=== PATIENT | male | born 1965 | race Caucasian/White ===

== ENCOUNTER 2021-01-31 15:00 | Inpatient (IN) ==
[2021-01-31] MEDS ORDERED: dexAMETHasone**PF** 10 MG/ML VIAL IV ONE (15:07)
[2021-01-31] MEDS ORDERED: SODIUM CHLORIDE 0.9% 1000ML 1,000 ML IV ONE (15:07)
--- NOTE | 2021-01-31 15:12 | Emergency Department Note ---
Impression & Plan Pneumonia due to 2019 novel coronavirus, Hypoxia ED Provider Note NAME: CARLOS ABRAMS JR AGE: 55 SEX: M : 1965 ARRIVES VIA: Ambulance INFORMANT: Patient ED PROVIDER(S): Amari Beth DO CHIEF COMPLAINT: shortness of breath HPI: Patient is a 55-year-old male that presents the ER for shortness of breath. Symptoms started this past Sunday. He admits to cough and congestion. He does have shortness of breath. He admits to loss of taste and smell. Both his parents are positive for Covid. Shortness of breath has been getting worse. Denies any belly pain, nausea, vomiting, or diarrhea. No dysuria, urgency, or frequency. No other exacerbating or remitting factors. He has not vaccinated. ROS: See above HPI for pertinent positives & negatives. A total of 10 systems reviewed and were otherwise negative. PAST MEDICAL HISTORY:See Below PAST SURGICAL HISTORY:See Below FAMILY HISTORY:See Below SOCIAL HISTORY:See Below HOME MEDICATIONS:See Below ALLERGIES:See Below VITALS:See Below PHYSICAL EXAMINATION: GENERAL: Sitting up in bed, alert, disheveled, slightly ill-appearing on nasal cannula EYE EXAM: normal conjunctiva. PERRL and EOM's grossly intact. OROPHARYNX: Dry mucous membranes NECK: supple, no nuchal rigidity, no adenopathy, non-tender LUNGS: Clear to auscultation. Normal chest wall mechanics HEART: no murmurs, S1 normal and S2 normal ABDOMEN: abdomen soft, non-tender, normo-active bowel sounds, no masses, no rebound or guarding. UPPER EXTREMITIES: upper extremities are grossly normal. LOWER EXTREMITIES: No pitting edema. NEURO EXAM: Normal sensorium, cranial nerves II-XII grossly intact, normal speech, no gross weakness of arms, no gross weakness of legs. MEDICAL DECISION MAKING: Patient is a 55-year-old male who presents ER for shortness of breath. IV was established blood was obtained. Patient was found to be hypoxic and placed on 3 L. He was 87 to 86% on room air. Labs show no significant leukocytosis or anemia. BMP with LFTs bilirubin was unremarkable. Troponin was negative. Lipase is unremarkable. Patient was Covid positive. Chest x-ray was read as normal per radiology but per my review showed multifocal pneumonia. CT is consistent with this. Patient was given Decadron and fluids. He was updated bedside discussed with the hospitalist admitted for further work-up of his Covid pneumonia and hypoxia. Triage Nursing notes reviewed. Limited review of prior medical records performed Vital Signs: reviewed and remarkable for hypoxic Differential diagnosis: Differential diagnoses includes but is not limited to pneumonia, bronchitis, COPD/Asthma exacerbation, pneumothorax, pulmonary embolism, congestive heart failure, acute coronary syndrome ER treatment provided: See below Diagnostics interpreted by me: ECG: Sinus rhythm rate of 93 Normal axis No PVCs Poor baseline QTC 440 Cardiac Monitoring: An order was placed for continuous cardiac monitoring. The monitor shows a rate of 90 with sinus rhythm. Laboratory studies: As stated above and show below. Imaging studies: Portable AP upright 1 view the chest shows multifocal pneumonia CT angio of the chest shows bilateral infiltrates without PEs Consultation(s): D/w with the hospitalist for further evaluation Procedures: none Critical Care: I have personally spent 33 minutes of critical care time in the direct manageme nt of this patient. This includes bedside care, interpretation of diagnostic studies, and testing, discussion with consultants, patient, and family members, and other required patient management activities. This 33 minutes is in excess of all separately billable procedures. Allergies Allergies Allergy/AdvReac Type Severity Reaction Status Date / Time Penicillins AdvReac Hives Unverified 01/31/21 15:33 Home Meds Home Medications Medication Instructions Recorded Confirmed ascorbic acid (vitamin C) 1,000 mg 1 g PO DAILY 01/31/21 01/31/21 tablet (Vitamin C) atorvastatin 20 mg tablet 20 mg PO DAILY 01/31/21 01/31/21 baclofen 10 mg tablet 10 mg PO DAILY PRN 01/31/21 01/31/21 citalopram 20 mg tablet 20 mg PO DAILY 01/31/21 01/31/21 metoprolol tartrate 25 mg tablet 75 mg PO BID 01/31/21 01/31/21 pantoprazole 40 mg tablet,delayed 40 mg PO DAILY 01/31/21 01/31/21 release zinc 50 mg tablet 0 mg PO DAILY 01/31/21 01/31/21 Results & Data (ED) Vital Signs Vital Signs - 24 hr 01/31/21 15:19 01/31/21 15:21 01/31/21 15:30 Temperature 37.1 C Temperature Source Oral Pulse Rate 91 H 90 90 Pulse Rate from SpO2 Sensor 91 H 90 Respiratory Rate 42 H 42 H 49 H Respiratory Depth Normal Blood Pressure 130/82 140/88 Blood Pressure Mean 98 105 Pulse Oximetry 96 96 95 Oxygen Delivery Method Nasal Cannula Oxygen Flow Rate 3 Sepsis Recent Fever Within 48 Hours Yes Sepsis New/Unexplained Change in Mental Status No Sepsis Action Taken by Nursing No Action Required 01/31/21 16:00 Temperature Temperature Source Pulse Rate 91 H Pulse Rate from SpO2 Sensor 91 H Respiratory Rate 45 H Respiratory Depth Blood Pressure 131/79 Blood Pressure Mean 96 Pulse Oximetry 95 Oxygen Delivery Method Oxygen Flow Rate Sepsis Recent Fever Within 48 Hours Sepsis New/Unexplained Change in Mental Status Sepsis Action Taken by Nursing Laboratory Data Result diagrams: 01/31/21 15:17 01/31/21 15:17 Lab Results 01/31/21 01/31/21 01/31/21 Range/Units 15:17 15:17 15:49 WBC 5.11 (4.8-10.8) K/uL RBC 5.95 (4.7-6.1) M/uL Hgb 15.9 (14.0-18.0) g/dL Hct 47.6 (42-52) % MCV 80.0 (80-100) fL MCH 26.7 (25-34) pg MCHC 33.4 (32-36) g/dL RDW Std Deviation 45.1 (36.4-46.3) fL RDW Coeff of Eleazar 15.5 H (11.5-14.5) % Plt Count 139 (130-400) K/uL MPV 9.4 (7.4-10.4) fL Immature Gran % (Auto) 0.2 % Neut % (Auto) 66.9 % Lymph % (Auto) 23.7 % Keith % (Auto) 8.8 % Eos % (Auto) 0.0 % Baso % (Auto) 0.4 % Neut # (Auto) 3.42 (1.4-6.5) K/uL Lymph # (Auto) 1.21 (1.2-3.4) K/uL Keith # (Auto) 0.45 (0.11-0.59) K/uL Eos # (Auto) 0.00 (0-0.5) K/uL Baso # (Auto) 0.02 (0-0.2) K/uL Immature Gran # (Auto) 0.01 (0.00-0.02) K/uL Sodium 134 L (136-145) mmol/L Potassium 3.7 (3.5-5.1) mmol/L Chloride 101 (98-107) mmol/L Carbon Dioxide 24 (21-32) mmol/L Anion Gap 9.0 (3-11) BUN 16 (7-18) mg/dl Creatinine 1.16 (0.6-1.4) mg/dl Est Cr Clr Drug Dosing Not Reportable Est GFR ( Amer) 81.1 ml/min Est GFR (Non-Af Amer) 70.0 ml/min BUN/Creatinine Ratio 13.6 (10-20) Glucose 123 H (70-99) mg/dl Calcium 8.7 (8.5-10.1) mg/dl Total Bilirubin 0.9 (0.2-1) mg/dl AST 58 H (15-37) U/L ALT 54 (12-78) Alkaline Phosphatase 43 L (45-117) U/L Troponin I < 0.015 (0-0.045) ng/ml Total Protein 7.6 (6.4-8.2) gm/dl Albumin 3.5 (3.4-5.0) gm/dl Globulin 4.1 H (2.5-4.0) gm/dl Albumin/Globulin Ratio 0.9 (0.9-2) Lipase 438 H (73-393) U/L SARS-CoV-2 (PCR) POSITIVE A* (Negative) Influenza Type A (PCR) Negative (Neg) Influenza Type B (PCR) Negative (Neg) RSV (RT-PCR) Negative (Neg) Administered Medications Discontinued Medications Dexamethasone Sodium Phosphate (DexamethasonePf 10 Mg/Ml Vial) 6 mg IV NOW ONE Stop: 01/31/21 15:08 Last Admin: 01/31/21 15:41 Dose: 6 mg Documented by: [id number] Sodium Chloride (Nss 1000ml) 1,000 mls @ 999 mls/hr IV .Q1H1M ONE Stop: 01/31/21 16:07 Last Admin: 01/31/21 15:21 Dose: 999 mls/hr Documented by: [id number] Ioversol (Optiray 320 125ml) 120 ml IV ONCE ONE Stop: 01/31/21 16:38 Last Admin: 12/13/21 16:38 Dose: 120 ml Documented by: [id number] Imaging Data Radiologist's Impression: Chest X-Ray 01/31/21 15:08 XR chest 1V portable CLINICAL HISTORY: Atypical chest pain TECHNIQUE: Single frontal radiograph of the chest was obtained. Comparison: None available at the time of this dictation. FINDINGS: No lines and tubes are seen. The cardiomediastinal silhouette is normal. Lungs are underinflated but clear. No evidence of pleural effusion or pneumothorax. IMPRESSION: No acute chest disease. ACT 112: Negative or not required by law. Electronically signed by: Carlos Lorenzo M.D. 01/31/2021 4:17 PM Chest CTA 01/31/21 16:20 CT angio chest PE protocol CLINICAL HISTORY: ? covid hypoxia TECHNIQUE: Multidetector row helical CT of the chest was performed. Coronal and sagittal reformations were obtained. Automated dose lowering techniques and/or adjustment according to patient size were utilized for this exam. Comparison: None available at the time of this dictation. FINDINGS: Lungs and pleura: Multifocal groundglass opacities are seen. Heart and pericardium: Heart size is normal. No pericardial effusion. Vessels: No evidence of pulmonary embolism. Mediastinum and karma: Enlarged mediastinal and hilar lymph nodes are seen measuring up to 1 cm in short axis. Chest wall and lower neck: Unremarkable. Abdomen: Unremarkable. Bones: Degenerative changes in the thoracic spine. IMPRESSION: Multifocal groundglass opacities are compatible with history of Covid pneumonia. No evidence of pulmonary embolism. ACT 112: Negative or not required by law. Electronically signed by: Carlos Lorenzo M.D. 01/31/2021 4:55 PM Discharge Plan Visit Data Chief Complaint: Illness ED Provider: Amari Beth Discharge Problem: Pneumonia due to 2019 novel coronavirus, Hypoxia Forms Stand Alone Forms: My [facility] Prescriptions Prescriptions: No Action ascorbic acid (vitamin C) [Vitamin C] 1,000 mg Tablet 1 g PO DAILY RF: 0 atorvastatin 20 mg tablet 20 mg PO DAILY RF: 0 citalopram 20 mg tablet 20 mg PO DAILY RF: 0 baclofen 10 mg tablet 10 mg PO DAILY PRN (Reason: Muscle Spasm) RF: 0 pantoprazole 40 mg tablet,delayed release (DR/EC) 40 mg PO DAILY RF: 0 zinc 50 mg Tablet 0 mg PO DAILY RF: 0 metoprolol tartrate 25 mg tablet 75 mg PO BID RF: 0 Referrals Referrals: Hiren Maradiaga [Non-Staff] -
[2021-01-31 15:47] LABS: Basophils # (auto) 0.02 K/uL (0-0.2); Basophils % (auto) 0.4 %; Hematocrit (blood only) 47.6 % (42-52); Hemoglobin 15.9 g/dL (14.0-18.0); Immature Granulocytes # (auto) 0.01 K/uL (0.00-0.02); Immature Granulocytes % (auto) 0.2 %; Lymphocytes # (auto) 1.21 K/uL (1.2-3.4); Lymphocytes % (auto) 23.7 %; Mean Corpuscular Hemoglobin 26.7 pg (25-34); Mean Corpuscular Hgb Conc 33.4 g/dL (32-36); Mean Platelet Volume 9.4 fL (7.4-10.4); Monocytes # (auto) 0.45 K/uL (0.11-0.59); Monocytes % (auto) 8.8 %; Neutrophils # (auto) 3.42 K/uL (1.4-6.5); Neutrophils % (auto) 66.9 %; Platelet Count 139 K/uL (130-400); RDW Coefficient of Variation 15.5 % (11.5-14.5); RDW Standard Deviation 45.1 fL (36.4-46.3); Red Blood Count 5.95 M/uL (4.7-6.1); White Blood Count 5.11 K/uL (4.8-10.8)
[2021-01-31 16:11] LABS: Alanine Aminotransferase 54 (12-78); Albumin Level 3.5 gm/dl (3.4-5.0); Aspartate Aminotransferase 58 U/L (15-37); BUN Creatinine Ratio 13.6 (10-20); Blood Urea Nitrogen 16 mg/dl (7-18); Calcium 8.7 mg/dl (8.5-10.1); Carbon Dioxide 24 mmol/L (21-32); Chloride 101 mmol/L (98-107); Est GFR (African American) 81.1 ml/min; Glucose 123 mg/dl (70-99); Lipase 438 U/L (73-393); Potassium 3.7 mmol/L (3.5-5.1); Sodium 134 mmol/L (136-145)
[2021-01-31 16:16] LABS: Albumin Globulin Ratio 0.9 (0.9-2); Alkaline Phosphatase 43 U/L (45-117); Bilirubin,Total 0.9 mg/dl (0.2-1); Globulin 4.1 gm/dl (2.5-4.0); Total Protein 7.6 gm/dl (6.4-8.2); Troponin I < 0.015 ng/ml (0-0.045)
--- NOTE | 2021-01-31 16:18 | XRay Report ---
XR chest 1V portable CLINICAL HISTORY: Atypical chest pain TECHNIQUE: Single frontal radiograph of the chest was obtained. Comparison: None available at the time of this dictation. FINDINGS: No lines and tubes are seen. The cardiomediastinal silhouette is normal. Lungs are underinflated but clear. No evidence of pleural effusion or pneumothorax. IMPRESSION: No acute chest disease. ACT 112: Negative or not required by law. Electronically signed by: Carlos Lorenzo M.D. 01/31/2021 4:17 PM
[2021-01-31] MEDS ORDERED: OPTIRAY 320 125ml IV ONE (16:37)
[2021-01-31 16:51] LABS: Influenza A virus by PCR Negative (Neg); Influenza B virus by PCR Negative (Neg); RSV by PCR Negative (Neg)
--- NOTE | 2021-01-31 16:57 | CT Scan Report ---
CT angio chest PE protocol CLINICAL HISTORY: ? covid hypoxia TECHNIQUE: Multidetector row helical CT of the chest was performed. Coronal and sagittal reformations were obtained. Automated dose lowering techniques and/or adjustment according to patient size were u tilized for this exam. Comparison: None available at the time of this dictation. FINDINGS: Lungs and pleura: Multifocal groundglass opacities are seen. Heart and pericardium: Heart size is normal. No pericardial effusion. Vessels: No evidence of pulmonary embolism. Mediastinum and karma: Enlarged mediastinal and hilar lymph nodes are seen measuring up to 1 cm in emanuel rt axis. Chest wall and lower neck: Unremarkable. Abdomen: Unremarkable. Bones: Degenerative changes in the thoracic spine. IMPRESSION: Multifocal groundglass opacities are compatible with history of Covid pneumonia. No evidence of pulmo nary embolism. ACT 112: Negative or not required by law. Electronically signed by: Carlos Lorenzo M.D. 01/31/2021 4:55 PM
[2021-01-31 16:58] LABS: SARS CoV2 RNA(COVID-19) InHosp POSITIVE (Negative)
[2021-01-31] MEDS ORDERED: ACETAMINOPHEN 325 MG TAB PO PRN (18:20)
[2021-01-31] MEDS ORDERED: BACLOFEN 10 MG TAB PO PRN (18:26)
[2021-01-31] MEDS ORDERED: ENOXAPARIN 0.5 MG/KG SQ SCH (18:30)
[2021-01-31] MEDS ORDERED: REMDESIVIR 200 MG in SODIUM CHLORIDE 0.9% 210 ML IV STA (18:31)
--- NOTE | 2021-01-31 19:14 | History & Physical Report ---
Date of Service January 31, 2021 Assessment & Plan (1) Pneumonia due to 2019 novel coronavirus: Plan: Patient admited with hypoxia. COVID positive for [address] on dexamethasone. Questionable to limited benefit for remdesevir. Will initiate for now. place on DVT prophylaxis and monitor. (2) Hypertension: Plan: resume home meds (3) Dyslipidemia: Plan: cont. statin History of Present Illness Chief Complaint: SOB Primary Care Provider: Omar Damon 55yo male reports having symptoms for 10 days. Initally it began with generalized weakness, fatigue, loss of taste and smell. But this advanced to SOB over the past 2-3 days. Patient was not improving which prompted him to come to the hospital. Patient reports that he got sick from his parents whom were positive for COVID 19. Past Medical History: Hypertension, Dyslipidemia No significant Past Surgical History Allergies Allergy/AdvReac Type Severity Reaction Status Date / Time Penicillins AdvReac Hives Unverified 01/31/21 15:33 Home Medications Medication Instructions Recorded Confirmed Type ascorbic acid (vitamin C) 1,000 mg 1 g PO DAILY 01/31/21 01/31/21 History tablet (Vitamin C) atorvastatin 20 mg tablet 20 mg PO DAILY 01/31/21 01/31/21 History baclofen 10 mg tablet 10 mg PO DAILY PRN 01/31/21 01/31/21 History citalopram 20 mg tablet 20 mg PO DAILY 01/31/21 01/31/21 History metoprolol tartrate 25 mg tablet 75 mg PO BID 01/31/21 01/31/21 History pantoprazole 40 mg tablet,delayed 40 mg PO DAILY 01/31/21 01/31/21 History release zinc 50 mg tablet 0 mg PO DAILY 01/31/21 01/31/21 History Review of Systems Constitutional: no fever and no sweats Eyes: no blind spots Ear, Nose, Mouth, Throat: no ear pain Respiratory: + cough and + dyspnea Cardiovascular: no chest pain Gastrointestinal: no abdominal pain and no bloating Genitourinary: no dysuria Musculoskeletal: no back pain Integumentary: no acne Neurologic: no gait abnormality Psychiatric: no behavioral changes Endocrine: + fatigue Hematologic / Lymphatic: no easy bleeding Physical Exam Constitutional: WD/WN, vitals as above Eyes: PERRL, conjunctivae normal, anicteric sclerae ENMT: external ear and nose normal, oropharynx normal Neck: trachea midline, no thyromegaly Respiratory: normal respiratory effort Auscultation: + crackles Cardiovascular: RRR, no murmur, no edema Gastrointestinal (Abdomen): normal bowel sounds, soft, nontender, no hepatosplenomegaly Musculoskeletal: no cyanosis or clubbing, extremities motor strength 5/5 Skin: no rashes, warm and dry Neurologic: PERRL, EOMI, accommodation nl, no face palsy, no dysarthria Psychiatric: A+Ox3, euthymic affect Lymphatic: no cervical or axillary lymphadenopathy Results & Data Results & Data ([facility]) Vital Signs (Past 12 Hours) Vital Signs Temp Pulse Resp BP Pulse Ox 01/31/21 16:00 91 H 45 H 131/79 95 01/31/21 15:30 90 49 H 140/88 95 01/31/21 15:21 37.1 C 90 42 H 130/82 96 01/31/21 15:19 91 H 42 H 96 PG Care Time/CCT Total # of Minutes Spent Total Time Spent with Patient: Total time spent is greater than 50% in coordination of care (as documented) at patient's floor/unit and/or counseling patient: Coding Level of Care Code 02900 Initial Inpt Care Lvl 3 Diagnoses Pneumonia due to 2019 novel coronavirus U07.1; J12.82 Hypertension I10 Dyslipidemia E78.5
[2021-01-31] MEDS: SODIUM CHLORIDE 0.9% 10ML FLUSH IV SCH (21:56)
[2021-02-01] MEDS: METOPROLOL TARTRATE 25 MG TAB PO SCH ×3 (01:36→21:52)
[2021-02-01] MEDS: ENOXAPARIN 80 MG/0.8 ML SYR SQ SCH ×3 (01:36→21:52)
[2021-02-01 06:15] LABS: BUN Creatinine Ratio 18.1 (10-20); Bilirubin Direct 0.2 mg/dl (0-0.2); Calcium 8.6 mg/dl (8.5-10.1); Creatinine Clr Calc Pharmacy 126.9 ml/min; Est GFR (African American) 110.3 ml/min; Est GFR (Non-African American) 95.1 ml/min; Potassium 3.8 mmol/L (3.5-5.1)
[2021-02-01 06:18] LABS: Albumin Globulin Ratio 0.8 (0.9-2); Bilirubin,Total 0.6 mg/dl (0.2-1); C Reactive Protein 5.75 mg/dl (0-0.29); Globulin 3.8 gm/dl (2.5-4.0); Total Protein 6.8 gm/dl (6.4-8.2)
[2021-02-01] MEDS: CITALOPRAM 20 MG TAB PO SCH (09:39)
[2021-02-01] MEDS: PANTOprazole 40 MG TAB PO SCH (09:39)
[2021-02-01] MEDS: ATORVASTATIN 20 MG TAB PO SCH (09:40)
[2021-02-01] MEDS: ASCORBIC ACID 500 MG TAB PO SCH (09:40)
[2021-02-01] MEDS: dexAMETHasone 6 MG in SYRINGE 0 ML IV SCH (09:41)
[2021-02-01] MEDS: ASPIRIN 81 MG ECTAB PO SCH (09:41)
[2021-02-01] MEDS: guaiFENesin 600 MG TABCR PO SCH ×2 (10:18→21:57)
--- NOTE | 2021-02-01 16:38 | Electrocardiogram Report ---
Test Reason : Blood Pressure : / mmHG Vent. Rate : 093 BPM Atrial Rate : 093 BPM P-R Int : 156 ms QRS Dur : 100 ms QT Int : 354 ms P-R-T Axes : 012 -14 017 degrees QTc Int : 440 ms Poor data quality, interpretation may be adversely affected Normal sinus rhythm Normal ECG No previous ECGs available Confirmed by Francis Awan ([id number]) on 02/01/2021 4:38:19 PM Referred By: Omar Damon Confirmed By:Francis Awan
--- NOTE | 2021-02-01 19:48 | Hospitalist Progress Note ---
Date of Service February 01, 2021 Assessment & Plan (1) Pneumonia due to 2019 novel coronavirus: Plan: Patient with mod-severe disease with high risk for progression. Continue wall-mounted HF NC; likely to need vapotherm at some point. Consider BIPAP at HS. Low threshold to check a blood gas if any worsening. Day #2 of dexamethasone. Day #2 of Remdesivir. Recheck crp, procal in am. Discussed proning, flutter valve, incentive spirometry. Lovenox BID for DVT proph. (2) Acute respiratory failure with hypoxia: Plan: 2nd to #1. No evidence of PE on CTA chest yesterday. (3) Hypertension: Plan: Continue metoprolol BID. (4) Dyslipidemia: Plan: LFTs largely acceptable. Continue lipitor. (5) Morbid obesity with BMI of 40.0-44.9, adult: Plan: BMI 40 (6) History of stroke: Plan: Noted. Cont asa 81mg daily for secondary prevention. (7) Acquired left foot drop: Plan: 2nd to prior stroke. (8) Elevated AST (SGOT): Plan: Likely due to COVID infection. Recheck AST and ALT in am. Check a CPK to be complete. (9) DVT prophylaxis: Plan: lovenox BID; reduce dose from 70mg to 40mg BID Plan: pt's father updated by phone this evening Admission and Anticipated Discharge Date Admission Date: January 31, 2021 Subjective patient was awake/alert during the visit he was laying on the ER gurney in his ER room apparently he had taken his O2 off to walk to the bathroom sats dropped to the low 70s with such during my visit he was satting 89-90% on 10 L of NC O2 I increased him to 12 L with sats improving to about 92% he denies any h/o chronic lung disease he reports both his mom/dad have COVID; he lives with his parents he reports LOBO with minimal activity, dry cough, chest tightness no abd pain, vomiting appetite fair no fevers Review of Systems Review of Systems: gen - no fevers/chills, weak, fatigue HENT - no loss of taste/smell CV - no chest pain pulm - dyspnea GI - no abd pain Physical Exam Physical Exam: gen - obese, mild tachypnea; with minimal movement on the bed he has even more tachypnea mouth - MM dry neck - no JVD heart - RRR, s1 s2, no murmurs lungs - bibasilar rales, no wheeze, tachypnea abd - soft NT ND BS+ ext - no edema, pulses 2+ b/l skin - no rash Results & Data Results & Data ([facility]) Vital Signs (Past 12 Hours) Vital Signs Temp Pulse Resp BP Pulse Ox 02/01/21 18:33 78 20 97 02/01/21 17:37 36.5 C 24 158/83 H 90 02/01/21 16:00 20 124/84 92 02/01/21 12:00 80 20 91 02/01/21 09:36 36.4 C L 78 24 114/75 90 Laboratory Results Laboratory Results - last 24 hr 02/01/21 05:27 Sodium 136 Potassium 3.8 Chloride 105 Carbon Dioxide 26 Anion Gap 5.0 BUN 16 Creatinine 0.90 Est Cr Clr Drug Dosing 126.9 Est GFR ( Amer) 110.3 Est GFR (Non-Af Amer) 95.1 BUN/Creatinine Ratio 18.1 Glucose 139 H Calcium 8.6 Total Bilirubin 0.6 Direct Bilirubin 0.2 AST 61 H ALT 59 Alkaline Phosphatase 38 L C-Reactive Protein 5.75 H Total Protein 6.8 Albumin 3.0 L Globulin 3.8 Albumin/Globulin Ratio 0.8 L Lipase 401 H PG Care Time/CCT Total # of Minutes Spent Total Time Spent with Patient: Total time spent is greater than 50% in coordination of care (as documented) at patient's floor/unit and/or counseling patient: Coding Level of Care Code 28473 Subseq Hosp Care Lvl 3 Diagnoses Pneumonia due to 2019 novel coronavirus U07.1; J12.82 Hypertension I10 Dyslipidemia E78.5 Acute respiratory failure with hypoxia J96.01 Morbid obesity with BMI of 40.0-44.9, adult E66.01; Z68.41 History of stroke Z86.73 Acquired left foot drop M21.372 DVT prophylaxis Z29.9 Elevated AST (SGOT) R74.01
[2021-02-01] MEDS: REMDESIVIR 100 MG in SODIUM CHLORIDE 0.9% 230 ML IV SCH (19:52)
[2021-02-01] MEDS: SODIUM CHLORIDE 0.9% 10ML FLUSH IV SCH (21:03)
[2021-02-02 07:26] LABS: Hematocrit (blood only) 45.5 % (42-52); Hemoglobin 14.8 g/dL (14.0-18.0); Mean Corpuscular Hemoglobin 26.3 pg (25-34); Mean Corpuscular Hgb Conc 32.5 g/dL (32-36); Mean Corpuscular Volume 80.8 fL (80-100); Mean Platelet Volume 9.9 fL (7.4-10.4); Platelet Count 175 K/uL (130-400); RDW Coefficient of Variation 15.5 % (11.5-14.5); RDW Standard Deviation 45.8 fL (36.4-46.3); Red Blood Count 5.63 M/uL (4.7-6.1); White Blood Count 8.75 K/uL (4.8-10.8)
[2021-02-02] MEDS: ASCORBIC ACID 500 MG TAB PO SCH (07:36)
[2021-02-02] MEDS: ASPIRIN 81 MG ECTAB PO SCH (07:36)
[2021-02-02] MEDS: ENOXAPARIN INJ 40 MG/0.4 ML SYR SQ SCH ×2 (07:36→21:47)
[2021-02-02] MEDS: dexAMETHasone 6 MG in SYRINGE 0 ML IV SCH (07:36)
[2021-02-02] MEDS: guaiFENesin 600 MG TABCR PO SCH ×2 (07:37→21:47)
[2021-02-02] MEDS: ATORVASTATIN 20 MG TAB PO SCH (07:37)
[2021-02-02] MEDS: CITALOPRAM 20 MG TAB PO SCH (07:37)
[2021-02-02] MEDS: PANTOprazole 40 MG TAB PO SCH (07:38)
[2021-02-02] MEDS: METOPROLOL TARTRATE 25 MG TAB PO SCH ×2 (07:38→22:20)
[2021-02-02 08:01] LABS: BUN Creatinine Ratio 26.7 (10-20); C Reactive Protein 2.4 mg/dl (0-0.29); Calcium 8.6 mg/dl (8.5-10.1); Creatinine Clr Calc Pharmacy 128.5 ml/min; Est GFR (African American) 114.6 ml/min; Est GFR (Non-African American) 98.9 ml/min; Potassium 3.9 mmol/L (3.5-5.1)
[2021-02-02] MEDS: REMDESIVIR 100 MG in SODIUM CHLORIDE 0.9% 230 ML IV SCH (19:45)
--- NOTE | 2021-02-02 20:25 | Hospitalist Progress Note ---
Date of Service February 02, 2021 Assessment & Plan (1) Pneumonia due to 2019 novel coronavirus: Plan: Patient with mod-severe disease with high risk for progression. Continue HFNC during the day; CPAP at HS. Low threshold to check a blood gas if any worsening. Day #3 of dexamethasone. Day #3 of Remdesivir. CRP remains <7.5; thus, not a candidate for Baricitinib. Procal 0 today; defer on abx. Cont proning or at least side positioning, flutter valve, incentive spirometry. Lovenox BID for DVT proph. (2) Acute respiratory failure with hypoxia: Plan: 2nd to #1. No evidence of PE on CTA chest at admission. (3) Hypertension: Plan: Continue metoprolol -- 50mg qam, 25mg HS. (4) Dyslipidemia: Plan: LFTs largely acceptable. Continue lipitor. (5) Morbid obesity with BMI of 40.0-44.9, adult: (6) History of stroke: Plan: Noted. Cont asa 81mg daily for secondary prevention. (7) Acquired left foot drop: Plan: 2nd to prior stroke. (8) Elevated AST (SGOT): Plan: Likely due to COVID infection. Repeat LFTs acceptable CPK neg. (9) DVT prophylaxis: Plan: lovenox 40mg BID Plan: pt's father updated by phone once again this evening Admission and Anticipated Discharge Date Admission Date: January 31, 2021 Subjective patient feeling "ok" did use CPAP overnight back to HFNC during the day with walking he gets winded quickly o2 sats stable if the HF is on; when the prongs come out he quickly desats mild cough appetite improved has lost his taste; smell slightly impaired Review of Systems Review of Systems: gen - fatigue, weak CV - no orthopnea or chest pain pulm - no sputum GI - no N/V/abd pain; having some diarrhea Physical Exam Physical Exam: gen - obese, mild tachypnea but he is comfortable today mouth - MMM neck - no JVD heart - RRR, s1 s2, no murmurs lungs - bibasilar rales unchanged, no wheeze, tachypnea abd - soft NT ND BS+ ext - no edema, pulses 2+ b/l skin - no rash Results & Data Results & Data ([facility]) Vital Signs (Past 12 Hours) Vital Signs Temp Pulse Resp BP Pulse Ox 12/15/21 19:13 36.5 C 79 20 159/77 H 91 02/02/21 14:58 90 17 91 02/02/21 12:00 36.5 C 90 18 116/77 90 02/02/21 11:30 92 H 22 93 Laboratory Results Laboratory Results - last 24 hr 02/02/21 02/02/21 02/02/21 06:24 06:24 06:24 WBC 8.75 RBC 5.63 Hgb 14.8 Hct 45.5 MCV 80.8 MCH 26.3 MCHC 32.5 RDW Std Deviation 45.8 RDW Coeff of Eleazar 15.5 H Plt Count 175 MPV 9.9 Sodium 142 Potassium 3.9 Chloride 108 H Carbon Dioxide 25 Anion Gap 8.0 BUN 22 H Creatinine 0.82 Est Cr Clr Drug Dosing 128.5 Est GFR ( Amer) 114.6 Est GFR (Non-Af Amer) 98.9 BUN/Creatinine Ratio 26.7 H Glucose 132 H Calcium 8.6 AST 63 H ALT 66 Total Creatine Kinase 293 C-Reactive Protein 2.40 H Procalcitonin < 0.05 PG Care Time/CCT Total # of Minutes Spent Total Time Spent with Patient: Total time spent is greater than 50% in coordination of care (as documented) at patient's floor/unit and/or counseling patient: Coding Level of Care Code 96050 Subseq Hosp Care Lvl 2 Diagnoses Pneumonia due to 2019 novel coronavirus U07.1; J12.82 Acute respiratory failure with hypoxia J96.01 Hypertension I10 Dyslipidemia E78.5 Morbid obesity with BMI of 40.0-44.9, adult E66.01; Z68.41 History of stroke Z86.73 Acquired left foot drop M21.372 Elevated AST (SGOT) R74.01 DVT prophylaxis Z29.9
[2021-02-02] MEDS: SODIUM CHLORIDE 0.9% 10ML FLUSH IV SCH (21:43)
[2021-02-02] MEDS ORDERED: diphenhydrAMINE Capsule 25 MG CAP PO ONE (22:08)
[2021-02-03] MEDS: ASPIRIN 81 MG ECTAB PO SCH (07:54)
[2021-02-03] MEDS: PANTOprazole 40 MG TAB PO SCH (07:55)
[2021-02-03] MEDS: CITALOPRAM 20 MG TAB PO SCH (07:55)
[2021-02-03] MEDS: guaiFENesin 600 MG TABCR PO SCH ×2 (07:55→20:20)
[2021-02-03] MEDS: METOPROLOL TARTRATE 50 MG TAB PO SCH (07:56)
[2021-02-03] MEDS: ASCORBIC ACID 500 MG TAB PO SCH (07:56)
[2021-02-03] MEDS: ATORVASTATIN 20 MG TAB PO SCH (07:56)
[2021-02-03] MEDS: dexAMETHasone 6 MG in SYRINGE 0 ML IV SCH (07:56)
[2021-02-03 08:02] LABS: BUN Creatinine Ratio 28.6 (10-20); Calcium 8.6 mg/dl (8.5-10.1); Creatinine Clr Calc Pharmacy 135.8 ml/min; Est GFR (Non-African American) 100.9 ml/min
[2021-02-03] MEDS: ENOXAPARIN INJ 40 MG/0.4 ML SYR SQ SCH ×2 (08:22→20:20)
[2021-02-03] MEDS: REMDESIVIR 100 MG in SODIUM CHLORIDE 0.9% 230 ML IV SCH (20:15)
[2021-02-03] MEDS: METOPROLOL TARTRATE 25 MG TAB PO SCH (20:20)
[2021-02-03] MEDS: SODIUM CHLORIDE 0.9% 10ML FLUSH IV SCH (21:20)
--- NOTE | 2021-02-03 22:58 | Hospitalist Progress Note ---
Date of Service February 03, 2021 Assessment & Plan (1) Pneumonia due to 2019 novel coronavirus: Plan: Patient with mod-severe disease with high risk for progression. Continue HFNC during the day; CPAP at HS. Low threshold to check a blood gas if any worsening. Day #4 of dexamethasone. Day #4 of Remdesivir. CRP remains <7.5; thus, not a candidate for Baricitinib. Procal has been 0; defer on abx. Cont proning or at least side positioning, flutter valve, incentive spirometry. Lovenox BID for DVT proph. Consider diuresis. Repeat cxr with any further worsening. (2) Acute respiratory failure with hypoxia: Plan: 2nd to #1. No evidence of PE on CTA chest at admission. see #1 above. (3) Hypertension: Plan: Continue metoprolol -- 50mg qam, 25mg HS. (4) Dyslipidemia: Plan: LFTs largely acceptable. Continue lipitor. (5) Morbid obesity with BMI of 40.0-44.9, adult: Plan: BMI 40 (6) History of stroke: Plan: Noted. Cont asa 81mg daily for secondary prevention. (7) Acquired left foot drop: Plan: 2nd to prior stroke. (8) Elevated AST (SGOT): Plan: Likely due to COVID infection. Repeat LFTs acceptable CPK neg. (9) DVT prophylaxis: Plan: lovenox 40mg BID Plan: pt's father updated by phone yesterday evening cont supportive care - recovery will be long based on current FIO2 requirements Admission and Anticipated Discharge Date Admission Date: January 31, 2021 Subjective pt was sitting at the side of the bed when I came into his room he was satting 80% on HFNC - 30L, 50% FiO2 his waveform was perfect I increased him to 60% FiO2 without improvement in sats I asked him to lay down on his side - and increased his FiO2 to 70% - sats came up to low 90s he had SEVERE dyspnea with simply moving 3-4 feet in the bed eating well despite the above using the CPAP at night-time no cp or abd pain Review of Systems Review of Systems: gen - no fevers CV - no orthopnea pulm - cough, dyspnea remain - no improvement GI - no abd pain/N/V Physical Exam Physical Exam: gen - obese, tachypnea with retractions when he went from sitting to laying down mouth - MMM neck - no JVD heart - RRR, s1 s2, no murmurs lungs - bibasilar rales unchanged, no wheeze, tachypnea w/ retractions; decreased BS bases abd - soft NT ND BS+ ext - no edema, pulses 2+ b/l skin - no rash neuro - mild dysarthria - this is baseline for him, no worse than previous Results & Data Results & Data ([facility]) Vital Signs (Past 12 Hours) Vital Signs Temp Pulse Pulse Resp BP Pulse Ox 02/03/21 20:07 36.7 C 71 22 121/69 93 02/03/21 19:48 64 24 93 02/03/21 15:57 82 20 89 L 02/03/21 15:43 72 02/03/21 14:52 37 C 73 17 96/57 L 94 02/03/21 11:16 36.7 C 71 18 91/53 L 93 Laboratory Results Laboratory Results - last 24 hr 02/03/21 06:22 Sodium 141 Potassium 4.0 Chloride 109 H Carbon Dioxide 27 Anion Gap 5.0 BUN 22 H Creatinine 0.78 Est Cr Clr Drug Dosing 135.8 Est GFR ( Amer) 117.0 Est GFR (Non-Af Amer) 100.9 BUN/Creatinine Ratio 28.6 H Glucose 130 H Calcium 8.6 AST 58 H ALT 88 H PG Care Time/CCT Total # of Minutes Spent Total Time Spent with Patient: Total time spent is greater than 50% in coordination of care (as documented) at patient's floor/unit and/or counseling patient: Coding Level of Care Code 15148 Subseq Hosp Care Lvl 2 Diagnoses Pneumonia due to 2019 novel coronavirus U07.1; J12.82 Acute respiratory failure with hypoxia J96.01 Hypertension I10 Dyslipidemia E78.5 Morbid obesity with BMI of 40.0-44.9, adult E66.01; Z68.41 History of stroke Z86.73 Acquired left foot drop M21.372 Elevated AST (SGOT) R74.01 DVT prophylaxis Z29.9
[2021-02-03] MEDS ORDERED: diphenhydrAMINE Capsule 25 MG CAP PO ONE (23:12)
[2021-02-04 07:03] LABS: BUN Creatinine Ratio 27.9 (10-20); Calcium 8.4 mg/dl (8.5-10.1); Creatinine Clr Calc Pharmacy 155.2 ml/min; Est GFR (African American) 120.2 ml/min; Est GFR (Non-African American) 103.7 ml/min; Potassium 3.9 mmol/L (3.5-5.1)
[2021-02-04 07:15] LABS: Hematocrit (blood only) 42.6 % (42-52); Hemoglobin 13.8 g/dL (14.0-18.0); Mean Corpuscular Hemoglobin 26.3 pg (25-34); Mean Corpuscular Hgb Conc 32.4 g/dL (32-36); Mean Corpuscular Volume 81.3 fL (80-100); Mean Platelet Volume 9.8 fL (7.4-10.4); Platelet Count 223 K/uL (130-400); RDW Coefficient of Variation 15.4 % (11.5-14.5); RDW Standard Deviation 45.8 fL (36.4-46.3); Red Blood Count 5.24 M/uL (4.7-6.1); White Blood Count 9.39 K/uL (4.8-10.8)
[2021-02-04] MEDS: ASCORBIC ACID 500 MG TAB PO SCH (07:58)
[2021-02-04] MEDS: guaiFENesin 600 MG TABCR PO SCH ×2 (07:58→21:11)
[2021-02-04] MEDS: ASPIRIN 81 MG ECTAB PO SCH (07:58)
[2021-02-04] MEDS: CITALOPRAM 20 MG TAB PO SCH (07:58)
[2021-02-04] MEDS: PANTOprazole 40 MG TAB PO SCH (07:59)
[2021-02-04] MEDS: ENOXAPARIN INJ 40 MG/0.4 ML SYR SQ SCH ×2 (07:59→21:11)
[2021-02-04] MEDS: METOPROLOL TARTRATE 50 MG TAB PO SCH (07:59)
[2021-02-04] MEDS: dexAMETHasone 6 MG in SYRINGE 0 ML IV SCH (08:03)
[2021-02-04] MEDS: ATORVASTATIN 20 MG TAB PO SCH (08:03)
[2021-02-04] MEDS ORDERED: FUROSEMIDE INJ 20 MG/2 ML VIAL IV ONE (08:17)
[2021-02-04] MEDS ORDERED: POTASSIUM CHLORIDE CRTAB 20 MEQ TABCR PO STA (08:17)
[2021-02-04] MEDS ORDERED: MAGNESIUM OXIDE 400 MG TAB PO ONE (08:18)
--- NOTE | 2021-02-04 13:40 | XRay Report ---
XR chest 1V portable CLINICAL HISTORY: covid, worsening hypoxia TECHNIQUE: Single frontal radiograph of the chest was obtained. Comparison: Comparison is made to chest one view 01/31/2021 FINDINGS: No lines and tubes are seen. The cardiomediastinal silhouette is normal. Lungs are underinflated. The re are multifocal bilateral airspace opacities. No evidence of pleural effusion or pneumothorax. IMPRESSION: Worsening multifocal airspace opacities compatible with history of viral pneumonia. ACT 112: Negative or not required by law. Electronically signed by: Carlos Lorenzo M.D. 02/04/2021 1:39 PM
--- NOTE | 2021-02-04 16:10 | Hospitalist Progress Note ---
Date of Service February 04, 2021 Assessment & Plan (1) Hemoptysis: Plan: Small volume at this point, but this needs to be watched very carefully. Will place order to have patient place all sputum in a cup so we can quantitate it. This could be due to bronchial irritation vs parenchymal disease. Doubt PE - no pleuritic pain, and recent CTA neg for such. Prior to his illness never had hemoptysis thus endobronchial lesion unlikely. Pulmonary hemorrhage is unlikely as it is small volume. In light of worsening resp failure and escalating O2 requirements -- will tx from med-tele to PCU. (2) Pneumonia due to 2019 novel coronavirus: Plan: Worse clinically and radiographically (cxr today with worsening infiltrates) with increasing high-flow requirements. Also with #1 above. Continue HFNC during the day; CPAP at HS. Low threshold to check a blood gas if any worsening. Day #5 of dexamethasone. Day #5 of Remdesivir. CRP remains <7.5; thus, not a candidate for Baricitinib. Due to worsening disease, however, will recheck crp and procal in am. Cont proning or at least side positioning, flutter valve, incentive spirometry. Lovenox BID for DVT proph. If hemoptysis worsens will need to hold. Lasix 20mg IV x 1 to keep I/O balance negative. (3) Acute respiratory failure with hypoxia: Plan: 2nd to #1. Worse, with escalating O2 requirements. No evidence of PE on CTA chest at admission. Tx to PCU. (4) Hypertension: Plan: Continue metoprolol -- 50mg qam, 25mg HS. (5) Dyslipidemia: Plan: LFTs largely acceptable. Continue lipitor. (6) Morbid obesity with BMI of 40.0-44.9, adult: Plan: BMI 40 (7) History of stroke: Plan: Noted. Cont asa 81mg daily for secondary prevention (cautiously in light of #1). (8) Acquired left foot drop: Plan: 2nd to prior stroke. (9) Elevated AST (SGOT): Plan: Likely due to COVID infection. Repeat ast/alt mildly high but acceptable. Recent CPK neg. (10) DVT prophylaxis: Plan: lovenox 40mg BID Plan: pt's father updated by phone tonight Admission and Anticipated Discharge Date Admission Date: January 31, 2021 Subjective when I walked into the room the patient was sitting at the side of the bed the respiratory therapist was present O2 needed to be increased because of desats while sitting upright he was coughing, then coughed up about 2 tablespoons of bloody sputum he states he has had this at least 1 other time recently no dyspnea at rest - but has dyspnea on exertion with minimal activity (Just moving in the bed) denies cp denies anorexia no fever had copious UOP with lasix 20mg IV x 1 this am Review of Systems Review of Systems: gen - no fevers, no chills CV - no chest pain, no orthopnea pulm - no wheezing GI - no N/V/D/abd pain Physical Exam Physical Exam: gen - obese, tachypnea similar to yesterday mouth - MMM neck - no JVD heart - RRR, s1 s2, no murmurs lungs - bibasilar rales 1/2 [address] up back, no wheeze, tachypnea abd - soft NT ND BS+ ext - no edema, pulses 2+ b/l neuro - mild dysarthria - this is baseline Results & Data Results & Data ([facility]) Vital Signs (Past 12 Hours) Vital Signs Temp Pulse Pulse Resp BP Pulse Ox 02/04/21 15:33 36.7 C 56 L 18 126/74 95 02/04/21 11:28 69 02/04/21 11:24 86 20 94 02/04/21 11:04 36.7 C 72 18 103/58 L 90 02/04/21 07:45 90 24 91 02/04/21 07:23 36.6 C 69 17 112/68 99 Laboratory Results Laboratory Results - last 24 hr 02/04/21 02/04/21 06:15 06:15 WBC 9.39 RBC 5.24 Hgb 13.8 L Hct 42.6 MCV 81.3 MCH 26.3 MCHC 32.4 RDW Std Deviation 45.8 RDW Coeff of Eleazar 15.4 H Plt Count 223 MPV 9.8 Sodium 137 Potassium 3.9 Chloride 108 H Carbon Dioxide 27 Anion Gap 2.0 L BUN 20 H Creatinine 0.73 Est Cr Clr Drug Dosing 155.2 Est GFR ( Amer) 120.2 Est GFR (Non-Af Amer) 103.7 BUN/Creatinine Ratio 27.9 H Glucose 117 H Calcium 8.4 L AST 79 H ALT 129 H PG Care Time/CCT Total # of Minutes Spent Total Time Spent with Patient: Total time spent is greater than 50% in coordination of care (as documented) at patient's floor/unit and/or counseling patient: Coding Level of Care Code 45678 Subseq Hosp Care Lvl 3 Diagnoses Pneumonia due to 2019 novel coronavirus U07.1; J12.82 Acute respiratory failure with hypoxia J96.01 Hypertension I10 Dyslipidemia E78.5 Morbid obesity with BMI of 40.0-44.9, adult E66.01; Z68.41 History of stroke Z86.73 Acquired left foot drop M21.372 Elevated AST (SGOT) R74.01 DVT prophylaxis Z29.9 Hemoptysis R04.2
[2021-02-04] MEDS: REMDESIVIR 100 MG in SODIUM CHLORIDE 0.9% 230 ML IV SCH (21:10)
[2021-02-04] MEDS: METOPROLOL TARTRATE 25 MG TAB PO SCH (21:11)
[2021-02-04] MEDS: SODIUM CHLORIDE 0.9% 10ML FLUSH IV SCH (22:10)
[2021-02-05 06:03] LABS: Hematocrit (blood only) 45.7 % (42-52); Hemoglobin 14.9 g/dL (14.0-18.0); Mean Corpuscular Hemoglobin 26.5 pg (25-34); Mean Corpuscular Hgb Conc 32.6 g/dL (32-36); Mean Corpuscular Volume 81.2 fL (80-100); Mean Platelet Volume 9.7 fL (7.4-10.4); Platelet Count 247 K/uL (130-400); RDW Coefficient of Variation 15.1 % (11.5-14.5); RDW Standard Deviation 44.7 fL (36.4-46.3); Red Blood Count 5.63 M/uL (4.7-6.1); White Blood Count 10.42 K/uL (4.8-10.8)
[2021-02-05 06:28] LABS: BUN Creatinine Ratio 26.3 (10-20); C Reactive Protein 0.67 mg/dl (0-0.29); Calcium 8.9 mg/dl (8.5-10.1); Creatinine Clr Calc Pharmacy 133.3 ml/min; Est GFR (African American) 112.9 ml/min; Est GFR (Non-African American) 97.4 ml/min; Potassium 4.2 mmol/L (3.5-5.1)
[2021-02-05 08:00] LABS: D Dimer 550 ug/L FEU (0-500)
[2021-02-05] MEDS: ATORVASTATIN 20 MG TAB PO SCH (08:10)
[2021-02-05] MEDS: ASCORBIC ACID 500 MG TAB PO SCH (08:10)
[2021-02-05] MEDS: ENOXAPARIN INJ 40 MG/0.4 ML SYR SQ SCH ×2 (08:11→20:49)
[2021-02-05] MEDS: METOPROLOL TARTRATE 50 MG TAB PO SCH (08:11)
[2021-02-05] MEDS: PANTOprazole 40 MG TAB PO SCH (08:11)
[2021-02-05] MEDS: ASPIRIN 81 MG ECTAB PO SCH (08:11)
[2021-02-05] MEDS: CITALOPRAM 20 MG TAB PO SCH (08:11)
[2021-02-05] MEDS: guaiFENesin 600 MG TABCR PO SCH ×2 (08:11→20:50)
[2021-02-05] MEDS: dexAMETHasone 6 MG in SYRINGE 0 ML IV SCH (08:12)
--- NOTE | 2021-02-05 09:07 | Hospitalist Progress Note ---
Date of Service February 05, 2021 Assessment & Plan (1) Hemoptysis: Plan: Small volume at this point, not increasing, no complaints today likely from bronchial irritation Doubt PE - no pleuritic pain, and recent CTA neg for such. (2) Pneumonia due to 2019 novel coronavirus: Plan: Worse clinically and radiographically (cxr today with worsening infiltrates) with increasing high-flow requirements. Also with #1 above. Continue HFNC during the day; CPAP at HS. Low threshold to check a blood gas if any worsening. Day #6 of dexamethasone. continue Lasix 20mg IV daily, Cr is stable completed Remdesivir. CRP is < 1 not a candidate for Baricitinib. procalcitonin is normal, no suspicion for bacterial pneumonia told him to prone, he is laying on right side, flutter valve, incentive spirometry. Lovenox BID for DVT proph. (3) Acute respiratory failure with hypoxia: Plan: 2nd to #1. Worse, with escalating O2 requirements, up to 40L 70% today No evidence of PE on CTA chest at admission. (4) Hypertension: Plan: Continue metoprolol -- 50mg qam, 25mg HS. BP and HR stable (5) Dyslipidemia: Plan: LFTs largely acceptable. Continue lipitor. (6) Morbid obesity with BMI of 40.0-44.9, adult: Plan: BMI 40 (7) History of stroke: Plan: Noted. Cont asa 81mg daily for secondary prevention (cautiously in light of #1). (8) Acquired left foot drop: Plan: 2nd to prior stroke. (9) Elevated AST (SGOT): Plan: Likely due to COVID infection. Repeat ast/alt mildly high but acceptable. Recent CPK neg. (10) DVT prophylaxis: Plan: lovenox 40mg BID Plan: continue current course Admission and Anticipated Discharge Date Admission Date: January 31, 2021 Subjective reviewed chart and lab work patient laying on his right side, appears comfortable, says he is breathing fine slept well, says he was on HFNC, not BIPAP last night eating okay, making urine with Lasix, no fever/chills no major issues overnight labs this morning, CRP is < 1, procalcitonin normal, d dimer 550, Cr stable encouraged him to be patient Review of Systems Review of Systems: All systems reviewed & are unremarkable except as noted in Subjective Constitutional: no fever, no chills, no fatigue and no weakness Respiratory: + cough, + dyspnea and + dyspnea on exertion; no hemoptysis Cardiovascular: no chest pain and no edema Physical Exam Physical Exam: General: well developed, well nourished, morbidly obese, ill appearing Neck: thick, supple, trachea midline, normal thyroid Lungs: clear to auscultation bilaterally, good air movement, tachypnea, + accessory muscle use (slight), no distress Heart: regular S1 and S2, no murmur, peripheral pulses normal, capillary refill normal, no edema Abdomen: soft, NT, ND, + BS, no hepatomegaly, normal to percussion Extremities: normal in appearance, no cyanosis, no petechiae, strength is 5/5 bilaterally Neuro: awake, cooperative, moves all extremities, no focal motor deficits, CN II-XII intact, sensation in extremities intact, normal speech Skin: warm, dry, no rash, normal turgor Psych: Awake, alert oriented x 3, euthymic affect Results & Data Results & Data ([facility]) Vital Signs (Past 12 Hours) Vital Signs Temp Pulse Pulse Resp BP BP Pulse Ox 02/05/21 07:23 64 24 82 L 02/05/21 07:13 36.9 C 66 28 H 103/59 L 89 L 02/05/21 05:42 64 02/05/21 04:10 36.9 C 67 22 109/76 95 02/05/21 02:31 61 23 93 02/04/21 23:27 36.9 C 63 20 105/55 L 96 02/04/21 23:00 69 24 94 02/04/21 21:45 67 Laboratory Results Laboratory Results - last 24 hr 02/04/21 02/05/21 02/05/21 20:34 05:29 05:29 WBC 10.42 RBC 5.63 Hgb 14.9 Hct 45.7 MCV 81.2 MCH 26.5 MCHC 32.6 RDW Std Deviation 44.7 RDW Coeff of Eleazar 15.1 H Plt Count 247 MPV 9.7 D-Dimer Sodium 138 Potassium 4.2 Chloride 104 Carbon Dioxide 29 Anion Gap 5.0 BUN 22 H Creatinine 0.85 Est Cr Clr Drug Dosing 133.3 Est GFR ( Amer) 112.9 Est GFR (Non-Af Amer) 97.4 BUN/Creatinine Ratio 26.3 H Glucose 114 H POC Glucose 138 H Calcium 8.9 AST 61 H ALT 148 H C-Reactive Protein 0.67 H Procalcitonin 02/05/21 02/05/21 02/05/21 05:29 05:29 07:54 WBC RBC Hgb Hct MCV MCH MCHC RDW Std Deviation RDW Coeff of Eleazar Plt Count MPV D-Dimer 550 H* Sodium Potassium Chloride Carbon Dioxide Anion Gap BUN Creatinine Est Cr Clr Drug Dosing Est GFR ( Amer) Est GFR (Non-Af Amer) BUN/Creatinine Ratio Glucose POC Glucose 99 Calcium AST ALT C-Reactive Protein Procalcitonin < 0.05 Medications Administered Current Inpatient Medications Acetaminophen (Acetaminophen 325 Mg Tab) 650 mg PO Q4H PRN PRN Reason: Pain or Fever Stop: 03/02/21 18:19 Ascorbic Acid (Ascorbic Acid 500 Mg Tab) 1,000 mg PO DAILY [facility] Stop: 03/03/21 08:59 Last Admin: 02/05/21 08:10 Dose: 1,000 mg Documented by: Aspirin (Aspirin 81 Mg Ectab) 81 mg PO QAM [facility] Stop: 03/03/21 08:59 Last Admin: 02/05/21 08:11 Dose: 81 mg Documented by: Atorvastatin Calcium (Atorvastatin 20 Mg Tab) 20 mg PO DAILY [facility] Stop: 03/03/21 08:59 Last Admin: 02/05/21 08:10 Dose: 20 mg Documented by: Citalopram Hydrobromide (Citalopram 20 Mg Tab) 20 mg PO DAILY [facility] Stop: 03/03/21 08:59 Last Admin: 02/05/21 08:11 Dose: 20 mg Documented by: Enoxaparin Sodium (Enoxaparin Inj 40 Mg/0.4 Ml Syr) 40 mg SQ Q12H [facility] Stop: 03/04/21 08:59 Last Admin: 02/05/21 08:11 Dose: 40 mg Documented by: Guaifenesin (Guaifenesin 600 Mg Tabcr) 1,200 mg PO Q12 [facility] Stop: 03/03/21 08:59 Last Admin: 02/05/21 08:11 Dose: 1,200 mg Documented by: Dexamethasone 6 mg/ Syringe 1.5 mls @ 1 mls/min IV DAILY [facility] Stop: 02/11/21 08:59 Last Admin: 02/05/21 08:12 Dose: 1 mls/min Documented by: Metoprolol Tartrate (Metoprolol Tartrate 50 Mg Tab) 50 mg PO QAM [facility] Stop: 03/05/21 08:59 Last Admin: 02/05/21 08:11 Dose: 50 mg Documented by: Metoprolol Tartrate (Metoprolol Tartrate 25 Mg Tab) 25 mg PO HS [facility] Stop: 03/05/21 20:59 Last Admin: 02/04/21 21:11 Dose: 25 mg Documented by: Pantoprazole Sodium (Pantoprazole 40 Mg Tab) 40 mg PO DAILY [facility] Stop: 03/03/21 08:59 Last Admin: 02/05/21 08:11 Dose: 40 mg Documented by: PG Care Time/CCT Total # of Minutes Spent Total Time Spent: 32 Total Time Spent with Patient: Total time spent is greater than 50% in coordination of care (as documented) at patient's floor/unit and/or counseling patient: Coding Level of Care Code 79356 Subseq Hosp Care Lvl 3 Diagnoses Hemoptysis R04.2 Pneumonia due to 2019 novel coronavirus U07.1; J12.82 Acute respiratory failure with hypoxia J96.01 Hypertension I10 Dyslipidemia E78.5 Morbid obesity with BMI of 40.0-44.9, adult E66.01; Z68.41 History of stroke Z86.73 Acquired left foot drop M21.372 Elevated AST (SGOT) R74.01 DVT prophylaxis Z29.9
[2021-02-05] MEDS: METOPROLOL TARTRATE 25 MG TAB PO SCH (20:50)
[2021-02-06] MEDS: dexAMETHasone 6 MG in SYRINGE 0 ML IV SCH (07:44)
[2021-02-06] MEDS: ASPIRIN 81 MG ECTAB PO SCH (07:45)
[2021-02-06] MEDS: ASCORBIC ACID 500 MG TAB PO SCH (07:45)
[2021-02-06] MEDS: ATORVASTATIN 20 MG TAB PO SCH (07:45)
[2021-02-06] MEDS: METOPROLOL TARTRATE 50 MG TAB PO SCH (07:45)
[2021-02-06] MEDS: guaiFENesin 600 MG TABCR PO SCH ×2 (07:45→20:50)
[2021-02-06] MEDS: PANTOprazole 40 MG TAB PO SCH (07:46)
[2021-02-06] MEDS: CITALOPRAM 20 MG TAB PO SCH (07:46)
[2021-02-06] MEDS: ENOXAPARIN INJ 40 MG/0.4 ML SYR SQ SCH ×2 (07:46→20:50)
--- NOTE | 2021-02-06 09:31 | Hospitalist Progress Note ---
Date of Service February 06, 2021 Assessment & Plan (1) Pneumonia due to 2019 novel coronavirus: Plan: Worse clinically and radiographically (cxr today with worsening infiltrates) with increasing high-flow requirements. Also with #1 above. currently on 45L and 75% try to titrate down as tolerated he is compliant with laying on right side and prone position continue CPAP HS, when on CPAP he is pressure of 10, FiO2 50% Day #7 of dexamethasone. continue Lasix 20mg IV daily, Cr is stable completed Remdesivir. CRP is < 1 not a candidate for Baricitinib. procalcitonin is normal, no suspicion for bacterial pneumonia Lovenox BID for DVT proph. (2) Acute respiratory failure with hypoxia: Plan: 2nd to #1. slightly worse, up to 45L and 80% continue to be prone as much as possible No evidence of PE on CTA chest at admission. (3) Hemoptysis: Plan: Small volume at this point, not increasing likely from bronchial irritation Doubt PE - no pleuritic pain, and recent CTA neg for such. (4) Hypertension: Plan: Continue metoprolol -- 50mg qam, 25mg HS. BP and HR stable (5) Dyslipidemia: Plan: LFTs largely acceptable. Continue lipitor. (6) Morbid obesity with BMI of 40.0-44.9, adult: Plan: BMI 40 (7) History of stroke: Plan: Noted. Cont asa 81mg daily for secondary prevention (cautiously in light of #1). (8) Acquired left foot drop: Plan: 2nd to prior stroke. (9) Elevated AST (SGOT): Plan: Likely due to COVID infection. Repeat ast/alt mildly high but acceptable. Recent CPK neg. (10) DVT prophylaxis: Plan: lovenox 40mg BID Plan: continue current course Admission and Anticipated Discharge Date Admission Date: January 31, 2021 Subjective patient doing well, OOB to chair, no distress he ate a banana and pancake for breakfast, "not much of a breakfast person" his last BM was 2 days ago he is making a lot of urine with Lasix in the morning no fever/chills, minimal cough, no hemoptysis he slept with CPAP last night, encouraged him to do that every night want him to lay prone again during the day Review of Systems Review of Systems: All systems reviewed & are unremarkable except as noted in Subjective Respiratory: + cough, + dyspnea and + dyspnea on exertion; no hemoptysis and no sputum production Physical Exam Physical Exam: General: well developed, well nourished, morbidly obese, ill appearing Neck: thick, supple, trachea midline, normal thyroid Lungs: clear to auscultation bilaterally, good air movement but limited inspiratory capacity, tachypnea, + accessory muscle use (slight), no distress Heart: regular S1 and S2, no murmur, peripheral pulses normal, capillary refill normal, no edema Abdomen: soft, NT, ND, + BS, no hepatomegaly, normal to percussion Extremities: normal in appearance, no cyanosis, no petechiae, strength is 5/5 bilaterally Neuro: awake, cooperative, moves all extremities, no focal motor deficits, CN II-XII intact, sensation in extremities intact, normal speech Skin: warm, dry, no rash, normal turgor Psych: Awake, alert oriented x 3, euthymic affect Results & Data Results & Data ([facility]) Vital Signs (Past 12 Hours) Vital Signs Temp Pulse Pulse Resp BP Pulse Ox 02/06/21 08:31 73 22 93 02/06/21 07:08 36.3 C L 65 23 120/67 92 02/06/21 04:31 36.4 C L 59 L 26 H 106/57 L 95 02/06/21 02:30 63 33 H 94 02/06/21 00:00 67 02/05/21 23:35 62 20 91 02/05/21 22:33 36.7 C 70 24 116/46 L 92 Laboratory Results Laboratory Results - last 24 hr 02/05/21 12:03 POC Glucose 155 H Medications Administered Current Inpatient Medications Acetaminophen (Acetaminophen 325 Mg Tab) 650 mg PO Q4H PRN PRN Reason: Pain or Fever Stop: 03/02/21 18:19 Ascorbic Acid (Ascorbic Acid 500 Mg Tab) 1,000 mg PO DAILY [facility] Stop: 03/03/21 08:59 Last Admin: 02/06/21 07:45 Dose: 1,000 mg Documented by: Aspirin (Aspirin 81 Mg Ectab) 81 mg PO QAM [facility] Stop: 03/03/21 08:59 Last Admin: 02/06/21 07:45 Dose: 81 mg Documented by: Atorvastatin Calcium (Atorvastatin 20 Mg Tab) 20 mg PO DAILY [facility] Stop: 03/03/21 08:59 Last Admin: 02/06/21 07:45 Dose: 20 mg Documented by: Citalopram Hydrobromide (Citalopram 20 Mg Tab) 20 mg PO DAILY [facility] Stop: 03/03/21 08:59 Last Admin: 02/06/21 07:46 Dose: 20 mg Documented by: Enoxaparin Sodium (Enoxaparin Inj 40 Mg/0.4 Ml Syr) 40 mg SQ Q12H [facility] Stop: 03/04/21 08:59 Last Admin: 02/06/21 07:46 Dose: 40 mg Documented by: Guaifenesin (Guaifenesin 600 Mg Tabcr) 1,200 mg PO Q12 [facility] Stop: 03/03/21 08:59 Last Admin: 02/06/21 07:45 Dose: 1,200 mg Documented by: Dexamethasone 6 mg/ Syringe 1.5 mls @ 1 mls/min IV DAILY [facility] Stop: 02/11/21 08:59 Last Admin: 02/06/21 07:44 Dose: 1 mls/min Documented by: Metoprolol Tartrate (Metoprolol Tartrate 50 Mg Tab) 50 mg PO QAM [facility] Stop: 03/05/21 08:59 Last Admin: 02/06/21 07:45 Dose: 50 mg Documented by: Metoprolol Tartrate (Metoprolol Tartrate 25 Mg Tab) 25 mg PO HS [facility] Stop: 03/05/21 20:59 Last Admin: 02/05/21 20:50 Dose: 25 mg Documented by: Pantoprazole Sodium (Pantoprazole 40 Mg Tab) 40 mg PO DAILY [facility] Stop: 03/03/21 08:59 Last Admin: 02/06/21 07:46 Dose: 40 mg Documented by: PG Care Time/CCT Total # of Minutes Spent Total Time Spent: 32 Total Time Spent with Patient: Total time spent is greater than 50% in coordination of care (as documented) at patient's floor/unit and/or counseling patient: Coding Level of Care Code 56932 Subseq Hosp Care Lvl 3 Diagnoses Hemoptysis R04.2 Pneumonia due to 2019 novel coronavirus U07.1; J12.82 Acute respiratory failure with hypoxia J96.01 Hypertension I10 Dyslipidemia E78.5 Morbid obesity with BMI of 40.0-44.9, adult E66.01; Z68.41 History of stroke Z86.73 Acquired left foot drop M21.372 Elevated AST (SGOT) R74.01 DVT prophylaxis Z29.9
[2021-02-06] MEDS: METOPROLOL TARTRATE 25 MG TAB PO SCH (20:50)
[2021-02-07 06:41] LABS: Hematocrit (blood only) 47.2 % (42-52); Hemoglobin 15.6 g/dL (14.0-18.0); Mean Corpuscular Hemoglobin 26.8 pg (25-34); Mean Corpuscular Hgb Conc 33.1 g/dL (32-36); Mean Platelet Volume 9.2 fL (7.4-10.4); Platelet Count 319 K/uL (130-400); RDW Coefficient of Variation 15.2 % (11.5-14.5); RDW Standard Deviation 44.8 fL (36.4-46.3); Red Blood Count 5.83 M/uL (4.7-6.1); White Blood Count 17.62 K/uL (4.8-10.8)
[2021-02-07 07:00] LABS: Creatinine Clr Calc Pharmacy 136.9 ml/min; Est GFR (African American) 114.6 ml/min; Est GFR (Non-African American) 98.9 ml/min
[2021-02-07] MEDS: dexAMETHasone 6 MG in SYRINGE 0 ML IV SCH (08:26)
[2021-02-07] MEDS: ATORVASTATIN 20 MG TAB PO SCH (08:27)
[2021-02-07] MEDS: CITALOPRAM 20 MG TAB PO SCH (08:27)
[2021-02-07] MEDS: METOPROLOL TARTRATE 50 MG TAB PO SCH (08:27)
[2021-02-07] MEDS: ASCORBIC ACID 500 MG TAB PO SCH (08:27)
[2021-02-07] MEDS: guaiFENesin 600 MG TABCR PO SCH ×2 (08:27→20:06)
[2021-02-07] MEDS: ASPIRIN 81 MG ECTAB PO SCH (08:27)
[2021-02-07] MEDS: ENOXAPARIN INJ 40 MG/0.4 ML SYR SQ SCH ×2 (08:27→20:06)
[2021-02-07] MEDS: PANTOprazole 40 MG TAB PO SCH (08:27)
[2021-02-07] MEDS ORDERED: FUROSEMIDE INJ 20 MG/2 ML VIAL IV ONE (09:41)
--- NOTE | 2021-02-07 09:41 | Hospitalist Progress Note ---
Date of Service February 07, 2021 Assessment & Plan (1) Pneumonia due to 2019 novel coronavirus: Plan: Worse clinically and radiographically (cxr today with worsening infiltrates) with increasing high-flow requirements. Also with #1 above. currently on 50L and 55% try to titrate down as tolerated he is compliant with laying on right side and prone position continue CPAP HS, when on CPAP he is pressure of 10, FiO2 50% Day #8 of dexamethasone. continue Lasix 20mg IV daily, Cr is stable completed Remdesivir. CRP is < 1 not a candidate for Baricitinib. procalcitonin is normal, no suspicion for bacterial pneumonia Lovenox BID for DVT proph. (2) Acute respiratory failure with hypoxia: Plan: 2nd to #1. slightly worse, up to 50L and but down to 55% continue to be prone as much as possible No evidence of PE on CTA chest at admission. (3) Hemoptysis: Plan: Small volume at this point, not increasing likely from bronchial irritation Doubt PE - no pleuritic pain, and recent CTA neg for such. (4) Hypertension: Plan: Continue metoprolol -- 50mg qam, 25mg HS. BP and HR stable (5) Dyslipidemia: Plan: LFTs largely acceptable. Continue lipitor. (6) Morbid obesity with BMI of 40.0-44.9, adult: Plan: BMI 40 (7) History of stroke: Plan: Noted. Cont asa 81mg daily for secondary prevention (cautiously in light of #1). (8) Acquired left foot drop: Plan: 2nd to prior stroke. (9) Elevated AST (SGOT): Plan: Likely due to COVID infection. Repeat ast/alt mildly high but acceptable. Recent CPK neg. (10) DVT prophylaxis: Plan: lovenox 40mg BID Plan: continue current course Admission and Anticipated Discharge Date Admission Date: January 31, 2021 Subjective patient feeling the same as yesterday he is on 50L 55%, no distress BP was a little low this morning but now 103 systolic he denies any light headed symptoms eating well, had [place] toast this morning, drinking water no fever/chills he is compliant with CPAP at night Review of Systems Review of Systems: All systems reviewed & are unremarkable except as noted in Subjective Physical Exam Physical Exam: General: well developed, well nourished, morbidly obese, ill appearing Neck: thick, supple, trachea midline, normal thyroid Lungs: clear to auscultation bilaterally, good air movement but limited inspiratory capacity, tachypnea, + accessory muscle use (slight), no distress Heart: regular S1 and S2, no murmur, peripheral pulses normal, capillary refill normal, no edema Abdomen: soft, NT, ND, + BS, no hepatomegaly, normal to percussion Extremities: normal in appearance, no cyanosis, no petechiae, strength is 5/5 bilaterally Neuro: awake, cooperative, moves all extremities, no focal motor deficits, CN II-XII intact, sensation in extremities intact, normal speech Skin: warm, dry, no rash, normal turgor Psych: Awake, alert oriented x 3, euthymic affect Results & Data Results & Data ([facility]) Vital Signs (Past 12 Hours) Vital Signs Temp Pulse Pulse Resp BP BP Pulse Ox 02/07/21 08:32 66 103/76 91 02/07/21 07:58 36.5 C 67 10 L 89/55 L 90 02/07/21 07:34 64 24 86 L 02/07/21 04:16 37.1 C 62 28 H 94/52 L 91 02/07/21 03:05 64 26 H 90 02/07/21 00:00 70 25 H 88 L 02/06/21 23:24 37.4 C 65 24 115/54 L 90 02/06/21 22:47 73 28 H 89 L Laboratory Results Laboratory Results - last 24 hr 02/07/21 02/07/21 06:26 06:26 WBC 17.62 H RBC 5.83 Hgb 15.6 Hct 47.2 MCV 81.0 MCH 26.8 MCHC 33.1 RDW Std Deviation 44.8 RDW Coeff of Eleazar 15.2 H Plt Count 319 MPV 9.2 Creatinine 0.82 Est Cr Clr Drug Dosing 136.9 Est GFR ( Amer) 114.6 Est GFR (Non-Af Amer) 98.9 Medications Administered Current Inpatient Medications Acetaminophen (Acetaminophen 325 Mg Tab) 650 mg PO Q4H PRN PRN Reason: Pain or Fever Stop: 03/02/21 18:19 Ascorbic Acid (Ascorbic Acid 500 Mg Tab) 1,000 mg PO DAILY [facility] Stop: 03/03/21 08:59 Last Admin: 02/07/21 08:27 Dose: 1,000 mg Documented by: Aspirin (Aspirin 81 Mg Ectab) 81 mg PO QAM [facility] Stop: 03/03/21 08:59 Last Admin: 02/07/21 08:27 Dose: 81 mg Documented by: Atorvastatin Calcium (Atorvastatin 20 Mg Tab) 20 mg PO DAILY [facility] Stop: 03/03/21 08:59 Last Admin: 02/07/21 08:27 Dose: 20 mg Documented by: Citalopram Hydrobromide (Citalopram 20 Mg Tab) 20 mg PO DAILY [facility] Stop: 03/03/21 08:59 Last Admin: 02/07/21 08:27 Dose: 20 mg Documented by: Enoxaparin Sodium (Enoxaparin Inj 40 Mg/0.4 Ml Syr) 40 mg SQ Q12H [facility] Stop: 03/04/21 08:59 Last Admin: 02/07/21 08:27 Dose: 40 mg Documented by: Guaifenesin (Guaifenesin 600 Mg Tabcr) 1,200 mg PO Q12 [facility] Stop: 03/03/21 08:59 Last Admin: 02/07/21 08:27 Dose: 1,200 mg Documented by: Dexamethasone 6 mg/ Syringe 1.5 mls @ 1 mls/min IV DAILY [facility] Stop: 02/11/21 08:59 Last Admin: 02/07/21 08:26 Dose: 1 mls/min Documented by: Metoprolol Tartrate (Metoprolol Tartrate 50 Mg Tab) 50 mg PO QAM [facility] Stop: 03/05/21 08:59 Last Admin: 02/07/21 08:27 Dose: 50 mg Documented by: Metoprolol Tartrate (Metoprolol Tartrate 25 Mg Tab) 25 mg PO HS [facility] Stop: 03/05/21 20:59 Last Admin: 02/06/21 20:50 Dose: 25 mg Documented by: Pantoprazole Sodium (Pantoprazole 40 Mg Tab) 40 mg PO DAILY [facility] Stop: 03/03/21 08:59 Last Admin: 02/07/21 08:27 Dose: 40 mg Documented by: PG Care Time/CCT Total # of Minutes Spent Total Time Spent with Patient: Total time spent is greater than 50% in coordination of care (as documented) at patient's floor/unit and/or counseling patient: Coding Level of Care Code 53054 Subseq Hosp Care Lvl 2 Diagnoses Pneumonia due to 2019 novel coronavirus U07.1; J12.82 Acute respiratory failure with hypoxia J96.01 Hemoptysis R04.2 Hypertension I10 Dyslipidemia E78.5 Morbid obesity with BMI of 40.0-44.9, adult E66.01; Z68.41 History of stroke Z86.73 Acquired left foot drop M21.372 Elevated AST (SGOT) R74.01 DVT prophylaxis Z29.9
[2021-02-07] MEDS: METOPROLOL TARTRATE 25 MG TAB PO SCH (20:06)
[2021-02-08] MEDS: ATORVASTATIN 20 MG TAB PO SCH (08:31)
[2021-02-08] MEDS: PANTOprazole 40 MG TAB PO SCH (08:31)
[2021-02-08] MEDS: guaiFENesin 600 MG TABCR PO SCH ×2 (08:31→21:10)
[2021-02-08] MEDS: dexAMETHasone 6 MG in SYRINGE 0 ML IV SCH (08:31)
[2021-02-08] MEDS: ASCORBIC ACID 500 MG TAB PO SCH (08:31)
[2021-02-08] MEDS: CITALOPRAM 20 MG TAB PO SCH (08:31)
[2021-02-08] MEDS: METOPROLOL TARTRATE 50 MG TAB PO SCH (08:31)
[2021-02-08] MEDS: ENOXAPARIN INJ 40 MG/0.4 ML SYR SQ SCH ×2 (08:32→21:10)
[2021-02-08] MEDS: ASPIRIN 81 MG ECTAB PO SCH (08:32)
--- NOTE | 2021-02-08 09:29 | Hospitalist Progress Note ---
Date of Service February 08, 2021 Assessment & Plan (1) Pneumonia due to 2019 novel coronavirus: Plan: Worse clinically and radiographically (cxr today with worsening infiltrates) with increasing high-flow requirements. Also with #1 above. currently on 45L and 75% try to titrate down as tolerated he is compliant with laying on right side and prone position continue CPAP HS, when on CPAP he is pressure of 10, FiO2 50% Day #9 of dexamethasone. continue Lasix 20mg IV daily, Cr is stable completed Remdesivir. CRP is < 1 not a candidate for Baricitinib and increasing dexamethasone would likely not help procalcitonin is normal, no suspicion for bacterial pneumonia Lovenox BID for DVT proph. (2) Acute respiratory failure with hypoxia: Plan: 2nd to #1. 45L and 75% today continue to be prone as much as possible No evidence of PE on CTA chest at admission. (3) Hemoptysis: Plan: Small volume at this point, not increasing likely from bronchial irritation Doubt PE - no pleuritic pain, and recent CTA neg for such. (4) Hypertension: Plan: Continue metoprolol -- 50mg qam, 25mg HS. BP and HR stable (5) Dyslipidemia: Plan: LFTs largely acceptable. Continue lipitor. (6) Morbid obesity with BMI of 40.0-44.9, adult: Plan: BMI 40 (7) History of stroke: Plan: Noted. Cont asa 81mg daily for secondary prevention (cautiously in light of #1). (8) Acquired left foot drop: Plan: 2nd to prior stroke. (9) Elevated AST (SGOT): Plan: Likely due to COVID infection. Repeat ast/alt mildly high but acceptable. Recent CPK neg. (10) DVT prophylaxis: Plan: lovenox 40mg BID Plan: continue current course Admission and Anticipated Discharge Date Admission Date: January 31, 2021 Subjective patient doing well, slept with CPAP, eating and drinking well laying on his right side, sitting up independently, strength is normal no respiratory distress on 45L and 75%, so down on flow but increased FiO2 no fever, mild cough he understands he still needs a lot of time to recover Review of Systems Review of Systems: All systems reviewed & are unremarkable except as noted in Subjective Respiratory: + cough, + dyspnea and + dyspnea on exertion Physical Exam Physical Exam: General: well developed, well nourished, morbidly obese, ill appearing Neck: thick, supple, trachea midline, normal thyroid Lungs: clear to auscultation bilaterally, good air movement but limited inspiratory capacity, tachypnea, + accessory muscle use (slight), no distress Heart: regular S1 and S2, no murmur, peripheral pulses normal, capillary refill normal, no edema Abdomen: soft, NT, ND, + BS, no hepatomegaly, normal to percussion Extremities: normal in appearance, no cyanosis, no petechiae, strength is 5/5 bilaterally Neuro: awake, cooperative, moves all extremities, no focal motor deficits, CN II-XII intact, sensation in extremities intact, normal speech Skin: warm, dry, no rash, normal turgor Psych: Awake, alert oriented x 3, euthymic affect Results & Data Results & Data ([facility]) Vital Signs (Past 12 Hours) Vital Signs Temp Pulse Pulse Resp BP Pulse Ox 02/08/21 07:49 20 89 L 02/08/21 07:43 76 02/08/21 07:24 36.5 C 68 20 94/57 L 92 02/08/21 03:35 36.7 C 70 23 93/54 L 91 02/08/21 03:30 66 24 91 02/08/21 01:01 65 24 95 02/07/21 22:03 36.6 C 73 24 123/79 90 Medications Administered Current Inpatient Medications Acetaminophen (Acetaminophen 325 Mg Tab) 650 mg PO Q4H PRN PRN Reason: Pain or Fever Stop: 03/02/21 18:19 Ascorbic Acid (Ascorbic Acid 500 Mg Tab) 1,000 mg PO DAILY [facility] Stop: 03/03/21 08:59 Last Admin: 02/08/21 08:31 Dose: 1,000 mg Documented by: Aspirin (Aspirin 81 Mg Ectab) 81 mg PO QAM [facility] Stop: 03/03/21 08:59 Last Admin: 02/08/21 08:32 Dose: 81 mg Documented by: Atorvastatin Calcium (Atorvastatin 20 Mg Tab) 20 mg PO DAILY [facility] Stop: 03/03/21 08:59 Last Admin: 02/08/21 08:31 Dose: 20 mg Documented by: Citalopram Hydrobromide (Citalopram 20 Mg Tab) 20 mg PO DAILY [facility] Stop: 03/03/21 08:59 Last Admin: 02/08/21 08:31 Dose: 20 mg Documented by: Enoxaparin Sodium (Enoxaparin Inj 40 Mg/0.4 Ml Syr) 40 mg SQ Q12H [facility] Stop: 03/04/21 08:59 Last Admin: 02/08/21 08:32 Dose: 40 mg Documented by: Guaifenesin (Guaifenesin 600 Mg Tabcr) 1,200 mg PO Q12 [facility] Stop: 03/03/21 08:59 Last Admin: 02/08/21 08:31 Dose: 1,200 mg Documented by: Dexamethasone 6 mg/ Syringe 1.5 mls @ 1 mls/min IV DAILY [facility] Stop: 02/11/21 08:59 Last Admin: 02/08/21 08:31 Dose: 1 mls/min Documented by: Metoprolol Tartrate (Metoprolol Tartrate 50 Mg Tab) 50 mg PO QAM [facility] Stop: 03/05/21 08:59 Last Admin: 02/08/21 08:31 Dose: 50 mg Documented by: Metoprolol Tartrate (Metoprolol Tartrate 25 Mg Tab) 25 mg PO HS [facility] Stop: 03/05/21 20:59 Last Admin: 02/07/21 20:06 Dose: 25 mg Documented by: Pantoprazole Sodium (Pantoprazole 40 Mg Tab) 40 mg PO DAILY [facility] Stop: 03/03/21 08:59 Last Admin: 02/08/21 08:31 Dose: 40 mg Documented by: PG Care Time/CCT Total # of Minutes Spent Total Time Spent with Patient: Total time spent is greater than 50% in coordination of care (as documented) at patient's floor/unit and/or counseling patient: Coding Level of Care Code 51793 Subseq Hosp Care Lvl 2 Diagnoses Pneumonia due to 2019 novel coronavirus U07.1; J12.82 Acute respiratory failure with hypoxia J96.01 Hemoptysis R04.2 Hypertension I10 Dyslipidemia E78.5 Morbid obesity with BMI of 40.0-44.9, adult E66.01; Z68.41 History of stroke Z86.73 Acquired left foot drop M21.372 Elevated AST (SGOT) R74.01 DVT prophylaxis Z29.9
[2021-02-08] MEDS: METOPROLOL TARTRATE 25 MG TAB PO SCH (21:10)
[2021-02-09 07:08] LABS: Basophils # (auto) 0.02 K/uL (0-0.2); Basophils % (auto) 0.1 %; Eosinophils # (auto) 0.17 K/uL (0-0.5); Hematocrit (blood only) 46.1 % (42-52); Hemoglobin 15.1 g/dL (14.0-18.0); Immature Granulocytes # (auto) 0.17 K/uL (0.00-0.02); Lymphocytes # (auto) 1.25 K/uL (1.2-3.4); Lymphocytes % (auto) 7.2 %; Mean Corpuscular Hemoglobin 26.3 pg (25-34); Mean Corpuscular Hgb Conc 32.8 g/dL (32-36); Mean Corpuscular Volume 80.2 fL (80-100); Mean Platelet Volume 9.2 fL (7.4-10.4); Monocytes # (auto) 1.84 K/uL (0.11-0.59); Monocytes % (auto) 10.5 %; Neutrophils # (auto) 14.03 K/uL (1.4-6.5); Neutrophils % (auto) 80.2 %; Platelet Count 305 K/uL (130-400); RDW Coefficient of Variation 15.2 % (11.5-14.5); RDW Standard Deviation 44.2 fL (36.4-46.3); Red Blood Count 5.75 M/uL (4.7-6.1); White Blood Count 17.48 K/uL (4.8-10.8)
[2021-02-09 07:50] LABS: Albumin Level 2.7 gm/dl (3.4-5.0); BUN Creatinine Ratio 26.8 (10-20); Calcium 8.7 mg/dl (8.5-10.1); Creatinine Clr Calc Pharmacy 129.1 ml/min; Est GFR (African American) 116.3 ml/min; Est GFR (Non-African American) 100.4 ml/min; Potassium 4.1 mmol/L (3.5-5.1)
[2021-02-09 07:52] LABS: Albumin Globulin Ratio 0.8 (0.9-2); Bilirubin,Total 0.7 mg/dl (0.2-1); C Reactive Protein 0.58 mg/dl (0-0.29); Globulin 3.6 gm/dl (2.5-4.0); Total Protein 6.3 gm/dl (6.4-8.2)
--- NOTE | 2021-02-09 08:19 | Hospitalist Progress Note ---
Date of Service February 09, 2021 Assessment & Plan (1) Pneumonia due to 2019 novel coronavirus: Plan: currently down to 40L and 65%, working to get to wall high flow WBC is 17k but procalcitonin is < 0.05 and no sputum, no fever CRP is < 1 he is compliant with laying on right side and prone position continue CPAP HS Day #10 of dexamethasone. continue Lasix 20mg IV daily, Cr is stable completed Remdesivir. CRP is < 1 not a candidate for Baricitinib and increasing dexamethasone would likely not help procalcitonin is normal, no suspicion for bacterial pneumonia Lovenox BID for DVT proph encouraged him to work with incentive spirometer and flutter valve (2) Acute respiratory failure with hypoxia: Plan: 2nd to #1. 40L and 65% today continue to be prone as much as possible, sitting up in chair during the day No evidence of PE on CTA chest at admission. repeat CXR today (3) Hemoptysis: Plan: Small volume at this point, not increasing, no longer a complaint likely from bronchial irritation Doubt PE - no pleuritic pain, and recent CTA neg for such. (4) Hypertension: Plan: Continue metoprolol -- 50mg qam, 25mg HS. BP and HR stable (5) Dyslipidemia: Plan: LFTs largely acceptable. Continue lipitor. (6) Morbid obesity with BMI of 40.0-44.9, adult: Plan: BMI 40 (7) History of stroke: Plan: Noted. Cont asa 81mg daily for secondary prevention (cautiously in light of #1). (8) Acquired left foot drop: Plan: 2nd to prior stroke. (9) Elevated AST (SGOT): Plan: Likely due to COVID infection. Repeat ast/alt mildly high but acceptable. Recent CPK neg. (10) DVT prophylaxis: Plan: lovenox 40mg BID Plan: continue current course Admission and Anticipated Discharge Date Admission Date: January 31, 2021 Subjective patient feels well, sitting up at the edge of the bed, eating eggs and barrera breathing well, has a slight cough but no sputum production at all no fever reviewed labs, WBC is 17k again with 80% PMN, procalcitonin is < 0.05 CRP is low at 0.5, Cr is 0.7, K 4.1 working to get off Vapotherm, he is getting closer at 40L 65% Review of Systems Review of Systems: All systems reviewed & are unremarkable except as noted in Subjective Constitutional: + fatigue and + weakness; no fever Respiratory: + cough, + dyspnea and + dyspnea on exertion; no sputum production Cardiovascular: no chest pain Gastrointestinal: no abdominal pain, no nausea, no vomiting, no constipation and no diarrhea/loose stools Physical Exam Physical Exam: General: well developed, well nourished, morbidly obese, comfortable Neck: thick, supple, trachea midline, normal thyroid Lungs: clear to auscultation bilaterally, good air movement but limited inspiratory capacity, tachypnea, + accessory muscle use (slight), no distress Heart: regular S1 and S2, no murmur, peripheral pulses normal, capillary refill normal, no edema Abdomen: soft, NT, ND, + BS, no hepatomegaly, normal to percussion Extremities: normal in appearance, no cyanosis, no petechiae, strength is 5/5 bilaterally Neuro: awake, cooperative, moves all extremities, no focal motor deficits, CN II-XII intact, sensation in extremities intact, normal speech Skin: warm, dry, no rash, normal turgor Psych: Awake, alert oriented x 3, euthymic affect Results & Data Results & Data ([facility]) Vital Signs (Past 12 Hours) Vital Signs Temp Pulse Pulse Resp BP Pulse Ox 02/09/21 07:30 71 02/09/21 03:57 37.0 C 66 21 93/50 L 94 02/09/21 03:30 69 21 91 02/09/21 00:18 72 24 91 02/09/21 00:00 81 02/08/21 23:30 36.8 C 88 20 104/85 91 02/08/21 22:30 80 18 91 Laboratory Results Laboratory Results - last 24 hr 02/09/21 02/09/21 02/09/21 06:24 06:24 06:24 WBC 17.48 H RBC 5.75 Hgb 15.1 Hct 46.1 MCV 80.2 MCH 26.3 MCHC 32.8 RDW Std Deviation 44.2 RDW Coeff of Eleazar 15.2 H Plt Count 305 MPV 9.2 Immature Gran % (Auto) 1.0 Neut % (Auto) 80.2 Lymph % (Auto) 7.2 [place] % (Auto) 10.5 Eos % (Auto) 1.0 Baso % (Auto) 0.1 Neut # (Auto) 14.03 H Lymph # (Auto) 1.25 [place] # (Auto) 1.84 H Eos # (Auto) 0.17 Baso # (Auto) 0.02 Immature Gran # (Auto) 0.17 H Sodium 134 L Potassium 4.1 Chloride 102 Carbon Dioxide 24 Anion Gap 8.0 BUN 21 H Creatinine 0.79 Est Cr Clr Drug Dosing 129.1 Est GFR ( Amer) 116.3 Est GFR (Non-Af Amer) 100.4 BUN/Creatinine Ratio 26.8 H Glucose 109 H Calcium 8.7 Total Bilirubin 0.7 AST 34 ALT 183 H Alkaline Phosphatase 38 L C-Reactive Protein 0.58 H Total Protein 6.3 L Albumin 2.7 L Globulin 3.6 Albumin/Globulin Ratio 0.8 L Procalcitonin Pending Medications Administered Current Inpatient Medications Acetaminophen (Acetaminophen 325 Mg Tab) 650 mg PO Q4H PRN PRN Reason: Pain or Fever Stop: 03/02/21 18:19 Ascorbic Acid (Ascorbic Acid 500 Mg Tab) 1,000 mg PO DAILY [facility] Stop: 03/03/21 08:59 Last Admin: 02/08/21 08:31 Dose: 1,000 mg Documented by: Aspirin (Aspirin 81 Mg Ectab) 81 mg PO QAM [facility] Stop: 03/03/21 08:59 Last Admin: 02/08/21 08:32 Dose: 81 mg Documented by: Atorvastatin Calcium (Atorvastatin 20 Mg Tab) 20 mg PO DAILY [facility] Stop: 03/03/21 08:59 Last Admin: 02/08/21 08:31 Dose: 20 mg Documented by: Citalopram Hydrobromide (Citalopram 20 Mg Tab) 20 mg PO DAILY [facility] Stop: 03/03/21 08:59 Last Admin: 02/08/21 08:31 Dose: 20 mg Documented by: Enoxaparin Sodium (Enoxaparin Inj 40 Mg/0.4 Ml Syr) 40 mg SQ Q12H [facility] Stop: 03/04/21 08:59 Last Admin: 02/08/21 21:10 Dose: 40 mg Documented by: Guaifenesin (Guaifenesin 600 Mg Tabcr) 1,200 mg PO Q12 [facility] Stop: 03/03/21 08:59 Last Admin: 02/08/21 21:10 Dose: 1,200 mg Documented by: Dexamethasone 6 mg/ Syringe 1.5 mls @ 1 mls/min IV DAILY [facility] Stop: 02/11/21 08:59 Last Admin: 02/08/21 08:31 Dose: 1 mls/min Documented by: Metoprolol Tartrate (Metoprolol Tartrate 50 Mg Tab) 50 mg PO QAM [facility] Stop: 03/05/21 08:59 Last Admin: 02/08/21 08:31 Dose: 50 mg Documented by: Metoprolol Tartrate (Metoprolol Tartrate 25 Mg Tab) 25 mg PO HS [facility] Stop: 03/05/21 20:59 Last Admin: 02/08/21 21:10 Dose: 25 mg Documented by: Pantoprazole Sodium (Pantoprazole 40 Mg Tab) 40 mg PO DAILY [facility] Stop: 03/03/21 08:59 Last Admin: 02/08/21 08:31 Dose: 40 mg Documented by: PG Care Time/CCT Total # of Minutes Spent Total Time Spent with Patient: Total time spent is greater than 50% in coordination of care (as documented) at patient's floor/unit and/or counseling patient: Coding Level of Care Code 24292 Subseq Hosp Care Lvl 2 Diagnoses Pneumonia due to 2019 novel coronavirus U07.1; J12.82 Acute respiratory failure with hypoxia J96.01 Hemoptysis R04.2 Hypertension I10 Dyslipidemia E78.5 Morbid obesity with BMI of 40.0-44.9, adult E66.01; Z68.41 History of stroke Z86.73 Acquired left foot drop M21.372 Elevated AST (SGOT) R74.01 DVT prophylaxis Z29.9
[2021-02-09] MEDS: ENOXAPARIN INJ 40 MG/0.4 ML SYR SQ SCH ×2 (08:22→19:53)
[2021-02-09] MEDS: PANTOprazole 40 MG TAB PO SCH (08:22)
[2021-02-09] MEDS: guaiFENesin 600 MG TABCR PO SCH ×2 (08:22→19:55)
[2021-02-09] MEDS: dexAMETHasone 6 MG in SYRINGE 0 ML IV SCH (08:22)
[2021-02-09] MEDS: ASCORBIC ACID 500 MG TAB PO SCH (08:23)
[2021-02-09] MEDS: METOPROLOL TARTRATE 50 MG TAB PO SCH (08:23)
[2021-02-09] MEDS: ASPIRIN 81 MG ECTAB PO SCH (08:23)
[2021-02-09] MEDS: CITALOPRAM 20 MG TAB PO SCH (08:23)
[2021-02-09] MEDS: ATORVASTATIN 20 MG TAB PO SCH (08:23)
--- NOTE | 2021-02-09 10:43 | XRay Report ---
XR chest 1V portable CLINICAL HISTORY: COVID, hypoxia TECHNIQUE: Single frontal radiograph of the chest was obtained. Comparison: Comparison is made to chest one view 02/04/2021 FINDINGS: No lines and tubes are seen. The cardiomediastinal silhouette is normal. Multifocal airspace opacitie s are seen. No evidence of pleural effusion or pneumothorax. IMPRESSION: Multifocal airspace disease is similar in appearance to prior exam. ACT 112: Negative or not required by law. Electronically signed by: Carlos Lorenzo M.D. 02/09/2021 10:42 AM
[2021-02-09] MEDS: METOPROLOL TARTRATE 25 MG TAB PO SCH (19:54)
[2021-02-10 07:24] LABS: Hematocrit (blood only) 45.7 % (42-52); Hemoglobin 14.9 g/dL (14.0-18.0); Mean Corpuscular Hemoglobin 26.4 pg (25-34); Mean Corpuscular Hgb Conc 32.6 g/dL (32-36); Mean Platelet Volume 9.4 fL (7.4-10.4); Platelet Count 293 K/uL (130-400); RDW Coefficient of Variation 15.2 % (11.5-14.5); RDW Standard Deviation 44.8 fL (36.4-46.3); Red Blood Count 5.64 M/uL (4.7-6.1); White Blood Count 15.06 K/uL (4.8-10.8)
[2021-02-10 08:02] LABS: Creatinine Clr Calc Pharmacy 133.6 ml/min; Est GFR (African American) 118.2 ml/min
[2021-02-10] MEDS: CITALOPRAM 20 MG TAB PO SCH (08:10)
[2021-02-10] MEDS: PANTOprazole 40 MG TAB PO SCH (08:10)
[2021-02-10] MEDS: guaiFENesin 600 MG TABCR PO SCH ×2 (08:11→20:13)
[2021-02-10] MEDS: ASCORBIC ACID 500 MG TAB PO SCH (08:11)
[2021-02-10] MEDS: ATORVASTATIN 20 MG TAB PO SCH (08:11)
[2021-02-10] MEDS: ASPIRIN 81 MG ECTAB PO SCH (08:12)
[2021-02-10] MEDS: METOPROLOL TARTRATE 50 MG TAB PO SCH (08:12)
[2021-02-10] MEDS: ENOXAPARIN INJ 40 MG/0.4 ML SYR SQ SCH ×2 (08:13→20:14)
[2021-02-10] MEDS: dexAMETHasone 6 MG in SYRINGE 0 ML IV SCH (08:22)
[2021-02-10] MEDS: METOPROLOL TARTRATE 25 MG TAB PO SCH (20:12)
--- NOTE | 2021-02-10 22:54 | Hospitalist Progress Note ---
Date of Service February 10, 2021 Assessment & Plan (1) Pneumonia due to 2019 novel coronavirus: Plan: currently down to 35L and 50%, working to get to wall high flow in next 1-2 days WBC is 17k but procalcitonin is < 0.05 and no sputum, no fever CRP is < 1 he is compliant with laying on right side and prone position continue CPAP HS Day #11 of dexamethasone, continue a few more days since his is still on Vapotherm continue Lasix 20mg IV daily, Cr is stable completed Remdesivir. CRP is < 1 not a candidate for Baricitinib and increasing dexamethasone would likely not help procalcitonin is normal, no suspicion for bacterial pneumonia Lovenox BID for DVT proph encouraged him to work with incentive spirometer and flutter valve (2) Acute respiratory failure with hypoxia: Plan: 2nd to #1. 35L and 50% today continue to be prone as much as possible, sitting up in chair during the day No evidence of PE on CTA chest at admission. (3) Hemoptysis: Plan: Small volume at this point, not increasing, no longer a complaint likely from bronchial irritation Doubt PE - no pleuritic pain, and recent CTA neg for such. (4) Hypertension: Plan: Continue metoprolol -- 50mg qam, 25mg HS. BP and HR stable (5) Dyslipidemia: Plan: LFTs largely acceptable. Continue lipitor. (6) Morbid obesity with BMI of 40.0-44.9, adult: Plan: BMI 40 (7) History of stroke: Plan: Noted. Cont asa 81mg daily for secondary prevention (cautiously in light of #1). (8) Acquired left foot drop: Plan: 2nd to prior stroke. (9) Elevated AST (SGOT): Plan: Likely due to COVID infection. Repeat ast/alt mildly high but acceptable. Recent CPK neg. (10) DVT prophylaxis: Plan: lovenox 40mg BID Plan: continue current course short term goal to get off Vapotherm hopefully discharge to home by the Year Admission and Anticipated Discharge Date Admission Date: January 31, 2021 Subjective patient continues to slowly improve down to 35L and 50% FiO2 eating great, making urine, moving his bowels sleeping well discussed that goal is to get him home by Year, he agrees with that plan Review of Systems Review of Systems: All systems reviewed & are unremarkable except as noted in Subjective Physical Exam Physical Exam: General: well developed, well nourished, morbidly obese, comfortable Neck: thick, supple, trachea midline, normal thyroid Lungs: clear to auscultation bilaterally, good air movement but limited inspiratory capacity, slight tachypnea, no accessory muscle use, no distress Heart: regular S1 and S2, no murmur, peripheral pulses normal, capillary refill normal, no edema Abdomen: soft, NT, ND, + BS, no hepatomegaly, normal to percussion Extremities: normal in appearance, no cyanosis, no petechiae, strength is 5/5 bilaterally Neuro: awake, cooperative, moves all extremities, no focal motor deficits, CN II-XII intact, sensation in extremities intact, normal speech Skin: warm, dry, no rash, normal turgor Psych: Awake, alert oriented x 3, euthymic affect Results & Data Results & Data ([facility]) Vital Signs (Past 12 Hours) Vital Signs Temp Pulse Pulse Resp BP BP Pulse Ox 02/10/21 19:29 36.8 C 64 19 121/76 92 02/10/21 19:21 69 20 91 02/10/21 18:00 02/10/21 16:00 67 02/10/21 14:37 68 18 92 02/10/21 11:47 36.5 C 71 18 103/58 L 92 02/10/21 11:43 64 18 89 L Pulse Ox 02/10/21 19:29 02/10/21 19:21 02/10/21 18:00 93 02/10/21 16:00 02/10/21 14:37 02/10/21 11:47 02/10/21 11:43 Laboratory Results Laboratory Results - last 24 hr 02/10/21 02/10/21 02/10/21 05:35 05:35 07:29 WBC 15.06 H RBC 5.64 Hgb 14.9 Hct 45.7 MCV 81.0 MCH 26.4 MCHC 32.6 RDW Std Deviation 44.8 RDW Coeff of Eleazar 15.2 H Plt Count 293 MPV 9.4 Creatinine 0.76 Est Cr Clr Drug Dosing 133.6 Est GFR ( Amer) 118.2 Est GFR (Non-Af Amer) 102.0 POC Glucose 109 H Medications Administered Current Inpatient Medications Acetaminophen (Acetaminophen 325 Mg Tab) 650 mg PO Q4H PRN PRN Reason: Pain or Fever Stop: 03/02/21 18:19 Ascorbic Acid (Ascorbic Acid 500 Mg Tab) 1,000 mg PO DAILY [facility] Stop: 03/03/21 08:59 Last Admin: 02/10/21 08:11 Dose: 1,000 mg Documented by: Aspirin (Aspirin 81 Mg Ectab) 81 mg PO QAM [facility] Stop: 03/03/21 08:59 Last Admin: 02/10/21 08:12 Dose: 81 mg Documented by: Atorvastatin Calcium (Atorvastatin 20 Mg Tab) 20 mg PO DAILY [facility] Stop: 03/03/21 08:59 Last Admin: 02/10/21 08:11 Dose: 20 mg Documented by: Citalopram Hydrobromide (Citalopram 20 Mg Tab) 20 mg PO DAILY [facility] Stop: 03/03/21 08:59 Last Admin: 02/10/21 08:10 Dose: 20 mg Documented by: Enoxaparin Sodium (Enoxaparin Inj 40 Mg/0.4 Ml Syr) 40 mg SQ Q12H [facility] Stop: 03/04/21 08:59 Last Admin: 02/10/21 20:14 Dose: 40 mg Documented by: Guaifenesin (Guaifenesin 600 Mg Tabcr) 1,200 mg PO Q12 [facility] Stop: 03/03/21 08:59 Last Admin: 02/10/21 20:13 Dose: 1,200 mg Documented by: Dexamethasone 6 mg/ Syringe 1.5 mls @ 1 mls/min IV DAILY [facility] Stop: 02/11/21 08:59 Last Admin: 02/10/21 08:22 Dose: 1 mls/min Documented by: Metoprolol Tartrate (Metoprolol Tartrate 50 Mg Tab) 50 mg PO QAM [facility] Stop: 03/05/21 08:59 Last Admin: 02/10/21 08:12 Dose: 50 mg Documented by: Metoprolol Tartrate (Metoprolol Tartrate 25 Mg Tab) 25 mg PO HS [facility] Stop: 03/05/21 20:59 Last Admin: 02/10/21 20:12 Dose: 25 mg Documented by: Pantoprazole Sodium (Pantoprazole 40 Mg Tab) 40 mg PO DAILY [facility] Stop: 03/03/21 08:59 Last Admin: 02/10/21 08:10 Dose: 40 mg Documented by: PG Care Time/CCT Total # of Minutes Spent Total Time Spent with Patient: Total time spent is greater than 50% in coordination of care (as documented) at patient's floor/unit and/or counseling patient: Coding Level of Care Code 78318 Subseq Hosp Care Lvl 2 Diagnoses Pneumonia due to 2019 novel coronavirus U07.1; J12.82 Acute respiratory failure with hypoxia J96.01 Hemoptysis R04.2 Hypertension I10 Dyslipidemia E78.5 Morbid obesity with BMI of 40.0-44.9, adult E66.01; Z68.41 History of stroke Z86.73 Acquired left foot drop M21.372 Elevated AST (SGOT) R74.01 DVT prophylaxis Z29.9
[2021-02-11] MEDS ORDERED: NURSING DECISION MEDICATION ONE (08:36)
[2021-02-11] MEDS ORDERED: SODIUM CHLORIDE 0.65% NA SOLN 45 ML (OCEAN) PRN (08:39)
[2021-02-11] MEDS: METOPROLOL TARTRATE 50 MG TAB PO SCH (08:40)
[2021-02-11] MEDS: guaiFENesin 600 MG TABCR PO SCH ×2 (08:40→21:06)
[2021-02-11] MEDS: CITALOPRAM 20 MG TAB PO SCH (08:41)
[2021-02-11] MEDS: ASPIRIN 81 MG ECTAB PO SCH (08:41)
[2021-02-11] MEDS: ATORVASTATIN 20 MG TAB PO SCH (08:41)
[2021-02-11] MEDS: ENOXAPARIN INJ 40 MG/0.4 ML SYR SQ SCH ×2 (08:41→21:07)
[2021-02-11] MEDS: ASCORBIC ACID 500 MG TAB PO SCH (08:42)
[2021-02-11] MEDS: PANTOprazole 40 MG TAB PO SCH (08:42)
[2021-02-11] MEDS: dexAMETHasone 6 MG in SYRINGE 0 ML IV SCH (09:22)
--- NOTE | 2021-02-11 10:51 | Hospitalist Progress Note ---
Date of Service February 11, 2021 Assessment & Plan (1) Pneumonia due to 2019 novel coronavirus: Plan: currently back up to HFNC to 45L and 55%, continue weaning, no distress Has large crusted mucus in nose that he picked out to help clear nasal passages WBC is 17k but procalcitonin is < 0.05 and no sputum, no fever CRP is < 1 he is compliant with laying on right side and prone position continue CPAP HS Day #12 of dexamethasone, continue a few more days since his is still on Vapotherm continue Lasix 20mg IV daily, Cr is stable, advised him not to drink as much fluid as he is completed Remdesivir. CRP is < 1 not a candidate for Baricitinib and increasing dexamethasone would likely not help procalcitonin is normal, no suspicion for bacterial pneumonia -check CBC< CMP, CRP in AM Lovenox BID for DVT proph encouraged him to work with incentive spirometer and flutter valve (2) Acute respiratory failure with hypoxia: Plan: 2nd to #1. as above continue to be prone as much as possible, sitting up in chair during the day No evidence of PE on CTA chest at admission. (3) Hemoptysis: Plan: Small volume at this point, not increasing, no longer a complaint likely from bronchial irritation Doubt PE - no pleuritic pain, and recent CTA neg for such. (4) Hypertension: Plan: Continue metoprolol -- 50mg qam, 25mg HS. BP and HR stable (5) Dyslipidemia: Plan: LFTs largely acceptable. Continue lipitor. (6) Morbid obesity with BMI of 40.0-44.9, adult: Plan: BMI down to 32 (7) History of stroke: Plan: Noted. Cont asa 81mg daily for secondary prevention (cautiously in light of #1). (8) Acquired left foot drop: Plan: 2nd to prior stroke. (9) Elevated AST (SGOT): Plan: Likely due to COVID infection. Repeat ast/alt mildly high but acceptable. Recent CPK neg. check LFTs in AM (10) DVT prophylaxis: Plan: lovenox 40mg BID Plan: continue current course short term goal to get off Vapotherm hopefully discharge to home by the New Year Admission and Anticipated Discharge Date Admission Date: January 31, 2021 Subjective Feeling better, working on IS and flutter valve, was OOB to BR and chair this AM, weaned to HFNC 45L and 55% FiO2 No CP, no SOB, no diarrhea or abd pain, no calf pain Review of Systems Review of Systems: All systems reviewed & are unremarkable except as noted in HPI & below Physical Exam Constitutional: WD/WN, vitals as above Eyes: + anicteric sclerae Neck: trachea midline, no thyromegaly Respiratory: normal respiratory effort; no cough Auscultation: + crackles (right middle and upper lung madrigal); no rhonchi and no wheezes Cardiovascular: RRR, no murmur, no edema no calf tenderness Chest (Breasts): Chest: normal inspection of chest Gastrointestinal (Abdomen): normal bowel sounds, soft, nontender, no hepatosplenomegaly Musculoskeletal: Extremities: extremities normal to inspection; no cyanosis and no clubbing Skin: no rashes, warm and dry Neurologic: moves all extremities and awake; no focal motor deficits Psychiatric: A+Ox3, euthymic affect Lymphatic: no lymphedema Results & Data Results & Data ([facility]) Vital Signs (Past 12 Hours) Vital Signs Temp Pulse Pulse Pulse Resp BP Pulse Ox 02/11/21 10:24 67 21 91 02/11/21 08:00 58 L 02/11/21 07:26 36.6 C 60 17 112/69 87 L 02/11/21 07:08 64 16 92 02/11/21 03:43 37.0 C 58 L 19 103/56 L 96 02/11/21 02:22 57 L 19 92 02/10/21 23:40 60 02/10/21 23:17 36.8 C 57 L 21 115/72 96 02/10/21 22:57 62 16 95 PG Care Time/CCT Total # of Minutes Spent Total Time Spent with Patient: Total time spent is greater than 50% in coordination of care (as documented) at patient's floor/unit and/or counseling patient: Coding Level of Care Code 36214 Subseq Hosp Care Lvl 3 Diagnoses Pneumonia due to 2019 novel coronavirus U07.1; J12.82 Acute respiratory failure with hypoxia J96.01 Hemoptysis R04.2 Hypertension I10 Dyslipidemia E78.5 Morbid obesity with BMI of 40.0-44.9, adult E66.01; Z68.41 History of stroke Z86.73 Acquired left foot drop M21.372 Elevated AST (SGOT) R74.01 DVT prophylaxis Z29.9
[2021-02-11] MEDS: METOPROLOL TARTRATE 25 MG TAB PO SCH (21:06)
[2021-02-12 06:29] LABS: Basophils # (auto) 0.02 K/uL (0-0.2); Basophils % (auto) 0.1 %; Eosinophils # (auto) 0.03 K/uL (0-0.5); Eosinophils % (auto) 0.2 %; Hematocrit (blood only) 49.3 % (42-52); Hemoglobin 16.1 g/dL (14.0-18.0); Immature Granulocytes # (auto) 0.12 K/uL (0.00-0.02); Immature Granulocytes % (auto) 0.7 %; Lymphocytes # (auto) 1.83 K/uL (1.2-3.4); Lymphocytes % (auto) 9.9 %; Mean Corpuscular Hemoglobin 26.8 pg (25-34); Mean Corpuscular Hgb Conc 32.7 g/dL (32-36); Mean Corpuscular Volume 82.2 fL (80-100); Mean Platelet Volume 9.2 fL (7.4-10.4); Monocytes % (auto) 8.7 %; Neutrophils # (auto) 14.84 K/uL (1.4-6.5); Neutrophils % (auto) 80.4 %; Platelet Count 291 K/uL (130-400); RDW Coefficient of Variation 15.5 % (11.5-14.5); RDW Standard Deviation 46.6 fL (36.4-46.3); White Blood Count 18.44 K/uL (4.8-10.8)
[2021-02-12 07:00] LABS: BUN Creatinine Ratio 22.8 (10-20); Calcium 9.1 mg/dl (8.5-10.1); Creatinine Clr Calc Pharmacy 130.9 ml/min; Est GFR (African American) 112.9 ml/min; Est GFR (Non-African American) 97.4 ml/min; Magnesium 2.6 mg/dl (1.8-2.4); Potassium 4.2 mmol/L (3.5-5.1)
[2021-02-12 07:03] LABS: Albumin Globulin Ratio 0.8 (0.9-2); Bilirubin,Total 0.8 mg/dl (0.2-1); C Reactive Protein 0.58 mg/dl (0-0.29); Globulin 3.8 gm/dl (2.5-4.0); Total Protein 6.8 gm/dl (6.4-8.2)
[2021-02-12] MEDS: ENOXAPARIN INJ 40 MG/0.4 ML SYR SQ SCH ×2 (10:12→20:35)
[2021-02-12] MEDS: dexAMETHasone 6 MG in SYRINGE 0 ML IV SCH (10:12)
[2021-02-12] MEDS: METOPROLOL TARTRATE 50 MG TAB PO SCH (10:13)
[2021-02-12] MEDS: guaiFENesin 600 MG TABCR PO SCH ×2 (10:13→20:35)
[2021-02-12] MEDS: ATORVASTATIN 20 MG TAB PO SCH (10:13)
[2021-02-12] MEDS: PANTOprazole 40 MG TAB PO SCH (10:14)
[2021-02-12] MEDS: CITALOPRAM 20 MG TAB PO SCH (10:14)
[2021-02-12] MEDS: ASPIRIN 81 MG ECTAB PO SCH (10:14)
[2021-02-12] MEDS: ASCORBIC ACID 500 MG TAB PO SCH (10:14)
--- NOTE | 2021-02-12 13:57 | Hospitalist Progress Note ---
Date of Service February 12, 2021 Assessment & Plan (1) Pneumonia due to 2019 novel coronavirus: Plan: Now weaned off high flow nasal cannula Vapotherm after 11 days, now on 10 L nasal cannula, much improved Leukocytosis improving CRP is < 1 he is compliant with laying on right side and prone position continue CPAP HS Day #13 of dexamethasone, will now discontinue after tomorrow's dose given that he is greatly improved and weaned off Vapotherm continue Lasix 20mg IV daily completed Remdesivir. CRP is < 1 not a candidate for Baricitinib and increasing dexamethasone would likely not help procalcitonin is normal, no suspicion for bacterial pneumonia -Follow CBC, CMP Lovenox BID for DVT proph encouraged him to work with incentive spirometer and flutter valve (2) Acute respiratory failure with hypoxia: Plan: 2nd to #1. as above Finally much improved after many days on Vapotherm No evidence of PE on CTA chest at admission. (3) Hemoptysis: Plan: Now resolved likely from bronchial irritation Doubt PE - no pleuritic pain, and recent CTA neg for such. (4) Hypertension: Plan: Continue metoprolol -- 50mg qam, 25mg HS. BP and HR stable (5) Dyslipidemia: Plan: Continue lipitor. (6) Morbid obesity with BMI of 40.0-44.9, adult: Plan: BMI down to 38.6 (7) History of stroke: Plan: Noted. Cont asa 81mg daily for secondary prevention (8) Acquired left foot drop: Plan: 2nd to prior stroke. (9) Elevated AST (SGOT): Plan: Likely due to COVID infection. ALT increased to 213 today Recent CPK neg. Follow LFTs in AM (10) DVT prophylaxis: Plan: lovenox 40mg BID Plan: Disposition-continued stay on telemetry Covid unit, but making significant improvements, expect he will be here at least another 3-4 days Admission and Anticipated Discharge Date Admission Date: January 31, 2021 Subjective Feelin gbetter, weaned off HFNC to wall HFNC 10L. No complaints at all, moving bowels, eating, no SOB or CP Review of Systems Review of Systems: All systems reviewed & are unremarkable except as noted in HPI & below Physical Exam Constitutional: WD/WN, vitals as above Eyes: + anicteric sclerae Neck: trachea midline, no thyromegaly Respiratory: normal respiratory effort; no cough Auscultation: + crackles (right middle and upper lung madrigal); no rhonchi and no wheezes Cardiovascular: RRR, no murmur, no edema Chest (Breasts): Chest: normal inspection of chest Gastrointestinal (Abdomen): normal bowel sounds, soft, nontender, no hepatosplenomegaly Musculoskeletal: Extremities: extremities normal to inspection; no cyanosis and no clubbing Skin: no rashes, warm and dry Neurologic: moves all extremities and awake; no focal motor deficits Psychiatric: A+Ox3, euthymic affect Lymphatic: no lymphedema Results & Data Results & Data ([facility]) Vital Signs (Past 12 Hours) Vital Signs Temp Pulse Pulse Resp BP Pulse Ox 02/12/21 12: 36.5 C 80 11 L 121/80 97 02/12/21 09:59 20 93 02/12/21 07:49 36.4 C L 69 20 120/72 90 02/12/21 07:19 69 19 92 02/12/21 02:53 36.8 C 60 18 95/58 L 92 02/12/21 02:45 66 22 90 Laboratory Results 02/12/21 06:08 02/12/21 06:08 PG Care Time/CCT Total # of Minutes Spent Total Time Spent with Patient: Total time spent is greater than 50% in coordination of care (as documented) at patient's floor/unit and/or counseling patient: Coding Level of Care Code 04068 Subseq Hosp Care Lvl 3 Diagnoses Pneumonia due to 2019 novel coronavirus U07.1; J12.82 Acute respiratory failure with hypoxia J96.01 Hemoptysis R04.2 Hypertension I10 Dyslipidemia E78.5 Morbid obesity with BMI of 40.0-44.9, adult E66.01; Z68.41 History of stroke Z86.73 Acquired left foot drop M21.372 Elevated AST (SGOT) R74.01 DVT prophylaxis Z29.9
[2021-02-12] MEDS: METOPROLOL TARTRATE 25 MG TAB PO SCH (20:36)
[2021-02-13 06:25] LABS: Basophils # (auto) 0.01 K/uL (0-0.2); Basophils % (auto) 0.1 %; Eosinophils # (auto) 0.01 K/uL (0-0.5); Eosinophils % (auto) 0.1 %; Hematocrit (blood only) 46.2 % (42-52); Hemoglobin 14.9 g/dL (14.0-18.0); Immature Granulocytes # (auto) 0.13 K/uL (0.00-0.02); Immature Granulocytes % (auto) 0.8 %; Lymphocytes # (auto) 1.71 K/uL (1.2-3.4); Lymphocytes % (auto) 10.4 %; Mean Corpuscular Hemoglobin 26.4 pg (25-34); Mean Corpuscular Hgb Conc 32.3 g/dL (32-36); Mean Corpuscular Volume 81.9 fL (80-100); Mean Platelet Volume 9.4 fL (7.4-10.4); Monocytes # (auto) 1.35 K/uL (0.11-0.59); Monocytes % (auto) 8.2 %; Neutrophils # (auto) 13.19 K/uL (1.4-6.5); Neutrophils % (auto) 80.4 %; Platelet Count 269 K/uL (130-400); RDW Coefficient of Variation 15.5 % (11.5-14.5); RDW Standard Deviation 46.5 fL (36.4-46.3); Red Blood Count 5.64 M/uL (4.7-6.1)
[2021-02-13 07:37] LABS: Albumin Level 2.7 gm/dl (3.4-5.0); BUN Creatinine Ratio 23.8 (10-20); Calcium 8.8 mg/dl (8.5-10.1); Creatinine Clr Calc Pharmacy 127.9 ml/min; Est GFR (African American) 111.8 ml/min; Est GFR (Non-African American) 96.5 ml/min
[2021-02-13 07:40] LABS: Albumin Globulin Ratio 0.8 (0.9-2); Bilirubin,Total 0.6 mg/dl (0.2-1); Globulin 3.3 gm/dl (2.5-4.0)
[2021-02-13] MEDS: CITALOPRAM 20 MG TAB PO SCH (08:41)
[2021-02-13] MEDS: ASCORBIC ACID 500 MG TAB PO SCH (08:41)
[2021-02-13] MEDS: ATORVASTATIN 20 MG TAB PO SCH (08:41)
[2021-02-13] MEDS: dexAMETHasone 6 MG in SYRINGE 0 ML IV SCH (08:41)
[2021-02-13] MEDS: ASPIRIN 81 MG ECTAB PO SCH (08:41)
[2021-02-13] MEDS: FUROSEMIDE INJ 20 MG/2 ML VIAL IV SCH (08:42)
[2021-02-13] MEDS: ENOXAPARIN INJ 40 MG/0.4 ML SYR SQ SCH ×2 (08:42→20:28)
[2021-02-13] MEDS: guaiFENesin 600 MG TABCR PO SCH ×2 (08:43→20:27)
[2021-02-13] MEDS: PANTOprazole 40 MG TAB PO SCH (08:44)
[2021-02-13] MEDS: METOPROLOL TARTRATE 50 MG TAB PO SCH (08:44)
--- NOTE | 2021-02-13 18:45 | Hospitalist Progress Note ---
Date of Service February 13, 2021 Assessment & Plan (1) Pneumonia due to 2019 novel coronavirus: Plan: Now weaned off high flow nasal cannula Vapotherm after 11 days, now on 6 L nasal cannula, continues to improve significantly the last 2 days Leukocytosis improving but remains high likely secondary to corticosteroids CRP is < 1 he is compliant with laying on right side and prone position continue CPAP HS Day #14 of dexamethasone, will now discontinue as he is greatly improved and weaned off Vapotherm continue Lasix 20mg daily be changed to p.o. for tomorrow completed Remdesivir. CRP is < 1 not a candidate for Baricitinib and increasing dexamethasone would l ikely not help procalcitonin is normal, no suspicion for bacterial pneumonia -Follow CBC, CMP Lovenox BID for DVT proph encouraged him to work with incentive spirometer and flutter valve -Continue to wean down off supplemental O2 (2) Acute respiratory failure with hypoxia: Plan: 2nd to #1. as above Finally much improved after many days on Vapotherm No evidence of PE on CTA chest at admission. (3) Hemoptysis: Plan: Now resolved likely from bronchial irritation Doubt PE - no pleuritic pain, and recent CTA neg for such. (4) Hypertension: Plan: Continue metoprolol -- 50mg qam, 25mg HS. BP and HR stable (5) Dyslipidemia: Plan: Continue lipitor. (6) Morbid obesity with BMI of 40.0-44.9, adult: Plan: BMI down to 38.6 (7) History of stroke: Plan: Noted. Cont asa 81mg daily for secondary prevention (8) Acquired left foot drop: Plan: 2nd to prior stroke. (9) Elevated AST (SGOT): Plan: Likely due to COVID infection. ALT remains elevated but improved from previous down to 187 Recent CPK neg. Follow LFTs in AM (10) DVT prophylaxis: Plan: lovenox 40mg BID Plan: Disposition-continued stay on telemetry Covid unit, but making significant improvements, hopeful for discharge in the next 2 to 3 days Admission and Anticipated Discharge Date Admission Date: January 31, 2021 Subjective Patient feels well, has no complaints. No shortness of breath. Has been trying to ambulate around his room. Was on 8 L when I saw him and I turned him down to 6 L and he remained at 93-94% on his pulse ox. Denies chest pains, no abdominal pains, no bowel movement today. Eating well. Telemetry with normal sinus rhythm, normal rates Review of Systems Review of Systems: All systems reviewed & are unremarkable except as noted in HPI & below Physical Exam Constitutional: WD/WN, vitals as above Eyes: + anicteric sclerae Neck: trachea midline, no thyromegaly Respiratory: normal respiratory effort; no cough Auscultation: no crackles, no rhonchi and no wheezes Cardiovascular: RRR, no murmur, no edema Chest (Breasts): Chest: normal inspection of chest Gastrointestinal (Abdomen): normal bowel sounds, soft, nontender, no hepatosplenomegaly Musculoskeletal: Extremities: extremities normal to inspection; no cyanosis and no clubbing Skin: no rashes, warm and dry Neurologic: moves all extremities and awake; no focal motor deficits Psychiatric: A+Ox3, euthymic affect Lymphatic: no lymphedema Results & Data Results & Data ([facility]) Vital Signs (Past 12 Hours) Vital Signs Temp Pulse Resp BP Pulse Ox 02/13/21 15:28 36.7 C 81 15 106/78 92 02/13/21 11:50 36.5 C 65 22 101/67 95 02/13/21 07:48 36.4 C L 68 24 119/72 93 Laboratory Results 02/13/21 02/13/21 Range/Units 05:33 05:33 WBC 16.40 H (4.8-10.8) K/uL RBC 5.64 (4.7-6.1) M/uL Hgb 14.9 (14.0-18.0) g/dL Hct 46.2 (42-52) % MCV 81.9 (80-100) fL MCH 26.4 (25-34) pg MCHC 32.3 (32-36) g/dL RDW Std Deviation 46.5 H (36.4-46.3) fL RDW Coeff of Eleazar 15.5 H (11.5-14.5) % Plt Count 269 (130-400) K/uL MPV 9.4 (7.4-10.4) fL Immature Gran % (Auto) 0.8 % Neut % (Auto) 80.4 % Lymph % (Auto) 10.4 % Heard % (Auto) 8.2 % Eos % (Auto) 0.1 % Baso % (Auto) 0.1 % Neut # (Auto) 13.19 H (1.4-6.5) K/uL Lymph # (Auto) 1.71 (1.2-3.4) K/uL Heard # (Auto) 1.35 H (0.11-0.59) K/uL Eos # (Auto) 0.01 (0-0.5) K/uL Baso # (Auto) 0.01 (0-0.2) K/uL Immature Gran # (Auto) 0.13 H (0.00-0.02) K/uL Sodium 135 L (136-145) mmol/L Potassium 4.0 (3.5-5.1) mmol/L Chloride 101 (98-107) mmol/L Carbon Dioxide 27 (21-32) mmol/L Anion Gap 7.0 (3-11) BUN 21 H (7-18) mg/dl Creatinine 0.87 (0.6-1.4) mg/dl Est Cr Clr Drug Dosing 127.9 ml/min Est GFR ( Amer) 111.8 ml/min Est GFR (Non-Af Amer) 96.5 ml/min BUN/Creatinine Ratio 23.8 H (10-20) Glucose 93 (70-99) mg/dl Calcium 8.8 (8.5-10.1) mg/dl Total Bilirubin 0.6 (0.2-1) mg/dl AST 30 (15-37) U/L ALT 187 H (12-78) Alkaline Phosphatase 39 L (45-117) U/L Total Creatine Kinase 35 L (39-308) U/L Total Protein 6.0 L (6.4-8.2) gm/dl Albumin 2.7 L (3.4-5.0) gm/dl Globulin 3.3 (2.5-4.0) gm/dl Albumin/Globulin Ratio 0.8 L (0.9-2) PG Care Time/CCT Total # of Minutes Spent Total Time Spent with Patient: Total time spent is greater than 50% in coordination of care (as documented) at patient's floor/unit and/or counseling patient: Coding Level of Care Code 74852 Subseq Hosp Care Lvl 3 Diagnoses Pneumonia due to 2019 novel coronavirus U07.1; J12.82 Acute respiratory failure with hypoxia J96.01 Hemoptysis R04.2 Hypertension I10 Dyslipidemia E78.5 Morbid obesity with BMI of 40.0-44.9, adult E66.01; Z68.41 History of stroke Z86.73 Acquired left foot drop M21.372 Elevated AST (SGOT) R74.01 DVT prophylaxis Z29.9
[2021-02-13] MEDS: METOPROLOL TARTRATE 25 MG TAB PO SCH (20:27)
[2021-02-14 07:18] LABS: Basophils # (auto) 0.03 K/uL (0-0.2); Basophils % (auto) 0.2 %; Eosinophils # (auto) 0.03 K/uL (0-0.5); Eosinophils % (auto) 0.2 %; Hematocrit (blood only) 47.8 % (42-52); Hemoglobin 15.7 g/dL (14.0-18.0); Immature Granulocytes # (auto) 0.18 K/uL (0.00-0.02); Immature Granulocytes % (auto) 0.9 %; Lymphocytes # (auto) 2.09 K/uL (1.2-3.4); Lymphocytes % (auto) 10.7 %; Mean Corpuscular Hemoglobin 26.7 pg (25-34); Mean Corpuscular Hgb Conc 32.8 g/dL (32-36); Mean Corpuscular Volume 81.4 fL (80-100); Mean Platelet Volume 9.4 fL (7.4-10.4); Monocytes # (auto) 1.56 K/uL (0.11-0.59); Neutrophils # (auto) 15.73 K/uL (1.4-6.5); Platelet Count 230 K/uL (130-400); RDW Coefficient of Variation 15.6 % (11.5-14.5); RDW Standard Deviation 46.5 fL (36.4-46.3); Red Blood Count 5.87 M/uL (4.7-6.1); White Blood Count 19.62 K/uL (4.8-10.8)
[2021-02-14 07:50] LABS: BUN Creatinine Ratio 21.1 (10-20); Creatinine Clr Calc Pharmacy 116.7 ml/min; Est GFR (African American) 103.3 ml/min; Est GFR (Non-African American) 89.1 ml/min
[2021-02-14 07:53] LABS: Albumin Globulin Ratio 0.9 (0.9-2); Bilirubin,Total 0.8 mg/dl (0.2-1); Globulin 3.5 gm/dl (2.5-4.0); Total Protein 6.5 gm/dl (6.4-8.2)
[2021-02-14] MEDS: PANTOprazole 40 MG TAB PO SCH (08:06)
[2021-02-14] MEDS: ASCORBIC ACID 500 MG TAB PO SCH (08:06)
[2021-02-14] MEDS: guaiFENesin 600 MG TABCR PO SCH ×2 (08:06→19:47)
[2021-02-14] MEDS: CITALOPRAM 20 MG TAB PO SCH (08:06)
[2021-02-14] MEDS: ASPIRIN 81 MG ECTAB PO SCH (08:06)
[2021-02-14] MEDS: METOPROLOL TARTRATE 50 MG TAB PO SCH (08:06)
[2021-02-14] MEDS: FUROSEMIDE INJ 20 MG/2 ML VIAL IV SCH (08:07)
[2021-02-14] MEDS: ENOXAPARIN INJ 40 MG/0.4 ML SYR SQ SCH ×2 (08:07→19:47)
[2021-02-14] MEDS: ATORVASTATIN 20 MG TAB PO SCH (08:07)
--- NOTE | 2021-02-14 17:37 | Hospitalist Progress Note ---
Date of Service February 14, 2021 Assessment & Plan (1) Pneumonia due to 2019 novel coronavirus: Plan: Was on high flow nasal cannula Vapotherm for 11 days, now weaning down very quickly on wall NC--> down to 2-3 L today Is ambulating around the room for 15 min each hour, doing very well Leukocytosis improving but remains high likely secondary to corticosteroids which have now been discontinued since 02/13 CRP is < 1 Completed #14 days of dexamethasone continue Lasix 20mg daily but changed to p.o. for tomorrow completed Remdesivir. CRP is < 1 not a candidate for Baricitinib and increasing dexamethasone would likely not help procalcitonin is normal, no suspicion for bacterial pneumonia -Follow CBC, CMP Lovenox BID for DVT proph encouraged him to work with incentive spirometer and flutter valve -Continue to wean down off supplemental O2 -will do a 2 step walk test in AM and likely dc on Sunday (2) Acute respiratory failure with hypoxia: Plan: 2nd to #1. as above Finally much improved after many days on Vapotherm No evidence of PE on CTA chest at admission. 2 step walk test tomorrow (3) Hemoptysis: Plan: Now resolved likely from bronchial irritation Doubt PE - no pleuritic pain, and recent CTA neg for such. (4) Hypertension: Plan: Continue metoprolol -- 50mg qam, 25mg HS which is a decrease from home dose of 75 bid BP and HR stable (5) Dyslipidemia: Plan: Continue lipitor. (6) Morbid obesity with BMI of 40.0-44.9, adult: Plan: BMI down to 38.6 (7) History of stroke: Plan: Noted. Cont asa 81mg daily for secondary prevention (8) Acquired left foot drop: Plan: 2nd to prior stroke. (9) Elevated AST (SGOT): Plan: Likely due to COVID infection. ALT remains elevated but stable from previous at 197 Recent CPK neg. Follow LFTs in AM (10) DVT prophylaxis: Plan: lovenox 40mg BID and would dc to home on Xarelto 10mg daily x 35 days for VTE prevention Plan: Disposition-continued stay on telemetry Covid unit, but making significant improvements, hopeful for discharge to home tomorrow 02/15. Needs 2 step walk test Admission and Anticipated Discharge Date Admission Date: January 31, 2021 Anticipated date of discharge: 02/15/21 Subjective Pt feeling very well, no complaints. Has been walking 15 min of every hour around the room. Was weaned off O2 for about 10 min this AM but then dropped to 84% and was placed back on 2-3 LNC today. Nonetheless, doing very well and likely ready to go home tomorrow. No CP, no abd pain Tele with NSR, normal rates Review of Systems Review of Systems: All systems reviewed & are unremarkable except as noted in HPI & below Physical Exam Constitutional: WD/WN, vitals as above Eyes: + anicteric sclerae Neck: trachea midline, no thyromegaly Respiratory: normal respiratory effort; no cough Auscultation: no crackles, no rhonchi and no wheezes Cardiovascular: RRR, no murmur, no edema Chest (Breasts): Chest: normal inspection of chest Gastrointestinal (Abdomen): normal bowel sounds, soft, nontender, no hepatosplenomegaly Musculoskeletal: Extremities: extremities normal to inspection; no cyanosis and no clubbing Skin: no rashes, warm and dry Neurologic: moves all extremities and awake; no focal motor deficits Psychiatric: A+Ox3, euthymic affect Lymphatic: no lymphedema Results & Data Results & Data ([facility]) Vital Signs (Past 12 Hours) Vital Signs Temp Pulse Pulse Pulse Resp BP Pulse Ox 02/14/21 16:00 66 02/14/21 15:23 36.6 C 79 19 114/73 94 02/14/21 10:41 36.6 C 76 19 108/71 91 02/14/21 08:19 90 02/14/21 07:50 90 02/14/21 07:44 58 L 02/14/21 07:20 36.6 C 70 19 123/81 92 Laboratory Results 02/14/21 02/14/21 Range/Units 06:51 06:51 WBC 19.62 H (4.8-10.8) K/uL RBC 5.87 (4.7-6.1) M/uL Hgb 15.7 (14.0-18.0) g/dL Hct 47.8 (42-52) % MCV 81.4 (80-100) fL MCH 26.7 (25-34) pg MCHC 32.8 (32-36) g/dL RDW Std Deviation 46.5 H (36.4-46.3) fL RDW Coeff of Eleazar 15.6 H (11.5-14.5) % Plt Count 230 (130-400) K/uL MPV 9.4 (7.4-10.4) fL Immature Gran % (Auto) 0.9 % Neut % (Auto) 80.0 % Lymph % (Auto) 10.7 % [place] % (Auto) 8.0 % Eos % (Auto) 0.2 % Baso % (Auto) 0.2 % Neut # (Auto) 15.73 H (1.4-6.5) K/uL Lymph # (Auto) 2.09 (1.2-3.4) K/uL [place] # (Auto) 1.56 H (0.11-0.59) K/uL Eos # (Auto) 0.03 (0-0.5) K/uL Baso # (Auto) 0.03 (0-0.2) K/uL Immature Gran # (Auto) 0.18 H (0.00-0.02) K/uL Sodium 134 L (136-145) mmol/L Potassium 4.0 (3.5-5.1) mmol/L Chloride 98 (98-107) mmol/L Carbon Dioxide 32 (21-32) mmol/L Anion Gap 4.0 (3-11) BUN 20 H (7-18) mg/dl Creatinine 0.95 (0.6-1.4) mg/dl Est Cr Clr Drug Dosing 116.7 ml/min Est GFR ( Amer) 103.3 ml/min Est GFR (Non-Af Amer) 89.1 ml/min BUN/Creatinine Ratio 21.1 H (10-20) Glucose 96 (70-99) mg/dl Calcium 9.0 (8.5-10.1) mg/dl Total Bilirubin 0.8 (0.2-1) mg/dl AST 30 (15-37) U/L ALT 196 H (12-78) Alkaline Phosphatase 40 L (45-117) U/L Total Protein 6.5 (6.4-8.2) gm/dl Albumin 3.0 L (3.4-5.0) gm/dl Globulin 3.5 (2.5-4.0) gm/dl Albumin/Globulin Ratio 0.9 (0.9-2) PG Care Time/CCT Total # of Minutes Spent Total Time Spent with Patient: Total time spent is greater than 50% in coordination of care (as documented) at patient's floor/unit and/or counseling patient: Coding Level of Care Code 10545 Subseq Hosp Care Lvl 3 Diagnoses Pneumonia due to 2019 novel coronavirus U07.1; J12.82 Acute respiratory failure with hypoxia J96.01 Hemoptysis R04.2 Hypertension I10 Dyslipidemia E78.5 Morbid obesity with BMI of 40.0-44.9, adult E66.01; Z68.41 History of stroke Z86.73 Acquired left foot drop M21.372 Elevated AST (SGOT) R74.01 DVT prophylaxis Z29.9
[2021-02-14] MEDS: METOPROLOL TARTRATE 25 MG TAB PO SCH (19:47)
[2021-02-15 06:38] LABS: Basophils # (auto) 0.02 K/uL (0-0.2); Basophils % (auto) 0.1 %; Eosinophils % (auto) 1.2 %; Hematocrit (blood only) 46.8 % (42-52); Hemoglobin 15.3 g/dL (14.0-18.0); Immature Granulocytes # (auto) 0.13 K/uL (0.00-0.02); Immature Granulocytes % (auto) 0.8 %; Lymphocytes # (auto) 3.09 K/uL (1.2-3.4); Lymphocytes % (auto) 18.5 %; Mean Corpuscular Hemoglobin 26.4 pg (25-34); Mean Corpuscular Hgb Conc 32.7 g/dL (32-36); Mean Corpuscular Volume 80.8 fL (80-100); Mean Platelet Volume 9.5 fL (7.4-10.4); Monocytes # (auto) 1.45 K/uL (0.11-0.59); Monocytes % (auto) 8.7 %; Neutrophils # (auto) 11.83 K/uL (1.4-6.5); Neutrophils % (auto) 70.7 %; Platelet Count 190 K/uL (130-400); RDW Coefficient of Variation 15.7 % (11.5-14.5); RDW Standard Deviation 46.2 fL (36.4-46.3); Red Blood Count 5.79 M/uL (4.7-6.1); White Blood Count 16.72 K/uL (4.8-10.8)
[2021-02-15 07:11] LABS: Albumin Globulin Ratio 0.8 (0.9-2); Albumin Level 2.7 gm/dl (3.4-5.0); BUN Creatinine Ratio 23.9 (10-20); Bilirubin,Total 1.1 mg/dl (0.2-1); Calcium 8.7 mg/dl (8.5-10.1); Creatinine Clr Calc Pharmacy 131.8 ml/min; Est GFR (African American) 113.4 ml/min; Est GFR (Non-African American) 97.9 ml/min; Globulin 3.4 gm/dl (2.5-4.0); Potassium 3.9 mmol/L (3.5-5.1); Total Protein 6.1 gm/dl (6.4-8.2)
[2021-02-15] MEDS: ENOXAPARIN INJ 40 MG/0.4 ML SYR SQ SCH (08:04)
[2021-02-15] MEDS: PANTOprazole 40 MG TAB PO SCH (08:05)
[2021-02-15] MEDS: METOPROLOL TARTRATE 50 MG TAB PO SCH (08:05)
[2021-02-15] MEDS: CITALOPRAM 20 MG TAB PO SCH (08:05)
[2021-02-15] MEDS: ASCORBIC ACID 500 MG TAB PO SCH (08:05)
[2021-02-15] MEDS: ASPIRIN 81 MG ECTAB PO SCH (08:05)
[2021-02-15] MEDS: guaiFENesin 600 MG TABCR PO SCH (08:05)
[2021-02-15] MEDS: ATORVASTATIN 20 MG TAB PO SCH (08:06)
[2021-02-15] MEDS ORDERED: FUROSEMIDE 20 MG TAB PO SCH (09:00)
--- NOTE | 2021-02-15 09:08 | Discharge Summary ---
Date of Service February 15, 2021 Admission HPI Per Admitting Provider 55yo male reports having symptoms for 10 days. Initally it began with generalized weakness, fatigue, loss of taste and smell. But this advanced to SOB over the past 2-3 days. Patient was not improving which prompted him to come to the hospital. Patient reports that he got sick from his parents whom were positive for COVID 19. Past Medical History: Hypertension, Dyslipidemia No significant Past Surgical History Principal Diagnosis COVID 19 pneumonia, acute hypoxic respiratory failure Discharge Exam General: well developed, well nourished, morbidly obese, comfortable Neck: thick, supple, trachea midline, normal thyroid Lungs: clear to auscultation bilaterally, good air movement but limited inspiratory capacity, normal effort, no accessory muscle use, no distress Heart: regular S1 and S2, no murmur, peripheral pulses normal, capillary refill normal, no edema Abdomen: soft, NT, ND, + BS, no hepatomegaly, normal to percussion Extremities: normal in appearance, no cyanosis, no petechiae, strength is 5/5 bilaterally Neuro: awake, cooperative, moves all extremities, no focal motor deficits, CN II-XII intact, sensation in extremities intact, normal speech Skin: warm, dry, no rash, normal turgor Psych: Awake, alert oriented x 3, euthymic affect Discharge Data Allergies Allergy/AdvReac Type Severity Reaction Status Date / Time Penicillins AdvReac Hives Unverified 01/31/21 15:33 Consultations 01/31/21 16:59 ED Decision to Admit Stat Ordered Studies 01/31/21 16:20 CT angio chest PE protocol Stat Hospital Course (1) Pneumonia due to 2019 novel coronavirus: Was on high flow nasal cannula Vapotherm for 11 days, now weaning down very quickly on wall NC--> down to 3L today at rest, needs 4L on exertion based on 2 step test Is ambulating around the room for 15 min each hour, doing very well Leukocytosis improving but remains high likely secondary to corticosteroids which have now been discontinued since 02/13 CRP is < 1 Completed #14 days of dexamethasone continue Lasix 20mg daily PO for another week after discharge completed Remdesivir. CRP is < 1 not a candidate for Baricitinib and increasing dexamethasone would likely not help procalcitonin is normal, no suspicion for bacterial pneumonia -Follow CBC, CMP Lovenox BID for DVT proph Xarelto 10mg daily x 30 days on discharge (2) Acute respiratory failure with hypoxia: 2nd to #1. as above Finally much improved after many days on Vapotherm No evidence of PE on CTA chest at admission. 2 step on 02/15: 3L at rest and 4L on exertion, set up for home oxygen (3) Hemoptysis: Now resolved likely from bronchial irritation Doubt PE - no pleuritic pain, and recent CTA neg for such. (4) Hypertension: Continue metoprolol -- 50mg BID BP and HR stable (5) Dyslipidemia: Continue lipitor. (6) Morbid obesity with BMI of 40.0-44.9, adult: BMI down to 38.6 (7) History of stroke: Noted. Cont asa 81mg daily for secondary prevention (8) Acquired left foot drop: 2nd to prior stroke. (9) Elevated AST (SGOT): Likely due to COVID infection. ALT remains elevated but stable from previous at 197 Recent CPK neg. Follow LFTs in AM (10) DVT prophylaxis: Xarelto on discharge discharge to home Total Time Total Time Spent Total Time Spent (In Minutes): 33 minutes Discharge Plan Discharge Items Patient Disposition: Home - Self-Care Reason For Visit: COVID Discharge Diagnosis: COVID 19 pneumonia Acute hypoxic respiratory failure Condition on Discharge: Good Goals: slowly wean off oxygen, 1-2 weeks stay well nourished, well hydrated Activity: Resume your previous activity Driving/Machine Use: No limitations Weightbearing: Full weightbearing Non-emergency contact: Primary Care Provider Call non-emergency contact if: you have any medication questions Follow-up/Referrals: Omar Damon [Primary Care Provider] - Diet: Regular Addtl Attending Provider Instructions: Medications: - LASIX: 20mg daily for the next 7 days, helps to keep lungs dry as you recover from COVID - XARELTO: 10mg daily for 30 days to help prevent blood clots as you recover - LOPRESSOR: note that dose was changed to 50mg twice a day from 75mg twice a day Oxygen: you need 3L at all times and increase to 4L on exertion, suspect you will need oxygen for 1-2 more weeks, follow up with your PCP to wean off oxygen saturation goal is 89% COVID 19 pneumonia: completed prolonged course of steroids, responded well, no further steroids needed will continue to slowly recover, make sure you continue to eat well, get rest use Lasix for the next week to help keep lungs dry as you recover use Xarelto for 30 days to prevent blood clots as COVID places you at high risk of clots even as you recover Pending Studies at Discharge: No Stand-Alone Forms: [facility], Smoking Cessation Medications and DC Order Prescriptions: New metoprolol tartrate 50 mg Tablet 50 mg PO BID 30 Days Qty: 60 RF: 3 furosemide 20 mg Tablet 20 mg PO QAM 7 Days Qty: 7 RF: 0 Xarelto 10 mg tablet 10 mg PO DAILY Qty: 30 RF: 0 Continued ascorbic acid (vitamin C) [Vitamin C] 1,000 mg Tablet 1 g PO DAILY RF: 0 atorvastatin 20 mg tablet 20 mg PO DAILY RF: 0 citalopram 20 mg tablet 20 mg PO DAILY RF: 0 baclofen 10 mg tablet 10 mg PO DAILY PRN (Reason: Muscle Spasm) RF: 0 pantoprazole 40 mg tablet,delayed release (DR/EC) 40 mg PO DAILY RF: 0 zinc 50 mg Tablet 0 mg PO DAILY RF: 0 Discontinued metoprolol tartrate 25 mg tablet 75 mg PO BID RF: 0 Discharge Orders: Discharge Order (Routine); Ordered 02/15/21 Ordered By: Carlos Garcia Admission Data Admit Date/Time: 01/31/21 18:20 Attending Provider: Carlos Garcia Admit Provider: Truong Kim Primary Care Provider: Omar Damon Other Providers: Truong Kim Coding Level of Care Code D/C DAY MANAGEMENT >30 MINS Diagnoses Pneumonia due to 2019 novel coronavirus U07.1; J12.82 Acute respiratory failure with hypoxia J96.01 Hemoptysis R04.2 Hypertension I10 Dyslipidemia E78.5 Morbid obesity with BMI of 40.0-44.9, adult E66.01; Z68.41 History of stroke Z86.73 Acquired left foot drop M21.372 Elevated AST (SGOT) R74.01 DVT prophylaxis Z29.9
== END 2021-02-15 15:11 | disposition home or self-care (01) | DRG 177 ==
LOC: ED 15:00 → SUATTDRO 18:20 → EDINP 18:20 → 2W 02-01 17:16 → 2E 02-04 20:08

== ENCOUNTER 2021-02-18 17:31 | Inpatient (IN) ==
--- NOTE | 2021-02-18 17:51 | Emergency Department Note ---
History of Present Illness General Chief complaint: Shortness of Breath/Dyspnea Stated complaint: HYPOXIA, KNEE PAIN Time Seen by Provider: 02/18/21 17:41 Source: patient History of Present Illness Provider complaint: Shortness of breath Onset (ago): day(s) Location: chest Pain Consistency: + constant Quality: + other (Short of breath) Relieved By: + other (Oxygen) Exacerbated By: + other (Exertion) Associated symptoms: + cough, + fever/chills, + malaise and + shortness of breath; no chest pain or no nausea/vomiting This is a 55-year-old male who presents with shortness of breath for the past 2 days since he was discharged from the hospital. He was admitted for respiratory failure and pneumonia due to COVID-19. He is unvaccinated. He states that he left the hospital with 5 L of oxygen. He states that the oxygen is not helping enough. Any exertion makes him very short of breath. He came back today because he feels his shortness of breath is worsening. He denies any chest pain or upper back pain. He does state that he has some lower back pain "just above the crack." He has had swelling to his legs during his hospitalization and does take Lasix for this. He denies any pain to his legs. He is on Xarelto. He did have a temperature today of 99. He does have loss of taste and smell. He denies any vomiting, diarrhea, abdominal pain or urinary symptoms. He is still coughing as well. Home Medications Medication Instructions Recorded Confirmed Type ascorbic acid (vitamin C) 1,000 mg 1 g PO DAILY 01/31/21 02/18/21 History tablet (Vitamin C) atorvastatin 20 mg tablet 20 mg PO DAILY 01/31/21 02/18/21 History baclofen 10 mg tablet 10 mg PO DAILY PRN 01/31/21 02/18/21 History citalopram 20 mg tablet 20 mg PO DAILY 01/31/21 02/18/21 History pantoprazole 40 mg tablet,delayed 40 mg PO DAILY 01/31/21 02/18/21 History release zinc 50 mg tablet 0 mg PO DAILY 01/31/21 02/18/21 History furosemide 20 mg tablet 20 mg PO QAM 7 Days #7 tab 02/15/21 02/18/21 Rx metoprolol tartrate 50 mg tablet 50 mg PO BID 30 Days #60 tab 02/15/21 02/18/21 Rx rivaroxaban 10 mg tablet (Xarelto) 10 mg PO DAILY #30 tab 02/15/21 02/18/21 Rx Allergies Allergy/AdvReac Type Severity Reaction Status Date / Time Penicillins Allergy Intermediate Hives Verified 02/18/21 17:53 Past Med/Surg History Medical History Dyslipidemia Hypertension Pneumonia due to 2019 novel coronavirus Social History Smoking Status: Never smoker Hx Alcohol Use: No Hx Substance Use: No Preferred Language: Mongolian Communication Ability: Effective Foreign Language Teacher Required: No Beliefs That Will Affect Care: None marital status: Unknown Current Living Situation: Family Feels Safe at Home: Yes Assistive Devices: Oxygen - Continuous Review of Systems See HPI for pertinent positives & negatives. and A total of 10 systems reviewed and were otherwise negative Physical Exam Vital Signs Vital Signs - 24 hr 02/18/21 17:40 02/18/21 18:24 02/18/21 19:00 Temperature 36.4 C L Temperature Source Oral Pulse Rate 106 H 105 H 104 H Pulse Rate [Apical] 106 H Pulse Rhythm Regular Pulse Rhythm [Apical] Regular Pulse Strength Normal Pulse Strength [Apical] Normal Respiratory Rate 26 H 32 H 34 H Respiratory Effort / Characteristics Short of Breath Respiratory Depth Shallow Respiratory Pattern Tachypnea Blood Pressure 100/77 113/71 Blood Pressure [Right Arm] 100/77 Blood Pressure Mean 84 85 Blood Pressure Mean [Right Arm] 84 Blood Pressure Position Lying Pulse Oximetry 93 92 94 Oxygen Delivery Method Non-rebreather High Flow Nasal Cannula High Flow Nasal Cannula Oxygen Flow Rate 15 35 Fraction of Inspired Oxygen Sepsis Recent Fever Within 48 Hours No Sepsis New/Unexplained Change in Mental Status No Sepsis Action Taken by Nursing Physician Notified 02/18/21 19:30 02/18/21 19:38 02/18/21 20:00 Temperature Temperature Source Pulse Rate 109 H 111 H Pulse Rate [Apical] 88 Pulse Rhythm Pulse Rhythm [Apical] Pulse Strength Pulse Strength [Apical] Respiratory Rate 26 H 26 H 31 H Respiratory Effort / Characteristics Spontaneous Short of Breath Respiratory Depth Respiratory Pattern Blood Pressure 118/69 110/88 Blood Pressure [Right Arm] Blood Pressure Mean 85 95 Blood Pressure Mean [Right Arm] Blood Pressure Position Pulse Oximetry 94 92 96 Oxygen Delivery Method High Flow Nasal Cannula High Flow Nasal Cannula High Flow Nasal Cannula Oxygen Flow Rate 35 35 Fraction of Inspired Oxygen 70 70 Sepsis Recent Fever Within 48 Hours Sepsis New/Unexplained Change in Mental Status Sepsis Action Taken by Nursing 02/18/21 20:37 Temperature Temperature Source Pulse Rate 106 H Pulse Rate [Apical] Pulse Rhythm Pulse Rhythm [Apical] Pulse Strength Pulse Strength [Apical] Respiratory Rate 28 H Respiratory Effort / Characteristics Respiratory Depth Respiratory Pattern Blood Pressure 117/76 Blood Pressure [Right Arm] Blood Pressure Mean 89 Blood Pressure Mean [Right Arm] Blood Pressure Position Pulse Oximetry 95 Oxygen Delivery Method High Flow Nasal Cannula Oxygen Flow Rate 35 Fraction of Inspired Oxygen 70 Sepsis Recent Fever Within 48 Hours Sepsis New/Unexplained Change in Mental Status Sepsis Action Taken by Nursing Constitutional: Vital signs reviewed. Eyes: Pupils are equal round reactive to light. Conjunctiva are noninjected. ENT: Pharynx is clear without erythema or exudate. Mucous membranes are moist. Neck supple without meningeal signs. Respiratory: Scattered rhonchi bilaterally. Breath sounds are equal bilatera lly. Tachypneic. Difficulty speaking in full sentences. Cardiovascular: Tachycardic. Heart rate 102. GI: Soft, nondistended and nontender. Bowel sounds are present. Musculoskeletal: Mild edema to the lower extremities bilaterally. No lower extremity tenderness. Integumentary: No cyanosis. or jaundice. Neurological: The patient is awake and alert. No focal deficits. Psychiatric: Anxious. Course Administered Medications Discontinued Medications Levofloxacin/Dextrose (Levaquin/D5w) 750 mg in 150 mls @ 100 mls/hr IV NOW STA Stop: 02/18/21 20:01 Last Infusion: 02/18/21 20:15 Dose: 0 mls/hr Documented by: [id number] Admin: 02/18/21 18:41 Dose: 100 mls/hr Documented by: [id number] Ioversol (Optiray 320 125ml) 120 ml IV ONCE ONE Stop: 02/18/21 20:36 Last Admin: 02/18/21 20:35 Dose: 120 ml Documented by: [id number] Critical Care Time Critical Care Time: Yes Total Critical Care Time: 40 I have personally spent approximately 40 minutes of critical care time in the direct management of this patient. This includes bedside care, interpretation of diagnostic studies, and testing, discussion with consultants, patient, and family members, and other required patient management activities. These minutes are in excess of all separately billable procedures. Medical Decision Making Differential Diagnosis Respiratory failure, bacterial pneumonia, multifocal pneumonia, COVID-19, pulmonary embolus, heart failure Medical Records Attestation: I reviewed the patient's medical records. I did perform a limited focused review of portions of the patient's old chart on the electronic medical record. The patient was admitted for respiratory failure, pneumonia due to COVID-19 and hypoxia on the of this month. He was just discharged on the . He was discharged on Xarelto and Lasix. He did not receive monoclonal antibodies during his hospitalization. He was placed on Vapotherm and dexamethasone. He did also receive remdesivir. Home Medications Current Medication List: was personally reviewed by me Laboratory Data Attestation: I reviewed the patient's lab results. Result diagrams: 02/18/21 18:27 02/18/21 18:27 Lab Results 02/18/21 02/18/21 02/18/21 Range/Units 18:27 18:27 18:27 WBC 15.57 H (4.8-10.8) K/uL RBC 5.21 (4.7-6.1) M/uL Hgb 13.9 L (14.0-18.0) g/dL Hct 43.5 (42-52) % MCV 83.5 (80-100) fL MCH 26.7 (25-34) pg MCHC 32.0 (32-36) g/dL RDW Std Deviation 50.8 H (36.4-46.3) fL RDW Coeff of Eleazar 16.6 H (11.5-14.5) % Plt Count 136 (130-400) K/uL MPV 9.5 (7.4-10.4) fL Immature Gran % (Auto) 0.3 % Neut % (Auto) 79.1 % Lymph % (Auto) 9.4 % [place] % (Auto) 8.6 % Eos % (Auto) 2.5 % Baso % (Auto) 0.1 % Neut # (Auto) 12.31 H (1.4-6.5) K/uL Lymph # (Auto) 1.47 (1.2-3.4) K/uL [place] # (Auto) 1.34 H (0.11-0.59) K/uL Eos # (Auto) 0.39 (0-0.5) K/uL Baso # (Auto) 0.01 (0-0.2) K/uL Immature Gran # (Auto) 0.05 H (0.00-0.02) K/uL ABG pH ABG pCO2 ABG pO2 ABG HCO3 ABG O2 Saturation ABG Base Excess Brodie Test Barometric Pressure Oxygen Given Sodium 139 (136-145) mmol/L Potassium 4.2 (3.5-5.1) mmol/L Chloride 107 (98-107) mmol/L Carbon Dioxide 28 (21-32) mmol/L Anion Gap 4.0 (3-11) BUN 18 (7-18) mg/dl Creatinine 1.01 (0.6-1.4) mg/dl Est Cr Clr Drug Dosing 112.0 ml/min Est GFR ( Amer) 95.9 ml/min Est GFR (Non-Af Amer) 82.8 ml/min BUN/Creatinine Ratio 18.1 (10-20) Glucose 114 H (70-99) mg/dl Lactate 1.5 (0.4-2.0) mmol/L Calcium 8.8 (8.5-10.1) mg/dl Total Bilirubin 1.1 H (0.2-1) mg/dl AST 27 (15-37) U/L ALT 98 H (12-78) Alkaline Phosphatase 41 L (45-117) U/L Troponin I 0.074 H* (0-0.045) ng/ml C-Reactive Protein 12.40 H (0-0.29) mg/dl NT-Pro-B Natriuret Pep 361 (0-900) pg/ml Total Protein 6.7 (6.4-8.2) gm/dl Albumin 2.8 L (3.4-5.0) gm/dl Globulin 3.9 (2.5-4.0) gm/dl Albumin/Globulin Ratio 0.7 L (0.9-2) 02/18/21 02/18/21 Range/Units 18:42 20:10 WBC (4.8-10.8) K/uL RBC (4.7-6.1) M/uL Hgb (14.0-18.0) g/dL Hct (42-52) % MCV (80-100) fL MCH (25-34) pg MCHC (32-36) g/dL RDW Std Deviation (36.4-46.3) fL RDW Coeff of Eleazar (11.5-14.5) % Plt Count (130-400) K/uL MPV (7.4-10.4) fL Immature Gran % (Auto) % Neut % (Auto) % Lymph % (Auto) % [place] % (Auto) % Eos % (Auto) % Baso % (Auto) % Neut # (Auto) (1.4-6.5) K/uL Lymph # (Auto) (1.2-3.4) K/uL [place] # (Auto) (0.11-0.59) K/uL Eos # (Auto) (0-0.5) K/uL Baso # (Auto) (0-0.2) K/uL Immature Gran # (Auto) (0.00-0.02) K/uL ABG pH Cancelled 7.49 H ABG pCO2 Cancelled 30 L ABG pO2 Cancelled 79 L ABG HCO3 Cancelled 22 ABG O2 Saturation Cancelled 96.8 H ABG Base Excess Cancelled 0.1 Brodie Test Cancelled Pos Barometric Pressure Cancelled 727.9 Oxygen Given Cancelled 35 Sodium (136-145) mmol/L Potassium (3.5-5.1) mmol/L Chloride (98-107) mmol/L Carbon Dioxide (21-32) mmol/L Anion Gap (3-11) BUN (7-18) mg/dl Creatinine (0.6-1.4) mg/dl Est Cr Clr Drug Dosing ml/min Est GFR ( Amer) ml/min Est GFR (Non-Af Amer) ml/min BUN/Creatinine Ratio (10-20) Glucose (70-99) mg/dl Lactate (0.4-2.0) mmol/L Calcium (8.5-10.1) mg/dl Total Bilirubin (0.2-1) mg/dl AST (15-37) U/L ALT (12-78) Alkaline Phosphatase (45-117) U/L Troponin I (0-0.045) ng/ml C-Reactive Protein (0-0.29) mg/dl NT-Pro-B Natriuret Pep (0-900) pg/ml Total Protein (6.4-8.2) gm/dl Albumin (3.4-5.0) gm/dl Globulin (2.5-4.0) gm/dl Albumin/Globulin Ratio (0.9-2) Imaging Data Radiologist's Impression: Chest X-Ray 02/18/21 17:48 SINGLE VIEW CHEST CLINICAL HISTORY: Dyspnea FINDINGS: An AP, portable, upright chest radiograph is compared to study dated 02/09/2021 and correlated with chest CT dated 01/31/2021. The examination is degraded by portable technique and patient rotation. The heart is enlarged. There is chronic elevation of the right hemidiaphragm. Multifocal airspace consolidation has worsened as compared to 02/09/2021. No large pleural effusion or pneumothorax is seen. The skeletal structures appear osteopenic. The bony thorax is grossly intact. IMPRESSION: Multifocal airspace consolidation has significantly worsened as compared to 02/09/2021. ACT 112: Negative or not required by law. Electronically signed by: Matthew Carmona M.D. 02/18/2021 6:40 PM Chest CTA 02/18/21 20:00 CT ANGIOGRAM OF THE CHEST CLINICAL HISTORY: Dyspnea. Covid. COMPARISON STUDY: Chest x-ray dated 02/18/2021. Chest CT dated 01/31/2021. TECHNIQUE: Following the IV administration of 120 cc of Optiray 320, CT angiogram of the chest was performed from the upper abdomen to the thoracic inlet utilizing the pulmonary embolus protocol. Images are reviewed in the axial, sagittal, and coronal planes. 3-D MIPS images are created and assessed. IV contrast was administered without complication. A dose lowering technique was utilized adhering to the principles of ALARA. CT DOSE: 1070.91 mGy.cm FINDINGS: Thyroid: Imaged portions of the thyroid gland are normal in size and attenuation. Thoracic aorta: The thoracic aorta is normal in caliber and demonstrates standard 3-vessel arch anatomy. No dissection is seen. Pulmonary vasculature: The pulmonary trunk is normal in caliber. There are no filling defects identified in main, lobar, or proximal segmental pulmonary branches to suggest pulmonary embolus. Evaluation of the segmental and subsegmental branches is significantly degraded by motion artifact. Heart: The heart is enlarged and without pericardial effusion. Lungs and pleural spaces: Evaluation of the lung parenchyma is significantly degraded by motion artifact. Airspace consolidation is seen throughout both lung s. There are trace pleural effusions. The trachea and central airways appear clear. Mediastinum: There are numerous mildly enlarged mediastinal lymph nodes which measure up to 13 mm in short axis. Dayna: Enlarged hilar nodes measure up to 15 mm in short axis. Axillae: There is no axillary lymphadenopathy. Upper abdomen: There are numerous gallstones. The liver is enlarged and steatotic. A small hiatal hernia is noted. The spleen is enlarged measuring 15.3 cm in length. Skeletal structures: No lytic or blastic bony lesions are seen. IMPRESSION: 1. Motion compromised examination. 2. There is no evidence of central pulmonary embolus in the main, lobar, or proximal segmental pulmonary arteries. Evaluation of the segmental and subsegmental branches is significantly degraded by motion artifact. 3. Extensive/diffuse airspace consolidation is consistent with the reported history of a viral pneumonia. Radiographic follow-up to resolution is recomme nded. 4. Trace pleural effusions. 5. Mildly enlarged mediastinal and hilar lymph nodes are likely reactive. 6. Hepatic steatosis. 7. Splenomegaly. 8. Cholelithiasis. ACT 112: Negative or not required by law. Electronically signed by: Matthew Carmona M.D. 02/18/2021 8:56 PM ECG Data Attestation: I personally reviewed and interpreted this ECG as follows: Indication: + SOB/dyspnea Rate (beats per minute): 105 Rhythm: + sinus tachycardia ECG Continental: + Normal ECG ST segments: no ST elevation ECG Findings: no PVCs Comparison ECG Date: from (January 31, 2021) Change: no significant change MDM Narrative I did evaluate the patient as noted above. The patient is presenting with respiratory distress. He is hyperventilating and cannot speak in full sentences. He initially was satting 88% on a nonrebreather mask which prompted the nurse to immediately get me. When I went into the room his saturation was about 93% on nonrebreather. He was placed in respiratory isolation. IV access was est ablished. I did place an order for continuous cardiac monitoring. The monitor showed sinus tachycardia at a rate of 106 bpm. I did order and personally review the patient's 12-lead EKG as described above. He has no evidence of acute ischemia.I did order and personally reviewed the images of the patient's chest x-ray as described above. He has bilateral infiltrates worse than his previous x-ray. I did order blood cultures. I did treat him empirically with Levaquin 750 mg IV in case he had a superimposed bacterial infection on top of his COVID-19 infection. I did order and review the patient's blood work as noted in the electronic medical record. His white count is elevated at 15.57. He has a hemoglobin of 13.9 and platelet count of 136. Differential demonstrates a left shift. Troponin is elevated at 0.074. He denies having any chest discomfort or pain. His EKG does not show any acute ischemic changes. His C-reactive protein is 12.4. Electrolytes are unremarkable. The patient was placed on high flow oxygen via nasal cannula. His O2 saturations remained in the low 90s. Clinica lly he has shown improvement. ABG demonstrates a pH of 7.49. PaCO2 is 30 and PaO2 is 79. The case was discussed with the hospitalist and case management social worker. Impression & Plan Acute respiratory failure with hypoxia, Multifocal pneumonia, COVID-19, Elevated troponin Discharge Plan Visit Data Chief Complaint: Shortness of Breath/Dyspnea Stated Complaint: HYPOXIA, KNEE PAIN ED Provider: Jose Estevez Discharge Problem: Acute respiratory failure with hypoxia, Multifocal pneumonia, COVID-19, Elevated troponin Patient Disposition: Being Evaluated by Hospitalist Forms Stand Alone Forms: My [facility] Prescriptions Prescriptions: No Action ascorbic acid (vitamin C) [Vitamin C] 1,000 mg Tablet 1 g PO DAILY RF: 0 atorvastatin 20 mg tablet 20 mg PO DAILY RF: 0 citalopram 20 mg tablet 20 mg PO DAILY RF: 0 baclofen 10 mg tablet 10 mg PO DAILY PRN (Reason: Muscle Spasm) RF: 0 pantoprazole 40 mg tablet,delayed release (DR/EC) 40 mg PO DAILY RF: 0 zinc 50 mg Tablet 0 mg PO DAILY RF: 0 metoprolol tartrate 50 mg Tablet 50 mg PO BID 30 Days Qty: 60 RF: 3 furosemide 20 mg Tablet 20 mg PO QAM 7 Days Qty: 7 RF: 0 Xarelto 10 mg tablet 10 mg PO DAILY Qty: 30 RF: 0 Referrals Referrals: Omar Damon [Primary Care Provider] -
[2021-02-18] MEDS ORDERED: levoFLOXacin/D5W 750 MG/150 ML BAG IV STA (18:32)
[2021-02-18 18:39] LABS: Basophils # (auto) 0.01 K/uL (0-0.2); Basophils % (auto) 0.1 %; Eosinophils # (auto) 0.39 K/uL (0-0.5); Eosinophils % (auto) 2.5 %; Hematocrit (blood only) 43.5 % (42-52); Hemoglobin 13.9 g/dL (14.0-18.0); Immature Granulocytes # (auto) 0.05 K/uL (0.00-0.02); Immature Granulocytes % (auto) 0.3 %; Lymphocytes # (auto) 1.47 K/uL (1.2-3.4); Lymphocytes % (auto) 9.4 %; Mean Corpuscular Hemoglobin 26.7 pg (25-34); Mean Corpuscular Volume 83.5 fL (80-100); Mean Platelet Volume 9.5 fL (7.4-10.4); Monocytes # (auto) 1.34 K/uL (0.11-0.59); Monocytes % (auto) 8.6 %; Neutrophils # (auto) 12.31 K/uL (1.4-6.5); Neutrophils % (auto) 79.1 %; Platelet Count 136 K/uL (130-400); RDW Coefficient of Variation 16.6 % (11.5-14.5); RDW Standard Deviation 50.8 fL (36.4-46.3); Red Blood Count 5.21 M/uL (4.7-6.1); White Blood Count 15.57 K/uL (4.8-10.8)
--- NOTE | 2021-02-18 18:41 | XRay Report ---
SINGLE VIEW CHEST CLINICAL HISTORY: Dyspnea FINDINGS: An AP, portable, upright chest radiograph is compared to study dated 02/09/2021 and correla joby with chest CT dated 01/31/2021. The examination is degraded by portable technique and patient rot ation. The heart is enlarged. There is chronic elevation of the right hemidiaphragm. Multifocal airs pace consolidation has worsened as compared to 02/09/2021. No large pleural effusion or pneumothorax is seen. The skeletal structures appear osteopenic. The bony thorax is grossly intact. IMPRESSION: Multifocal airspace consolidation has significantly worsened as compared to 02/09/2021. ACT 112: Negative or not required by law. Electronically signed by: Matthew Carmona M.D. 02/18/2021 6:40 PM
[2021-02-18 18:56] LABS: Albumin Level 2.8 gm/dl (3.4-5.0); BUN Creatinine Ratio 18.1 (10-20); Calcium 8.8 mg/dl (8.5-10.1); Est GFR (African American) 95.9 ml/min; Est GFR (Non-African American) 82.8 ml/min; Potassium 4.2 mmol/L (3.5-5.1)
[2021-02-18 19:12] LABS: Albumin Globulin Ratio 0.7 (0.9-2); Bilirubin,Total 1.1 mg/dl (0.2-1); C Reactive Protein 12.4 mg/dl (0-0.29); Globulin 3.9 gm/dl (2.5-4.0); Total Protein 6.7 gm/dl (6.4-8.2); Troponin I 0.074 ng/ml (0-0.045)
[2021-02-18] MEDS ORDERED: PIPERACILL/TAZOBAC CONSULT ACTIVE PRN (20:06)
[2021-02-18] MEDS ORDERED: VANCOMYCIN CONSULT ACTIVE PRN ×2 (20:06)
[2021-02-18] MEDS ORDERED: PIPERACILLIN/TAZOBACTAM 4.5 GM in DEXTROSE 5% 100 ML IV ONE (20:06)
[2021-02-18] MEDS ORDERED: VANCOMYCIN HCL 2,750 MG in SODIUM CHLORIDE 0.9% 500 ML IV ONE (20:15)
[2021-02-18 20:25] LABS: Base Excess ABG 0.1 mEq/L (-9-1.8); HCO3 ABG 22 mmol/L (19-24); Oxygen Saturation ABG 96.8 % (90-95); PCO2 ABG 30 mmHg (35-46); PO2 ABG 79 mmHg (80-95); pH ABG 7.49 (7.35-7.45)
[2021-02-18 20:32] LABS: Allen Test Pos (Pos)
[2021-02-18] MEDS ORDERED: OPTIRAY 320 125ml IV ONE (20:35)
--- NOTE | 2021-02-18 20:57 | CT Scan Report ---
CT ANGIOGRAM OF THE CHEST CLINICAL HISTORY: Dyspnea. Covid. COMPARISON STUDY: Chest x-ray dated 02/18/2021. Chest CT dated 01/31/2021. TECHNIQUE: Following the IV administration of 120 cc of Optiray 320, CT angiogram of the chest was pe rformed from the upper abdomen to the thoracic inlet utilizing the pulmonary embolus protocol. Images are reviewed in the axial, sagittal, and coronal planes. 3-D MIPS images are created and assessed. I V contrast was administered without complication. A dose lowering technique was utilized adhering to the principles of ALARA. CT DOSE: 1070.91 mGy.cm FINDINGS: Thyroid: Imaged portions of the thyroid gland are normal in size and attenuation. Thoracic aorta: The thoracic aorta is normal in caliber and demonstrates standard 3-vessel arch anato my. No dissection is seen. Pulmonary vasculature: The pulmonary trunk is normal in caliber. There are no filling defects identif ied in main, lobar, or proximal segmental pulmonary branches to suggest pulmonary embolus. Evaluation of the segmental and subsegmental branches is significantly degraded by motion artifact. Heart: The heart is enlarged and without pericardial effusion. Lungs and pleural spaces: Evaluation of the lung parenchyma is significantly degraded by motion artif act. Airspace consolidation is seen throughout both lungs. There are trace pleural effusions. The tra cholo and central airways appear clear. Mediastinum: There are numerous mildly enlarged mediastinal lymph nodes which measure up to 13 mm in short axis. Dayna: Enlarged hilar nodes measure up to 15 mm in short axis. Axillae: There is no axillary lymphadenopathy. Upper abdomen: There are numerous gallstones. The liver is enlarged and steatotic. A small hiatal her arthur is noted. The spleen is enlarged measuring 15.3 cm in length. Skeletal structures: No lytic or blastic bony lesions are seen. IMPRESSION: 1. Motion compromised examination. 2. There is no evidence of central pulmonary embolus in the main, lobar, or proximal segmental pulmon yan arteries. Evaluation of the segmental and subsegmental branches is significantly degraded by jefferson on artifact. 3. Extensive/diffuse airspace consolidation is consistent with the reported history of a viral pneumo arthur. Radiographic follow-up to resolution is recommended. 4. Trace pleural effusions. 5. Mildly enlarged mediastinal and hilar lymph nodes are likely reactive. 6. Hepatic steatosis. 7. Splenomegaly. 8. Cholelithiasis. ACT 112: Negative or not required by law. Electronically signed by: Matthew Carmona M.D. 02/18/2021 8:56 PM
--- NOTE | 2021-02-18 21:04 | History & Physical Report ---
Date of Service February 18, 2021 Assessment & Plan (1) Pneumonia due to 2019 novel coronavirus: Plan: COVID 19 originally diagnosed [id number] - Now with worsening hypoxia increased WBC, and inflammatory biomarkers - Treat for concomitant bacterial infection for HCAP - Possible ARDS with pulmonary fibrosis late stage - Decadron 10mg IV daily -- low threshold to increase steroid dosing (2) Bacterial pneumonia: Plan: HCAP likely- increase in WBC, increase oxygen requirements, elevated CRP Blood cultures pending Legionella pending aspergillus pending fungitell and fungal cultures pending - Start treatment for HCAP- Zosyn, Levaquin, Vancomycin- MRSA sent CTA of the chest - Negative for PE- extensive airspace consolidations Lasix 20mg IV x1 now (3) Acute respiratory failure with hypoxia: Plan: DDX: bacterial pneumonia vs. atypical pna vs. ARDs vs. post covid fibrosis - As above - PF ratio 100 - HFNC currently 30L and 70% Fio2 - HFNC/CPAP/BIPAP/INTUBATION - Steroids and diuretics as above (4) Elevated troponin I level: Plan: Likely type II demand ischemia from hypoxia Trend Troponin ECG remains without dynamic changes - ECHO in morning evaluate for RWMA as well as possible pericarditis post viral - Colchine as below (5) Left knee pain: Plan: Hurts with ambulation and palpation along the lateral and medial aspects no effusion no errythema patient states it feels as his previous gout pain - Colchine 0.6mg PO BID (6) Hypertension: Plan: Continue with BB (7) Dyslipidemia: Plan: Continue atorvastatin 20mg daily (8) Elevated AST (SGOT): Plan: Acute phase reactant- downtrending from previous admission (9) History of stroke: Plan: Continue Xarelto Statin BB (10) Morbid obesity with BMI of 40.0-44.9, adult: Plan: No acute needs History of Present Illness Primary Care Provider: Omar Damon 55 YOM with past medical history of: Morbid obesity, HTN, HLD, COVID 19, CVA with foot drop. Patient comes to the EMD today for increase in dyspnea, fevers, and needing to increase his home oxygen to 5L for SPO2 90. Patient was diagnosed and admitted for COVID 01/31, where he was treated with Remdisivir and Decadron 6mg IV- his CRP was never elevated so he did not qualify for other immune modulators at that time. His WBC remained elevated through the admission but with a PCT that was negative and antibiotic therapy was deferred. He had a CTA of the chest performed on 01/31 that was negative for pulmonary embolism. He was never intubated byt was on HFNC for 11 days and was able to wean down to 3-4 liters. He was on DVT prophy at that time and was discharged home on Xarelto for VTE prophy, which he feels he may have not taken. Today the patient states that he has been having an increase in fevers, although not measured at home, increase in dyspnea and having to hyperventilate to catch his breath, and cough. He has had no further hemoptysis at home, and occasional sputum which he does not know what color it was. He is also complaining of left knee pain that he describes as feeling like gout and he denies falls. He had CXR shows significant worsening with bilateral opacities more so on the right with air bronchograms. He had blood cultures performed and is unable to provide sputum culture. He will be started on broad spectrum antibiotics for possible HCAP, CTA of the chest to rule out PE as well as evaluate opacities, Trend Troponin I, ECHO, PF ratio on admission is 100. Patient will be admitted to PCU COVID. Allergies Allergy/AdvReac Type Severity Reaction Status Date / Time Penicillins Allergy Intermediate Hives Verified 02/18/21 17:53 Home Medications Medication Instructions Recorded Confirmed Type ascorbic acid (vitamin C) 1,000 mg 1 g PO DAILY 01/31/21 02/18/21 History tablet (Vitamin C) atorvastatin 20 mg tablet 20 mg PO DAILY 01/31/21 02/18/21 History baclofen 10 mg tablet 10 mg PO DAILY PRN 01/31/21 02/18/21 History citalopram 20 mg tablet 20 mg PO DAILY 01/31/21 02/18/21 History pantoprazole 40 mg tablet,delayed 40 mg PO DAILY 01/31/21 02/18/21 History release zinc 50 mg tablet 0 mg PO DAILY 01/31/21 02/18/21 History furosemide 20 mg tablet 20 mg PO QAM 7 Days #7 tab 02/15/21 02/18/21 Rx metoprolol tartrate 50 mg tablet 50 mg PO BID 30 Days #60 tab 02/15/21 02/18/21 Rx rivaroxaban 10 mg tablet (Xarelto) 10 mg PO DAILY #30 tab 02/15/21 02/18/21 Rx Past Med/Surg History Medical History Dyslipidemia Hypertension Pneumonia due to 2019 novel coronavirus Social History Smoking Status: Never smoker Hx Alcohol Use: No Hx Substance Use: No Preferred Language: Portuguese Communication Ability: Effective Dermatology Teacher Required: No Beliefs That Will Affect Care: None marital status: Unknown Current Living Situation: Family Other Information That Helps Us Care for You: No Feels Safe at Home: Yes Safety Concerns: Feels Safe At This Time Assistive Devices: Oxygen - Continuous Review of Systems Review of Systems: REVIEW OF SYSTEMS: Constitutional: (+) fever, sweats or chills Eyes: No diplopia, no worsening or blurred vision ENT: normal hearing, no trouble swallowing Respiratory: (+) cough, sputum, dyspnea at rest or on exertion Cardiovascular: No chest pain, tightness or palpitations Abdomen: (+) diarrhea, No pain, nausea, vomiting, Musculoskeletal: (+) left knee pain, joint pain, calf pain, swelling Neurologic: No weakness, numbness/tingling, or balance problems Psychiatric: No anxiety or depression Skin: No rash or itch Physical Exam Physical Exam: PHYSICAL EXAM: General: awake, alert, fatigued appearing Head: Normocephalic, atraumatic ENT: PERRLA, EOMI, no pharyngeal exudate, mucous membranes dry Neuro: AAO x 3, speech clear and appropriate, strength intact bilaterally 5/5, sensation intact and equal all extremities and dermatomes, no pronator drift Chest: equal rise and fall of the chest, Tachypneic, poor air movement throughout, inspiratory wheeze Cardiac: Regular rate and rhythm, telemetry reviewed, skin warm dry, cap refill <3 seconds, peripheral pulses +2 no JVD, no murmur, trace lower extremity edema GI: NABS x 4 quadrants, soft, nontender to palpation, no rebound, guarding or tenderness : Spontaneously voiding, no pain, no CVA tenderness, Extremities: Normal inspection, no peripheral edema or erythema, calfs nontender to palpation Psych: Normal mood and affect Skin: no rash or erythema Results & Data Results & Data ([facility]) Vital Signs (Past 12 Hours) Vital Signs Temp Pulse Pulse Resp BP BP Pulse Ox 02/18/21 19:38 88 26 H 92 02/18/21 19:30 109 H 26 H 118/69 94 02/18/21 19:00 104 H 34 H 113/71 94 02/18/21 18:24 105 H 32 H 92 02/18/21 17:40 36.4 C L 106 H 106 H 26 H 100/77 100/77 93 Laboratory Results Abnormal lab results 02/18/21 02/18/21 02/18/21 Range/Units 18:27 18:27 20:10 WBC 15.57 H (4.8-10.8) K/uL Hgb 13.9 L (14.0-18.0) g/dL RDW Std Deviation 50.8 H (36.4-46.3) fL RDW Coeff of Eleazar 16.6 H (11.5-14.5) % Neut # (Auto) 12.31 H (1.4-6.5) K/uL [place]away # (Auto) 1.34 H (0.11-0.59) K/uL Immature Gran # (Auto) 0.05 H (0.00-0.02) K/uL ABG pH 7.49 H (7.35-7.45) ABG pCO2 30 L (35-46) mmHg ABG pO2 79 L (80-95) mmHg ABG O2 Saturation 96.8 H (90-95) % Glucose 114 H (70-99) mg/dl Total Bilirubin 1.1 H (0.2-1) mg/dl ALT 98 H (12-78) Alkaline Phosphatase 41 L (45-117) U/L Troponin I 0.074 H* (0-0.045) ng/ml C-Reactive Protein 12.40 H (0-0.29) mg/dl Albumin 2.8 L (3.4-5.0) gm/dl Albumin/Globulin Ratio 0.7 L (0.9-2) Diagnostic Findings Chest X-Ray 02/18/21 17:48 SINGLE VIEW CHEST CLINICAL HISTORY: Dyspnea FINDINGS: An AP, portable, upright chest radiograph is compared to study dated 02/09/2021 and correlated with chest CT dated 01/31/2021. The examination is degraded by portable technique and patient rotation. The heart is enlarged. There is chronic elevation of the right hemidiaphragm. Multifocal airspace consolidation has worsened as compared to 02/09/2021. No large pleural effusion or pneumothorax is seen. The skeletal structures appear osteopenic. The bony thorax is grossly intact. IMPRESSION: Multifocal airspace consolidation has significantly worsened as compared to 02/09/2021. ACT 112: Negative or not required by law. Electronically signed by: Matthew Carmona M.D. 02/18/2021 6:40 PM Medications Administered Home Medications ascorbic acid (vitamin C) 1,000 mg tablet (Vitamin C) 1 g PO DAILY 01/31/21 [History Confirmed 02/18/21] atorvastatin 20 mg tablet 20 mg PO DAILY 01/31/21 [History Confirmed 02/18/21] baclofen 10 mg tablet 10 mg PO DAILY PRN 01/31/21 [History Confirmed 02/18/21] citalopram 20 mg tablet 20 mg PO DAILY 01/31/21 [History Confirmed 02/18/21] pantoprazole 40 mg tablet,delayed release 40 mg PO DAILY 01/31/21 [History Confirmed 02/18/21] zinc 50 mg tablet 0 mg PO DAILY 01/31/21 [History Confirmed 02/18/21] furosemide 20 mg tablet 20 mg PO QAM 7 Days #7 tab 02/15/21 [Rx Confirmed 02/18/21] metoprolol tartrate 50 mg tablet 50 mg PO BID 30 Days #60 tab 02/15/21 [Rx Confirmed 02/18/21] rivaroxaban 10 mg tablet (Xarelto) 10 mg PO DAILY #30 tab 02/15/21 [Rx Confirmed 02/18/21] Active Medications Colchicine (Colchicine 0.6 Mg Tab) 0.6 mg PO BID CANDICE Stop: 03/20/21 20:59 Piperacillin Sod/Tazobactam (Sod 4.5 gm/ Dextrose) 120 mls @ 200 mls/hr IV NOW ONE; Protocol Stop: 02/18/21 20:41 Vancomycin HCl 2,750 mg/ (Sodium Chloride) 555 mls @ 180 mls/hr IV NOW ONE Stop: 02/18/21 23:19 Piperacillin Sod/Tazobactam (Sod 4.5 gm/ Dextrose) 120 mls @ 30 mls/hr IV Q8H [facility]; Protocol Stop: 02/26/21 01:59 Miscellaneous Information (Piperacill/Tazobac Consult Active) 1 ea N/A UD PRN PRN Reason: Consult Stop: 03/20/21 20:05 Miscellaneous Information (Vancomycin Consult Active) 1 ea N/A UD PRN PRN Reason: Consult Stop: 03/20/21 20:05 Discontinued Medications Levofloxacin/Dextrose (Levaquin/D5w) 750 mg in 150 mls @ 100 mls/hr IV NOW STA Stop: 02/18/21 20:01 Last Admin: 02/18/21 18:41 Dose: 100 mls/hr Documented by: [id number] Ioversol (Optiray 320 125ml) 120 ml IV ONCE ONE Stop: 02/18/21 20:36 Last Admin: 02/18/21 20:35 Dose: 120 ml Documented by: [id number] ECG Additional Comments: Sinus tachycardia Otherwise normal ECG When compared with ECG of 31-JAN-2021 15:10, No significant change was found Code Status & VTE Plan Code Status CODE: FULL VTE: SCDs, Xeralto VTE Prophylaxis Plan VTE Prophylaxis will be ordered: Yes Supervising Physician Co-Signing Physician Notes Attending addendum: I have physically seen this patient, have supervised the RASHAWN's activities, and agree with the H&P unless as otherwise noted. Assessment and Plan: COVID-19 pneumonia with hypoxia/secondary bacterial pneumonia- dexamethasone 10 mg IV daily vancomycin IV per pharmacokinetic monitoring Zosyn 4.5 g IV every 8 hours levofloxacin 5 mg IV daily Duonebs every 4 hours while awake and every 2 hours when necessary. Guaifenesin extended release 1200 mg p.o. twice daily vitamin D 5000 international units p.o. every morning zinc sulfate turn 20 mg p.o. every morning oxygen supplementation, titrate to keep pulse ox 92-94% keep dry, will give Lasix 20 mg IV x1 now and follow response Elevated troponin/hypertension- the patient will be admitted to telemetry for serial cardiac enzymes, serial EKG's, cardiac rhythm monitoring and a 2-D echocardiogram with Dopplers. Likely type II [place], demand ischemia troponin 0.074 continue metoprolol tartrate 50 mg p.o. twice daily with hold parameters, and Xarelto start colchicine 0.6 mg p.o. twice daily for possible myopericarditis coverage, along with probable gout flare Remaining orders and notations as noted PG Care Time/CCT Total # of Minutes Spent Total Time Spent with Patient: Total time spent is greater than 50% in coordination of care (as documented) at patient's floor/unit and/or counseling patient: Coding Level of Care Code 55041 Initial Inpt Care Lvl 3 Diagnoses Pneumonia due to 2019 novel coronavirus U07.1; J12.82 Bacterial pneumonia J15.9 Hypertension I10 Dyslipidemia E78.5 Elevated AST (SGOT) R74.01 History of stroke Z86.73 Morbid obesity with BMI of 40.0-44.9, adult E66.01; Z68.41 Acute respiratory failure with hypoxia J96.01 Elevated troponin I level R77.8 Left knee pain M25.562
[2021-02-18] MEDS: COLCHICINE 0.6 MG TAB PO SCH (21:16)
[2021-02-19] MEDS ORDERED: FUROSEMIDE INJ 20 MG/2 ML VIAL IV ONE (00:50)
[2021-02-19] MEDS ORDERED: ALBUTEROL 0.5% NEB SOLN 2.5 MG/0.5 ML VIAL NEB PRN (00:50)
[2021-02-19] MEDS ORDERED: dexAMETHasone 10 MG in SYRINGE 0 ML IV ONE (01:00)
[2021-02-19] MEDS: METOPROLOL TARTRATE 50 MG TAB PO SCH ×3 (01:47→20:10)
[2021-02-19] MEDS ORDERED: MoRPHine SULFATE 2 MG/ML CARP IV STA ×2 (02:23→02:52)
[2021-02-19] MEDS: ALBUTEROL HFA 8 GM INHALER INH SCH ×3 (02:31→12:10)
[2021-02-19] MEDS: PIPERACILLIN/TAZOBACTAM 4.5 GM in DEXTROSE 5% 100 ML IV SCH ×3 (05:10→20:10)
[2021-02-19 06:11] LABS: Basophils # (auto) 0.01 K/uL (0-0.2); Basophils % (auto) 0.1 %; Eosinophils # (auto) 0.07 K/uL (0-0.5); Eosinophils % (auto) 0.5 %; Hematocrit (blood only) 44.3 % (42-52); Hemoglobin 14.4 g/dL (14.0-18.0); Immature Granulocytes # (auto) 0.04 K/uL (0.00-0.02); Immature Granulocytes % (auto) 0.3 %; Lymphocytes # (auto) 0.59 K/uL (1.2-3.4); Lymphocytes % (auto) 3.9 %; Mean Corpuscular Hemoglobin 26.9 pg (25-34); Mean Corpuscular Hgb Conc 32.5 g/dL (32-36); Mean Corpuscular Volume 82.6 fL (80-100); Mean Platelet Volume 9.7 fL (7.4-10.4); Monocytes # (auto) 0.49 K/uL (0.11-0.59); Monocytes % (auto) 3.2 %; Neutrophils # (auto) 13.93 K/uL (1.4-6.5); Platelet Count 125 K/uL (130-400); RDW Coefficient of Variation 16.5 % (11.5-14.5); Red Blood Count 5.36 M/uL (4.7-6.1); White Blood Count 15.13 K/uL (4.8-10.8)
[2021-02-19 06:44] LABS: BUN Creatinine Ratio 15.6 (10-20); Creatinine Clr Calc Pharmacy 127.1 ml/min; Est GFR (African American) 110.8 ml/min; Est GFR (Non-African American) 95.6 ml/min; Magnesium 2.4 mg/dl (1.8-2.4)
[2021-02-19] MEDS: CITALOPRAM 20 MG TAB PO SCH (08:08)
[2021-02-19] MEDS: COLCHICINE 0.6 MG TAB PO SCH ×2 (08:08→20:10)
[2021-02-19] MEDS: PANTOprazole 40 MG TAB PO SCH (08:08)
[2021-02-19] MEDS: ATORVASTATIN 20 MG TAB PO SCH (08:08)
[2021-02-19] MEDS: RIVAROXABAN 10 MG TABLET PO SCH (08:09)
[2021-02-19] MEDS: dexAMETHasone 20 MG in DEXTROSE 5% 25 ML IV SCH (08:43)
--- NOTE | 2021-02-19 08:52 | Hospitalist Progress Note ---
Date of Service February 19, 2021 Assessment & Plan (1) Pneumonia due to 2019 novel coronavirus: Plan: COVID 19 originally diagnosed he was hospitalized until 02/15/21 he was treated with dexamethasone, Remdesivir CRP was never high enough to consider Baricitinib discharged to home on 3L rest and 4L on exertion after he spent over a week on high flow he felt well when discharged now with late stage ARDS, CRP up to 12, CTA chest without PE but with extensive inflammatory changes treat with Dexamethasone 20mg IV daily x 5 days, then 10mg IV daily cover with Levaquin and Vancomycin for any possible bacterial infection Lasix 20mg IV daily, Cr is stable and he was eating and drinking prior to admission continue Xarelto 10mg PO daily, no PE on CTA chest working hard to breathe, on CPAP 8 and 90% but he is tachypneic will try on high flow 60L 100% this morning, allow him to take pills, eat and drink try to move to east as he is at risk of further decompensation (2) Bacterial pneumonia: Plan: HCAP is possible - increase in WBC, increase oxygen requirements, elevated CRP Blood cultures pending Legionella pending aspergillus pending fungitell and fungal cultures pending Zosyn, Levaquin, Vancomycin- MRSA sent CTA of the chest - Negative for PE- extensive airspace consolidations Lasix 20mg IV daily follow up on cultures, continue antibiotics for 7 days (3) Acute respiratory failure with hypoxia: Plan: DDX: bacterial pneumonia vs. atypical pna vs. ARDs vs. post covid fibrosis - As above - PF ratio 100 on admission suspect late ARDS, will increase dexamethasone to 20mg IV daily x 5 days then 10mg IV x 5 days continue broad spectrum antibiotics Lasix 20mg IV daily to keep lungs dry high risk of further decompensation, breathing fast, accessory muscles try to move to [facility] in case he needs intubated (4) Elevated troponin I level: Plan: Likely type II demand ischemia from hypoxia Trend Troponin ECG remains without dynamic changes - ECHO in morning evaluate for RWMA as well as possible pericarditis post viral - Colchine as below (5) Left knee pain: Plan: Hurts with ambulation and palpation along the lateral and medial aspects no effusion no errythema patient states it feels as his previous gout pain - Colchine 0.6mg PO BID dexamethasone could also help with gout inflammation (6) Hypertension: Plan: Continue with BB (7) Dyslipidemia: Plan: Continue atorvastatin 20mg daily (8) Elevated AST (SGOT): Plan: Acute phase reactant- downtrending from previous admission (9) History of stroke: Plan: Continue Xarelto Statin BB (10) Morbid obesity with BMI of 40.0-44.9, adult: Plan: No acute needs Admission and Anticipated Discharge Date Admission Date: February 18, 2021 Subjective patient discharged by me earlier in the week, he went home on 3L at rest and 4L on exertion his CRP was < 0.5 when he was discharged he reports that his breathing gradually got worse, his saturations were dropping to 70's he says he was taking his prescribed medications such as Lasix and Xarelto no fevers, no cough, no sputum production, no chest pain appetite was fine, drinking liquids main issue was dyspnea and hypoxia reviewed chart, CTA chest without PE but he has extensive inflammatory changes in both lungs CRP elevated at 12, Cr normal at 0.89 started on dexamethasone, Levaquin, Vancomycin on admission he was on high flow and had to be placed on CPAP, currently on CPAP 8 and 90% with saturations 93% he is tachypneic but can speak, he is belly breathing discussed I have concerns about how he is breathing, will try to move to 2 east Review of Systems Review of Systems: All systems reviewed & are unremarkable except as noted in Subjective Respiratory: + dyspnea and + dyspnea on exertion Physical Exam Physical Exam: General: well developed, obese male, ill appearing, in slight distress Neck: supple, trachea midline, normal thyroid Lungs: clear to auscultation bilaterally, + tachypnea, + belly breathing, speaking in one word answers Heart: regular S1 and S2, no murmur, peripheral pulses normal, capillary refill normal, no edema Abdomen: soft, NT, ND, + BS, no hepatomegaly, normal to percussion Extremities: normal in appearance, no cyanosis, no petechiae, strength is 5/5 bilaterally Neuro: awake, cooperative, moves all extremities, no focal motor deficits, CN II-XII intact, sensation in extremities intact, normal speech Skin: warm, dry, no rash, normal turgor Psych: Awake, alert oriented x 3, euthymic affect Results & Data Results & Data ([facility] [place]) Vital Signs (Past 12 Hours) Vital Signs Temp Pulse Pulse Resp BP BP Pulse Ox 02/19/21 07:39 92 H 36 H 95 02/19/21 07:38 36.8 C 76 20 109/62 93 02/19/21 05:23 36.6 C 02/19/21 03:53 37.1 C 98 H 42 H 120/77 94 02/19/21 03:05 116 H 48 H 90 02/19/21 00:14 102 H 30 H 88 L 02/19/21 00:05 36.7 C 105 H 36 H 150/78 H 92 02/18/21 23:30 103 H 30 H 126/89 93 02/18/21 23:00 98 H 36 H 117/76 90 02/18/21 22:30 98 H 36 H 103/54 L 90 02/18/21 21:30 102 H 34 H 107/72 94 02/18/21 21:00 102 H 27 H 120/79 95 Laboratory Results Laboratory Results - last 24 hr 02/18/21 02/18/21 02/18/21 18:27 18:27 18:27 WBC 15.57 H RBC 5.21 Hgb 13.9 L Hct 43.5 MCV 83.5 MCH 26.7 MCHC 32.0 RDW Std Deviation 50.8 H RDW Coeff of Eleazar 16.6 H Plt Count 136 MPV 9.5 Immature Gran % (Auto) 0.3 Neut % (Auto) 79.1 Lymph % (Auto) 9.4 [place] % (Auto) 8.6 Eos % (Auto) 2.5 Baso % (Auto) 0.1 Neut # (Auto) 12.31 H Lymph # (Auto) 1.47 [place] # (Auto) 1.34 H Eos # (Auto) 0.39 Baso # (Auto) 0.01 Immature Gran # (Auto) 0.05 H ABG pH ABG pCO2 ABG pO2 ABG HCO3 ABG O2 Saturation ABG Base Excess Brodie Test Barometric Pressure Oxygen Given Sodium 139 Potassium 4.2 Chloride 107 Carbon Dioxide 28 Anion Gap 4.0 BUN 18 Creatinine 1.01 Est Cr Clr Drug Dosing 112.0 Est GFR ( Amer) 95.9 Est GFR (Non-Af Amer) 82.8 BUN/Creatinine Ratio 18.1 Glucose 114 H POC Glucose Lactate 1.5 Calcium 8.8 Magnesium Total Bilirubin 1.1 H AST 27 ALT 98 H Alkaline Phosphatase 41 L Troponin I 0.074 H* C-Reactive Protein 12.40 H NT-Pro-B Natriuret Pep 361 Total Protein 6.7 Albumin 2.8 L Globulin 3.9 Albumin/Globulin Ratio 0.7 L Procalcitonin Nasal Screen MRSA (PCR) Urine Legionella Ag A. galactomannan Ag A. galactomannan Ag Idx Beta-(1,3)-D-Glucan B-(1,3)-D-Glucan Intrp 02/18/21 02/18/21 02/18/21 18:27 18:42 20:10 WBC RBC Hgb Hct MCV MCH MCHC RDW Std Deviation RDW Coeff of Eleazar Plt Count MPV Immature Gran % (Auto) Neut % (Auto) Lymph % (Auto) [place] % (Auto) Eos % (Auto) Baso % (Auto) Neut # (Auto) Lymph # (Auto) [place] # (Auto) Eos # (Auto) Baso # (Auto) Immature Gran # (Auto) ABG pH Cancelled 7.49 H ABG pCO2 Cancelled 30 L ABG pO2 Cancelled 79 L ABG HCO3 Cancelled 22 ABG O2 Saturation Cancelled 96.8 H ABG Base Excess Cancelled 0.1 Brodie Test Cancelled Pos Barometric Pressure Cancelled 727.9 Oxygen Given Cancelled 35 Sodium Potassium Chloride Carbon Dioxide Anion Gap BUN Creatinine Est Cr Clr Drug Dosing Est GFR ( Amer) Est GFR (Non-Af Amer) BUN/Creatinine Ratio Glucose POC Glucose Lactate Calcium Magnesium Total Bilirubin AST ALT Alkaline Phosphatase Troponin I C-Reactive Protein NT-Pro-B Natriuret Pep Total Protein Albumin Globulin Albumin/Globulin Ratio Procalcitonin < 0.05 Nasal Screen MRSA (PCR) Urine Legionella Ag A. galactomannan Ag A. galactomannan Ag Idx Beta-(1,3)-D-Glucan B-(1,3)-D-Glucan Intrp 02/18/21 02/18/21 02/18/21 21:07 21:10 23:00 WBC RBC Hgb Hct MCV MCH MCHC RDW Std Deviation RDW Coeff of Eleazar Plt Count MPV Immature Gran % (Auto) Neut % (Auto) Lymph % (Auto) [place] % (Auto) Eos % (Auto) Baso % (Auto) Neut # (Auto) Lymph # (Auto) [place] # (Auto) Eos # (Auto) Baso # (Auto) Immature Gran # (Auto) ABG pH ABG pCO2 ABG pO2 ABG HCO3 ABG O2 Saturation ABG Base Excess Brodie Test Barometric Pressure Oxygen Given Sodium Potassium Chloride Carbon Dioxide Anion Gap BUN Creatinine Est Cr Clr Drug Dosing Est GFR ( Amer) Est GFR (Non-Af Amer) BUN/Creatinine Ratio Glucose POC Glucose Lactate Calcium Magnesium Total Bilirubin AST ALT Alkaline Phosphatase Troponin I C-Reactive Protein NT-Pro-B Natriuret Pep Total Protein Albumin Globulin Albumin/Globulin Ratio Procalcitonin Nasal Screen MRSA (PCR) Negative Urine Legionella Ag Pending A. galactomannan Ag Pending A. galactomannan Ag Idx Pending Beta-(1,3)-D-Glucan Pending B-(1,3)-D-Glucan Intrp Pending 02/19/21 02/19/21 02/19/21 02:16 03:45 05:27 WBC RBC Hgb Hct MCV MCH MCHC RDW Std Deviation RDW Coeff of Eleazar Plt Count MPV Immature Gran % (Auto) Neut % (Auto) Lymph % (Auto) [place] % (Auto) Eos % (Auto) Baso % (Auto) Neut # (Auto) Lymph # (Auto) [place] # (Auto) Eos # (Auto) Baso # (Auto) Immature Gran # (Auto) ABG pH ABG pCO2 ABG pO2 ABG HCO3 ABG O2 Saturation ABG Base Excess Brodie Test Barometric Pressure Oxygen Given Sodium 136 Potassium 4.0 Chloride 104 Carbon Dioxide 27 Anion Gap 5.0 BUN 14 Creatinine 0.89 Est Cr Clr Drug Dosing 127.1 Est GFR ( Amer) 110.8 Est GFR (Non-Af Amer) 95.6 BUN/Creatinine Ratio 15.6 Glucose 170 H POC Glucose 136 H Lactate Calcium 9.0 Magnesium 2.4 Total Bilirubin AST ALT Alkaline Phosphatase Troponin I 0.040 C-Reactive Protein NT-Pro-B Natriuret Pep Total Protein Albumin Globulin Albumin/Globulin Ratio Procalcitonin Nasal Screen MRSA (PCR) Urine Legionella Ag A. galactomannan Ag A. galactomannan Ag Idx Beta-(1,3)-D-Glucan B-(1,3)-D-Glucan Intrp 02/19/21 02/19/21 02/19/21 05:27 05:27 07:39 WBC 15.13 H RBC 5.36 Hgb 14.4 Hct 44.3 MCV 82.6 MCH 26.9 MCHC 32.5 RDW Std Deviation 50.0 H RDW Coeff of Eleazar 16.5 H Plt Count 125 L MPV 9.7 Immature Gran % (Auto) 0.3 Neut % (Auto) 92.0 Lymph % (Auto) 3.9 [place] % (Auto) 3.2 Eos % (Auto) 0.5 Baso % (Auto) 0.1 Neut # (Auto) 13.93 H Lymph # (Auto) 0.59 L [place] # (Auto) 0.49 Eos # (Auto) 0.07 Baso # (Auto) 0.01 Immature Gran # (Auto) 0.04 H ABG pH ABG pCO2 ABG pO2 ABG HCO3 ABG O2 Saturation ABG Base Excess Brodie Test Barometric Pressure Oxygen Given Sodium Potassium Chloride Carbon Dioxide Anion Gap BUN Creatinine Est Cr Clr Drug Dosing Est GFR ( Amer) Est GFR (Non-Af Amer) BUN/Creatinine Ratio Glucose POC Glucose 160 H Lactate Calcium Magnesium Total Bilirubin AST ALT Alkaline Phosphatase Troponin I 0.044 C-Reactive Protein NT-Pro-B Natriuret Pep Total Protein Albumin Globulin Albumin/Globulin Ratio Procalcitonin Nasal Screen MRSA (PCR) Urine Legionella Ag A. galactomannan Ag A. galactomannan Ag Idx Beta-(1,3)-D-Glucan B-(1,3)-D-Glucan Intrp Medications Administered Current Inpatient Medications Acetaminophen (Acetaminophen 325 Mg Tab) 650 mg PO Q4H PRN PRN Reason: Pain or Fever Stop: 03/21/21 00:49 Albuterol (Albuterol Hfa 8 Gm Inhaler) 2 puffs INH Q6R [facility] Stop: 03/21/21 00:59 Last Admin: 02/19/21 02:31 Dose: 2 puffs Documented by: Albuterol (Albuterol 0.5% Neb Soln 2.5 Mg/0.5 Ml Vial) 2.5 mg NEB Q4 PRN; Protocol PRN Reason: wheezing, cough, poor airmovme Stop: 03/21/21 00:49 Atorvastatin Calcium (Atorvastatin 20 Mg Tab) 20 mg PO DAILY [facility] Stop: 03/21/21 08:59 Last Admin: 02/19/21 08:08 Dose: 20 mg Documented by: Baclofen (Baclofen 10 Mg Tab) 10 mg PO DAILY PRN PRN Reason: Muscle Spasm Stop: 03/21/21 00:49 Citalopram Hydrobromide (Citalopram 20 Mg Tab) 20 mg PO DAILY [facility] Stop: 03/21/21 08:59 Last Admin: 02/19/21 08:08 Dose: 20 mg Documented by: Colchicine (Colchicine 0.6 Mg Tab) 0.6 mg PO BID [facility] Stop: 03/20/21 20:59 Last Admin: 02/19/21 08:08 Dose: 0.6 mg Documented by: Furosemide (Furosemide Inj 20 Mg/2 Ml Vial) 20 mg IV QAM [facility] Stop: 03/21/21 08:59 Piperacillin Sod/Tazobactam (Sod 4.5 gm/ Dextrose) 120 mls @ 30 mls/hr IV Q8H [facility]; Protocol Stop: 02/26/21 01:59 Last Admin: 02/19/21 05:10 Dose: 30 mls/hr Documented by: Levofloxacin/Dextrose (Levaquin/D5w) 750 mg in 150 mls @ 100 mls/hr IV Q24H [facility] Stop: 02/26/21 17:59 Vancomycin HCl 1,500 mg/ (Sodium Chloride) 530 mls @ 200 mls/hr IV Q12H [facility] Stop: 02/26/21 09:59 Dexamethasone 20 mg/ Dextrose 30 mls @ 0.833 mls/min IV Q24H [facility] Stop: 03/21/21 08:59 Metoprolol Tartrate (Metoprolol Tartrate 50 Mg Tab) 50 mg PO BID [facility] Stop: 03/21/21 00:49 Last Admin: 02/19/21 08:09 Dose: 50 mg Documented by: Miscellaneous Information (Piperacill/Tazobac Consult Active) 1 ea N/A UD PRN PRN Reason: Consult Stop: 03/20/21 20:05 Miscellaneous Information (Vancomycin Consult Active) 1 ea N/A UD PRN PRN Reason: Consult Stop: 03/20/21 20:05 Pantoprazole Sodium (Pantoprazole 40 Mg Tab) 40 mg PO DAILY [facility] Stop: 03/21/21 08:59 Last Admin: 02/19/21 08:08 Dose: 40 mg Documented by: Rivaroxaban (Rivaroxaban 10 Mg Tablet) 10 mg PO DAILY [facility] Stop: 03/21/21 08:59 Last Admin: 02/19/21 08:09 Dose: 10 mg Documented by: PG Care Time/CCT Total # of Minutes Spent Total Time Spent: 38 Total Time Spent with Patient: Total time spent is greater than 50% in coordination of care (as documented) at patient's floor/unit and/or counseling patient: Critical Care Time: Yes Total Critical Care Time: 38 from 825 to 903 AM This case had a high probability of a clinically significant, sudden, or life threatening deterioration of this patient's condition which required my full and direct attention, intervention and personal management. Coding Level of Care Code 91551 Subseq Hosp Care Lvl 3 Diagnoses Pneumonia due to 2019 novel coronavirus U07.1; J12.82 Bacterial pneumonia J15.9 Acute respiratory failure with hypoxia J96.01 Elevated troponin I level R77.8 Left knee pain M25.562 Hypertension I10 Dyslipidemia E78.5 Elevated AST (SGOT) R74.01 History of stroke Z86.73 Morbid obesity with BMI of 40.0-44.9, adult E66.01; Z68.41 Additional Codes Critical Care Time - Critical Care Time: Yes ([id number])
[2021-02-19] MEDS ORDERED: dexAMETHasone 10 MG in SYRINGE 0 ML IV SCH (09:00)
[2021-02-19] MEDS ORDERED: VANCOMYCIN HCL 1 MG in SODIUM CHLORIDE 0.9% 250 ML IV SCH (09:00)
[2021-02-19] MEDS ORDERED: dexAMETHasone 20 MG in SYRINGE 0 ML IV SCH (09:00)
[2021-02-19] MEDS: FUROSEMIDE INJ 20 MG/2 ML VIAL IV SCH (09:01)
[2021-02-19] MEDS ORDERED: VANCOMYCIN HCL 1,500 MG in SODIUM CHLORIDE 0.9% 500 ML IV SCH (10:00)
[2021-02-19] MEDS ORDERED: SODIUM CHLORIDE 0.65% NA SOLN 45 ML (OCEAN) ONE (11:40)
--- NOTE | 2021-02-19 11:56 | XCELERA ---
[id number]
[2021-02-19] MEDS ORDERED: ALBUTEROL HFA 8 GM INHALER INH PRN (13:44)
[2021-02-19] MEDS: levoFLOXacin/D5W 750 MG/150 ML BAG IV SCH (17:40)
--- NOTE | 2021-02-19 20:49 | Electrocardiogram Report ---
Test Reason : Blood Pressure : / mmHG Vent. Rate : 105 BPM Atrial Rate : 105 BPM P-R Int : 164 ms QRS Dur : 090 ms QT Int : 348 ms P-R-T Axes : 013 -13 021 degrees QTc Int : 459 ms Sinus tachycardia Otherwise normal ECG When compared with ECG of 31-JAN-2021 15:10, No significant change was found Confirmed by Francis Awan ([id number]) on 02/19/2021 8:49:26 PM Referred By: REFERRED SELF Confirmed By:Francis Awan
--- NOTE | 2021-02-19 21:14 | Electrocardiogram Report ---
Test Reason : Blood Pressure : / mmHG Vent. Rate : 093 BPM Atrial Rate : 093 BPM P-R Int : 176 ms QRS Dur : 102 ms QT Int : 376 ms P-R-T Axes : 014 002 021 degrees QTc Int : 467 ms Normal sinus rhythm Normal ECG When compared with ECG of 18-FEB-2021 18:24, (unconfirmed) No significant change was found Confirmed by Francis Awan ([id number]) on 02/19/2021 9:13:52 PM Referred By: REFERRED SELF Confirmed By:Francis Awan
[2021-02-20] MEDS: PIPERACILLIN/TAZOBACTAM 4.5 GM in DEXTROSE 5% 100 ML IV SCH ×3 (04:21→20:24)
[2021-02-20 07:00] LABS: Hematocrit (blood only) 40.8 % (42-52); Hemoglobin 13.6 g/dL (14.0-18.0); Mean Corpuscular Hgb Conc 33.3 g/dL (32-36); Mean Corpuscular Volume 81.1 fL (80-100); Mean Platelet Volume 9.8 fL (7.4-10.4); Platelet Count 146 K/uL (130-400); RDW Coefficient of Variation 15.6 % (11.5-14.5); RDW Standard Deviation 46.2 fL (36.4-46.3); Red Blood Count 5.03 M/uL (4.7-6.1)
[2021-02-20 07:20] LABS: Basophils # (auto) 0.01 K/uL (0-0.2); Immature Granulocytes # (auto) 0.11 K/uL (0.00-0.02); Immature Granulocytes % (auto) 0.4 %; Lymphocytes # (auto) 1.04 K/uL (1.2-3.4); Lymphocytes % (auto) 4.2 %; Monocytes # (auto) 1.23 K/uL (0.11-0.59); Neutrophils # (auto) 22.21 K/uL (1.4-6.5); Neutrophils % (auto) 90.4 %
[2021-02-20 07:28] LABS: BUN Creatinine Ratio 23.5 (10-20); C Reactive Protein 11.4 mg/dl (0-0.29); Calcium 9.2 mg/dl (8.5-10.1); Creatinine Clr Calc Pharmacy 141.4 ml/min; Est GFR (African American) 115.7 ml/min; Est GFR (Non-African American) 99.9 ml/min; Magnesium 2.4 mg/dl (1.8-2.4); Potassium 3.8 mmol/L (3.5-5.1)
[2021-02-20] MEDS: METOPROLOL TARTRATE 50 MG TAB PO SCH ×2 (08:12→20:24)
[2021-02-20] MEDS: CITALOPRAM 20 MG TAB PO SCH (08:13)
[2021-02-20] MEDS: RIVAROXABAN 10 MG TABLET PO SCH (08:13)
[2021-02-20] MEDS: PANTOprazole 40 MG TAB PO SCH (08:13)
[2021-02-20] MEDS: ATORVASTATIN 20 MG TAB PO SCH (08:13)
[2021-02-20] MEDS: COLCHICINE 0.6 MG TAB PO SCH ×2 (08:14→20:24)
[2021-02-20] MEDS: FUROSEMIDE INJ 20 MG/2 ML VIAL IV SCH (08:45)
[2021-02-20] MEDS: dexAMETHasone 20 MG in DEXTROSE 5% 25 ML IV SCH (08:45)
--- NOTE | 2021-02-20 10:14 | Hospitalist Progress Note ---
Date of Service February 20, 2021 Assessment & Plan Admission and Anticipated Discharge Date Admission Date: February 18, 2021 Subjective patient slept with CPAP 10 and 100% this morning he is back on 60L 100%, breathing fast and heavy eating well, had some cereal this morning had a BM reviewed labs, CRP is 11, WBC 24k, Hb 13, Cr 0.8, BUN 19 discussed that he needs to lay prone as much as possible if he wants to avoid intubation he voiced understanding of this Review of Systems Review of Systems: All systems reviewed & are unremarkable except as noted in Subjective Respiratory: + cough, + dyspnea and + dyspnea on exertion Cardiovascular: no chest pain and no edema Gastrointestinal: + diarrhea/loose stools; no abdominal pain, no nausea, no vomiting and no constipation Physical Exam Physical Exam: General: well developed, obese male, ill appearing, in slight distress Neck: supple, trachea midline, normal thyroid Lungs: clear to auscultation bilaterally, + tachypnea, + belly breathing, speaking in one word answers Heart: regular S1 and S2, no murmur, peripheral pulses normal, capillary refill normal, no edema Abdomen: soft, NT, ND, + BS, no hepatomegaly, normal to percussion Extremities: normal in appearance, no cyanosis, no petechiae, strength is 5/5 bilaterally Neuro: awake, cooperative, moves all extremities, no focal motor deficits, CN I I-XII intact, sensation in extremities intact, normal speech Skin: warm, dry, no rash, normal turgor Psych: Awake, alert oriented x 3, euthymic affect Results & Data Results & Data ([facility]) Vital Signs (Past 12 Hours) Vital Signs Temp Pulse Pulse Pulse Resp BP BP 02/20/21 09:07 83 02/20/21 08:00 36.7 C 87 28 H 128/73 02/20/21 04:00 36.7 C 85 36 H 110/70 02/20/21 02:00 83 33 H 02/20/21 00:00 37.1 C 88 34 H 90/70 L 02/19/21 22:30 36.8 C 106 H 30 H 123/73 02/19/21 22:20 60 02/19/21 22:15 31 H Pulse Ox 02/20/21 09:07 02/20/21 08:00 91 02/20/21 04:00 98 02/20/21 02:00 97 02/20/21 00:00 93 02/19/21 22:30 93 02/19/21 22:20 02/19/21 22:15 91 Laboratory Results Laboratory Results - last 24 hr 02/18/21 02/19/21 02/19/21 18:31 11:35 11:58 WBC RBC Hgb Hct MCV MCH MCHC RDW Std Deviation RDW Coeff of Eleazar Plt Count MPV Immature Gran % (Auto) Neut % (Auto) Lymph % (Auto) [place] % (Auto) Eos % (Auto) Baso % (Auto) Neut # (Auto) Lymph # (Auto) [place] # (Auto) Eos # (Auto) Baso # (Auto) Immature Gran # (Auto) Sodium Potassium Chloride Carbon Dioxide Anion Gap BUN Creatinine Est Cr Clr Drug Dosing Est GFR ( Amer) Est GFR (Non-Af Amer) BUN/Creatinine Ratio Glucose POC Glucose 168 H Calcium Magnesium Troponin I 0.025 C-Reactive Protein Bld Cult Staph aureus PCR Negative Blood Culture MRSA PCR Negative 02/20/21 02/20/21 02/20/21 05:36 05:36 07:46 WBC 24.60 H RBC 5.03 Hgb 13.6 L Hct 40.8 L MCV 81.1 MCH 27.0 MCHC 33.3 RDW Std Deviation 46.2 RDW Coeff of Eleazar 15.6 H Plt Count 146 MPV 9.8 Immature Gran % (Auto) 0.4 Neut % (Auto) 90.4 Lymph % (Auto) 4.2 [place] % (Auto) 5.0 Eos % (Auto) 0.0 Baso % (Auto) 0.0 Neut # (Auto) 22.21 H Lymph # (Auto) 1.04 L [place] # (Auto) 1.23 H Eos # (Auto) 0.00 Baso # (Auto) 0.01 Immature Gran # (Auto) 0.11 H Sodium 136 Potassium 3.8 Chloride 103 Carbon Dioxide 28 Anion Gap 5.0 BUN 19 H Creatinine 0.80 Est Cr Clr Drug Dosing 141.4 Est GFR ( Amer) 115.7 Est GFR (Non-Af Amer) 99.9 BUN/Creatinine Ratio 23.5 H Glucose 164 H POC Glucose 97 Calcium 9.2 Magnesium 2.4 Troponin I C-Reactive Protein 11.40 H Bld Cult Staph aureus PCR Blood Culture MRSA PCR Medications Administered Current Inpatient Medications Acetaminophen (Acetaminophen 325 Mg Tab) 650 mg PO Q4H PRN PRN Reason: Pain or Fever Stop: 03/21/21 00:49 Albuterol (Albuterol 0.5% Neb Soln 2.5 Mg/0.5 Ml Vial) 2.5 mg NEB Q4 PRN; Protocol PRN Reason: wheezing, cough, poor airmovme Stop: 03/21/21 00:49 Albuterol (Albuterol Hfa 8 Gm Inhaler) 2 puffs INH Q6R PRN PRN Reason: Shortness Of Breath Or Wheezing Stop: 03/21/21 00:59 Atorvastatin Calcium (Atorvastatin 20 Mg Tab) 20 mg PO DAILY [facility] Stop: 03/21/21 08:59 Last Admin: 02/20/21 08:13 Dose: 20 mg Documented by: Baclofen (Baclofen 10 Mg Tab) 10 mg PO DAILY PRN PRN Reason: Muscle Spasm Stop: 03/21/21 00:49 Citalopram Hydrobromide (Citalopram 20 Mg Tab) 20 mg PO DAILY [facility] Stop: 03/21/21 08:59 Last Admin: 02/20/21 08:13 Dose: 20 mg Documented by: Colchicine (Colchicine 0.6 Mg Tab) 0.6 mg PO BID [facility] Stop: 03/20/21 20:59 Last Admin: 02/20/21 08:14 Dose: 0.6 mg Documented by: Furosemide (Furosemide Inj 20 Mg/2 Ml Vial) 20 mg IV QAM [facility] Stop: 03/21/21 08:59 Last Admin: 02/20/21 08:45 Dose: 20 mg Documented by: Piperacillin Sod/Tazobactam (Sod 4.5 gm/ Dextrose) 120 mls @ 30 mls/hr IV Q8H [facility]; Protocol Stop: 02/26/21 01:59 Last Infusion: 02/20/21 08:19 Dose: Infused Documented by: Levofloxacin/Dextrose (Levaquin/D5w) 750 mg in 150 mls @ 100 mls/hr IV Q24H [facility] Stop: 02/26/21 17:59 Last Infusion: 02/19/21 19:10 Dose: Infused Documented by: Dexamethasone 20 mg/ Dextrose 30 mls @ 0.833 mls/min IV Q24H [facility] Stop: 03/21/21 08:59 Last Infusion: 02/20/21 09:31 Dose: Infused Documented by: Metoprolol Tartrate (Metoprolol Tartrate 50 Mg Tab) 50 mg PO BID [facility] Stop: 03/21/21 00:49 Last Admin: 02/20/21 08:12 Dose: 50 mg Documented by: Miscellaneous Information (Piperacill/Tazobac Consult Active) 1 ea N/A UD PRN PRN Reason: Consult Stop: 03/20/21 20:05 Pantoprazole Sodium (Pantoprazole 40 Mg Tab) 40 mg PO DAILY [facility] Stop: 03/21/21 08:59 Last Admin: 02/20/21 08:13 Dose: 40 mg Documented by: Rivaroxaban (Rivaroxaban 10 Mg Tablet) 10 mg PO DAILY [facility] Stop: 03/21/21 08:59 Last Admin: 02/20/21 08:13 Dose: 10 mg Documented by: PG Care Time/CCT Total # of Minutes Spent Total Time Spent with Patient: Total time spent is greater than 50% in coordination of care (as documented) at patient's floor/unit and/or counseling patient: Coding
--- NOTE | 2021-02-20 10:32 | Hospitalist Progress Note ---
Date of Service February 20, 2021 Assessment & Plan (1) Pneumonia due to 2019 novel coronavirus: Plan: COVID 19 originally diagnosed he was hospitalized until 02/15/21 he was treated with dexamethasone, Remdesivir CRP was never high enough to consider Baricitinib discharged to home on 3L rest and 4L on exertion after he spent over a week on high flow he felt well when discharged now with late stage ARDS, CRP up to 12 on admission, CTA chest without PE but with extensive inflammatory changes treat with Dexamethasone 20mg IV daily x 5 days (day 2), then 10mg IV daily cover with Levaquin and Zosyn, stopped Vanco as MRSA swab negative Lasix 20mg IV daily, Cr is stable continue Xarelto 10mg PO daily, no PE on CTA chest working hard to breathe, on CPAP 10 and 100% when sleeping, saturations stable 60L 100% past two days, told him to lay prone as much as he can plan to move to [facility] as he is at risk of further decompensation, he is open to intubation if needed (2) Bacterial pneumonia: Plan: HCAP is possible - increase in WBC, increase oxygen requirements, elevated CRP Blood cultures: coag neg staph from 02/18, likely contaminant, repeat today Legionella pending aspergillus pending fungitell and fungal cultures pending Zosyn and Levaquin, stop Vanco as MRSA negative can de-escalate to just Zosyn after today CTA of the chest - Negative for PE- extensive airspace consolidations Lasix 20mg IV daily, Cr is stable follow up on cultures, continue antibiotics for 7 days (3) Acute respiratory failure with hypoxia: Plan: DDX: bacterial pneumonia vs. atypical pna vs. ARDs vs. post covid fibrosis - As above - PF ratio 100 on admission suspect late ARDS, will increase dexamethasone to 20mg IV daily x 5 days (day 2) then 10mg IV x 5 days continue broad spectrum antibiotics Lasix 20mg IV daily to keep lungs dry, Cr stable high risk of further decompensation, breathing fast, accessory muscles try to move to [facility] in case he needs intubated (4) Hypertension: Plan: BP stable continue to monitor (5) Dyslipidemia: (6) Left knee pain: Plan: Hurts with ambulation and palpation along the lateral and medial aspects no effusion no errythema patient states it feels as his previous gout pain - Colchine 0.6mg PO BID dexamethasone could also help with gout inflammation Admission and Anticipated Discharge Date Admission Date: February 18, 2021 Subjective patient slept with CPAP 10 and 100% this morning he is back on 60L 100%, breathing fast and heavy eating well, had some cereal this morning had a BM reviewed labs, CRP is 11, WBC 24k, Hb 13, Cr 0.8, BUN 19 discussed that he needs to lay prone as much as possible if he wants to avoid intubation he voiced understanding of this Review of Systems Review of Systems: All systems reviewed & are unremarkable except as noted in Subjective Constitutional: + fatigue; no fever and no weakness Respiratory: + cough, + dyspnea and + dyspnea on exertion Cardiovascular: no chest pain Gastrointestinal: + diarrhea/loose stools; no abdominal pain, no nausea, no vomiting and no constipation Physical Exam Physical Exam: General: well developed, obese, ill appearing, mild distress Neck: supple, trachea midline, normal thyroid Lungs: clear to auscultation bilaterally, + tachypnea, + accessory muscle use, mild distress Heart: regular S1 and S2, no murmur, peripheral pulses normal, capillary refill normal, no edema Abdomen: soft, NT, ND, + BS, no hepatomegaly, normal to percussion Extremities: normal in appearance, no cyanosis, no petechiae, strength is 5/5 bilaterally Neuro: awake, cooperative, moves all extremities, no focal motor deficits, CN II-XII intact, sensation in extremities intact, normal speech Skin: warm, dry, no rash, normal turgor Psych: Awake, alert oriented x 3, euthymic affect Results & Data Results & Data ([facility]) Vital Signs (Past 12 Hours) Vital Signs Temp Pulse Pulse Pulse Resp BP BP 02/20/21 10:16 88 26 H 02/20/21 09:07 83 02/20/21 08:00 36.7 C 87 28 H 128/73 02/20/21 04:00 36.7 C 85 36 H 110/70 02/20/21 02:00 83 33 H 02/20/21 00:00 37.1 C 88 34 H 90/70 L 02/19/21 22:30 36.8 C 106 H 30 H 123/73 Pulse Ox 02/20/21 10:16 92 02/20/21 09:07 02/20/21 08:00 91 02/20/21 04:00 98 02/20/21 02:00 97 02/20/21 00:00 93 02/19/21 22:30 93 Laboratory Results Laboratory Results - last 24 hr 02/18/21 02/19/21 02/19/21 18:31 11:35 11:58 WBC RBC Hgb Hct MCV MCH MCHC RDW Std Deviation RDW Coeff of Eleazar Plt Count MPV Immature Gran % (Auto) Neut % (Auto) Lymph % (Auto) [place] % (Auto) Eos % (Auto) Baso % (Auto) Neut # (Auto) Lymph # (Auto) [place] # (Auto) Eos # (Auto) Baso # (Auto) Immature Gran # (Auto) Sodium Potassium Chloride Carbon Dioxide Anion Gap BUN Creatinine Est Cr Clr Drug Dosing Est GFR ( Amer) Est GFR (Non-Af Amer) BUN/Creatinine Ratio Glucose POC Glucose 168 H Calcium Magnesium Troponin I 0.025 C-Reactive Protein Bld Cult Staph aureus PCR Negative Blood Culture MRSA PCR Negative 02/20/21 02/20/21 02/20/21 05:36 05:36 07:46 WBC 24.60 H RBC 5.03 Hgb 13.6 L Hct 40.8 L MCV 81.1 MCH 27.0 MCHC 33.3 RDW Std Deviation 46.2 RDW Coeff of Eleazar 15.6 H Plt Count 146 MPV 9.8 Immature Gran % (Auto) 0.4 Neut % (Auto) 90.4 Lymph % (Auto) 4.2 [place] % (Auto) 5.0 Eos % (Auto) 0.0 Baso % (Auto) 0.0 Neut # (Auto) 22.21 H Lymph # (Auto) 1.04 L [place] # (Auto) 1.23 H Eos # (Auto) 0.00 Baso # (Auto) 0.01 Immature Gran # (Auto) 0.11 H Sodium 136 Potassium 3.8 Chloride 103 Carbon Dioxide 28 Anion Gap 5.0 BUN 19 H Creatinine 0.80 Est Cr Clr Drug Dosing 141.4 Est GFR ( Amer) 115.7 Est GFR (Non-Af Amer) 99.9 BUN/Creatinine Ratio 23.5 H Glucose 164 H POC Glucose 97 Calcium 9.2 Magnesium 2.4 Troponin I C-Reactive Protein 11.40 H Bld Cult Staph aureus PCR Blood Culture MRSA PCR Medications Administered Current Inpatient Medications Acetaminophen (Acetaminophen 325 Mg Tab) 650 mg PO Q4H PRN PRN Reason: Pain or Fever Stop: 03/21/21 00:49 Albuterol (Albuterol 0.5% Neb Soln 2.5 Mg/0.5 Ml Vial) 2.5 mg NEB Q4 PRN; Protocol PRN Reason: wheezing, cough, poor airmovme Stop: 03/21/21 00:49 Albuterol (Albuterol Hfa 8 Gm Inhaler) 2 puffs INH Q6R PRN PRN Reason: Shortness Of Breath Or Wheezing Stop: 03/21/21 00:59 Atorvastatin Calcium (Atorvastatin 20 Mg Tab) 20 mg PO DAILY [facility] Stop: 03/21/21 08:59 Last Admin: 02/20/21 08:13 Dose: 20 mg Documented by: Baclofen (Baclofen 10 Mg Tab) 10 mg PO DAILY PRN PRN Reason: Muscle Spasm Stop: 03/21/21 00:49 Citalopram Hydrobromide (Citalopram 20 Mg Tab) 20 mg PO DAILY [facility] Stop: 03/21/21 08:59 Last Admin: 02/20/21 08:13 Dose: 20 mg Documented by: Colchicine (Colchicine 0.6 Mg Tab) 0.6 mg PO BID [facility] Stop: 03/20/21 20:59 Last Admin: 02/20/21 08:14 Dose: 0.6 mg Documented by: Furosemide (Furosemide Inj 20 Mg/2 Ml Vial) 20 mg IV QAM [facility] Stop: 03/21/21 08:59 Last Admin: 02/20/21 08:45 Dose: 20 mg Documented by: Piperacillin Sod/Tazobactam (Sod 4.5 gm/ Dextrose) 120 mls @ 30 mls/hr IV Q8H [facility]; Protocol Stop: 02/26/21 01:59 Last Infusion: 02/20/21 08:19 Dose: Infused Documented by: Levofloxacin/Dextrose (Levaquin/D5w) 750 mg in 150 mls @ 100 mls/hr IV Q24H [facility] Stop: 02/26/21 17:59 Last Infusion: 02/19/21 19:10 Dose: Infused Documented by: Dexamethasone 20 mg/ Dextrose 30 mls @ 0.833 mls/min IV Q24H [facility] Stop: 03/21/21 08:59 Last Infusion: 02/20/21 09:31 Dose: Infused Documented by: Metoprolol Tartrate (Metoprolol Tartrate 50 Mg Tab) 50 mg PO BID [facility] Stop: 03/21/21 00:49 Last Admin: 02/20/21 08:12 Dose: 50 mg Documented by: Miscellaneous Information (Piperacill/Tazobac Consult Active) 1 ea N/A UD PRN PRN Reason: Consult Stop: 03/20/21 20:05 Pantoprazole Sodium (Pantoprazole 40 Mg Tab) 40 mg PO DAILY [facility] Stop: 03/21/21 08:59 Last Admin: 02/20/21 08:13 Dose: 40 mg Documented by: Rivaroxaban (Rivaroxaban 10 Mg Tablet) 10 mg PO DAILY [facility] Stop: 03/21/21 08:59 Last Admin: 02/20/21 08:13 Dose: 10 mg Documented by: PG Care Time/CCT Total # of Minutes Spent Total Time Spent: 32 Total Time Spent with Patient: Total time spent is greater than 50% in coordination of care (as documented) at patient's floor/unit and/or counseling patient: Coding Level of Care Code 99022 Subseq Hosp Care Lvl 3 (25 - SIGNIFICANT, SEPARATELY IDENTIFIABLE ) Diagnoses Pneumonia due to 2019 novel coronavirus U07.1; J12.82 Acute respiratory failure with hypoxia J96.01 Hypertension I10 Dyslipidemia E78.5 Bacterial pneumonia J15.9 Left knee pain M25.562
[2021-02-20] MEDS: levoFLOXacin/D5W 750 MG/150 ML BAG IV SCH (17:36)
[2021-02-20] MEDS: ACETAMINOPHEN 325 MG TAB PO PRN (22:11)
[2021-02-21] MEDS: PIPERACILLIN/TAZOBACTAM 4.5 GM in DEXTROSE 5% 100 ML IV SCH ×3 (03:14→20:40)
[2021-02-21 06:35] LABS: Basophils # (auto) 0.01 K/uL (0-0.2); Hemoglobin 13.2 g/dL (14.0-18.0); Immature Granulocytes # (auto) 0.06 K/uL (0.00-0.02); Immature Granulocytes % (auto) 0.3 %; Lymphocytes # (auto) 1.14 K/uL (1.2-3.4); Lymphocytes % (auto) 5.2 %; Mean Corpuscular Hemoglobin 26.5 pg (25-34); Mean Corpuscular Hgb Conc 32.2 g/dL (32-36); Mean Corpuscular Volume 82.3 fL (80-100); Mean Platelet Volume 9.8 fL (7.4-10.4); Monocytes # (auto) 1.39 K/uL (0.11-0.59); Monocytes % (auto) 6.3 %; Neutrophils % (auto) 88.2 %; Platelet Count 148 K/uL (130-400); RDW Coefficient of Variation 15.7 % (11.5-14.5); RDW Standard Deviation 47.2 fL (36.4-46.3); Red Blood Count 4.98 M/uL (4.7-6.1)
[2021-02-21 07:17] LABS: BUN Creatinine Ratio 29.7 (10-20); Calcium 9.1 mg/dl (8.5-10.1); Creatinine Clr Calc Pharmacy 139.7 ml/min; Est GFR (African American) 115.1 ml/min; Est GFR (Non-African American) 99.4 ml/min; Magnesium 2.5 mg/dl (1.8-2.4); Potassium 3.9 mmol/L (3.5-5.1)
[2021-02-21] MEDS: CITALOPRAM 20 MG TAB PO SCH (07:41)
[2021-02-21] MEDS: PANTOprazole 40 MG TAB PO SCH (07:41)
[2021-02-21] MEDS: METOPROLOL TARTRATE 50 MG TAB PO SCH ×2 (07:42→20:39)
[2021-02-21] MEDS: ATORVASTATIN 20 MG TAB PO SCH (07:42)
[2021-02-21] MEDS: COLCHICINE 0.6 MG TAB PO SCH ×2 (07:42→20:39)
[2021-02-21] MEDS: RIVAROXABAN 10 MG TABLET PO SCH (07:42)
[2021-02-21] MEDS ORDERED: BARICITINIB COMMUNICATION ONE (08:24)
--- NOTE | 2021-02-21 08:24 | Hospitalist Progress Note ---
Date of Service February 21, 2021 Assessment & Plan (1) Pneumonia due to 2019 novel coronavirus: Plan: COVID 19 originally diagnosed he was hospitalized until 02/15/21 he was treated with dexamethasone, Remdesivir CRP now 11.4 qualifies for baricitinib In 160 L 100% high flow alternating with CPAP at night now with late stage ARDS, CRP up to 12 on admission, CTA chest without PE but with extensive inflammatory changes treat with Dexamethasone 20mg IV daily x 5 days, then 10mg IV daily cover with Levaquin and Zosyn, stopped Vanco as MRSA swab negative Lasix 20mg IV daily, Cr is stable continue Xarelto 10mg PO daily, no PE on CTA chest CPAP 10 and 100% when sleeping, saturations stable 60L 100% past two days, told him to lay prone as much as he can (2) Bacterial pneumonia: Plan: HCAP is possible - increase in WBC, increase oxygen requirements, elevated CRP Blood cultures: coag neg staph from 02/18, likely contaminant, repeat today Legionella pending aspergillus pending fungitell and fungal cultures pending Zosyn only, and stop Vanco as MRSA negative stop Levaquin, CTA of the chest - Negative for PE- extensive airspace consolidations Lasix 20mg IV daily, Cr is stable (3) Acute respiratory failure with hypoxia: Plan: DDX: bacterial pneumonia vs. atypical pna vs. ARDs vs. post covid fibrosis - PF ratio 100 on admission suspect late ARDS, will increase dexamethasone to 20mg IV daily x 5 days (day 2) then 10mg IV x 5 days continue broad spectrum antibiotics Lasix 20mg IV daily to keep lungs dry, Cr stable (4) Hypertension: Plan: BP stable on metoprolol continue to monitor (5) Dyslipidemia: (6) Left knee pain: Plan: improved no effusion no errythema patient states it feels as his previous gout pain - Colchine 0.6mg PO BID dexamethasone could also help with gout inflammation Admission and Anticipated Discharge Date Admission Date: February 18, 2021 Subjective pt has remained stable but on maximal NIPPV support with cpap at night and hi flow nasal canulae at high rates during the day but allowing him to eat etc, pt is resting on right side Review of Systems Review of Systems: Moderate distress and fatigue no headache, no visual changes no speech or swallowing issues no chest pain, pressure or palpitations Continue shortness of breath, nonproductive cough or wheezes no abdominal pain, nausea or vomiting, no diarrhea no dysuria, hematuria or frequency no focal joint pain or swelling no back pain, CVA tenderness or radicular pain no bruising, bleeding or rashes no focal signs of weakness or numbness or altered sensation no complaints of anxiety or depression.. Physical Exam Physical Exam: The patient appeared mild to moderate respiratory distress Vital signs as documented. Head exam is normocephalic atraumatic Neck is without JVD, thyromegaly, or carotid bruits. Lungs are coarse bilaterally in all lung madrigal tachypnea Cardiac exam, Rhythm is regular.. No murmurs, rubs or gallops. Abdominal exam reveals normal bowel sounds, soft non tender, no masses Extremities are nonedematous and both pedal pulses are present Neurologic exam is alert and oriented, no focal loss of strength or sensation Skin is without bruises or rashes Psychologically is without concerns for anxiety or depression.. Results & Data Results & Data ([facility]) Vital Signs (Past 12 Hours) Vital Signs Temp Pulse Pulse Resp BP BP Pulse Ox 02/21/21 07:38 97.9 F 68 25 H 110/73 89 L 02/21/21 03:14 97.9 F 67 26 H 93/63 L 95 02/21/21 02:47 64 31 H 92 02/21/21 00:02 73 32 H 96/55 L 95 02/20/21 23:58 98.1 F 02/20/21 23:00 72 02/20/21 22:19 71 31 H 93 PG Care Time/CCT Total # of Minutes Spent Total Time Spent with Patient: Total time spent is greater than 50% in coordination of care (as documented) at patient's floor/unit and/or counseling patient: Coding Level of Care Code 87765 Subseq Hosp Care Lvl 3 Diagnoses Pneumonia due to 2019 novel coronavirus U07.1; J12.82 Bacterial pneumonia J15.9 Acute respiratory failure with hypoxia J96.01 Hypertension I10 Dyslipidemia E78.5 Left knee pain M25.562
[2021-02-21] MEDS: dexAMETHasone 20 MG in DEXTROSE 5% 25 ML IV SCH (08:58)
[2021-02-21] MEDS: FUROSEMIDE INJ 20 MG/2 ML VIAL IV SCH (08:58)
[2021-02-21] MEDS: 4mg Daily x 14 days (eGFR >60 mL/min/1.73m2) PO SCH (09:49)
[2021-02-21] MEDS: ACETAMINOPHEN 325 MG TAB PO PRN (12:39)
[2021-02-22] MEDS: PIPERACILLIN/TAZOBACTAM 4.5 GM in DEXTROSE 5% 100 ML IV SCH ×3 (03:24→19:11)
[2021-02-22] MEDS: FUROSEMIDE INJ 20 MG/2 ML VIAL IV SCH (07:43)
[2021-02-22] MEDS: dexAMETHasone 20 MG in DEXTROSE 5% 25 ML IV SCH (07:45)
[2021-02-22] MEDS: METOPROLOL TARTRATE 50 MG TAB PO SCH ×2 (07:45→21:00)
[2021-02-22] MEDS: ATORVASTATIN 20 MG TAB PO SCH (07:46)
[2021-02-22] MEDS: RIVAROXABAN 10 MG TABLET PO SCH (07:47)
[2021-02-22] MEDS: 4mg Daily x 14 days (eGFR >60 mL/min/1.73m2) PO SCH (07:47)
[2021-02-22] MEDS: CITALOPRAM 20 MG TAB PO SCH (07:47)
[2021-02-22] MEDS: COLCHICINE 0.6 MG TAB PO SCH ×2 (07:47→21:00)
[2021-02-22] MEDS: PANTOprazole 40 MG TAB PO SCH (07:47)
--- NOTE | 2021-02-22 08:09 | Hospitalist Progress Note ---
Date of Service February 22, 2021 Assessment & Plan (1) Pneumonia due to 2019 novel coronavirus: Plan: COVID 19 originally diagnosed he was hospitalized until 02/15/21 he was treated with dexamethasone, Remdesivir CRP now 11.4 qualified for baricitinib 60 L 95- 100% high flow alternating with CPAP at night now with late stage ARDS, CRP up to 12 on admission, CTA chest without PE but with extensive inflammatory changes treat with Dexamethasone 6mg IV daily cover with Levaquin and Zosyn, stopped Vanco as MRSA swab negative Lasix 20mg IV daily, Cr is stable continue Xarelto 10mg PO daily, no PE on CTA chest CPAP 10 and 100% when sleeping, saturations stable 60L 90% 02/22/21, told him to lay prone as much as he can (2) Bacterial pneumonia: Plan: HCAP is possible - increase in WBC, increase oxygen requirements, elevated CRP Blood cultures: coag neg staph from 02/18, likely contaminant, repeat today Legionella pending aspergillus pending fungitell and fungal cultures pending Zosyn only, and stop Vanco as MRSA negative stop Levaquin, CTA of the chest - Negative for PE- extensive airspace consolidations Lasix 20mg IV daily, Cr is stable (3) Acute respiratory failure with hypoxia: Plan: DDX: bacterial pneumonia vs. atypical pna vs. ARDs vs. post covid fibrosis - PF ratio 100 on admission suspect late ARDS, no real improvement with high dose steroids, will try baricitinib but lower dexamethasone to 6 mg continue broad spectrum antibiotics Lasix 20mg IV daily to keep lungs dry, Cr stable (4) Hypertension: Plan: BP stable on metoprolol continue to monitor (5) Dyslipidemia: (6) Left knee pain: Plan: improved no effusion no errythema patient states it feels as his previous gout pain - Colchine 0.6mg PO BID dexamethasone could also help with gout inflammation Admission and Anticipated Discharge Date Admission Date: February 18, 2021 Subjective pt has remained stable but on fairly high NIPPV support with cpap at night and hi flow nasal cannulae at high rates during the day but allowing him to eat etc, pt is resting on right side Review of Systems Review of Systems: Moderate distress and fatigue no headache, no visual changes no speech or swallowing issues no chest pain, pressure or palpitations Continue shortness of breath, nonproductive cough or wheezes no abdominal pain, nausea or vomiting, no diarrhea no dysuria, hematuria or frequency no focal joint pain or swelling no back pain, CVA tenderness or radicular pain no bruising, bleeding or rashes no focal signs of weakness or numbness or altered sensation no complaints of anxiety or depression.. Physical Exam Physical Exam: The patient appeared mild to moderate respiratory distress Vital signs as documented. Head exam is normocephalic atraumatic Neck is without JVD, thyromegaly, or carotid bruits. Lungs are coarse bilaterally in all lung madrigal tachypnea Cardiac exam, Rhythm is regular.. No murmurs, rubs or gallops. Abdominal exam reveals normal bowel sounds, soft non tender, no masses Extremities are nonedematous and both pedal pulses are present Neurologic exam is alert and oriented, no focal loss of strength or sensation Skin is without bruises or rashes Psychologically is without concerns for anxiety or depression.. Results & Data Results & Data ([facility]) Vital Signs (Past 12 Hours) Vital Signs Temp Pulse Pulse Pulse Resp BP BP 02/22/21 07:14 59 L 22 02/22/21 05:02 98.1 F 62 18 103/48 L 02/22/21 03:22 63 27 H 02/22/21 00:32 100/54 L 02/21/21 23:57 98.1 F 63 20 96/39 L 02/21/21 23:14 61 02/21/21 22:50 64 32 H 02/21/21 20:20 98.1 F 87 22 112/69 Pulse Ox 02/22/21 07:14 95 02/22/21 05:02 98 02/22/21 03:22 95 02/22/21 00:32 02/21/21 23:57 93 02/21/21 23:14 02/21/21 22:50 96 02/21/21 20:20 91 PG Care Time/CCT Total # of Minutes Spent Total Time Spent with Patient: Total time spent is greater than 50% in coordination of care (as documented) at patient's floor/unit and/or counseling patient: Coding Level of Care Code 33272 Subseq Hosp Care Lvl 2 Diagnoses Pneumonia due to 2019 novel coronavirus U07.1; J12.82 Bacterial pneumonia J15.9 Acute respiratory failure with hypoxia J96.01 Hypertension I10 Dyslipidemia E78.5 Left knee pain M25.562
[2021-02-22] MEDS: dexAMETHasone 6 MG in SYRINGE 0 ML IV SCH (08:32)
[2021-02-23] MEDS: PIPERACILLIN/TAZOBACTAM 4.5 GM in DEXTROSE 5% 100 ML IV SCH ×3 (03:43→19:56)
[2021-02-23] MEDS: PANTOprazole 40 MG TAB PO SCH (07:37)
[2021-02-23] MEDS: ATORVASTATIN 20 MG TAB PO SCH (07:37)
[2021-02-23] MEDS: ACETAMINOPHEN 325 MG TAB PO PRN (07:37)
[2021-02-23] MEDS: BACLOFEN 10 MG TAB PO PRN (07:37)
[2021-02-23] MEDS: FUROSEMIDE INJ 20 MG/2 ML VIAL IV SCH (07:37)
[2021-02-23] MEDS: dexAMETHasone 6 MG in SYRINGE 0 ML IV SCH (07:37)
[2021-02-23] MEDS: CITALOPRAM 20 MG TAB PO SCH (07:37)
[2021-02-23] MEDS: COLCHICINE 0.6 MG TAB PO SCH ×2 (07:38→19:59)
[2021-02-23] MEDS: METOPROLOL TARTRATE 50 MG TAB PO SCH ×2 (07:39→19:59)
[2021-02-23] MEDS: RIVAROXABAN 10 MG TABLET PO SCH (07:40)
[2021-02-23 08:34] LABS: Creatinine Clr Calc Pharmacy 127.8 ml/min; Est GFR (African American) 111.3 ml/min
--- NOTE | 2021-02-23 08:34 | Hospitalist Progress Note ---
Date of Service February 23, 2021 Assessment & Plan (1) Pneumonia due to 2019 novel coronavirus: Plan: COVID 19 originally diagnosed February 08 he was hospitalized until 02/15/21 he was treated with dexamethasone, Remdesivir CRP now 11.4 qualified for baricitinib 60 L 95- 100% high flow alternating with CPAP at night now with late stage ARDS, CRP up to 12 on admission, CTA chest without PE but with extensive inflammatory changes treat with Dexamethasone 6mg IV daily Zosyn continues LD 02/26, stopped Vanco as MRSA swab negative Lasix 20mg IV daily, Cr is stable continue Xarelto 10mg PO daily, no PE on CTA chest CPAP 10 and 100% when sleeping, saturations stable 60L 90% 02/22/21, told him to lay prone as much as he can (2) Bacterial pneumonia: Plan: HCAP is possible - increase in WBC, increase oxygen requirements, elevated CRP Blood cultures: coag neg staph from 02/18, likely contaminant, repeat today Legionella pending aspergillus pending fungitell and fungal cultures pending Zosyn only, and stop Vanco as MRSA negative, stop Levaquin, CTA of the chest - Negative for PE- extensive airspace consolidations Lasix 20mg IV daily, Cr is stable (3) Acute respiratory failure with hypoxia: Plan: DDX: bacterial pneumonia vs. atypical pna vs. ARDs vs. post covid fibrosis - PF ratio 100 on admission suspect late ARDS, no real improvement with high dose steroids, will try baricitinib but lower dexamethasone to 6 mg continue broad spectrum antibiotics Lasix 20mg IV daily to keep lungs dry, Cr stable (4) Hypertension: Plan: BP stable on metoprolol continue to monitor (5) Dyslipidemia: (6) Left knee pain: Plan: improved no effusion no errythema patient states it feels as his previous gout pain - Colchine 0.6mg PO BID dexamethasone could also help with gout inflammation Admission and Anticipated Discharge Date Admission Date: February 18, 2021 Subjective pt has remained stable but high NIPPV support with cpap at night and hi flow nasal cannulae at high rates during the day but allowing him to eat etc, pt is resting on right side he is awake and alert and appropriate Review of Systems Review of Systems: Moderate distress and fatigue no headache, no visual changes no speech or swallowing issues no chest pain, pressure or palpitations Continue shortness of breath, nonproductive cough or wheezes no abdominal pain, nausea or vomiting, no diarrhea no dysuria, hematuria or frequency no focal joint pain or swelling no back pain, CVA tenderness or radicular pain no bruising, bleeding or rashes no focal signs of weakness or numbness or altered sensation no complaints of anxiety or depression.. Physical Exam Physical Exam: The patient appeared mild to moderate respiratory distress Vital signs as documented. Head exam is normocephalic atraumatic Neck is without JVD, thyromegaly, or carotid bruits. Lungs are coarse bilaterally in all lung madrigal tachypnea Cardiac exam, Rhythm is regular.. No murmurs, rubs or gallops. Abdominal exam reveals normal bowel sounds, soft non tender, no masses Extremities are nonedematous and both pedal pulses are present Neurologic exam is alert and oriented, no focal loss of strength or sensation Skin is without bruises or rashes Psychologically is without concerns for anxiety or depression.. Results & Data Results & Data ([facility]) Vital Signs (Past 12 Hours) Vital Signs Temp Pulse Pulse Pulse Resp BP Pulse Ox 02/23/21 07:33 65 20 92 02/23/21 04:14 98.4 F 60 20 118/76 96 02/23/21 02:08 66 30 H 94 02/22/21 23:20 98.4 F 64 24 115/72 94 02/22/21 23:05 66 34 H 90 02/22/21 22:57 67 02/22/21 20:37 60 24 93 PG Care Time/CCT Total # of Minutes Spent Total Time Spent with Patient: Total time spent is greater than 50% in coordination of care (as documented) at patient's floor/unit and/or counseling patient: Coding Level of Care Code 73758 Subseq Hosp Care Lvl 2 Diagnoses Pneumonia due to 2019 novel coronavirus U07.1; J12.82 Bacterial pneumonia J15.9 Acute respiratory failure with hypoxia J96.01 Hypertension I10 Dyslipidemia E78.5 Left knee pain M25.562
[2021-02-23] MEDS: 4mg Daily x 14 days (eGFR >60 mL/min/1.73m2) PO SCH (08:57)
[2021-02-24] MEDS: PIPERACILLIN/TAZOBACTAM 4.5 GM in DEXTROSE 5% 100 ML IV SCH ×3 (03:17→20:39)
[2021-02-24] MEDS: COLCHICINE 0.6 MG TAB PO SCH ×2 (07:42→20:40)
[2021-02-24] MEDS: METOPROLOL TARTRATE 50 MG TAB PO SCH (07:42)
[2021-02-24] MEDS: dexAMETHasone 6 MG in SYRINGE 0 ML IV SCH (07:42)
[2021-02-24] MEDS: FUROSEMIDE INJ 20 MG/2 ML VIAL IV SCH (07:43)
[2021-02-24] MEDS: CITALOPRAM 20 MG TAB PO SCH (07:43)
[2021-02-24] MEDS: ATORVASTATIN 20 MG TAB PO SCH (07:43)
[2021-02-24] MEDS: PANTOprazole 40 MG TAB PO SCH (07:43)
[2021-02-24] MEDS: RIVAROXABAN 10 MG TABLET PO SCH (07:43)
[2021-02-24] MEDS: 4mg Daily x 14 days (eGFR >60 mL/min/1.73m2) PO SCH (08:33)
[2021-02-24] MEDS: BACLOFEN 10 MG TAB PO PRN (08:33)
[2021-02-24] MEDS: ACETAMINOPHEN 325 MG TAB PO PRN (08:33)
[2021-02-24 08:40] LABS: Basophils # (auto) 0.01 K/uL (0-0.2); Basophils % (auto) 0.1 %; Eosinophils # (auto) 0.48 K/uL (0-0.5); Eosinophils % (auto) 3.1 %; Hematocrit (blood only) 45.6 % (42-52); Immature Granulocytes # (auto) 0.06 K/uL (0.00-0.02); Immature Granulocytes % (auto) 0.4 %; Lymphocytes % (auto) 12.2 %; Mean Corpuscular Hemoglobin 27.1 pg (25-34); Mean Corpuscular Hgb Conc 32.9 g/dL (32-36); Mean Corpuscular Volume 82.5 fL (80-100); Mean Platelet Volume 9.8 fL (7.4-10.4); Monocytes # (auto) 0.96 K/uL (0.11-0.59); Monocytes % (auto) 6.2 %; Neutrophils # (auto) 12.13 K/uL (1.4-6.5); Platelet Count 185 K/uL (130-400); RDW Coefficient of Variation 15.6 % (11.5-14.5); RDW Standard Deviation 47.2 fL (36.4-46.3); Red Blood Count 5.53 M/uL (4.7-6.1); White Blood Count 15.54 K/uL (4.8-10.8)
[2021-02-24 08:59] LABS: Albumin Level 2.8 gm/dl (3.4-5.0); BUN Creatinine Ratio 23.3 (10-20); Calcium 9.1 mg/dl (8.5-10.1); Creatinine Clr Calc Pharmacy 108.7 ml/min; Est GFR (African American) 95.9 ml/min; Est GFR (Non-African American) 82.8 ml/min; Potassium 4.2 mmol/L (3.5-5.1)
[2021-02-24] MEDS ORDERED: dexAMETHasone 10 MG in SYRINGE 0 ML IV SCH (09:00)
[2021-02-24 09:02] LABS: Albumin Globulin Ratio 0.7 (0.9-2); C Reactive Protein 0.62 mg/dl (0-0.29); Total Protein 6.8 gm/dl (6.4-8.2)
[2021-02-24 09:15] LABS: Bilirubin,Total 0.8 mg/dl (0.2-1)
--- NOTE | 2021-02-24 11:19 | Hospitalist Progress Note ---
Date of Service February 24, 2021 Assessment & Plan (1) Pneumonia due to 2019 novel coronavirus: Plan: COVID 19 originally diagnosed 31 January 2021 He was hospitalized until 02/15/21 Initially treated with dexamethasone + Remdesivir CRP this admission 11.4 qualified for baricitinib, started Continue Dexamethasone 6mg IV daily now with late stage ARDS, CRP up to 12 on admission, CTA chest without PE but with extensive inflammatory changes continue Xarelto 10mg PO daily for VTE Prophylaxis (2) Bacterial pneumonia: Plan: HCAP is possible - increase in WBC, increase oxygen requirements, elevated CRP Blood cultures: coag neg staph from 02/18, likely contaminant, repeat 02/20 negative after 48 hours Legionella Ag urine not detected aspergillus pending fungitell and fungal cultures negative to date Zosyn continues LD 02/26, stopped Vanco as MRSA swab negative, procalcitonin negative therefore suspect this is really all COVID/ARDS rather than secondary bacterial infection. (3) Acute respiratory failure with hypoxia: Plan: 60 L 95- 100% high flow alternating with CPAP at night DDX: bacterial pneumonia vs. atypical pna vs. ARDs vs. post covid fibrosis, given negative procalcitonin suspect this is mostly ARDS from COVID suspect late ARDS, no real improvement with high dose steroids, therefore started baricitinib but lowered dexamethasone to 6 mg CTA of the chest - Negative for PE- extensive airspace consolidations Lasix appears to have caused a contraction alkalosis on labs today, patient also mildly dry on exam therefore discontinued. (4) Hypertension: Plan: Reduce metoprolol to 25mg PO BID continue to monitor (5) Dyslipidemia: Plan: Continue atorvastatin 20mg PO HS (6) Left knee pain: Plan: improved no effusion no errythema patient states it feels as his previous gout pain - Colchine 0.6mg PO BID dexamethasone could also help with gout inflammation Left knee XR Plan: VTE Prophylaxis - Xarelto Diet - regular Disposition - continued PCU status due to high O2 requirement Admission and Anticipated Discharge Date Admission Date: February 18, 2021 Subjective Stable on high flow oxygen with CPAP at night. Reports ongoing shortness of breath much worse on minimal exertion but managed to get out of bed to chair today and speaking in full sentences. Having regular bowel movements. Review of Systems Review of Systems: All systems reviewed & are unremarkable except as noted in HPI & below Physical Exam Constitutional: WD/WN, vitals as above Eyes: + anicteric sclerae; normal pupil size ENMT: external ear and nose normal, oropharynx normal Respiratory: normal respiratory effort Auscultation: + crackles (bibasal); no wheezes Cardiovascular: RRR, no murmur, no edema Gastrointestinal (Abdomen): normal bowel sounds, soft, nontender, no hepatosplenomegaly Musculoskeletal: no cyanosis or clubbing, extremities motor strength 5/5 Knee: no effusion (left), no ecchymosis (left), normal ROM of knee (left) and no joint line tenderness (left) Skin: no rashes, warm and dry Neurologic: moves all extremities and awake; not confused Psychiatric: A+Ox3, euthymic affect Results & Data Results & Data ([facility]) Vital Signs (Past 12 Hours) Vital Signs Temp Pulse Resp BP Pulse Ox 02/24/21 10:48 85 22 94 02/24/21 08:01 36.5 C 66 24 113/72 93 02/24/21 07:29 68 22 96 02/24/21 03:18 36.4 C L 59 L 20 104/69 93 02/24/21 00:00 56 L 95 Laboratory Results Abnormal lab results 02/24/21 02/24/21 Range/Units 08:18 08:18 WBC 15.54 H (4.8-10.8) K/uL RDW Std Deviation 47.2 H (36.4-46.3) fL RDW Coeff of Eleazar 15.6 H (11.5-14.5) % Neut # (Auto) 12.13 H (1.4-6.5) K/uL Galax # (Auto) 0.96 H (0.11-0.59) K/uL Immature Gran # (Auto) 0.06 H (0.00-0.02) K/uL Sodium 133 L (136-145) mmol/L Chloride 97 L (98-107) mmol/L Carbon Dioxide 33 H (21-32) mmol/L BUN 24 H (7-18) mg/dl BUN/Creatinine Ratio 23.3 H (10-20) AST 41 H (15-37) U/L ALT 177 H (12-78) C-Reactive Protein 0.62 H (0-0.29) mg/dl Albumin 2.8 L (3.4-5.0) gm/dl Albumin/Globulin Ratio 0.7 L (0.9-2) PG Care Time/CCT Total # of Minutes Spent Total Time Spent with Patient: Total time spent is greater than 50% in coordination of care (as documented) at patient's floor/unit and/or counseling patient: Coding Level of Care Code 72536 Subseq Hosp Care Lvl 2 Diagnoses Pneumonia due to 2019 novel coronavirus U07.1; J12.82 Bacterial pneumonia J15.9 Acute respiratory failure with hypoxia J96.01 Hypertension I10 Dyslipidemia E78.5 Left knee pain M25.562
--- NOTE | 2021-02-24 13:21 | XRay Report ---
LEFT KNEE 2 VIEWS HISTORY: persistent left knee pain ?patellar # COMPARISON: None. FINDINGS: There is no fracture or dislocation. Soft tissues are unremarkable. No radiopaque foreign b odies. No knee effusion. Cartilage spaces are maintained for age. IMPRESSION: No fractures. ACT 112: Negative or not required by law. Electronically signed by: Derrick Dias M.D. 02/24/2021 1:19 PM
--- NOTE | 2021-02-24 13:56 | XRay Report ---
SINGLE VIEW CHEST CLINICAL HISTORY: Hypoxia FINDINGS: An AP, portable, upright chest radiograph is compared to chest x-ray and chest CT dated . The examination is degraded by portable technique and patient rotation. The heart is mildl y enlarged. Chronic elevation of the right hemidiaphragm is unchanged. Extensive multifocal airspace consolidation is unchanged to modestly cleared as compared to 02/18/2021. No large pleural effusion o r pneumothorax is identified. The bony thorax is grossly intact. IMPRESSION: Extensive multifocal airspace consolidation is unchanged to modestly cleared as compared. ACT 112: Negative or not required by law. Electronically signed by: Matthew Carmona M.D. 02/24/2021 1:54 PM
[2021-02-24] MEDS: METOPROLOL TARTRATE 25 MG TAB PO SCH (20:40)
[2021-02-25] MEDS: PIPERACILLIN/TAZOBACTAM 4.5 GM in DEXTROSE 5% 100 ML IV SCH (03:36)
[2021-02-25 07:36] LABS: Creatinine Clr Calc Pharmacy 126.2 ml/min; Est GFR (African American) 111.8 ml/min; Est GFR (Non-African American) 96.5 ml/min
[2021-02-25] MEDS: PANTOprazole 40 MG TAB PO SCH (08:07)
[2021-02-25] MEDS: dexAMETHasone 6 MG in SYRINGE 0 ML IV SCH (08:07)
[2021-02-25] MEDS: COLCHICINE 0.6 MG TAB PO SCH ×2 (08:08→19:08)
[2021-02-25] MEDS: ATORVASTATIN 20 MG TAB PO SCH (08:08)
[2021-02-25] MEDS: CITALOPRAM 20 MG TAB PO SCH (08:08)
[2021-02-25] MEDS: METOPROLOL TARTRATE 25 MG TAB PO SCH ×2 (08:08→19:08)
[2021-02-25] MEDS: ADVANCED PROBIOTIC 1250 MG CAPSULE PO SCH (08:08)
[2021-02-25] MEDS: RIVAROXABAN 10 MG TABLET PO SCH (08:08)
[2021-02-25] MEDS: 4mg Daily x 14 days (eGFR >60 mL/min/1.73m2) PO SCH (09:51)
--- NOTE | 2021-02-25 10:40 | Hospitalist Progress Note ---
Date of Service February 25, 2021 Assessment & Plan (1) Pneumonia due to 2019 novel coronavirus: Plan: COVID 19 originally diagnosed 31 January 2021 He was hospitalized until 02/15/21 Initially treated with dexamethasone + Remdesivir CRP this admission 11.4 qualified for baricitinib, started on 02/21/21, day 5 Continue Dexamethasone 6mg IV daily now with late stage ARDS, CTA chest without PE but with extensive inflammatory changes continue Xarelto 10mg PO daily for VTE Prophylaxis currently on 55L 95% c/o nasal congestion, will try Afrin today (2) Bacterial pneumonia: Plan: HCAP is possible - increase in WBC, increase oxygen requirements, elevated CRP Blood cultures: coag neg staph from 02/18, likely contaminant, repeat 02/20 negative after 48 hours Legionella Ag urine not detected aspergillus pending fungitell and fungal cultures negative to date Zosyn continues LD 02/26, stopped Vanco as MRSA swab negative, procalcitonin negative therefore suspect this is really all COVID/ARDS rather than secondary bacterial infection. (3) Acute respiratory failure with hypoxia: Plan: 55 L 95% high flow alternating with CPAP at night DDX: bacterial pneumonia vs. atypical pna vs. ARDs vs. post covid fibrosis, given negative procalcitonin suspect this is mostly ARDS from COVID suspect late ARDS, no real improvement with high dose steroids, therefore started baricitinib but lowered dexamethasone to 6 mg CTA of the chest - Negative for PE- extensive airspace consolidations Lasix appears to have caused a contraction alkalosis on labs, hold further Lasix, may give it tomorrow, likely go with QOD (4) Hypertension: Plan: Reduced metoprolol to 25mg PO BID BP is stable (5) Dyslipidemia: Plan: Continue atorvastatin 20mg PO HS (6) Left knee pain: Plan: improved no effusion no errythema patient states it feels as his previous gout pain - Colchine 0.6mg PO BID dexamethasone could also help with gout inflammation Left knee XR - no fracture, no abnormalities Plan: VTE Prophylaxis - Xarelto Diet - regular Disposition - continued PCU status due to high O2 requirement Admission and Anticipated Discharge Date Admission Date: February 18, 2021 Subjective patient with nasal congestion, feels like the high flow is just flowing right out of his nose will try some Afrin he is eating/drinking well, sleeping fine, no acute issues down very slightly to 55L 95% reviewed chart and recent labs Review of Systems Review of Systems: All systems reviewed & are unremarkable except as noted in Subjective Ear, Nose, Mouth, Throat: + nasal congestion and + nasal obstruction Respiratory: + cough, + dyspnea and + dyspnea on exertion Physical Exam Physical Exam: General: well developed, obese, ill appearing, no distress Neck: supple, trachea midline, normal thyroid Lungs: clear to auscultation bilaterally, + tachypnea, + accessory muscle use Heart: regular S1 and S2, no murmur, peripheral pulses normal, capillary refill normal, no edema Abdomen: soft, NT, ND, + BS, no hepatomegaly, normal to percussion Extremities: normal in appearance, no cyanosis, no petechiae, strength is 5/5 bilaterally Neuro: awake, cooperative, moves all extremities, no focal motor deficits, CN II-XII intact, sensation in extremities intact, normal speech Skin: warm, dry, no rash, normal turgor Psych: Awake, alert oriented x 3, euthymic affect Results & Data Results & Data ([facility]) Vital Signs (Past 12 Hours) Vital Signs Temp Pulse Pulse Pulse Resp BP Pulse Ox 02/25/21 09:31 58 L 02/25/21 08:18 72 22 95 02/25/21 08:13 36.8 C 60 20 107/69 92 02/25/21 07:15 69 22 92 02/25/21 03:35 36.1 C L 57 L 30 H 116/72 92 02/25/21 00:26 36.9 C 62 28 H 103/63 93 02/24/21 23:31 80 24 92 Laboratory Results Laboratory Results - last 24 hr 02/25/21 06:18 Creatinine 0.87 Est Cr Clr Drug Dosing 126.2 Est GFR ( Amer) 111.8 Est GFR (Non-Af Amer) 96.5 Medications Administered Current Inpatient Medications Acetaminophen (Acetaminophen 325 Mg Tab) 650 mg PO Q4H PRN PRN Reason: Pain or Fever Stop: 03/21/21 00:49 Last Admin: 02/24/21 08:33 Dose: 650 mg Documented by: Albuterol (Albuterol 0.5% Neb Soln 2.5 Mg/0.5 Ml Vial) 2.5 mg NEB Q4 PRN; Protocol PRN Reason: wheezing, cough, poor airmovme Stop: 03/21/21 00:49 Last Admin: 02/25/21 08:17 Dose: 2.5 mg Documented by: Albuterol (Albuterol Hfa 8 Gm Inhaler) 2 puffs INH Q6R PRN PRN Reason: Shortness Of Breath Or Wheezing Stop: 03/21/21 00:59 Atorvastatin Calcium (Atorvastatin 20 Mg Tab) 20 mg PO DAILY [facility] Stop: 03/21/21 08:59 Last Admin: 02/25/21 08:08 Dose: 20 mg Documented by: Baclofen (Baclofen 10 Mg Tab) 10 mg PO DAILY PRN PRN Reason: Muscle Spasm Stop: 03/21/21 00:49 Last Admin: 02/24/21 08:33 Dose: 10 mg Documented by: Baricitinib (4mg Daily X 14 Days (Egfr >60 Ml/Min/1.73m2)) 4 mg PO DAILY [facility]; Protocol Stop: 03/07/21 08:59 Last Admin: 02/25/21 09:51 Dose: 4 mg Documented by: Citalopram Hydrobromide (Citalopram 20 Mg Tab) 20 mg PO DAILY [facility] Stop: 03/21/21 08:59 Last Admin: 02/25/21 08:08 Dose: 20 mg Documented by: Colchicine (Colchicine 0.6 Mg Tab) 0.6 mg PO BID [facility] Stop: 03/20/21 20:59 Last Admin: 02/25/21 08:08 Dose: 0.6 mg Documented by: Piperacillin Sod/Tazobactam (Sod 4.5 gm/ Dextrose) 120 mls @ 30 mls/hr IV Q8H [facility]; Protocol Stop: 02/26/21 01:59 Last Infusion: 02/25/21 07:45 Dose: Infused Documented by: Dexamethasone 6 mg/ Syringe 1.5 mls @ 1 mls/min IV DAILY [facility] Stop: 03/24/21 08:59 Last Admin: 02/25/21 08:07 Dose: 1 mls/min Documented by: Lactobacillus Acidoph/Casei/Rhamnos (Advanced Probiotic 1250 Mg Capsule) 2 cap PO DAILY [facility] Stop: 03/27/21 08:59 Last Admin: 02/25/21 08:08 Dose: 2 cap Documented by: Metoprolol Tartrate (Metoprolol Tartrate 25 Mg Tab) 25 mg PO BID [facility] Stop: 03/26/21 20:59 Last Admin: 02/25/21 08:08 Dose: 25 mg Documented by: Miscellaneous Information (Piperacill/Tazobac Consult Active) 1 ea N/A UD PRN PRN Reason: Consult Stop: 03/20/21 20:05 Pantoprazole Sodium (Pantoprazole 40 Mg Tab) 40 mg PO DAILY [facility] Stop: 03/21/21 08:59 Last Admin: 02/25/21 08:07 Dose: 40 mg Documented by: Rivaroxaban (Rivaroxaban 10 Mg Tablet) 10 mg PO DAILY [facility] Stop: 03/21/21 08:59 Last Admin: 02/25/21 08:08 Dose: 10 mg Documented by: PG Care Time/CCT Total # of Minutes Spent Total Time Spent with Patient: Total time spent is greater than 50% in coordination of care (as documented) at patient's floor/unit and/or counseling patient: Coding Level of Care Code 40370 Subseq Hosp Care Lvl 2 Diagnoses Pneumonia due to 2019 novel coronavirus U07.1; J12.82 Bacterial pneumonia J15.9 Acute respiratory failure with hypoxia J96.01 Hypertension I10 Dyslipidemia E78.5 Left knee pain M25.562
[2021-02-25] MEDS ORDERED: OXYMETAZOLINE 0.05% 30 ML BTL NAE ONE (10:51)
[2021-02-25] MEDS ORDERED: guaiFENesin/CODEINE 100MG/10MG 5ML UDC PO PRN (10:51)
[2021-02-25] MEDS ORDERED: ROCURONIUM BROMIDE 10 MG/ML 5 ML VIAL IV ONE (15:12)
[2021-02-25] MEDS ORDERED: LIDOCAINE 2% 20 MG/ML 5 ML SYR IV ONE (15:12)
[2021-02-25] MEDS ORDERED: ETOMIDATE 2 MG/ML 20 ML VIAL IV ONE (15:12)
[2021-02-25 22:11] LABS: Aspergillus Ag Index 0.06 (<0.50); Aspergillus Antigen, Serum Not Detected (Not Detected); Fungitell (1-3)-B-D-Glucan <31 pg/mL
[2021-02-26] MEDS: CITALOPRAM 20 MG TAB PO SCH (08:07)
[2021-02-26] MEDS: dexAMETHasone 6 MG in SYRINGE 0 ML IV SCH (08:07)
[2021-02-26] MEDS: ATORVASTATIN 20 MG TAB PO SCH (08:07)
[2021-02-26] MEDS: ADVANCED PROBIOTIC 1250 MG CAPSULE PO SCH (08:07)
[2021-02-26] MEDS: RIVAROXABAN 10 MG TABLET PO SCH (08:07)
[2021-02-26] MEDS: PANTOprazole 40 MG TAB PO SCH (08:07)
[2021-02-26] MEDS: COLCHICINE 0.6 MG TAB PO SCH ×2 (08:08→20:10)
[2021-02-26] MEDS ORDERED: FUROSEMIDE INJ 20 MG/2 ML VIAL IV ONE ×2 (08:28→08:46)
--- NOTE | 2021-02-26 08:28 | Hospitalist Progress Note ---
Date of Service February 26, 2021 Assessment & Plan (1) Pneumonia due to 2019 novel coronavirus: Plan: COVID 19 originally diagnosed 31 January 2021 He was hospitalized until 02/15/21 Initially treated with dexamethasone + Remdesivir CRP this admission 11.4 qualified for baricitinib, started on 02/21/21, day 6 Continue Dexamethasone 6mg IV daily x 10 days, last day would be 02/28/21 now with late stage ARDS, CTA chest without PE but with extensive inflammatory changes continue Xarelto 10mg PO daily for VTE Prophylaxis currently on 60L 80% nasal congestion responded well to Afrin (2) Bacterial pneumonia: Plan: HCAP is possible - increase in WBC, increase oxygen requirements, elevated CRP Blood cultures: coag neg staph from 02/18, likely contaminant, repeat 02/20 negative after 48 hours Legionella Ag urine not detected aspergillus pending fungitell and fungal cultures negative to date completed course of Zosyn on 02/26/21 (3) Acute respiratory failure with hypoxia: Plan: 60 L 80% high flow alternating with CPAP at night DDX: bacterial pneumonia vs. atypical pna vs. ARDs vs. post covid fibrosis, given negative procalcitonin suspect this is mostly ARDS from COVID suspect late ARDS, no real improvement with high dose steroids, therefore started baricitinib but lowered dexamethasone to 6 mg CTA of the chest - Negative for PE- extensive airspace consolidations Lasix 20mg IV daily, resumed 02/26/21 (4) Hypertension: Plan: BP low normal, 90-100's systolic stop metoprolol use Lasix 20mg IV daily (5) Dyslipidemia: Plan: Continue atorvastatin 20mg PO HS (6) Left knee pain: Plan: improved no effusion no errythema patient states it feels as his previous gout pain - Colchine 0.6mg PO BID dexamethasone could also help with gout inflammation Left knee XR - no fracture, no abnormalities Plan: VTE Prophylaxis - Xarelto Diet - regular Disposition - continued PCU status due to high O2 requirement Admission and Anticipated Discharge Date Admission Date: February 18, 2021 Subjective patient down slightly to 60L and 80%, he got fatigued last night, had to put him on CPAP a little early continues to eat really well, all his meals, had a BM last night told him to lay on his side as much as he can today, need to lower that FiO2 as much as we can discussed that antibiotics are done today, will resume Lasix he remains committed to getting better, he has a good sense of humor but this is obviously wearing on him Review of Systems Review of Systems: All systems reviewed & are unremarkable except as noted in Subjective Respiratory: + cough, + dyspnea and + dyspnea on exertion Cardiovascular: no chest pain Gastrointestinal: no abdominal pain, no nausea, no vomiting, no constipation and no diarrhea/loose stools Physical Exam Physical Exam: General: well developed, obese, ill appearing, no distress Neck: supple, trachea midline, normal thyroid Lungs: clear to auscultation bilaterally, + tachypnea, + accessory muscle use Heart: regular S1 and S2, no murmur, peripheral pulses normal, capillary refill normal, no edema Abdomen: soft, NT, ND, + BS, no hepatomegaly, normal to percussion Extremities: normal in appearance, no cyanosis, no petechiae, strength is 5/5 bilaterally Neuro: awake, cooperative, moves all extremities, no focal motor deficits, CN II-XII intact, sensation in extremities intact, normal speech Skin: warm, dry, no rash, normal turgor Psych: Awake, alert oriented x 3, euthymic affect Results & Data Results & Data ([facility]) Vital Signs (Past 12 Hours) Vital Signs Temp Pulse Pulse Resp BP Pulse Ox 02/26/21 08:02 36.5 C 71 20 99/64 L 89 L 02/26/21 07:45 72 26 H 94 02/26/21 04:35 36.5 C 71 24 116/73 91 02/26/21 03:38 80 24 91 02/25/21 22:59 66 26 H 93 02/25/21 22:01 36.5 C 73 28 H 116/74 96 Medications Administered Current Inpatient Medications Acetaminophen (Acetaminophen 325 Mg Tab) 650 mg PO Q4H PRN PRN Reason: Pain or Fever Stop: 03/21/21 00:49 Last Admin: 02/24/21 08:33 Dose: 650 mg Documented by: Albuterol (Albuterol 0.5% Neb Soln 2.5 Mg/0.5 Ml Vial) 2.5 mg NEB Q4 PRN; Protocol PRN Reason: wheezing, cough, poor airmovme Stop: 03/21/21 00:49 Last Admin: 02/25/21 08:17 Dose: 2.5 mg Documented by: Albuterol (Albuterol Hfa 8 Gm Inhaler) 2 puffs INH Q6R PRN PRN Reason: Shortness Of Breath Or Wheezing Stop: 03/21/21 00:59 Atorvastatin Calcium (Atorvastatin 20 Mg Tab) 20 mg PO DAILY [facility] Stop: 03/21/21 08:59 Last Admin: 02/26/21 08:07 Dose: 20 mg Documented by: Baclofen (Baclofen 10 Mg Tab) 10 mg PO DAILY PRN PRN Reason: Muscle Spasm Stop: 03/21/21 00:49 Last Admin: 02/24/21 08:33 Dose: 10 mg Documented by: Baricitinib (4mg Daily X 14 Days (Egfr >60 Ml/Min/1.73m2)) 4 mg PO DAILY [facility]; Protocol Stop: 03/07/21 08:59 Last Admin: 02/25/21 09:51 Dose: 4 mg Documented by: Citalopram Hydrobromide (Citalopram 20 Mg Tab) 20 mg PO DAILY [facility] Stop: 03/21/21 08:59 Last Admin: 02/26/21 08:07 Dose: 20 mg Documented by: Colchicine (Colchicine 0.6 Mg Tab) 0.6 mg PO BID [facility] Stop: 03/20/21 20:59 Last Admin: 02/26/21 08:08 Dose: 0.6 mg Documented by: Guaifenesin/Codeine Phosphate (Guaifenesin/Codeine 100mg/10mg 5ml Udc) 5 ml PO Q6H PRN PRN Reason: Cough Stop: 03/27/21 10:50 Dexamethasone 6 mg/ Syringe 1.5 mls @ 1 mls/min IV DAILY [facility] Stop: 03/03/21 09:02 Last Admin: 02/26/21 08:07 Dose: 1 mls/min Documented by: Lactobacillus Acidoph/Casei/Rhamnos (Advanced Probiotic 1250 Mg Capsule) 2 cap PO DAILY [facility] Stop: 03/27/21 08:59 Last Admin: 02/26/21 08:07 Dose: 2 cap Documented by: Metoprolol Tartrate (Metoprolol Tartrate 25 Mg Tab) 25 mg PO BID [facility] Stop: 03/26/21 20:59 Last Admin: 02/25/21 19:08 Dose: 25 mg Documented by: Pantoprazole Sodium (Pantoprazole 40 Mg Tab) 40 mg PO DAILY [facility] Stop: 03/21/21 08:59 Last Admin: 02/26/21 08:07 Dose: 40 mg Documented by: Rivaroxaban (Rivaroxaban 10 Mg Tablet) 10 mg PO DAILY [facility] Stop: 03/21/21 08:59 Last Admin: 02/26/21 08:07 Dose: 10 mg Documented by: PG Care Time/CCT Total # of Minutes Spent Total Time Spent with Patient: Total time spent is greater than 50% in coordination of care (as documented) at patient's floor/unit and/or counseling patient: Coding Level of Care Code 72338 Subseq Hosp Care Lvl 2 Diagnoses Pneumonia due to 2019 novel coronavirus U07.1; J12.82 Bacterial pneumonia J15.9 Acute respiratory failure with hypoxia J96.01 Hypertension I10 Dyslipidemia E78.5 Left knee pain M25.562
[2021-02-26] MEDS: 4mg Daily x 14 days (eGFR >60 mL/min/1.73m2) PO SCH (08:51)
[2021-02-26] MEDS: ACETAMINOPHEN 325 MG TAB PO PRN (20:11)
[2021-02-27 07:13] LABS: Creatinine Clr Calc Pharmacy 146.7 ml/min; Est GFR (African American) 119.5 ml/min; Est GFR (Non-African American) 103.1 ml/min
[2021-02-27] MEDS: dexAMETHasone 6 MG in SYRINGE 0 ML IV SCH (08:22)
[2021-02-27] MEDS: PANTOprazole 40 MG TAB PO SCH (08:23)
[2021-02-27] MEDS: COLCHICINE 0.6 MG TAB PO SCH (08:23)
[2021-02-27] MEDS: ADVANCED PROBIOTIC 1250 MG CAPSULE PO SCH (08:23)
[2021-02-27] MEDS: RIVAROXABAN 10 MG TABLET PO SCH (08:23)
[2021-02-27] MEDS: ATORVASTATIN 20 MG TAB PO SCH (08:23)
[2021-02-27] MEDS: BACLOFEN 10 MG TAB PO PRN (08:23)
[2021-02-27] MEDS: CITALOPRAM 20 MG TAB PO SCH (08:23)
[2021-02-27] MEDS: 4mg Daily x 14 days (eGFR >60 mL/min/1.73m2) PO SCH (08:27)
[2021-02-27 11:01] LABS: BUN Creatinine Ratio 22.9 (10-20); C Reactive Protein 2.44 mg/dl (0-0.29); Calcium 8.9 mg/dl (8.5-10.1); Creatinine Clr Calc Pharmacy 107.4 ml/min; Est GFR (African American) 95.9 ml/min; Est GFR (Non-African American) 82.8 ml/min; Magnesium 2.3 mg/dl (1.8-2.4)
[2021-02-27] MEDS ORDERED: FUROSEMIDE INJ 20 MG/2 ML VIAL IV STA (11:48)
--- NOTE | 2021-02-27 11:55 | Hospitalist Progress Note ---
Date of Service February 27, 2021 Assessment & Plan (1) Acute respiratory failure with hypoxia: Plan: readmitted to the hospital on 02/18/21 after he had a prolonged hospital stay in January for severe COVID-19 pneumonia. since 02/18 has been requiring HFNC with CPAP at night. prior attending suspected late ARDS. he has been on steroids since his readmission on 02/18 with no improvement in his status. baricitinib was started 02/21 due to high CRP and worsening status. despite the above he has continued with worsening respiratory status. following my visit with him this am I contacted Dr Abdi from pulmonary for urgent consultation. abg, procal, BNP, d-dimer checked; lasix 20mg IV x 1 given. early afternoon patient decompensated further necessitating transfer to [facility] [place] COVID unit for intubation. baricitinib stopped. steroids continued. (2) Pneumonia due to 2019 novel coronavirus: Plan: COVID 19 originally diagnosed 31 January 2021 He was hospitalized until 02/15/21 Initially treated with dexamethasone + Remdesivir during that admission Readmitted 02/18/21; has been on HFNC since, with CPAP at night. CRP this admission 11.4 - baricitinib started on 02/21/21, day #7 today. Remains on dexamethasone 6mg IV daily, day #9 today. Treated for bacterial pneumonia/superinfection with 7 day course of IV zosyn; completed on 02/26/21. Diuresed intermittently to keep I/O balance negative. Despite all of the above measures he has continued to decline; see #1 above. (3) Acute respiratory distress syndrome (ARDS) due to COVID-19 virus: Plan: Late-stage ARDS in setting of severe COVID-19 pneumonia in 01/2021. Treated with copious IV dexamethasone since mid-January. CTA chest this admission with findings worrisome for fibrotic changes. s/p intubation and mech ventilation today for refractory respiratory failure. Prognosis is guarded. Baricitinib stopped. (4) Bacterial pneumonia: Plan: Treated for such with 7-day course of IV zosyn; completion date 02/26/21. Legionella Ag urine not detected. aspergillus negative. fungitell and fungal cultures negative. Today's procal 0, as have been prior procal levels. (5) Hypertension: Plan: cont to hold metoprolol (6) Dyslipidemia: Plan: AST/ALT remain elevated cont to hold statin (7) Left knee pain: Plan: earlier this admission ? gouty arthritis improved with Colchine 0.6mg PO BID Left knee XR - no fracture, no abnormalities he did not complain of the knee today (8) Transaminitis: Plan: 2nd to COVID-19 +/- baseline fatty liver? (9) Hyperglycemia: Plan: glucose 190 this am - random previous glucoses have also been high could have pre-DM or full-blown T2DM needs HbA1C checked - added to morning labs tomorrow with transfer to ICU will follow ICU glycemic protocol (10) DVT prophylaxis: Plan: xarelto 10mg daily Plan: appreciate Dr Abdi's assistance updated pt's father by phone this evening he is aware of intubation/mech ventilation he is aware of guarded prognosis total time today - 65 minutes, complex care coordination of a critically ill patient with worsening status Admission and Anticipated Discharge Date Admission Date: February 18, 2021 Subjective saw patient mid-morning he had worn CPAP all night last pm attempts by respiratory therapy to transition back to high-flow NC were not successful thus, when I saw him, he remained on CPAP he reported feeling poorly, "not much better" than when he came to the hospital he is short of breath no cough no chest pain or pleuritic pain no abd pain eating well he is discouraged by his lack of progress tele overnight stable Review of Systems Review of Systems: gen - no fevers, no chills; "I feel sleepy"; no anorexia CV - no orthopnea pulm - no hemoptysis (had such during prior hospitalization); minimal cough GI - no N/V/abd pain/diarrhea Physical Exam Physical Exam: gen - CPAP in place; increased work of breathing with tachypn ea, retractions, mild dyspnea even with CPAP on neck - no obvious JVD heart - RRR, s1 s2, no murmur lungs - fine bibasilar dry rales, no wheeze, airation fair, increased work of breathing as above abd - soft NT ND BS+; liver edge slightly palpable ext - no edema, pulses 2+ b/l psych - a/o x 3 Results & Data Results & Data ([facility]) Vital Signs (Past 12 Hours) Vital Signs Temp Pulse Pulse Resp BP Pulse Ox 02/27/21 11:45 36.3 C L 91 H 15 119/79 94 02/27/21 11:21 91 H 33 H 92 02/27/21 08:41 36.6 C 72 15 123/83 91 02/27/21 08:37 78 02/27/21 08:06 71 28 H 92 02/27/21 03:19 36.6 C 77 32 H 130/87 93 02/27/21 02:35 78 21 94 Laboratory Results Laboratory Results - last 24 hr 02/27/21 02/27/21 02/27/21 06:09 10:30 12:24 D-Dimer Sample Site POC pH POC pCO2 POC pO2 POC HCO3 POC Total CO2 POC Base Excess ABG pH 7.45 ABG pCO2 43 ABG pO2 73 L ABG HCO3 29 H POC ABG O2 Sat ABG O2 Saturation 95.5 H ABG Base Excess 4.2 H Brodie Test Pos Barometric Pressure 732.2 Oxygen Given 95% O2 Delivery Device POC O2 Rate Minute Ventilation POC FiO2 Tidal Volume PEEP Sodium 136 Potassium 4.0 Chloride 102 Carbon Dioxide 26 Anion Gap 8.0 BUN 23 H Creatinine 0.74 1.01 Est Cr Clr Drug Dosing 146.7 107.4 Est GFR ( Amer) 119.5 95.9 Est GFR (Non-Af Amer) 103.1 82.8 BUN/Creatinine Ratio 22.9 H Glucose 190 H POC Glucose Calcium 8.9 Magnesium 2.3 AST 46 H ALT 240 H C-Reactive Protein 2.44 H NT-Pro-B Natriuret Pep Procalcitonin 02/27/21 02/27/21 02/27/21 12:24 12:24 12:24 D-Dimer 980 H* Sample Site POC pH POC pCO2 POC pO2 POC HCO3 POC Total CO2 POC Base Excess ABG pH ABG pCO2 ABG pO2 ABG HCO3 POC ABG O2 Sat ABG O2 Saturation ABG Base Excess Brodie Test Barometric Pressure Oxygen Given O2 Delivery Device POC O2 Rate Minute Ventilation POC FiO2 Tidal Volume PEEP Sodium Potassium Chloride Carbon Dioxide Anion Gap BUN Creatinine Est Cr Clr Drug Dosing Est GFR ( Amer) Est GFR (Non-Af Amer) BUN/Creatinine Ratio Glucose POC Glucose Calcium Magnesium AST ALT C-Reactive Protein NT-Pro-B Natriuret Pep 289 Procalcitonin < 0.05 02/27/21 02/27/21 02/27/21 16:36 16:38 16:39 D-Dimer Sample Site POC pH POC pCO2 POC pO2 POC HCO3 POC Total CO2 POC Base Excess ABG pH ABG pCO2 ABG pO2 ABG HCO3 POC ABG O2 Sat ABG O2 Saturation ABG Base Excess Brodie Test Barometric Pressure Oxygen Given O2 Delivery Device POC O2 Rate Minute Ventilation POC FiO2 Tidal Volume PEEP Sodium Potassium Chloride Carbon Dioxide Anion Gap BUN Creatinine Est Cr Clr Drug Dosing Est GFR ( Amer) Est GFR (Non-Af Amer) BUN/Creatinine Ratio Glucose POC Glucose 323 H* 240 H 208 H Calcium Magnesium AST ALT C-Reactive Protein NT-Pro-B Natriuret Pep Procalcitonin 02/27/21 02/27/21 20:19 23:06 D-Dimer Sample Site Art Line POC pH 7.28 L POC pCO2 73 H POC pO2 91 POC HCO3 34 H POC Total CO2 37 H POC Base Excess 8.0 H ABG pH ABG pCO2 ABG pO2 ABG HCO3 POC ABG O2 Sat 95.0 ABG O2 Saturation ABG Base Excess Brodie Test NA Barometric Pressure Oxygen Given O2 Delivery Device Ventilator POC O2 Rate 28 Minute Ventilation 11 POC FiO2 80 Tidal Volume 400 PEEP 12 Sodium Potassium Chloride Carbon Dioxide Anion Gap BUN Creatinine Est Cr Clr Drug Dosing Est GFR ( Amer) Est GFR (Non-Af Amer) BUN/Creatinine Ratio Glucose POC Glucose 168 H Calcium Magnesium AST ALT C-Reactive Protein NT-Pro-B Natriuret Pep Procalcitonin PG Care Time/CCT Total # of Minutes Spent Total Time Spent with Patient: Total time spent is greater than 50% in coordination of care (as documented) at patient's floor/unit and/or counseling patient: Prolonged Care Time Prolonged Care Time: Yes 65 Coding Level of Care Code 58659 Subseq Hosp Care Lvl 3 (25 - SIGNIFICANT, SEPARATELY IDENTIFIABLE ) Diagnoses Pneumonia due to 2019 novel coronavirus U07.1; J12.82 Bacterial pneumonia J15.9 Acute respiratory failure with hypoxia J96.01 Hypertension I10 Dyslipidemia E78.5 Left knee pain M25.562 Transaminitis R74.01 Hyperglycemia R73.9 DVT prophylaxis Z29.9 Acute respiratory distress syndrome (ARDS) due to COVID-19 virus U07.1; J80 Additional Codes Prolonged Care Time - Prolonged Care Time: Yes ([id number]) Time Spent (min) 65
--- NOTE | 2021-02-27 12:12 | Pulmonary Consultation ---
Date of Consultation February 27, 2021 Assessment & Plan (1) Acute respiratory failure with hypoxia: (2) Pneumonia due to 2019 novel coronavirus: (3) Hypertension: (4) Dyslipidemia: (5) History of stroke: CT chest 02/18/2022 personally reviewed: Diffuse patchy groundglass opacities appreciated bilaterally upper and lower lobes there is little bit more dense consolidative process in the right lower lobe The infiltrates have worsened compared to 01/31/2021. Lung fibrosis seems to be happening No significant mediastinal lymphadenopathy --Acute hypoxic respiratory failure Secondary to multilobar COVID-19 pneumonia COVID-19 PCR positive originally 01/31/2021 CRP 2.44 Procalcitonin negative --> completed a course of Zosyn on 02/26/2021 Patient has completed a course of remdesivir as well as dexamethasone on his first admission 01/31/2021 Continue with O2 supplementation to keep oxygen saturation between 90-92%. Awake proning will be helpful Continue with incentive spirometry Continue with flutter valve. Recommend patient to be kept euvolemic to negative balance Plan: I think we have a past the timeline where baricitinib would be helpful especially given that the CRP is so low Okay to continue with dexamethasone for late phase ARDS. I do think there is a component of fibrosis already seen on the CAT scan which was done on 02/18/2021 Continue with high flow and CPAP alternatively to keep saturation between 88 to 92% Case discussed with Dr. Mclean I have personally spent 63 minutes of critical care time in the direct management of this patient. This is a life/limb threatening event. This includes time spent evaluating patient, direct bedside care, chart review, placing orders, interpretation of diagnostic studies, discussion with consultants, patient, and family members, as well as other required patient management activities. This time is exclusive of all separately billable procedures, and teaching time and separate from and in addition to any other critical care service time. Please note the above document was generated using voice recognition software. It may contain grammatical, syntax or spelling errors. History of Present Illness Attending Physician: Matt Duggan History of Present Illness 55-year-old male was admitted to the hospital with COVID-19 pneumonia Patient was initially admitted to hospital on 01/31 and discharged home on 4 L nasal cannula but he had to come back because of worsening shortness of breath on 02/18/2021 past medical history: Hypertension, dyslipidemia, obesity, CVA with foot drop Pulmonary were consulted as patient was needing more oxygen requirement. At the time of examination patient was a high flow 100%, 60 L saturating in the mid to low 80s. He denies any chest pain. He does state that his breathing is labored compared to yesterday Denies any nausea or vomiting No headache, no blurry vision I did put him on CPAP and sent him to the ICU. On the CPAP of 1200% he was breathing in the high 30s to low 40s saturation still in the low 90s. Social history: Non-smoker Allergies Allergy/AdvReac Type Severity Reaction Status Date / Time Penicillins Allergy Intermediate Hives Verified 02/18/21 17:53 Home Medications Medication Instructions Recorded Confirmed Type ascorbic acid (vitamin C) 1,000 mg 1 g PO DAILY 01/31/21 02/18/21 History tablet (Vitamin C) atorvastatin 20 mg tablet 20 mg PO DAILY 01/31/21 02/18/21 History baclofen 10 mg tablet 10 mg PO DAILY PRN 01/31/21 02/18/21 History citalopram 20 mg tablet 20 mg PO DAILY 01/31/21 02/18/21 History pantoprazole 40 mg tablet,delayed 40 mg PO DAILY 01/31/21 02/18/21 History release zinc 50 mg tablet 0 mg PO DAILY 01/31/21 02/18/21 History furosemide 20 mg tablet 20 mg PO QAM 7 Days #7 tab 02/15/21 02/18/21 Rx metoprolol tartrate 50 mg tablet 50 mg PO BID 30 Days #60 tab 02/15/21 02/18/21 Rx rivaroxaban 10 mg tablet (Xarelto) 10 mg PO DAILY #30 tab 02/15/21 02/18/21 Rx Patient History Medical History Dyslipidemia Hypertension Pneumonia due to 2019 novel coronavirus Social History Smoking Status: Never smoker Hx Alcohol Use: No Hx Substance Use: No Preferred Language: Albanian Communication Ability: Effective Pipe Organ Technician Required: No Beliefs That Will Affect Care: None marital status: Unknown Current Living Situation: Family Other Information That Helps Us Care for You: No Feels Safe at Home: Yes Safety Concerns: Feels Safe At This Time Assistive Devices: CPAP and Oxygen - Continuous Review of Systems Review of Systems: All systems reviewed & are unremarkable except as noted in HPI & below Physical Exam Physical Exam: Constitutional: In respiratory distress HEENT: EOMI, PERRLA Respiratory system: Decreased air entry bilaterally, no wheeze, rhonchi, positive crackles bilaterally CVS: S1-S2 positive, no murmurs or gallops Abdomen: Soft, nontender, nondistended, positive bowel sounds x4, obese Extremities: +2 pulses bilaterally radialis/ dorsalis pedis, no cyanosis, + 1 edema b/l LE Neuro: Awake alert oriented x3 Psych: Normal mood and affect G/U: Positive Ruiz Skin: no rashes, warm and dry Lymphatic: no cervical or axillary lymphadenopathy Results & Data Results & Data ([facility]) Vital Signs (Past 12 Hours) Vital Signs Temp Pulse Pulse Resp BP Pulse Ox 02/27/21 11:45 36.3 C L 91 H 15 119/79 94 02/27/21 11:21 91 H 33 H 92 02/27/21 08:41 36.6 C 72 15 123/83 91 02/27/21 08:37 78 02/27/21 08:06 71 28 H 92 02/27/21 03:19 36.6 C 77 32 H 130/87 93 02/27/21 02:35 78 21 94 Laboratory Results 02/24/21 08:18 02/27/21 10:30 PG Care Time/CCT Total # of Minutes Spent Total Time Spent with Patient: Total time spent is greater than 50% in coordination of care (as documented) at patient's floor/unit and/or counseling patient: Coding Level of Care Code Critical Care 1st 30-74 mins Diagnoses Acute respiratory failure with hypoxia J96.01 Pneumonia due to 2019 novel coronavirus U07.1; J12.82 Hypertension I10 Dyslipidemia E78.5 History of stroke Z86.73 Time Spent (min) 63
--- NOTE | 2021-02-27 12:31 | XRay Report ---
XR chest 1V portable HISTORY: recent COVID, worsening hypoxia COMPARISON: Chest 02/24/2021. FINDINGS: There are low lung volumes with mild elevation the right hemidiaphragm. This is similar to the prior study. The heart remains enlarged. Right greater than left airspace opacities and diffuse i nterstitial thickening persists. No pleural effusions. No pneumothorax. Rotated study. IMPRESSION: No change in the diffuse interstitial thickening with right greater than left airspace opacities. Thi s favors a viral pneumonia. ACT 112: Negative or not required by law. Electronically signed by: Derrick Dias M.D. 02/27/2021 12:29 PM
[2021-02-27 12:49] LABS: Base Excess ABG 4.2 mEq/L (-9-1.8); HCO3 ABG 29 mmol/L (19-24); Oxygen Saturation ABG 95.5 % (90-95); PCO2 ABG 43 mmHg (35-46); PO2 ABG 73 mmHg (80-95); pH ABG 7.45 (7.35-7.45)
[2021-02-27 12:50] LABS: Allen Test Pos (Pos)
[2021-02-27 12:55] LABS: D Dimer 980 ug/L FEU (0-500)
[2021-02-27] MEDS ORDERED: RAPID SEQUENCE INDUCTION BAG ONE (17:20)
[2021-02-27] MEDS ORDERED: NOREPINEPHRINE/D5W 8 MG/508 ML IV ONE (17:26)
[2021-02-27] MEDS ORDERED: ETOMIDATE 2 MG/ML 20 ML VIAL IV ONE (17:33)
[2021-02-27] MEDS ORDERED: LIDOCAINE 2% 20 MG/ML 5 ML SYR IV ONE (17:33)
[2021-02-27] MEDS ORDERED: ROCURONIUM BROMIDE 10 MG/ML 5 ML VIAL IV ONE (17:33)
[2021-02-27] MEDS ORDERED: MIDAZOLAM HCL 125MG/250ML D5W ONE (17:38)
[2021-02-27] MEDS ORDERED: PROPOFOL IV EMULSION 10 MG/ML 100 ML VIAL IV ONE (17:39)
[2021-02-27] MEDS ORDERED: fentaNYL citrate 2,500 MCG/250 ML BAG IV ONE (17:50)
[2021-02-27] MEDS ORDERED: STAT IV Infusion **Titration per Protocol STA ×2 (18:30)
[2021-02-27] MEDS ORDERED: ACETAMINOPHEN 1,000 MG/100 ML VIAL IV PRN (18:30)
[2021-02-27] MEDS ORDERED: PROPOFOL BOLUS FROM BAG IV PRN (18:30)
--- NOTE | 2021-02-27 18:38 | Procedure Note ---
Procedure Note Date of Service February 27, 2021 Note INTUBATION PROCEDURE NOTE: Attending: Dr Louann Abdi MD Patient was evaluated and plan to intubate was made for ventilatory failure. Sedative agent used: 100 mg lidocaine, 25 mg etomidate Paralysis agent used: 80 mg rocuronium Emergent consent was implied given patients rapidly declining clinical status and need for airway protection. The patient was prepared in the appropriate fashion. The patient was easily pre-oxygenated by using [id number] ventilation. With help of glide scope grade 2 vocal cords were visualized and 7.5 Macedonian ETT was introduced on first attempt to 24 cm at the lip. The stylette was removed and balloon was inflated with 10mL of air. Appropriate Colorimetric change was appreciated for at least 10 breaths. Bilateral chest rise and breath sounds were appreciated without air sounds in the epigastrium. Patient tolerated the procedure well and there were no immediate complications. Chest Xray to follow for confirming placement. Coding CPT Codes Resuscitation - Resuscitation: 40758 Endotracheal Intubation, emergency ([id number]) [facility] [place] Procedure Codes (Charges) Resuscitation Resuscitation: 41050 Endotracheal Intubation, emergency
--- NOTE | 2021-02-27 18:39 | Procedure Note ---
Procedure Note Date of Service February 27, 2021 Note Procedure: Inserting ultrasound-guided central pipelines supervisor: Dr. Louann Abdi Indication: ARDS Consent: Emergent consent was applied Anesthesia: 1% lidocaine without epinephrine local. Procedure: Consent was verified and timeout performed. Appropriate imaging studies were reviewed prior to the procedure. Under aseptic and sterile condition, right IJ vein was accessed under direct ultrasound guidance. Guidewire was confirmed to be within the lumen of vein with the help of ultrasound. Catheter was introduced via Seldinger technique. Guide a wire was removed. Good non-pulsatile blood flow was appreciated from all the ports. The catheter was placed at 16 cm and [address] in place. BioPatch was applied to the catheter and a sterile Tegaderm dressing was applied over the catheter with careful attention to sterility. Lung sliding was appreciated post procedure with the help ultrasound. Chest x-ray to follow Patient tolerated the procedure well. Blood loss: Less than 2 cc Complications: None Coding CPT Codes Tubes, Drains, and Vasc Access - Tubes, Drains, and Vasc Access: [id number] Place catheter in vein superior or inferior vena cava ([id number]) Tubes, Drains, and Vasc Access - Tubes, Drains, and Vasc Access: [id number] Ultrasound Guidance For Vascular ([id number]) [facility] Procedure Codes (Charges) Tubes, Drains, and Vasc Access Procedure 1: Tubes, Drains, and Vasc Access: [id number] Place catheter in vein superior or inferior vena cava Procedure 2: Tubes, Drains, and Vasc Access: [id number] Ultrasound Guidance For Vascular
--- NOTE | 2021-02-27 18:40 | Procedure Note ---
Procedure Note Date of Service February 27, 2021 Note ARTERIAL LINE PROCEDURE NOTE: Procedure: Arterial Line Placement Attending: Dr. Louann Abdi MD Indication: ARDS Anesthesia: General anesthesia Emergent consent was applied A time-out was completed verifying correct patient, procedure, site, positioning, and implant(s) or special equipment if applicable. Allens test was performed to ensure adequate perfusion. Patients left wrist was prepped and draped in the usual sterile fashion. Ultrasound guidance was used to aid needle placement. A 20g Arrow arterial line was introduced into the left radial artery. Catheter was threaded, and the needle was removed with appropriate pulsatile blood return. Good waveform was observed on the monitor. The patient tolerated the procedure well. Confirmation of placement with ultrasound. Images saved to medical record. Complications: None Blood Loss: Less than 2 cc Coding CPT Codes Tubes, Drains, and Vasc Access - Tubes, Drains, and Vasc Access: [id number] Insertion Catheter, Artery ([id number]) Tubes, Drains, and Vasc Access - Tubes, Drains, and Vasc Access: [id number] Ultrasound Guidance For Vascular ([id number]) [facility] [place] Procedure Codes (Charges) Tubes, Drains, and Vasc Access Procedure 1: Tubes, Drains, and Vasc Access: [id number] Insertion Catheter, Artery Procedure 2: Tubes, Drains, and Vasc Access: [id number] Ultrasound Guidance For Vascular
--- NOTE | 2021-02-27 18:43 | Communication Note ---
Date of Service: February 27, 2021 Critical CARE addendum: Was called as the patient was in respiratory distress and not saturating well even on CPAP Patient was not definite respiratory distress. Plan was to me to intubate. Patient was successfully intubated and TLC as well as A-line was placed. Patient saturation was maintaining around 92-93% PEEP of 12,100% FiO2 with plateau of 28 and tidal volume 400 Patient will be paralyzed and prone. We will get ABG in 30 minutes. I have personally spent 25 additional minutes of critical care time in the direct management of this patient. This is a life/limb threatening event. This includes time spent evaluating patient, direct bedside care, chart review, placing orders, interpretation of diagnostic studies, discussion with consultants, patient, and family members, as well as other required patient management activities. This time is exclusive of all separately billable procedures, and teaching time and separate from and in addition to any other critical care service time. Please note the above document was generated using voice recognition software. It may contain grammatical, syntax or spelling errors. Coding Level of Care Code Critical Care radha hanson'yolanda 30 min Time Spent (min) 25
[2021-02-27] MEDS: fentaNYL citrate 2,500 MCG/250 ML BAG IV SCH (19:01)
[2021-02-27] MEDS: propofoL 1,000 MG/100 ML VIAL IV SCH (19:02)
--- NOTE | 2021-02-27 19:09 | XRay Report ---
XR chest 1V portable HISTORY: check ETT placement COMPARISON: Chest 02/27/2021. FINDINGS: Endotracheal tube terminates 3.4 cm from the donal. Right jugular central venous catheter terminates at the SVC. The nasogastric tube terminates in the stomach. There are low lung volumes. Th e heart remains mildly enlarged. Interstitial thickening and patchy bilateral airspace opacities pers ist. Suspect a trace right pleural effusion. Elevated right hemidiaphragm is again noted. No pneumoth orax. IMPRESSION: 1. Satisfactory support line placement. 2. No change in the diffuse interstitial thickening and bilateral airspace opacities. This favors a v iral pneumonia. ACT 112: Negative or not required by law. Electronically signed by: Derrick Dias M.D. 02/27/2021 7:07 PM
[2021-02-27] MEDS: CISATRACURIUM BESYLATE 40 MG in 0.9 % SODIUM CHLORIDE 80 ML IV SCH (19:46)
--- NOTE | 2021-02-27 21:35 | Communication Note ---
Date of Service: February 27, 2021 Procedure: Proning Maneuver Attending: Dr. Abdi APC: Zach Rivera PA-C Indication: Requiring lung recruitment intervention in the setting of advanced ARDS with poor lung compliance and oxygenation on standard ventilator settings. Patient requiring proning in the setting of advanced ARDS per imaging, ventilator requirements, and calculated P:F ratio. Appropriate staff was assembled including myself, Respiratory Therapy, and Nursing Staff. A time-out was completed verifying correct patient, time from recent pronation/supination, current ventilator settings, review of any prior issues during pronation/supination maneuvers. Patient was fully undressed as to be able to view all current IV sites, central venous access sites, arterial lines, endotra cheal tube, Ruiz catheter, etc. After properly identifying/securing all lines, tubes, etc., the patient was ``papoosed using flat sheets. On my count, the patient was slid to the edge of the bed. After reevaluating all lines, tubes, etc., the patient was then placed on their side allowing for RT to maintain control of ET tube and ready for completion of proning maneuver. Final check of all lines, tubes, etc. was completed by myself and nursing staff. Blood pressure, heart rhythm, and oxygen saturations were monitored for several minutes s/p maneuver. Discussion was held with patients RN and RT regarding ongoing management. Patient tolerated maneuver well. No immediate complications were noted. TIME PRONE: 2130 I have personally spent 25 minutes of critical care time in the direct ma nagement of this patient. This is a life/limb threatening event. This includes time spent evaluating patient, direct bedside care, chart review, placing orders, interpretation of diagnostic studies, discussion with consultants, patient, and family members, as well as other required patient management activities. This time is exclusive of all separately billable procedures, and teaching time and separate from and in addition to any other critical care service time. Coding Level of Care Code Critical Care 1st 30-74 mins Time Spent (min) 25
[2021-02-27 23:21] LABS: iSTAT Arterial Blood Gas HCO3 34 meg/L (19-24); iSTAT Arterial Blood Gas pCO2 73 mmHg (35-46); iSTAT Arterial Blood Gas pH 7.28 (7.35-7.45); iSTAT Arterial Blood Gas pO2 91 mmHg (80-95); iSTAT Carbon Dioxide 37 mmol/L (24-31); iSTAT FiO2 80 %; iSTAT Site Art Line
[2021-02-28] MEDS: propofoL 1,000 MG/100 ML VIAL IV SCH ×8 (00:22→22:15)
[2021-02-28] MEDS: ARTIFICIAL TEARS OP OINT 3.5 GM TUBE OP SCH ×7 (00:22→22:17)
[2021-02-28] MEDS: COLCHICINE 0.6 MG TAB PO SCH ×2 (00:29→08:26)
[2021-02-28] MEDS: CISATRACURIUM BESYLATE 40 MG in 0.9 % SODIUM CHLORIDE 80 ML IV SCH ×7 (02:44→22:16)
[2021-02-28 04:11] LABS: iSTAT Arterial Blood Gas HCO3 33 meg/L (19-24); iSTAT Arterial Blood Gas pCO2 66 mmHg (35-46); iSTAT Arterial Blood Gas pH 7.31 (7.35-7.45); iSTAT Arterial Blood Gas pO2 113 mmHg (80-95); iSTAT Carbon Dioxide 35 mmol/L (24-31); iSTAT FiO2 75 %; iSTAT Site Art Line
[2021-02-28 07:08] LABS: Hematocrit (blood only) 48.1 % (42-52); Hemoglobin 15.4 g/dL (14.0-18.0); Mean Corpuscular Hemoglobin 26.8 pg (25-34); Mean Corpuscular Volume 83.8 fL (80-100); Mean Platelet Volume 9.6 fL (7.4-10.4); Platelet Count 294 K/uL (130-400); RDW Coefficient of Variation 15.9 % (11.5-14.5); RDW Standard Deviation 48.5 fL (36.4-46.3); Red Blood Count 5.74 M/uL (4.7-6.1); White Blood Count 16.97 K/uL (4.8-10.8)
[2021-02-28 07:15] LABS: Estimated Average Glucose 146 mg/dl; Hemoglobin A1C 6.7 % (4.5-5.6)
[2021-02-28 07:38] LABS: Albumin Globulin Ratio 0.8 (0.9-2); Albumin Level 2.8 gm/dl (3.4-5.0); BUN Creatinine Ratio 33.4 (10-20); Bilirubin,Total 0.7 mg/dl (0.2-1); Calcium 9.3 mg/dl (8.5-10.1); Creatinine Clr Calc Pharmacy 159.6 ml/min; Est GFR (African American) 123.7 ml/min; Est GFR (Non-African American) 106.8 ml/min; Globulin 3.6 gm/dl (2.5-4.0); Magnesium 2.7 mg/dl (1.8-2.4); Phosphorus 4.3 mg/dl (2.5-4.9); Potassium 4.3 mmol/L (3.5-5.1); Total Protein 6.4 gm/dl (6.4-8.2)
[2021-02-28] MEDS: CITALOPRAM 20 MG TAB PO SCH (08:26)
[2021-02-28] MEDS: ADVANCED PROBIOTIC 1250 MG CAPSULE PO SCH (08:27)
[2021-02-28] MEDS: RIVAROXABAN 10 MG TABLET PO SCH (08:28)
[2021-02-28] MEDS: PANTOprazole 40 MG TAB PO SCH (08:36)
[2021-02-28] MEDS: dexAMETHasone 6 MG in SYRINGE 0 ML IV SCH (08:36)
[2021-02-28] MEDS: fentaNYL citrate 2,500 MCG/250 ML BAG IV SCH ×2 (08:46→22:16)
[2021-02-28] MEDS: PANTOprazole 40 MG in SYRINGE 0 ML IV SCH (11:23)
--- NOTE | 2021-02-28 13:30 | Critical Care Progress Note ---
Date of Service February 28, 2021 Assessment & Plan (1) Acute respiratory distress syndrome (ARDS) due to COVID-19 virus: (2) Morbid obesity with BMI of 40.0-44.9, adult: (3) Leukocytosis: (4) Respiratory acidosis: (5) Hyponatremia: (6) Hyperglycemia: Plan: Impression: 55-year-old unvaccinated male initially diagnosed 01/31/2021 and spent almost 2 weeks in the hospital on high flow oxygen. He received remdesivir and Decadron at that point time. He was dismissed from the hospital 02/15 but returned 02/18 with progressive hypoxemic respiratory failure. He was treated with high-dose dexamethasone as well as Levaquin and Zosyn. He failed noninvasive positive pressure ventilation and was intubated 02/27/2021. He was proned last evening at 9 PM due to refractory hypoxemia. 24-hour events: Intubated, central and arterial lines placed, prone maneuvering. Remains sedated and paralyzed. Decreased tidal volume to 385 given plateau pressures of about 33-35, plateau pressures improved to below 30 Recommendations: 1. Neurologic: Currently sedated on propofol and fentanyl. Keep deeply sedated pending improvement in the patient's oxygenation and pulmonary status. Continue home baclofen and Celexa. Wean neuromuscular blockade as tolerated 2. Cardiovascular: Blood pressures are on the low side. Will initiate norepinephrine as needed to maintain mean arterial pressure at above 65. Does have some lower extremity edema. We will pursue trial of diuretics and see if this offers improvement with regards to his oxygenation 3. Pulmonary: Severe ARDS with multifocal infiltrates consistent with viral pneumonia/late-phase ARDS. Patient has completed antibiotics, remdesivir, and several courses of steroids. His CRP is low. I do not think additional steroids at this point time are going to offer him a clinical benefit unless his CRP should increase. We will flip him back from prone positioning around 3:00 this afternoon and to see whether or not he has worsening in his oxygenation. Current vent settings are assist-control 30/385/10/0 0.5 with a plateau pressure of 29. Most recent blood gas 7.31/66/113 - P/F ratio 226 however compliance remains poor. His CT scan demonstrates fibrotic changes. Its unclear how much of this might be reversible. Patient may well require tracheostomy given his late presentation and likely fibrotic lung disease. Family will be updated. 4. GI: Initiate tube feeding per nutrition. PPI in place. Trend LFTs. 5. ID: Patient does demonstrate leukocytosis which has been persistent dating back to last month. Will check blood and sputum cultures again. Hold antibiotics for now. We will see what his white count does off steroids. Procalcitonin's been negative. 6. Renal: Judicious diuresis. Initiate ICU electrolyte replacement protocol. 7. Heme-onc: Prior history of DVT. On Eliquis. This makes the probability of PE low at this point time. No indication for repeat imaging. He did have a CT angiogram performed last month which was negative. Discontinue colchicine, started for presumed gout. 8. Endocrine: Glycemic control per ICU protocol. Patient's overall prognosis is guarded at this point time. He is critically ill requiring life-sustaining therapies. Significant possibility of clinical deterioration or . Family updated by phone. A total of 55 min CC time evaluating and managing patient. Admission and Anticipated Discharge Date Admission Date: February 18, 2021 Subjective Intubated and sedated. Patient was proned. Review of Systems Review of Systems: Unobtainable due to endotracheal tube Physical Exam Constitutional: Patient's proned, exam limited Respiratory: Coarse rhonchi with rales in the bilateral posterior lung madrigal Cardiovascular: RRR, no murmur, no edema Gastrointestinal (Abdomen): normal bowel sounds, soft, nontender, no hepatosplenomegaly Musculoskeletal: Extremities: extremities normal to inspection Skin: no rashes, warm and dry Neurologic: Sedated and paralyzed Results & Data Results & Data ([facility]) Vital Signs (Past 12 Hours) Vital Signs Temp Pulse Resp BP Pulse Ox 02/28/21 12:30 37.1 C 71 30 H 94/52 L 92 02/28/21 12:00 37.0 C 71 31 H 86/54 L 92 02/28/21 11:35 70 30 H 91 02/28/21 11:30 37.0 C 72 31 H 91/52 L 91 02/28/21 11:00 37.0 C 70 28 H 87/53 L 92 02/28/21 10:30 37.0 C 73 25 H 89/55 L 92 02/28/21 10:00 37.0 C 74 19 88/54 L 92 02/28/21 09:30 37.0 C 75 25 H 87/55 L 92 02/28/21 09:00 36.9 C 78 27 H 89/55 L 92 02/28/21 08:30 37.0 C 77 25 H 86/56 L 91 02/28/21 08:00 93/56 L 02/28/21 07:30 36.9 C 75 20 93/57 L 91 02/28/21 07:26 76 28 H 92 02/28/21 07:08 92/58 L 02/28/21 07:06 36.9 C 74 19 96/59 L 94 02/28/21 07:04 36.9 C 75 25 H 97/61 L 94 02/28/21 07:02 36.9 C 75 17 94/58 L 94 02/28/21 07:00 36.9 C 75 17 94/60 L 94 02/28/21 06:58 36.9 C 73 19 99/58 L 94 02/28/21 06:56 36.9 C 76 18 95/59 L 94 02/28/21 06:54 36.9 C 75 22 97/61 L 95 02/28/21 06:52 36.9 C 75 21 96/59 L 94 02/28/21 06:50 36.9 C 75 28 H 92/59 L 95 02/28/21 06:48 36.9 C 76 22 96/61 L 94 02/28/21 06:46 36.9 C 74 28 H 91/61 L 95 02/28/21 06:44 36.9 C 77 19 91/61 L 95 02/28/21 06:42 36.9 C 76 17 100/60 94 02/28/21 06:40 36.9 C 74 16 95/62 L 94 02/28/21 06:38 36.9 C 72 17 95/64 L 94 02/28/21 06:36 36.9 C 77 15 98/63 L 94 02/28/21 06:34 36.9 C 79 19 94/62 L 94 02/28/21 06:32 36.9 C 77 25 H 94/59 L 94 02/28/21 06:30 36.9 C 78 19 94/60 L 94 02/28/21 06:28 36.9 C 78 25 H 88/59 L 94 02/28/21 06:26 36.9 C 75 28 H 93/59 L 94 02/28/21 06:24 36.9 C 77 19 93/58 L 94 02/28/21 06:22 36.9 C 77 18 92/57 L 94 02/28/21 06:20 36.9 C 77 20 93/57 L 94 02/28/21 06:18 36.9 C 76 17 96/60 L 94 02/28/21 06:16 36.9 C 77 21 96/56 L 94 02/28/21 06:14 36.9 C 78 17 95/58 L 94 02/28/21 06:12 36.9 C 76 22 92/58 L 94 02/28/21 06:10 36.9 C 78 19 91/61 L 94 02/28/21 06:08 36.9 C 78 19 96/60 L 94 02/28/21 06:06 36.9 C 78 17 90/61 L 94 02/28/21 06:04 36.9 C 78 19 96/59 L 94 02/28/21 06:02 36.9 C 78 19 93/60 L 94 02/28/21 06:00 36.9 C 80 20 89/59 L 94 02/28/21 05:58 36.9 C 80 28 H 94/63 L 94 02/28/21 05:56 36.9 C 79 23 100/59 L 94 02/28/21 05:54 36.9 C 80 28 H 93/60 L 94 02/28/21 05:52 36.9 C 79 20 97/60 L 94 02/28/21 05:50 36.9 C 79 25 H 96/60 L 94 02/28/21 05:48 36.9 C 79 28 H 96/62 L 95 02/28/21 05:46 36.9 C 79 18 94/62 L 94 02/28/21 05:44 36.9 C 78 17 92/62 L 94 02/28/21 05:42 36.9 C 80 22 90/64 L 93 02/28/21 05:40 36.9 C 81 17 94/61 L 94 02/28/21 05:38 36.9 C 80 25 H 97/60 L 93 02/28/21 05:36 36.9 C 79 20 95/60 L 93 02/28/21 05:34 36.9 C 81 22 96/62 L 93 02/28/21 05:32 36.9 C 82 25 H 94/62 L 93 02/28/21 05:30 36.9 C 82 25 H 94/61 L 93 02/28/21 05:28 36.9 C 79 19 98/60 L 93 02/28/21 05:26 36.9 C 80 25 H 95/60 L 93 02/28/21 05:24 36.9 C 81 23 96/61 L 93 02/28/21 05:22 36.9 C 81 25 H 93/62 L 93 02/28/21 03:00 36.9 C 95 02/28/21 02:32 86 29 H 94 Laboratory Results Procalcitonin is undetectable. BNP 289 CRP 2.44 Critical Care Results & Data Vital Signs (Past 12 Hours) Vital Signs Temp Pulse Resp BP Pulse Ox 02/28/21 12:30 37.1 C 71 30 H 94/52 L 92 02/28/21 12:00 37.0 C 71 31 H 86/54 L 92 02/28/21 11:35 70 30 H 91 02/28/21 11:30 37.0 C 72 31 H 91/52 L 91 02/28/21 11:00 37.0 C 70 28 H 87/53 L 92 02/28/21 10:30 37.0 C 73 25 H 89/55 L 92 02/28/21 10:00 37.0 C 74 19 88/54 L 92 02/28/21 09:30 37.0 C 75 25 H 87/55 L 92 02/28/21 09:00 36.9 C 78 27 H 89/55 L 92 02/28/21 08:30 37.0 C 77 25 H 86/56 L 91 02/28/21 08:00 93/56 L 02/28/21 07:30 36.9 C 75 20 93/57 L 91 02/28/21 07:26 76 28 H 92 02/28/21 07:08 92/58 L 02/28/21 07:06 36.9 C 74 19 96/59 L 94 02/28/21 07:04 36.9 C 75 25 H 97/61 L 94 02/28/21 07:02 36.9 C 75 17 94/58 L 94 02/28/21 07:00 36.9 C 75 17 94/60 L 94 02/28/21 06:58 36.9 C 73 19 99/58 L 94 02/28/21 06:56 36.9 C 76 18 95/59 L 94 02/28/21 06:54 36.9 C 75 22 97/61 L 95 02/28/21 06:52 36.9 C 75 21 96/59 L 94 02/28/21 06:50 36.9 C 75 28 H 92/59 L 95 02/28/21 06:48 36.9 C 76 22 96/61 L 94 02/28/21 06:46 36.9 C 74 28 H 91/61 L 95 02/28/21 06:44 36.9 C 77 19 91/61 L 95 02/28/21 06:42 36.9 C 76 17 100/60 94 02/28/21 06:40 36.9 C 74 16 95/62 L 94 02/28/21 06:38 36.9 C 72 17 95/64 L 94 02/28/21 06:36 36.9 C 77 15 98/63 L 94 02/28/21 06:34 36.9 C 79 19 94/62 L 94 02/28/21 06:32 36.9 C 77 25 H 94/59 L 94 02/28/21 06:30 36.9 C 78 19 94/60 L 94 02/28/21 06:28 36.9 C 78 25 H 88/59 L 94 02/28/21 06:26 36.9 C 75 28 H 93/59 L 94 02/28/21 06:24 36.9 C 77 19 93/58 L 94 02/28/21 06:22 36.9 C 77 18 92/57 L 94 02/28/21 06:20 36.9 C 77 20 93/57 L 94 02/28/21 06:18 36.9 C 76 17 96/60 L 94 02/28/21 06:16 36.9 C 77 21 96/56 L 94 02/28/21 06:14 36.9 C 78 17 95/58 L 94 02/28/21 06:12 36.9 C 76 22 92/58 L 94 02/28/21 06:10 36.9 C 78 19 91/61 L 94 02/28/21 06:08 36.9 C 78 19 96/60 L 94 02/28/21 06:06 36.9 C 78 17 90/61 L 94 02/28/21 06:04 36.9 C 78 19 96/59 L 94 02/28/21 06:02 36.9 C 78 19 93/60 L 94 02/28/21 06:00 36.9 C 80 20 89/59 L 94 02/28/21 05:58 36.9 C 80 28 H 94/63 L 94 02/28/21 05:56 36.9 C 79 23 100/59 L 94 02/28/21 05:54 36.9 C 80 28 H 93/60 L 94 02/28/21 05:52 36.9 C 79 20 97/60 L 94 02/28/21 05:50 36.9 C 79 25 H 96/60 L 94 02/28/21 05:48 36.9 C 79 28 H 96/62 L 95 02/28/21 05:46 36.9 C 79 18 94/62 L 94 02/28/21 05:44 36.9 C 78 17 92/62 L 94 02/28/21 05:42 36.9 C 80 22 90/64 L 93 02/28/21 05:40 36.9 C 81 17 94/61 L 94 02/28/21 05:38 36.9 C 80 25 H 97/60 L 93 02/28/21 05:36 36.9 C 79 20 95/60 L 93 02/28/21 05:34 36.9 C 81 22 96/62 L 93 02/28/21 05:32 36.9 C 82 25 H 94/62 L 93 02/28/21 05:30 36.9 C 82 25 H 94/61 L 93 02/28/21 05:28 36.9 C 79 19 98/60 L 93 02/28/21 05:26 36.9 C 80 25 H 95/60 L 93 02/28/21 05:24 36.9 C 81 23 96/61 L 93 02/28/21 05:22 36.9 C 81 25 H 93/62 L 93 02/28/21 03:00 36.9 C 95 02/28/21 02:32 86 29 H 94 Lab & Micro Results (Past 24 Hours) RBC 5.74 M/uL (4.7-6.1) 02/28/21 WBC 16.97 K/uL (4.8-10.8) H 02/28/21 Hgb 15.4 g/dL (14.0-18.0) 02/28/21 Hct 48.1 % (42-52) 02/28/21 MCV 83.8 fL (80-100) 02/28/21 MCH 26.8 pg (25-34) 02/28/21 MCHC 32.0 g/dL (32-36) 02/28/21 RDW Standard Deviation 48.5 fL (36.4-46.3) H 02/28/21 RDW Coefficient of Variation 15.9 % (11.5-14.5) H 02/28/21 Plt Count 294 K/uL (130-400) 02/28/21 MPV 9.6 fL (7.4-10.4) 02/28/21 Na 135 mmol/L (136-145) L 02/28/21 K 4.3 mmol/L (3.5-5.1) 02/28/21 Cl 99 mmol/L (98-107) 02/28/21 CO2 31 mmol/L (21-32) 02/28/21 Anion Gap 5.0 (3-11) 02/28/21 BUN 23 mg/dl (7-18) H 02/28/21 Creatinine 0.68 mg/dl (0.6-1.4) 02/28/21 Estimated GFR ( Amer) 123.7 ml/min 02/28/21 Estimated GFR (Non-Af Amer) 106.8 ml/min 02/28/21 BUN/Creatinine Ratio 33.4 (10-20) H 02/28/21 Glu 96 mg/dl (70-99) 02/28/21 Ca 9.3 mg/dl (8.5-10.1) 02/28/21 Phosphorus Level 4.3 mg/dl (2.5-4.9) 02/28/21 Total Bilirubin 0.7 mg/dl (0.2-1) 02/28/21 AST 35 U/L (15-37) 02/28/21 ALT 240 (12-78) H 02/28/21 Alkaline Phosphatase 49 U/L (45-117) 02/28/21 TP 6.4 gm/dl (6.4-8.2) 02/28/21 Albumin 2.8 gm/dl (3.4-5.0) L 02/28/21 Globulin 3.6 gm/dl (2.5-4.0) 02/28/21 Albumin/Globulin Ratio 0.8 (0.9-2) L 02/28/21 Mg 2.7 mg/dl (1.8-2.4) H 02/28/21 06:23 02/28/21 Calcium Level 9.3 mg/dl (8.5-10.1) 02/28/21 06:23 02/28/21 Brodie Test NA 02/28/21 03:58 02/28/21 Microbiology 02/18/21 21:07 Fungal Smear - Final Blood Fungal Culture - Preliminary No yeast or fungus isolated - Report 2, Additional report to follow. Diagnostic Findings (Past 24 Hours) Chest X-Ray 02/27/21 18:30 XR chest 1V portable HISTORY: check ETT placement COMPARISON: Chest 02/27/2021. FINDINGS: Endotracheal tube terminates 3.4 cm from the donal. Right jugular central venous catheter terminates at the SVC. The nasogastric tube terminates in the stomach. There are low lung volumes. The heart remains mildly enlarged. Interstitial thickening and patchy bilateral airspace opacities persist. Suspect a trace right pleural effusion. Elevated right hemidiaphragm is again noted. No pneumothorax. IMPRESSION: 1. Satisfactory support line placement. 2. No change in the diffuse interstitial thickening and bilateral airspace opacities. This favors a viral pneumonia. ACT 112: Negative or not required by law. Electronically signed by: Derrick Dias M.D. 02/27/2021 7:07 PM I & O Totals 24 Hours 02/27/21 02/28/21 03/01/21 06:59 06:59 06:59 Intake Total 520 / 520 552.500 / 552.500 383.634 / 383.634 Output Total 950 / 950 2951 / 2951 175 / 175 Balance -430 / -430 -2398.500 / -2398.500 208.634 / 208.634 Cumulative 02/18/21 17:19 thru 02/28/21 11:08 Intake Total 7136.134 Output Total 91297 Balance -28264.866 RT Ventilator Mngmt (Last Documented) Ventilator Ordered Settings Ventilator Support Mode Assist Control 02/28/21 11:35 Respiratory Rate 30 02/28/21 12:30 Ventilator Tidal Volume 385 02/28/21 11 :35 Setting Minute Ventilation 11.6 02/28/21 11:35 Positive End Expiratory 10 02/28/21 11:35 Pressure Fraction of Inspired Oxygen 50 02/28/21 11:35 Machine Comment Changes made by Dr. Mathew 02/28/21 11:35 Ventilator - PT Measurements Respiratory Rate 30 Exhaled Tidal Volume 386 Minute Ventilation 11.6 Peak Inspiratory Airway 34 Pressure Plateau Pressure 29.7 Respiratory Cycle Inspiratory: 1:1.5 Expiratory Ratio Inspiratory Phase Time 0.80 End-Tidal CO2 35 Static Lung Compliance 19.59 Dynamic Lung Compliance 16.08 Normal Static Lung Compliance 44.00 Coding Level of Care Code Critical Care 1st 30-74 mins Diagnoses Acute respiratory distress syndrome (ARDS) due to COVID-19 virus U07.1; J80 Morbid obesity with BMI of 40.0-44.9, adult E66.01; Z68.41 Leukocytosis D72.829 Respiratory acidosis E87.2 Hyponatremia E87.1 Hyperglycemia R73.9 Time Spent (min) 55
--- NOTE | 2021-02-28 15:41 | Hospitalist Progress Note ---
Date of Service February 28, 2021 Assessment & Plan (1) Acute respiratory failure with hypoxia: Plan: readmitted to the hospital on 02/18/21 after he had a prolonged hospital stay in January for severe COVID-19 pneumonia. since 02/18 had been requiring HFNC with CPAP at night. prior attending suspected late-stage ARDS. he has been on steroids since his readmission on 02/18 with no improvement in his status. baricitinib was started 02/21 due to high CRP and worsening status. despite the above he continued with worsening respiratory status. pulmonary formally consulted AM of 02/27/21. 02/27/21 early afternoon patient decompensated further necessitating transfer to [facility] COVID unit for intubation. baricitinib stopped. steroids stopped as of today. patient remains intubated/sedated/paralyzed - appreciate distribution systems superintendent assistance. (2) Pneumonia due to 2019 novel coronavirus: Plan: COVID 19 originally diagnosed 31 January 2021 He was hospitalized until 02/15/21 Initially treated with dexamethasone + Remdesivir during that admission Readmitted 02/18/21; had been on HFNC since, with CPAP at night. Intubated/ventilated 02/27/21. CRP this admission 11.4 - baricitinib started on 02/21/21 and received 8 doses, now stopped following his intubation yesterday. Completed 10 days of dexamethasone 6mg IV daily - steroids stopped after today's dose. Treated for bacterial pneumonia/superinfection with 7 day course of IV zosyn; completed on 02/26/21. Remains on IV lasix to keep I/O balance negative. (3) Acute respiratory distress syndrome (ARDS) due to COVID-19 virus: Plan: Late-stage ARDS in setting of severe COVID-19 pneumonia in 01/2021. Treated with copious IV dexamethasone since mid-January. CTA chest this admission with findings worrisome for fibrotic changes. [facility] 02/27[facility]21 for refractory respiratory failure. Prognosis is guarded. Baricitinib stopped. (4) Bacterial pneumonia: Plan: Treated for such with 7-day course of IV zosyn; completion date 02/26/21. Legionella Ag urine not detected. aspergillus negative. fungitell and fungal cultures negative. 02/27/21 procal 0, as have been prior procal levels. (5) Hypertension: Plan: cont to hold metoprolol (6) Dyslipidemia: Plan: AST/ALT remain elevated cont to hold statin (7) Left knee pain: Plan: earlier this admission ? gouty arthritis improved with Colchine 0.6mg PO BID Left knee XR - no fracture, no abnormalities colchicine now stopped (8) Transaminitis: Plan: 2nd to COVID-19 +/- baseline fatty liver? (9) Hyperglycemia: Plan: HbA1C 6.7% c/w T2DM ICU glycemic protocol (10) DVT prophylaxis: Plan: xarelto 10mg daily (11) Type 2 diabetes mellitus: Plan: new diagnosis a1c 6.7% see above (12) Hyponatremia: Plan: resolved Plan: appreciate pulmonary/distribution systems superintendent assistance I updated Delmar's father today by phone questions answered Admission and Anticipated Discharge Date Admission Date: February 18, 2021 Subjective events of last 24 hours noted patient underwent proning trial of about 18 hours duration he remains intubated/sedated/paralyzed Review of Systems Review of Systems: Unobtainable due to endotracheal tube Physical Exam Physical Exam: I did not perform a bedside physical exam. However, patient is intubated, sedated, and proned at the time of my visit. Results & Data Results & Data ([facility]) Vital Signs (Past 12 Hours) Vital Signs Temp Pulse Resp BP Pulse Ox 02/28/21 15:24 71 30 H 92 02/28/21 15:00 37.0 C 71 27 H 89/53 L 92 02/28/21 14:30 37.0 C 69 24 89/54 L 92 02/28/21 14:00 37.1 C 71 27 H 90/52 L 92 02/28/21 13:30 37.1 C 69 29 H 95/54 L 92 02/28/21 13:00 37.1 C 71 30 H 89/53 L 92 02/28/21 12:30 37.1 C 71 30 H 94/52 L 92 02/28/21 12:00 37.0 C 71 31 H 86/54 L 92 02/28/21 11:35 70 30 H 91 02/28/21 11:30 37.0 C 72 31 H 91/52 L 91 02/28/21 11:00 37.0 C 70 28 H 87/53 L 92 02/28/21 10:30 37.0 C 73 25 H 89/55 L 92 02/28/21 10:00 37.0 C 74 19 88/54 L 92 02/28/21 09:30 37.0 C 75 25 H 87/55 L 92 02/28/21 09:00 36.9 C 78 27 H 89/55 L 92 02/28/21 08:30 37.0 C 77 25 H 86/56 L 91 02/28/21 08:00 93/56 L 02/28/21 07:30 36.9 C 75 20 93/57 L 91 02/28/21 07:26 76 28 H 92 02/28/21 07:08 92/58 L 02/28/21 07:06 36.9 C 74 19 96/59 L 94 02/28/21 07:04 36.9 C 75 25 H 97/61 L 94 02/28/21 07:02 36.9 C 75 17 94/58 L 94 02/28/21 07:00 36.9 C 75 17 94/60 L 94 02/28/21 06:58 36.9 C 73 19 99/58 L 94 02/28/21 06:56 36.9 C 76 18 95/59 L 94 02/28/21 06:54 36.9 C 75 22 97/61 L 95 02/28/21 06:52 36.9 C 75 21 96/59 L 94 02/28/21 06:50 36.9 C 75 28 H 92/59 L 95 02/28/21 06:48 36.9 C 76 22 96/61 L 94 02/28/21 06:46 36.9 C 74 28 H 91/61 L 95 02/28/21 06:44 36.9 C 77 19 91/61 L 95 02/28/21 06:42 36.9 C 76 17 100/60 94 02/28/21 06:40 36.9 C 74 16 95/62 L 94 02/28/21 06:38 36.9 C 72 17 95/64 L 94 02/28/21 06:36 36.9 C 77 15 98/63 L 94 02/28/21 06:34 36.9 C 79 19 94/62 L 94 02/28/21 06:32 36.9 C 77 25 H 94/59 L 94 02/28/21 06:30 36.9 C 78 19 94/60 L 94 02/28/21 06:28 36.9 C 78 25 H 88/59 L 94 02/28/21 06:26 36.9 C 75 28 H 93/59 L 94 02/28/21 06:24 36.9 C 77 19 93/58 L 94 02/28/21 06:22 36.9 C 77 18 92/57 L 94 02/28/21 06:20 36.9 C 77 20 93/57 L 94 02/28/21 06:18 36.9 C 76 17 96/60 L 94 02/28/21 06:16 36.9 C 77 21 96/56 L 94 02/28/21 06:14 36.9 C 78 17 95/58 L 94 02/28/21 06:12 36.9 C 76 22 92/58 L 94 02/28/21 06:10 36.9 C 78 19 91/61 L 94 02/28/21 06:08 36.9 C 78 19 96/60 L 94 02/28/21 06:06 36.9 C 78 17 90/61 L 94 02/28/21 06:04 36.9 C 78 19 96/59 L 94 02/28/21 06:02 36.9 C 78 19 93/60 L 94 02/28/21 06:00 36.9 C 80 20 89/59 L 94 02/28/21 05:58 36.9 C 80 28 H 94/63 L 94 02/28/21 05:56 36.9 C 79 23 100/59 L 94 02/28/21 05:54 36.9 C 80 28 H 93/60 L 94 02/28/21 05:52 36.9 C 79 20 97/60 L 94 02/28/21 05:50 36.9 C 79 25 H 96/60 L 94 02/28/21 05:48 36.9 C 79 28 H 96/62 L 95 02/28/21 05:46 36.9 C 79 18 94/62 L 94 02/28/21 05:44 36.9 C 78 17 92/62 L 94 02/28/21 05:42 36.9 C 80 22 90/64 L 93 02/28/21 05:40 36.9 C 81 17 94/61 L 94 02/28/21 05:38 36.9 C 80 25 H 97/60 L 93 02/28/21 05:36 36.9 C 79 20 95/60 L 93 02/28/21 05:34 36.9 C 81 22 96/62 L 93 02/28/21 05:32 36.9 C 82 25 H 94/62 L 93 02/28/21 05:30 36.9 C 82 25 H 94/61 L 93 02/28/21 05:28 36.9 C 79 19 98/60 L 93 02/28/21 05:26 36.9 C 80 25 H 95/60 L 93 02/28/21 05:24 36.9 C 81 23 96/61 L 93 02/28/21 05:22 36.9 C 81 25 H 93/62 L 93 Laboratory Results Laboratory Results - last 24 hr 02/28/21 02/28/21 02/28/21 06:23 06:23 06:23 WBC 16.97 H RBC 5.74 Hgb 15.4 POC Hgb Hct 48.1 POC Hct MCV 83.8 MCH 26.8 MCHC 32.0 RDW Std Deviation 48.5 H RDW Coeff of Eleazar 15.9 H Plt Count 294 MPV 9.6 Sample Site POC pH POC pCO2 POC pO2 POC HCO3 POC Total CO2 POC Base Excess ABG pH (Temp Correct) ABG pCO2 (Temp Corrct POC ABG pO2 at Pt Temp POC ABG O2 Sat Brodie Test O2 Delivery Device POC O2 Rate Minute Ventilation POC FiO2 Tidal Volume PEEP POC Sodium Sodium 135 L POC Potassium Potassium 4.3 Chloride 99 Carbon Dioxide 31 Anion Gap 5.0 BUN 23 H Creatinine 0.68 D Est Cr Clr Drug Dosing 159.6 Est GFR ( Amer) 123.7 Est GFR (Non-Af Amer) 106.8 BUN/Creatinine Ratio 33.4 H Glucose 96 POC Glucose Estimat Average Glucose 146 Hemoglobin A1c 6.7 H Calcium 9.3 Phosphorus 4.3 Magnesium 2.7 H Total Bilirubin 0.7 AST 35 ALT 240 H Alkaline Phosphatase 49 Total Protein 6.4 Albumin 2.8 L Globulin 3.6 Albumin/Globulin Ratio 0.8 L 02/28/21 03/01/21 03/01/21 12:14 00:06 04:29 WBC RBC Hgb POC Hgb 14.3 Hct POC Hct 42 MCV MCH MCHC RDW Std Deviation RDW Coeff of Eleazar Plt Count MPV Sample Site Art Line POC pH 7.38 POC pCO2 57 H POC pO2 73 L POC HCO3 34 H POC Total CO2 35 H POC Base Excess 8.0 H ABG pH (Temp Correct) 7.371 ABG pCO2 (Temp Corrct 58 H POC ABG pO2 at Pt Temp 76 POC ABG O2 Sat 94.0 Brodie Test NA O2 Delivery Device Ventilator POC O2 Rate 30 Minute Ventilation 11.6 POC FiO2 50 Tidal Volume 385 PEEP 10 POC Sodium 135 Sodium POC Potassium 4.2 Potassium Chloride Carbon Dioxide Anion Gap BUN Creatinine Est Cr Clr Drug Dosing Est GFR ( Amer) Est GFR (Non-Af Amer) BUN/Creatinine Ratio Glucose POC Glucose 265 H 123 H Estimat Average Glucose Hemoglobin A1c Calcium Phosphorus Magnesium Total Bilirubin AST ALT Alkaline Phosphatase Total Protein Albumin Globulin Albumin/Globulin Ratio PG Care Time/CCT Total # of Minutes Spent Total Time Spent with Patient: Total time spent is greater than 50% in coordination of care (as documented) at patient's floor/unit and/or counseling patient: Coding Level of Care Code 00357 Subseq Hosp Care Lvl 1 Diagnoses Acute respiratory failure with hypoxia J96.01 Pneumonia due to 2019 novel coronavirus U07.1; J12.82 Acute respiratory distress syndrome (ARDS) due to COVID-19 virus U07.1; J80 Bacterial pneumonia J15.9 Hypertension I10 Dyslipidemia E78.5 Left knee pain M25.562 Transaminitis R74.01 Hyperglycemia R73.9 DVT prophylaxis Z29.9 Type 2 diabetes mellitus E11.9 Hyponatremia E87.1
--- NOTE | 2021-02-28 15:50 | Communication Note ---
Date of Service: February 28, 2021 Patient completed approximately 16 to 18 hours of proning. I presented to the bedside to return him back to supine position. This was performed with the proning team including respiratory therapy. Attention was made to the endotracheal tube. All lines and monitoring devices were secured. The patient was rolled on sheets. Review of skin demonstrated no evidence of ulcerations or breakdown other than a small linear area on the patient's lower lip. This will be followed. We will see how he does and try and maintain oxygen saturations greater than 88% with an FiO2 less than 0.6 and PEEP less than 14. If we are unable to achieve these targets, repeat prone positioning may be warranted. Additional 35 minutes critical care time evaluating managing and coordinating care Coding Level of Care Code Critical Care radha deleont'l 30 min Time Spent (min) 35
[2021-02-28] MEDS: ICU ELECTROLYTE REPLACEMENT PROTOCOL SCH (17:54)
[2021-02-28] MEDS: FUROSEMIDE INJ 20 MG/2 ML VIAL IV SCH (22:17)
[2021-03-01] MEDS: propofoL 1,000 MG/100 ML VIAL IV SCH ×9 (00:25→19:57)
[2021-03-01] MEDS: CISATRACURIUM BESYLATE 40 MG in 0.9 % SODIUM CHLORIDE 80 ML IV SCH ×4 (00:25→19:58)
[2021-03-01] MEDS: ARTIFICIAL TEARS OP OINT 3.5 GM TUBE OP SCH ×6 (00:26→19:58)
[2021-03-01 04:43] LABS: iSTAT Art Bld Gas pCO2 Correct 58 mmHg (35-46); iSTAT Art Bld Gas pH Corrected 7.371 (7.35-7.45); iSTAT Arterial Blood Gas HCO3 34 meg/L (19-24); iSTAT Arterial Blood Gas pCO2 57 mmHg (35-46); iSTAT Arterial Blood Gas pH 7.38 (7.35-7.45); iSTAT Arterial Blood Gas pO2 73 mmHg (80-95); iSTAT Arterial Blood Gas pO2 C 76; iSTAT Carbon Dioxide 35 mmol/L (24-31); iSTAT FiO2 50 %; iSTAT Hematocrit 42 % (42-52); iSTAT Hemoglobin 14.3 g/dl (14.0-18.0); iSTAT Potassium 4.2 mmol/L (3.3-5.0); iSTAT Site Art Line; iSTAT Sodium 135 mmol/L (135-144)
[2021-03-01 06:27] LABS: Eosinophils # (auto) 0.08 K/uL (0-0.5); Eosinophils % (auto) 0.6 %; Hematocrit (blood only) 43.9 % (42-52); Hemoglobin 14.1 g/dL (14.0-18.0); Immature Granulocytes # (auto) 0.11 K/uL (0.00-0.02); Immature Granulocytes % (auto) 0.8 %; Lymphocytes # (auto) 1.38 K/uL (1.2-3.4); Lymphocytes % (auto) 9.6 %; Mean Corpuscular Hemoglobin 27.3 pg (25-34); Mean Corpuscular Hgb Conc 32.1 g/dL (32-36); Mean Corpuscular Volume 84.9 fL (80-100); Mean Platelet Volume 9.7 fL (7.4-10.4); Monocytes # (auto) 1.27 K/uL (0.11-0.59); Monocytes % (auto) 8.9 %; Neutrophils # (auto) 11.49 K/uL (1.4-6.5); Neutrophils % (auto) 80.1 %; Platelet Count 269 K/uL (130-400); RDW Coefficient of Variation 15.7 % (11.5-14.5); RDW Standard Deviation 49.2 fL (36.4-46.3); Red Blood Count 5.17 M/uL (4.7-6.1); White Blood Count 14.33 K/uL (4.8-10.8)
[2021-03-01 07:04] LABS: BUN Creatinine Ratio 34.3 (10-20); Calcium 9.3 mg/dl (8.5-10.1); Creatinine Clr Calc Pharmacy 145.5 ml/min; Est GFR (African American) 119.5 ml/min; Est GFR (Non-African American) 103.1 ml/min; Magnesium 2.5 mg/dl (1.8-2.4); Potassium 4.1 mmol/L (3.5-5.1)
[2021-03-01 07:05] LABS: Phosphorus 4.4 mg/dl (2.5-4.9)
[2021-03-01] MEDS: FUROSEMIDE INJ 20 MG/2 ML VIAL IV SCH ×2 (08:32→19:58)
[2021-03-01] MEDS: CITALOPRAM 20 MG TAB PO SCH (08:33)
[2021-03-01] MEDS: RIVAROXABAN 10 MG TABLET PO SCH (08:33)
[2021-03-01] MEDS: ACETAMINOPHEN 325 MG TAB PO PRN (08:35)
--- NOTE | 2021-03-01 08:36 | XRay Report ---
XR chest 1V portable CLINICAL HISTORY: Follow-up bilateral airspace opacities. COMPARISON STUDY: 02/27/2021 TECHNIQUE: 1 view of the chest FINDINGS: Single frontal view of the chest demonstrates the cardiomediastinal silhouette to be within normal li mits. Endotracheal tube is again seen along with right jugular catheter. Compared to previous examina tion, there has been partial resolution of bilateral interstitial and alveolar opacities. There is bl unting left costophrenic angle now seen characteristic of a small left pleural effusion. No definite right pleural effusion. There is no evidence for vascular congestion. There is no acute osseous patho logy. IMPRESSION: Compared to previous study, there is partial resolution of bilateral interstitial and leobardo eolar opacities. There is evidence for small left pleural effusion on the current study. ACT 112: Negative or not required by law. Electronically signed by: Eugene Rome M.D. 03/01/2021 8:34 AM
[2021-03-01] MEDS ORDERED: STAT IV Infusion **Titration per Protocol STA (09:19)
--- NOTE | 2021-03-01 11:12 | Critical Care Progress Note ---
Date of Service March 01, 2021 Assessment & Plan (1) Acute respiratory distress syndrome (ARDS) due to COVID-19 virus: (2) Morbid obesity with BMI of 40.0-44.9, adult: (3) Leukocytosis: (4) Respiratory acidosis: (5) Hyponatremia: (6) Hyperglycemia: Plan: Impression: 55-year-old unvaccinated male initially diagnosed 01/31/2021 and spent almost 2 weeks in the hospital on high flow oxygen. He received remdesivir and Decadron at that point time. He was dismissed from the hospital 02/15 but returned 02/18 with progressive hypoxemic respiratory failure. He was treated with high-dose dexamethasone as well as Levaquin and Zosyn. He failed noninvasive positive pressure ventilation and was intubated 02/27/2021. 24-hour events: Patient has remained mechanically ventilated, but weaning vent settings. He is currently supine. Plateau pressures improved and currently weaning Nimbex. No acute events overnight Recommendations: 1. Neurologic: Currently sedated on propofol and fentanyl. Keep deeply sedated pending improvement in the patient's oxygenation and pulmonary status. Continue home baclofen and Celexa. Wean neuromuscular blockade off. 2. Cardiovascular: Blood pressures are on the low side. Will initiate norepinephrine as needed to maintain mean arterial pressure at above 65. Does have some lower extremity edema. Continue with IV Lasix 20 mg twice daily. 3. Pulmonary: Severe ARDS with multifocal infiltrates consistent with viral pneumonia/late-phase ARDS. Patient has completed antibiotics, remdesivir, and several courses of steroids. His CRP is low. I do not think additional steroids at this point time are going to offer him a clinical benefit unless his CRP should increase. He has remained supine and oxygenation improved after proning yesterday afternoon. Current vent settings are assist-control 30/385/10/0 0.45. Most recent blood gas 7.38/57/73 -PF ratio 162, moderate ARDS, improved today. His CT scan demonstrates fibrotic changes. Its unclear how much of this might be reversible. Patient may well require tracheostomy given his late presentation and likely fibrotic lung disease. We will attempt to wean off neuromuscular blockade today if patient is able to tolerate. I did update the patient's mother by phone on his condition. 4. GI: Initiate tube feeding per nutrition. PPI in place. Trend LFTs. 5. ID: Patient does demonstrate leukocytosis which has been persistent dating back to last month. Will check blood and sputum cultures again. Hold antibiotics for now. We will see what his white count does off steroids. Procalcitonin's been negative. 6. Renal: Judicious diuresis. Initiate ICU electrolyte replacement protocol. 7. Heme-onc: Prior history of DVT. On Eliquis. This makes the probability of PE low at this point time. No indication for repeat imaging. He did have a CT angiogram performed last month which was negative. Discontinue colchicine, started for presumed gout. 8. Endocrine: Glycemic control per ICU protocol. Patient's overall prognosis is guarded at this point time. He is critically ill requiring life-sustaining therapies. Significant possibility of clinical deterioration or . Family updated by phone. CRITICAL CARE TIME - I have personally spent 50 minutes of critical care time in the direct management of this patient. This is a life/limb threatening event. This includes time spent evaluating patient, direct bedside care, chart review, placing orders, interpretation of diagnostic studies, discussion with consultants, patient, and family members, as well as other required patient management activities. This time is exclusive of all separately billable procedures, and teaching time and separate from and in addition to any other critical care service time. Admission and Anticipated Discharge Date Admission Date: February 18, 2021 Supervising Physician Co-Signing Physician Notes Seen and examined. EMR reviewed. discussed with [employer] intern[employer] and on MDR rounds and [facility] RASHAWN. Agree with AP as noted. Weaning pressors as tolerated. Maintain supine unless Fio2>0.6 or PEEP >14. Nutritional support as tolerated. Family updated by RASHAWN. Review of Systems Review of Systems: Unobtainable due to endotracheal tube and Unobtainable due to reduced consciousness Physical Exam Constitutional: comfortable and + mechanically ventilated Eyes: PERRL, conjunctivae normal, anicteric sclerae ENMT: external ear and nose normal, oropharynx normal Neck: trachea midline, no thyromegaly Respiratory: Rhonchorous bilateral breath sounds diminished in bases. Symmetrical chest wall movement. Cardiovascular: Rate/Rhythm: regular rate and regular rhythm Heart Sounds: normal S1 and normal S2; no murmur Extremities: normal capillary refill Bilateral lower extremity edema +1 Gastrointestinal (Abdomen): normal bowel sounds, soft, nontender, no hepatosplenomegaly Musculoskeletal: Unable to assess due to neuromuscular blockade Skin: no rashes, warm and dry Neurologic: Unable to assess due to sedation/neuromuscular blockade Psychiatric: Unable to assess due to sedation/neuromuscular blockade Genitourinary: indwelling Ruiz catheter present Results & Data Results & Data ([facility]) Vital Signs (Past 12 Hours) Vital Signs Temp Pulse Resp BP Pulse Ox 03/01/21 10:30 37.9 C H 81 18 89/54 L 90 03/01/21 10:00 37.9 C H 81 13 91/55 L 90 03/01/21 09:30 37.9 C H 78 22 90/60 L 89 L 03/01/21 09:00 37.8 C H 78 13 91/59 L 90 03/01/21 08:30 37.9 C H 77 30 H 87/57 L 89 L 03/01/21 08:00 37.8 C H 77 3 L 90 03/01/21 07:50 82 30 H 92 03/01/21 07:30 37.9 C H 75 3 L 88/57 L 92 03/01/21 07:00 37.7 C H 75 0 L 90/56 L 92 03/01/21 06:45 37.7 C H 74 0 L 91 03/01/21 06:00 37.8 C H 74 0 L 88/55 L 91 03/01/21 05:00 37.7 C H 74 0 L 83/54 L 91 03/01/21 04:00 37.6 C H 75 0 L 84/55 L 89 L 03/01/21 03:49 68 03/01/21 03:00 37.5 C 73 0 L 84/54 L 90 03/01/21 02:50 71 30 H 90 03/01/21 02:00 37.4 C 71 0 L 82/52 L 90 03/01/21 01:00 37.4 C 71 0 L 82/52 L 91 03/01/21 00:30 37.3 C 70 0 L 81/53 L 92 03/01/21 00:00 37.2 C 72 0 L 80/51 L 92 02/28/21 23:30 37.2 C 71 0 L 84/54 L 91 Coding Level of Care Code Critical Care 1st 30-74 mins Diagnoses Acute respiratory distress syndrome (ARDS) due to COVID-19 virus U07.1; J80 Morbid obesity with BMI of 40.0-44.9, adult E66.01; Z68.41 Leukocytosis D72.829 Respiratory acidosis E87.2 Hyponatremia E87.1 Hyperglycemia R73.9
[2021-03-01] MEDS: PANTOprazole 40 MG in SYRINGE 0 ML IV SCH (11:40)
[2021-03-01] MEDS: ICU ELECTROLYTE REPLACEMENT PROTOCOL SCH ×2 (11:41→16:27)
[2021-03-01] MEDS: fentaNYL citrate 2,500 MCG/250 ML BAG IV SCH (11:56)
[2021-03-01] MEDS: TUBE FEEDING WATER FLUSH OG SCH ×3 (12:30→19:58)
[2021-03-01] MEDS: PEPTAMEN INTENSE VHP 1.0 CAL 1,000 ML BAG OG SCH (12:30)
[2021-03-01] MEDS: NOREPINEPHRINE/D5W 8 MG/508 ML BAG IV SCH (19:58)
--- NOTE | 2021-03-01 20:26 | Hospitalist Progress Note ---
Date of Service March 01, 2021 Assessment & Plan (1) Acute respiratory failure with hypoxia: Plan: status - similar to yesterday; no major changes except slight improvement in PF ratio. readmitted to the hospital on 02/18/21 after he had a prolonged hospital stay in January for severe COVID-19 pneumonia. since 02/18 had been requiring HFNC with CPAP at night. prior attending suspected late-stage ARDS. he has been on steroids since his readmission on 02/18 with no improvement in his status. baricitinib was started 02/21 due to high CRP and worsening status. despite the above he continued with worsening respiratory status. pulmonary formally consulted AM of 02/27/21. 02/27/21 early afternoon patient decompensated further necessitating transfer to [facility] COVID unit for intubation. baricitinib stopped at that time. has been intubated/sedated since 02/27/21. no further paralytics. no further proning attempts. appreciate port purser assistance. (2) Pneumonia due to 2019 novel coronavirus: Plan: COVID 19 originally diagnosed 31 January 2021 He was hospitalized until 02/15/21 Initially treated with dexamethasone + Remdesivir during that admission Readmitted 02/18/21; had been on HFNC since, with CPAP at night. Intubated/ventilated 02/27/21. CRP this admission 11.4 - baricitinib started on 02/21/21 and received 8 doses then stopped following his intubation. Completed 10 days of dexamethasone 6mg IV daily - steroids stopped. Treated for bacterial pneumonia/superinfection with 7 day course of IV zosyn; completed on 02/26/21. Remains on IV lasix to keep I/O balance negative. Continue supportive care. There is high concern he has already developed fibrotic changes of the lungs. (3) Acute respiratory distress syndrome (ARDS) due to COVID-19 virus: Plan: Late-stage ARDS in setting of severe COVID-19 pneumonia in 01/2021. Treated with copious IV dexamethasone since mid-January. CTA chest this admission with findings worrisome for fibrotic changes. s/p intubation and mech ventilation 02/27/21 for refractory respiratory failure. Prognosis is guarded. Baricitinib stopped. Appreciate ICU support. (4) Bacterial pneumonia: Plan: Treated for such with 7-day course of IV zosyn; completion date 02/26/21. Legionella Ag urine not detected. aspergillus negative. fungitell and fungal cultures negative. 02/27/21 procal 0, as have been prior procal levels. (5) Hypertension: Plan: cont to hold metoprolol (6) Dyslipidemia: Plan: AST/ALT remain elevated cont to hold statin (7) Left knee pain: Plan: earlier this admission ? gouty arthritis improved with Colchine 0.6mg PO BID Left knee XR - no fracture, no abnormalities colchicine now stopped (8) Transaminitis: Plan: 2nd to COVID-19 +/- baseline fatty liver? trend (9) Hyperglycemia: Plan: HbA1C 6.7% c/w T2DM ICU glycemic protocol (10) DVT prophylaxis: Plan: xarelto 10mg daily (11) Type 2 diabetes mellitus: Plan: new diagnosis a1c 6.7% see above (12) Hyponatremia: Plan: resolved Plan: appreciate pulmonary/port purser assistance I updated Delmar's father once again today by phone questions answered pt's daughter was also on this phone call Admission and Anticipated Discharge Date Admission Date: February 18, 2021 Subjective patient supine during my bedside rounds paralytics have been d/c -- no plans for additional proning trials tube feeds started today; tolerating thus far tele wnl Review of Systems Review of Systems: Unobtainable due to endotracheal tube Physical Exam Physical Exam: gen - sedated, intubated HENT - ETT present; enteric tube present neck - no JVD heart - RRR, s1 s2, no murmur lungs - clear apices, bases decreased BS, no wheeze, fair air movement abd - soft NT BS+ ext - very cool feet, pulses <1+ b/l, no edema Results & Data Results & Data ([facility]) Vital Signs (Past 12 Hours) Vital Signs Temp Pulse Resp BP Pulse Ox 03/01/21 20:15 81 30 H 91 03/01/21 17:00 37.8 C H 80 30 H 100/63 91 03/01/21 16:30 37.9 C H 80 30 H 97/63 L 91 03/01/21 16:00 37.8 C H 81 30 H 93/59 L 90 03/01/21 15:44 79 30 H 90 03/01/21 15:30 37.8 C H 78 0 L 87/56 L 89 L 03/01/21 15:00 37.9 C H 78 17 94/63 L 91 03/01/21 14:30 37.9 C H 78 4 L 92/62 L 92 03/01/21 14:20 78 03/01/21 14:00 37.9 C H 78 4 L 94/61 L 92 03/01/21 13:30 37.9 C H 78 13 94/61 L 91 03/01/21 13:00 37.9 C H 79 0 L 91/59 L 91 03/01/21 12:30 37.8 C H 77 27 H 91/58 L 91 03/01/21 12:00 37.9 C H 77 30 H 91/59 L 90 03/01/21 11:30 37.9 C H 82 30 H 91/56 L 90 03/01/21 11:00 37.8 C H 81 9 L 90/57 L 90 03/01/21 10:30 37.9 C H 81 18 89/54 L 90 03/01/21 10:00 37.9 C H 81 13 91/55 L 90 03/01/21 09:30 37.9 C H 78 22 90/60 L 89 L 03/01/21 09:00 37.8 C H 78 13 91/59 L 90 03/01/21 08:30 37.9 C H 77 30 H 87/57 L 89 L Laboratory Results Laboratory Results - last 24 hr 03/01/21 03/01/21 03/01/21 00:06 04:29 05:39 WBC RBC Hgb POC Hgb 14.3 Hct POC Hct 42 MCV MCH MCHC RDW Std Deviation RDW Coeff of Eleazar Plt Count MPV Immature Gran % (Auto) Neut % (Auto) Lymph % (Auto) [place] % (Auto) Eos % (Auto) Baso % (Auto) Neut # (Auto) Lymph # (Auto) [place] # (Auto) Eos # (Auto) Baso # (Auto) Immature Gran # (Auto) Sample Site Art Line POC pH 7.38 POC pCO2 57 H POC pO2 73 L POC HCO3 34 H POC Total CO2 35 H POC Base Excess 8.0 H ABG pH (Temp Correct) 7.371 ABG pCO2 (Temp Corrct 58 H POC ABG pO2 at Pt Temp 76 POC ABG O2 Sat 94.0 Brodie Test NA O2 Delivery Device Ventilator POC O2 Rate 30 Minute Ventilation 11.6 POC FiO2 50 Tidal Volume 385 PEEP 10 POC Sodium 135 Sodium 135 L POC Potassium 4.2 Potassium 4.1 Chloride 99 Carbon Dioxide 29 Anion Gap 7.0 BUN 25 H Creatinine 0.74 Est Cr Clr Drug Dosing 145.5 Est GFR ( Amer) 119.5 Est GFR (Non-Af Amer) 103.1 BUN/Creatinine Ratio 34.3 H Glucose 110 H POC Glucose 123 H Calcium 9.3 Phosphorus 4.4 Magnesium 2.5 H 03/01/21 03/01/21 03/01/21 05:39 06:02 12:13 WBC 14.33 H RBC 5.17 Hgb 14.1 POC Hgb Hct 43.9 POC Hct MCV 84.9 MCH 27.3 MCHC 32.1 RDW Std Deviation 49.2 H RDW Coeff of Eleazar 15.7 H Plt Count 269 MPV 9.7 Immature Gran % (Auto) 0.8 Neut % (Auto) 80.1 Lymph % (Auto) 9.6 [place] % (Auto) 8.9 Eos % (Auto) 0.6 Baso % (Auto) 0.0 Neut # (Auto) 11.49 H Lymph # (Auto) 1.38 [place] # (Auto) 1.27 H Eos # (Auto) 0.08 Baso # (Auto) 0.00 Immature Gran # (Auto) 0.11 H Sample Site POC pH POC pCO2 POC pO2 POC HCO3 POC Total CO2 POC Base Excess ABG pH (Temp Correct) ABG pCO2 (Temp Corrct POC ABG pO2 at Pt Temp POC ABG O2 Sat Brodie Test O2 Delivery Device POC O2 Rate Minute Ventilation POC FiO2 Tidal Volume PEEP POC Sodium Sodium POC Potassium Potassium Chloride Carbon Dioxide Anion Gap BUN Creatinine Est Cr Clr Drug Dosing Est GFR ( Amer) Est GFR (Non-Af Amer) BUN/Creatinine Ratio Glucose POC Glucose 169 H 116 H Calcium Phosphorus Magnesium 03/01/21 03/01/21 17:58 20:03 WBC RBC Hgb POC Hgb Hct POC Hct MCV MCH MCHC RDW Std Deviation RDW Coeff of Eleazar Plt Count MPV Immature Gran % (Auto) Neut % (Auto) Lymph % (Auto) [place] % (Auto) Eos % (Auto) Baso % (Auto) Neut # (Auto) Lymph # (Auto) [place] # (Auto) Eos # (Auto) Baso # (Auto) Immature Gran # (Auto) Sample Site POC pH POC pCO2 POC pO2 POC HCO3 POC Total CO2 POC Base Excess ABG pH (Temp Correct) ABG pCO2 (Temp Corrct POC ABG pO2 at Pt Temp POC ABG O2 Sat Brodie Test O2 Delivery Device POC O2 Rate Minute Ventilation POC FiO2 Tidal Volume PEEP POC Sodium Sodium POC Potassium Potassium Chloride Carbon Dioxide Anion Gap BUN Creatinine Est Cr Clr Drug Dosing Est GFR ( Amer) Est GFR (Non-Af Amer) BUN/Creatinine Ratio Glucose POC Glucose 127 H 115 H Calcium Phosphorus Magnesium PG Care Time/CCT Total # of Minutes Spent Total Time Spent with Patient: Total time spent is greater than 50% in coordination of care (as documented) at patient's floor/unit and/or counseling patient: Coding Level of Care Code 56358 Subseq Hosp Care Lvl 1 Diagnoses Acute respiratory failure with hypoxia J96.01 Pneumonia due to 2019 novel coronavirus U07.1; J12.82 Acute respiratory distress syndrome (ARDS) due to COVID-19 virus U07.1; J80 Bacterial pneumonia J15.9 Hypertension I10 Dyslipidemia E78.5 Left knee pain M25.562 Transaminitis R74.01 Hyperglycemia R73.9 DVT prophylaxis Z29.9 Type 2 diabetes mellitus E11.9 Hyponatremia E87.1
[2021-03-02] MEDS: fentaNYL citrate 2,500 MCG/250 ML BAG IV SCH ×3 (00:04→23:03)
[2021-03-02 03:30] LABS: iSTAT Arterial Blood Gas HCO3 34 meg/L (19-24); iSTAT Arterial Blood Gas pCO2 56 mmHg (35-46); iSTAT Arterial Blood Gas pH 7.39 (7.35-7.45); iSTAT Arterial Blood Gas pO2 63 mmHg (80-95); iSTAT Carbon Dioxide 35 mmol/L (24-31); iSTAT FiO2 40 %; iSTAT Site Art Line
[2021-03-02] MEDS: ARTIFICIAL TEARS OP OINT 3.5 GM TUBE OP SCH ×7 (04:00→23:03)
[2021-03-02] MEDS: TUBE FEEDING WATER FLUSH OG SCH ×6 (04:00→19:26)
[2021-03-02] MEDS: PEPTAMEN INTENSE VHP 1.0 CAL 1,000 ML BAG OG SCH ×2 (04:00→13:39)
[2021-03-02] MEDS: propofoL 1,000 MG/100 ML VIAL IV SCH ×5 (06:14→19:22)
[2021-03-02] MEDS: CISATRACURIUM BESYLATE 40 MG in 0.9 % SODIUM CHLORIDE 80 ML IV SCH (06:15)
[2021-03-02 07:05] LABS: Basophils # (auto) 0.02 K/uL (0-0.2); Basophils % (auto) 0.1 %; Eosinophils # (auto) 0.14 K/uL (0-0.5); Hemoglobin 14.9 g/dL (14.0-18.0); Immature Granulocytes # (auto) 0.15 K/uL (0.00-0.02); Lymphocytes # (auto) 1.69 K/uL (1.2-3.4); Lymphocytes % (auto) 11.6 %; Mean Corpuscular Hemoglobin 27.2 pg (25-34); Mean Corpuscular Hgb Conc 32.4 g/dL (32-36); Mean Corpuscular Volume 84.1 fL (80-100); Mean Platelet Volume 9.6 fL (7.4-10.4); Monocytes # (auto) 1.53 K/uL (0.11-0.59); Monocytes % (auto) 10.5 %; Neutrophils # (auto) 11.09 K/uL (1.4-6.5); Neutrophils % (auto) 75.8 %; Platelet Count 268 K/uL (130-400); RDW Coefficient of Variation 15.7 % (11.5-14.5); RDW Standard Deviation 48.4 fL (36.4-46.3); Red Blood Count 5.47 M/uL (4.7-6.1); White Blood Count 14.62 K/uL (4.8-10.8)
[2021-03-02 07:32] LABS: BUN Creatinine Ratio 40.2 (10-20); Creatinine Clr Calc Pharmacy 123.7 ml/min; Est GFR (African American) 111.8 ml/min; Est GFR (Non-African American) 96.5 ml/min; Magnesium 2.3 mg/dl (1.7-2.4); Phosphorus 4.3 mg/dl (2.5-4.9); Potassium 3.9 mmol/L (3.5-5.1)
[2021-03-02] MEDS: CITALOPRAM 20 MG TAB PO SCH (07:44)
[2021-03-02] MEDS: RIVAROXABAN 10 MG TABLET PO SCH (07:44)
[2021-03-02] MEDS: FUROSEMIDE INJ 20 MG/2 ML VIAL IV SCH ×2 (07:45→20:52)
--- NOTE | 2021-03-02 08:41 | XRay Report ---
XR chest 1V portable CLINICAL HISTORY: f/u COMPARISON STUDY: Chest radiograph March 01, 2021. FINDINGS: Tip of endotracheal tube is 4.6 cm above the donal. Tip of nasogastric tube is below the l ower aspect of this image but at least within the gastric antrum. Right internal jugular central line remains in place. No pneumothorax or pleural effusion is noted. Elevation of the right hemidiaphragm is again noted. Interstitial thickening and bilateral opacities, greater within the right lung are s imilar to prior exam. IMPRESSION: 1. Satisfactory positioning of lines and tubes. 2. No significant change in bilateral opacities and interstitial thickening, greater within the right lung. ACT 112: Negative or not required by law. Electronically signed by: Zack Sharp M.D. 03/02/2021 8:40 AM
[2021-03-02] MEDS: ICU ELECTROLYTE REPLACEMENT PROTOCOL SCH ×2 (09:18→15:53)
[2021-03-02] MEDS: POTASSIUM CHLORIDE 20 MEQ/15 ML UDC NG SCH ×2 (09:54→13:39)
[2021-03-02] MEDS: ACETAMINOPHEN 325 MG TAB PO PRN (11:41)
[2021-03-02] MEDS: PANTOprazole 40 MG in SYRINGE 0 ML IV SCH (11:42)
[2021-03-02] MEDS: NOREPINEPHRINE/D5W 8 MG/508 ML BAG IV SCH (11:44)
[2021-03-02] MEDS: SENNOSIDES 8.8 MG/5 ML UDC PO SCH (12:00)
[2021-03-02] MEDS: LACTULOSE SYRUP 20 GM/30 ML UDC PO SCH (12:00)
--- NOTE | 2021-03-02 15:54 | Critical Care Progress Note ---
Date of Service March 02, 2021 Assessment & Plan (1) Acute respiratory distress syndrome (ARDS) due to COVID-19 virus: (2) Morbid obesity with BMI of 40.0-44.9, adult: (3) Leukocytosis: (4) Respiratory acidosis: (5) Hyponatremia: (6) Hyperglycemia: Plan: Impression: 55-year-old unvaccinated male initially diagnosed 01/31/2021 and spent almost 2 weeks in the hospital on high flow oxygen. He received remdesivir and Decadron at that point time. He was dismissed from the hospital 02/15 but returned 02/18 with progressive hypoxemic respiratory failure. He was treated with high-dose dexamethasone as well as Levaquin and Zosyn. He failed noninvasive positive pressure ventilation and was intubated 02/27/2021. 24-hour events: Some progress weaning vent. He remains intubated and sedated. Recommendations: 1. Neurologic: Currently sedated on propofol and fentanyl. Sedation breaks as tolerated by patient's oxygenation and pulmonary status. Check triglycerides. Continue home baclofen and Celexa. Off neuromuscular blockade. 2. Cardiovascular: Blood pressures are on the low side. Will initiate norepinephrine as needed to maintain mean arterial pressure at above 65. Does have some lower extremity edema. Continue with IV Lasix 20 mg twice daily. 3. Pulmonary: Severe ARDS with multifocal infiltrates consistent with viral pneumonia/late-phase ARDS. Patient has completed antibiotics, remdesivir, and several courses of steroids. His CRP is low. I do not think additional steroids at this point time are going to offer him a clinical benefit unless his CRP should increase. He has remained supine. Current vent settings are assist- control 30/385/8/0 0.45. Most recent blood gas 7.39/56/63 -PF ratio 140, slightly improved and consistent with severe ARDS, compliance remains poor. His CT scan demonstrates fibrotic changes. Continue attempts to wean ventilator as tolerated with plans to SBT if we can get his PEEP down below 8 and FiO2 at or below 0.4. If fails to improve over the next 24 to 48 hours, consideration for tracheostomy and potential PEG tube placement might be appropriate 4. GI: Continue tube feeding per nutrition. PPI in place. 5. ID: Patient does demonstrate leukocytosis which has been persistent dating back to last month. He is now febrile. Procalcitonin negative. Cultures no growth to date. Chest x-ray continues to demonstrate asymmetric infiltrates 6. Renal: Judicious diuresis. Continue ICU electrolyte replacement protocol. 7. Heme-onc: Prior history of DVT. On Eliquis. This makes the probability of PE low at this point time. No indication for repeat imaging. He did have a CT angiogram performed last month which was negative. Questionable gout 8. Endocrine: Glycemic control per ICU protocol. Patient's overall prognosis is guarded at this point time. He is critically ill requiring life-sustaining therapies. Significant possibility of clinical deterioration or . CRITICAL CARE TIME - I have personally spent 50 minutes of critical care time in the direct management of this patient. This is a life/limb threatening event. This includes time spent evaluating patient, direct bedside care, chart review, placing orders, interpretation of diagnostic studies, discussion with consultants, patient, and family members, as well as other required patient management activities. This time is exclusive of all separately billable procedures, and teaching time and separate from and in addition to any other critical care service time. Admission and Anticipated Discharge Date Admission Date: February 18, 2021 Subjective Intubated and sedated Review of Systems Review of Systems: Unobtainable due to endotracheal tube Physical Exam Constitutional: Intubated and sedated. Obese. On the mechanical ventilator Respiratory: Breath sounds are coarse bilaterally. No wheezing. Few rales Cardiovascular: RRR, no murmur, no edema Gastrointestinal (Abdomen): normal bowel sounds, soft, nontender, no hepatosplenomegaly Musculoskeletal: Extremities: extremities normal to inspection Skin: no rashes, warm and dry Results & Data Results & Data ([facility]) Vital Signs (Past 12 Hours) Vital Signs Temp Pulse Resp BP Pulse Ox 03/02/21 15:44 92 H 30 H 90 03/02/21 15:00 37.9 C H 93 H 29 H 101/72 90 03/02/21 14:30 37.9 C H 93 H 31 H 104/69 91 03/02/21 14:00 37.8 C H 90 30 H 100/66 91 03/02/21 13:30 37.9 C H 90 30 H 98/65 L 91 03/02/21 13:00 37.9 C H 90 30 H 102/62 91 03/02/21 12:30 37.9 C H 92 H 30 H 96/71 L 91 03/02/21 12:00 37.9 C H 92 H 30 H 105/71 91 03/02/21 11:30 37.9 C H 91 H 30 H 97/68 L 91 03/02/21 11:02 90 30 H 90 03/02/21 11:00 37.9 C H 90 29 H 100/62 89 L 03/02/21 10:30 37.9 C H 93 H 30 H 97/64 L 90 03/02/21 10:00 38.0 C H 92 H 27 H 99/69 L 89 L 03/02/21 09:30 38.0 C H 88 30 H 91/62 L 90 03/02/21 09:00 38.0 C H 90 30 H 102/62 91 03/02/21 08:30 38.0 C H 88 30 H 94/65 L 90 03/02/21 08:00 37.9 C H 84 31 H 105/71 90 03/02/21 07:55 81 30 H 91 03/02/21 07:30 37.8 C H 85 30 H 101/65 91 03/02/21 07:00 37.8 C H 84 29 H 98/62 L 92 03/02/21 06:30 37.8 C H 85 27 H 94/60 L 91 03/02/21 06:00 37.9 C H 83 26 H 88/62 L 89 L 03/02/21 05:00 37.9 C H 89 30 H 100/61 88 L 03/02/21 04:30 103/65 03/02/21 04:00 37.9 C H 90 30 H 96/64 L 88 L Critical Care Results & Data Vital Signs (Past 12 Hours) Vital Signs Temp Pulse Resp BP Pulse Ox 03/02/21 15:44 92 H 30 H 90 03/02/21 15:00 37.9 C H 93 H 29 H 101/72 90 03/02/21 14:30 37.9 C H 93 H 31 H 104/69 91 03/02/21 14:00 37.8 C H 90 30 H 100/66 91 03/02/21 13:30 37.9 C H 90 30 H 98/65 L 91 03/02/21 13:00 37.9 C H 90 30 H 102/62 91 03/02/21 12:30 37.9 C H 92 H 30 H 96/71 L 91 03/02/21 12:00 37.9 C H 92 H 30 H 105/71 91 03/02/21 11:30 37.9 C H 91 H 30 H 97/68 L 91 03/02/21 11:02 90 30 H 90 03/02/21 11:00 37.9 C H 90 29 H 100/62 89 L 03/02/21 10:30 37.9 C H 93 H 30 H 97/64 L 90 03/02/21 10:00 38.0 C H 92 H 27 H 99/69 L 89 L 03/02/21 09:30 38.0 C H 88 30 H 91/62 L 90 03/02/21 09:00 38.0 C H 90 30 H 102/62 91 03/02/21 08:30 38.0 C H 88 30 H 94/65 L 90 03/02/21 08:00 37.9 C H 84 31 H 105/71 90 03/02/21 07:55 81 30 H 91 03/02/21 07:30 37.8 C H 85 30 H 101/65 91 03/02/21 07:00 37.8 C H 84 29 H 98/62 L 92 03/02/21 06:30 37.8 C H 85 27 H 94/60 L 91 03/02/21 06:00 37.9 C H 83 26 H 88/62 L 89 L 03/02/21 05:00 37.9 C H 89 30 H 100/61 88 L 03/02/21 04:30 103/65 03/02/21 04:00 37.9 C H 90 30 H 96/64 L 88 L Lab & Micro Results (Past 24 Hours) RBC 5.47 M/uL (4.7-6.1) 03/02/21 WBC 14.62 K/uL (4.8-10.8) H 03/02/21 Hgb 14.9 g/dL (14.0-18.0) 03/02/21 Hct 46.0 % (42-52) 03/02/21 MCV 84.1 fL (80-100) 03/02/21 MCH 27.2 pg (25-34) 03/02/21 MCHC 32.4 g/dL (32-36) 03/02/21 RDW Standard Deviation 48.4 fL (36.4-46.3) H 03/02/21 RDW Coefficient of Variation 15.7 % (11.5-14.5) H 03/02/21 Plt Count 268 K/uL (130-400) 03/02/21 MPV 9.6 fL (7.4-10.4) 03/02/21 Neutrophils (%) (Auto) 75.8 % 03/02/21 Lymphocytes (%) (Auto) 11.6 % 03/02/21 Monocytes # (Auto) 1.53 K/uL (0.11-0.59) H 03/02/21 Eosinophils # (Auto) 0.14 K/uL (0-0.5) 03/02/21 Immature Granulocyte % (Auto) 1.0 % 03/02/21 Neutrophils # (Auto) 11.09 K/uL (1.4-6.5) H 03/02/21 Lymphocytes # (Auto) 1.69 K/uL (1.2-3.4) 03/02/21 Monocytes # (Auto) 1.53 K/uL (0.11-0.59) H 03/02/21 Eosinophils # (Auto) 0.14 K/uL (0-0.5) 03/02/21 Basophils # (Auto) 0.02 K/uL (0-0.2) 03/02/21 Immature Granulocyte # (Auto) 0.15 K/uL (0.00-0.02) H 03/02/21 Na 137 mmol/L (136-145) 03/02/21 K 3.9 mmol/L (3.5-5.1) 03/02/21 Cl 98 mmol/L (98-107) 03/02/21 CO2 31 mmol/L (21-32) 03/02/21 Anion Gap 8 (3-11) 03/02/21 BUN 35 mg/dl (6-23) H 03/02/21 Creatinine 0.87 mg/dl (0.6-1.4) 03/02/21 Estimated GFR ( Amer) 111.8 ml/min 03/02/21 Estimated GFR (Non-Af Amer) 96.5 ml/min 03/02/21 BUN/Creatinine Ratio 40.2 (10-20) H 03/02/21 Glu 117 mg/dl (70-99) H 03/02/21 Ca 9.0 mg/dl (8.5-10.1) 03/02/21 Phosphorus Level 4.3 mg/dl (2.5-4.9) 03/02/21 Mg 2.3 mg/dl (1.7-2.4) 03/02/21 06:00 03/02/21 Calcium Level 9.0 mg/dl (8.5-10.1) 03/02/21 06:00 03/02/21 Brodie Test NA 03/02/21 03:16 03/02/21 Microbiology 02/28/21 14:22 Aerobic Blood Culture - Preliminary Blood No growth in Aerobic bottle after 48 hours. Anaerobic Blood Culture - Preliminary No growth in Anaerobic bottle after 48 hours. 02/28/21 14:27 Aerobic Blood Culture - Preliminary Blood No growth in Aerobic bottle after 48 hours. Anaerobic Blood Culture - Preliminary No growth in Anaerobic bottle after 48 hours. 02/28/21 15:30 Gram Stain - Final Sputum,Vent Suction Sputum Culture - Final Light normal radha. Diagnostic Findings (Past 24 Hours) Chest X-Ray 03/02/21 07:00 XR chest 1V portable CLINICAL HISTORY: f/u COMPARISON STUDY: Chest radiograph March 01, 2021. FINDINGS: Tip of endotracheal tube is 4.6 cm above the donal. Tip of nasogastric tube is below the lower aspect of this image but at least within the gastric antrum. Right internal jugular central line remains in place. No pneumothorax or pleural effusion is noted. Elevation of the right hemidiaphragm is again noted. Interstitial thickening and bilateral opacities, greater within the right lung are similar to prior exam. IMPRESSION: 1. Satisfactory positioning of lines and tubes. 2. No significant change in bilateral opacities and interstitial thickening, greater within the right lung. ACT 112: Negative or not required by law. Electronically signed by: Zack Sharp M.D. 03/02/2021 8:40 AM I & O Totals 24 Hours 03/01/21 03/02/21 03/03/21 06:59 06:59 06:59 Intake Total 1820.994 / 5994.902 6663.603 / 1688.603 545.903 / 545.903 Output Total 1730 / 1730 1650 / 1650 750 / 750 Balance 90.994 / 90.994 38.603 / 38.603 -204.097 / -204.097 Cumulative 02/18/21 17:19 thru 03/02/21 15:51 Intake Total 91276.000 Output Total 80408 Balance -65798.000 RT Ventilator Mngmt (Last Documented) Ventilator Ordered Settings Ventilator Support Mode Assist Control 03/02/21 15:44 Respiratory Rate 30 03/02/21 15:44 Ventilator Tidal Volume 385 03/02/21 15:44 Setting Minute Ventilation 11.5 03/02/21 15:44 Positive End Expiratory 8 03/02/21 15:44 Pressure Fraction of Inspired Oxygen 45 03/02/21 15:44 Machine Comment found pt on 45% 03/02/21 07:55 Ventilator - PT Measurements Respiratory Rate 30 Exhaled Tidal Volume 384 Minute Ventilation 11.5 Peak Inspiratory Airway 19 Pressure Plateau Pressure 18 Respiratory Cycle Inspiratory: 1:1.5 Expiratory Ratio Inspiratory Phase Time 0.80 End-Tidal CO2 36 Static Lung Compliance 38.40 Dynamic Lung Compliance 34.91 Normal Static Lung Compliance 48.00 Coding Level of Care Code Critical Care 1st 30-74 mins Diagnoses Acute respiratory distress syndrome (ARDS) due to COVID-19 virus U07.1; J80 Morbid obesity with BMI of 40.0-44.9, adult E66.01; Z68.41 Leukocytosis D72.829 Respiratory acidosis E87.2 Hyponatremia E87.1 Hyperglycemia R73.9 Time Spent (min) 50
--- NOTE | 2021-03-02 18:40 | Hospitalist Progress Note ---
Date of Service March 02, 2021 Assessment & Plan (1) Acute respiratory failure with hypoxia: Plan: no major changes overnight in pulmonary status. vent settings similar. readmitted to the hospital on 02/18/21 after he had a prolonged hospital stay in January for severe COVID-19 pneumonia. since 02/18 had been requiring HFNC with CPAP at night. prior attending suspected late-stage ARDS. he has been on steroids since his readmission on 02/18 with no improvement in his status. baricitinib was started 02/21 due to high CRP and worsening status. despite the above he continued with worsening respiratory status. pulmonary formally consulted AM of 02/27/21. 02/27/21 early afternoon patient decompensated further necessitating transfer to [facility] COVID unit for intubation. baricitinib stopped at that time. has been intubated/sedated since 02/27/21. no further paralytics. no further proning attempts. appreciate screw machine adjuster automatic assistance. remains off of steroids, abx, and other COVID agents (baricitinib, etc). continue diuretics. (2) Pneumonia due to 2019 novel coronavirus: Plan: COVID 19 originally diagnosed 31 January 2021 He was hospitalized until 02/15/21 Initially treated with dexamethasone + Remdesivir during that admission Readmitted 02/18/21; had been on HFNC since, with CPAP at night. Intubated/ventilated 02/27/21. CRP this admission 11.4 - baricitinib started on 02/21/21 and received 8 doses then stopped following his intubation. Completed 10 days of dexamethasone 6mg IV daily - steroids stopped. Treated for bacterial pneumonia/superinfection with 7 day course of IV zosyn; completed on 02/26/21. Remains on IV lasix to keep I/O balance negative. Continue supportive care. There is high concern he has already developed fibrotic changes of the lungs. (3) Acute respiratory distress syndrome (ARDS) due to COVID-19 virus: Plan: Late-stage ARDS in setting of severe COVID-19 pneumonia in 01/2021. Treated with copious IV dexamethasone since mid-January. CTA chest this admission with findings worrisome for fibrotic changes. s/p intubation and mech ventilation 02/27/21 for refractory respiratory failure. Prognosis is guarded. Baricitinib stopped. Appreciate ICU support. Remains vented. Good chance he may need tracheostomy if come next week he is still vented. (4) Bacterial pneumonia: Plan: Treated for such with 7-day course of IV zosyn; completion date 02/26/21. Legionella Ag urine not detected. aspergillus negative. fungitell and fungal cultures negative. 02/27/21 procal 0, as have been prior procal levels. (5) Hypertension: Plan: cont to hold metoprolol remains on levophed for BP support in setting of sedatives, etc. (6) Dyslipidemia: Plan: AST/ALT have been elevated for several weeks statin on hold repeat LFTs next 48 hours to check stability (7) Left knee pain: Plan: earlier this admission ? gouty arthritis improved with Colchine 0.6mg PO BID Left knee XR - no fracture, no abnormalities colchicine now stopped (8) Transaminitis: Plan: 2nd to COVID-19 +/- baseline fatty liver? trend (9) Hyperglycemia: Plan: HbA1C 6.7% c/w T2DM ICU glycemic protocol controlled (10) DVT prophylaxis: Plan: xarelto 10mg daily (11) Type 2 diabetes mellitus: Plan: new diagnosis a1c 6.7% see above (12) Hyponatremia: Plan: resolved Plan: appreciate pulmonary/screw machine adjuster automatic assistance I updated Delmar's father 03/01 by phone questions answered will update pt's father tomorrow on 03/03 Admission and Anticipated Discharge Date Admission Date: February 18, 2021 Subjective remains intubated sedated no major changes in status overnight vent settings similar tolerating tube feedings remains febrile no proning or paralytics at this time Review of Systems Review of Systems: Unobtainable due to endotracheal tube Physical Exam Physical Exam: exam deferred today Results & Data Results & Data ([facility]) Vital Signs (Past 12 Hours) Vital Signs Temp Pulse Resp BP Pulse Ox 03/02/21 17:00 37.9 C H 97 H 28 H 108/70 91 03/02/21 16:30 37.9 C H 96 H 27 H 98/66 L 90 03/02/21 16:00 38.0 C H 95 H 28 H 100/69 89 L 03/02/21 15:44 92 H 30 H 90 03/02/21 15:30 38.0 C H 93 H 28 H 103/67 88 L 03/02/21 15:00 37.9 C H 93 H 29 H 101/72 90 03/02/21 14:30 37.9 C H 93 H 31 H 104/69 91 03/02/21 14:00 37.8 C H 90 30 H 100/66 91 03/02/21 13:30 37.9 C H 90 30 H 98/65 L 91 03/02/21 13:00 37.9 C H 90 30 H 102/62 91 03/02/21 12:30 37.9 C H 92 H 30 H 96/71 L 91 03/02/21 12:00 37.9 C H 92 H 30 H 105/71 91 03/02/21 11:30 37.9 C H 91 H 30 H 97/68 L 91 03/02/21 11:02 90 30 H 90 03/02/21 11:00 37.9 C H 90 29 H 100/62 89 L 03/02/21 10:30 37.9 C H 93 H 30 H 97/64 L 90 03/02/21 10:00 38.0 C H 92 H 27 H 99/69 L 89 L 03/02/21 09:30 38.0 C H 88 30 H 91/62 L 90 03/02/21 09:00 38.0 C H 90 30 H 102/62 91 03/02/21 08:30 38.0 C H 88 30 H 94/65 L 90 03/02/21 08:00 37.9 C H 84 31 H 105/71 90 03/02/21 07:55 81 30 H 91 03/02/21 07:30 37.8 C H 85 30 H 101/65 91 03/02/21 07:00 37.8 C H 84 29 H 98/62 L 92 Laboratory Results Laboratory Results - last 24 hr 03/01/21 03/02/21 03/02/21 20:03 00:11 03:16 WBC RBC Hgb Hct MCV MCH MCHC RDW Std Deviation RDW Coeff of Eleazar Plt Count MPV Immature Gran % (Auto) Neut % (Auto) Lymph % (Auto) [place] % (Auto) Eos % (Auto) Baso % (Auto) Neut # (Auto) Lymph # (Auto) [place] # (Auto) Eos # (Auto) Baso # (Auto) Immature Gran # (Auto) Sample Site Art Line POC pH 7.39 POC pCO2 56 H POC pO2 63 L POC HCO3 34 H POC Total CO2 35 H POC Base Excess 9.0 H POC ABG O2 Sat 91.0 Brodie Test NA O2 Delivery Device Ventilator POC O2 Rate 30 Minute Ventilation 11.5 POC FiO2 40 Tidal Volume 385 PEEP 8 Sodium Potassium Chloride Carbon Dioxide Anion Gap BUN Creatinine Est Cr Clr Drug Dosing Est GFR ( Amer) Est GFR (Non-Af Amer) BUN/Creatinine Ratio Glucose POC Glucose 115 H 117 H Calcium Phosphorus Magnesium Triglycerides 03/02/21 03/02/21 03/02/21 04:05 06:00 06:00 WBC 14.62 H RBC 5.47 Hgb 14.9 Hct 46.0 MCV 84.1 MCH 27.2 MCHC 32.4 RDW Std Deviation 48.4 H RDW Coeff of Eleazar 15.7 H Plt Count 268 MPV 9.6 Immature Gran % (Auto) 1.0 Neut % (Auto) 75.8 Lymph % (Auto) 11.6 [place] % (Auto) 10.5 Eos % (Auto) 1.0 Baso % (Auto) 0.1 Neut # (Auto) 11.09 H Lymph # (Auto) 1.69 [place] # (Auto) 1.53 H Eos # (Auto) 0.14 Baso # (Auto) 0.02 Immature Gran # (Auto) 0.15 H Sample Site POC pH POC pCO2 POC pO2 POC HCO3 POC Total CO2 POC Base Excess POC ABG O2 Sat Brodie Test O2 Delivery Device POC O2 Rate Minute Ventilation POC FiO2 Tidal Volume PEEP Sodium 137 Potassium 3.9 Chloride 98 Carbon Dioxide 31 Anion Gap 8 BUN 35 H Creatinine 0.87 Est Cr Clr Drug Dosing 123.7 Est GFR ( Amer) 111.8 Est GFR (Non-Af Amer) 96.5 BUN/Creatinine Ratio 40.2 H Glucose 117 H POC Glucose 109 H Calcium 9.0 Phosphorus 4.3 Magnesium 2.3 Triglycerides 03/02/21 03/02/21 06:00 11:37 WBC RBC Hgb Hct MCV MCH MCHC RDW Std Deviation RDW Coeff of Eleazar Plt Count MPV Immature Gran % (Auto) Neut % (Auto) Lymph % (Auto) [place] % (Auto) Eos % (Auto) Baso % (Auto) Neut # (Auto) Lymph # (Auto) [place] # (Auto) Eos # (Auto) Baso # (Auto) Immature Gran # (Auto) Sample Site POC pH POC pCO2 POC pO2 POC HCO3 POC Total CO2 POC Base Excess POC ABG O2 Sat Brodie Test O2 Delivery Device POC O2 Rate Minute Ventilation POC FiO2 Tidal Volume PEEP Sodium Potassium Chloride Carbon Dioxide Anion Gap BUN Creatinine Est Cr Clr Drug Dosing Est GFR ( Amer) Est GFR (Non-Af Amer) BUN/Creatinine Ratio Glucose POC Glucose 119 H Calcium Phosphorus Magnesium Triglycerides 245 H PG Care Time/CCT Total # of Minutes Spent Total Time Spent with Patient: Total time spent is greater than 50% in coordination of care (as documented) at patient's floor/unit and/or counseling patient: Coding Level of Care Code None Diagnoses Acute respiratory failure with hypoxia J96.01 Pneumonia due to 2019 novel coronavirus U07.1; J12.82 Acute respiratory distress syndrome (ARDS) due to COVID-19 virus U07.1; J80 Bacterial pneumonia J15.9 Hypertension I10 Dyslipidemia E78.5 Left knee pain M25.562 Transaminitis R74.01 Hyperglycemia R73.9 DVT prophylaxis Z29.9 Type 2 diabetes mellitus E11.9 Hyponatremia E87.1
[2021-03-02] MEDS ORDERED: STAT IV Infusion **Titration per Protocol STA (23:57)
[2021-03-02] MEDS ORDERED: PROPOFOL BOLUS FROM BAG IV PRN (23:57)
[2021-03-03] MEDS: TUBE FEEDING WATER FLUSH OG SCH ×4 (00:10→12:07)
[2021-03-03] MEDS: propofoL 1,000 MG/100 ML VIAL IV SCH ×8 (00:15→07:42)
[2021-03-03] MEDS: ARTIFICIAL TEARS OP OINT 3.5 GM TUBE OP SCH ×3 (04:20→12:07)
[2021-03-03 04:26] LABS: iSTAT Arterial Blood Gas HCO3 32 meg/L (19-24); iSTAT Arterial Blood Gas pCO2 57 mmHg (35-46); iSTAT Arterial Blood Gas pH 7.37 (7.35-7.45); iSTAT Arterial Blood Gas pO2 97 mmHg (80-95); iSTAT Carbon Dioxide 34 mmol/L (24-31); iSTAT FiO2 50 %; iSTAT Site Art Line
[2021-03-03] MEDS: ACETAMINOPHEN SUSP 325 MG/10.15 ML UDC NG PRN ×2 (04:57→08:30)
[2021-03-03 07:11] LABS: BUN Creatinine Ratio 42.9 (10-20); Calcium 8.9 mg/dl (8.5-10.1); Creatinine Clr Calc Pharmacy 118.3 ml/min; Est GFR (African American) 108.8 ml/min; Est GFR (Non-African American) 93.9 ml/min; Magnesium 2.4 mg/dl (1.7-2.4); Phosphorus 3.5 mg/dl (2.5-4.9); Potassium 4.3 mmol/L (3.5-5.1)
[2021-03-03] MEDS: fentaNYL citrate 2,500 MCG/250 ML BAG IV SCH ×3 (07:35→12:13)
[2021-03-03] MEDS: ICU ELECTROLYTE REPLACEMENT PROTOCOL SCH ×2 (07:43→12:08)
[2021-03-03] MEDS: NOREPINEPHRINE/D5W 8 MG/508 ML BAG IV SCH (07:44)
[2021-03-03] MEDS: CISATRACURIUM BESYLATE 40 MG in 0.9 % SODIUM CHLORIDE 80 ML IV SCH ×6 (07:46→07:52)
[2021-03-03] MEDS: CITALOPRAM 20 MG TAB PO SCH (08:13)
[2021-03-03] MEDS: RIVAROXABAN 10 MG TABLET PO SCH (08:13)
[2021-03-03] MEDS: FUROSEMIDE INJ 20 MG/2 ML VIAL IV SCH ×2 (08:13→20:25)
[2021-03-03] MEDS: LACTULOSE SYRUP 20 GM/30 ML UDC PO SCH (08:13)
[2021-03-03] MEDS: SENNOSIDES 8.8 MG/5 ML UDC PO SCH (08:13)
[2021-03-03] MEDS: PEPTAMEN INTENSE VHP 1.0 CAL 1,000 ML BAG OG SCH (08:14)
--- NOTE | 2021-03-03 08:40 | XRay Report ---
XR chest 1V portable CLINICAL HISTORY: f/u COMPARISON STUDY: Chest radiograph March 02, 2021. FINDINGS: Tip of endotracheal tube is 4.8 cm above the donal. Right internal jugular central line re romario in place. Tip of nasogastric tube is below the lower aspect of this image but at least within t he body of the stomach. Cardiomediastinal fluid is stable. There is no pneumothorax or pleural effusi on. Interstitial thickening and bilateral opacities are again noted. Right lung opacity has slightly improved. IMPRESSION: 1. Satisfactory positioning of endotracheal and nasogastric tubes. 2. Slight improvement in bilateral airspace opacities and interstitial thickening. ACT 112: Negative or not required by law. Electronically signed by: Zack Sharp M.D. 03/03/2021 8:39 AM
[2021-03-03] MEDS: PANTOprazole 40 MG in SYRINGE 0 ML IV SCH (12:07)
--- NOTE | 2021-03-03 15:15 | Critical Care Progress Note ---
Date of Service March 03, 2021 Assessment & Plan (1) Acute respiratory distress syndrome (ARDS) due to COVID-19 virus: (2) Morbid obesity with BMI of 40.0-44.9, adult: (3) Leukocytosis: (4) Respiratory acidosis: (5) Hyponatremia: (6) Hyperglycemia: Plan: Impression: 55-year-old unvaccinated male initially diagnosed 01/31/2021 and spent almost 2 weeks in the hospital on high flow oxygen. He received remdesivir and Decadron at that point time. He was dismissed from the hospital 02/15 but returned 02/18 with progressive hypoxemic respiratory failure. He was treated with high-dose dexamethasone as well as Levaquin and Zosyn. He failed noninvasive positive pressure ventilation and was intubated 02/27/2021. 24-hour events: Patient was doing well on an SBT and sedation break this morning. We will proceed with a trial of extubation. He may need to be extubated to BiPAP or CPAP. Recommendations: 1. Neurologic: Holding sedation for possible spontaneous breathing trial/extubation. Continue home baclofen and Celexa. 2. Cardiovascular: Blood pressures stable. Continue with IV Lasix 20 mg twice daily, I/O even over the last 24 hours 3. Pulmonary: Severe ARDS with multifocal infiltrates consistent with viral pneumonia/late-phase ARDS. Patient has completed antibiotics, remdesivir, and several courses of steroids. His CRP is low. I do not think additional steroids at this point time are going to offer him a clinical benefit unless his CRP should increase. He has remained supine. He is doing well on SBT currently and will plan extubation to either high flow heated nasal cannula or CPAP/BiPAP as tolerated. No additional steroids 4. GI: Holding tube feeding in anticipation of possible extubation PPI in place. 5. ID: Patient does demonstrate leukocytosis which has been persistent dating back to last month and appears stable He is now febrile. Procalcitonin negative. Cultures no growth to date. Chest x-ray continues to demonstrate asymmetric infiltrates 6. Renal: Judicious diuresis. Continue ICU electrolyte replacement protocol. 7. Heme-onc: Prior history of DVT. On Eliquis. Questionable gout, will follow for now 8. Endocrine: Glycemic control per ICU protocol. If extubated the patient will need aggressive physical therapy occupational therapy and speech therapy for swallow evaluation. Admission and Anticipated Discharge Date Admission Date: February 18, 2021 Subjective Intubated but on sedation break and following commands Review of Systems Review of Systems: Unobtainable due to endotracheal tube Physical Exam Constitutional: Patient is intubated and on a sedation break. He is able to follow commands lift his head to show me thumbs up and wiggle his toes bilaterally. He is able to lift his head off of the bed. He is on pressure support ventilation and looks comfortably currently Respiratory: Breath sounds are diminished bilaterally. No wheezing or rhonchi Cardiovascular: RRR, no murmur, no edema Gastrointestinal (Abdomen): normal bowel sounds, soft, nontender, no hepatosplenomegaly Musculoskeletal: Extremities: extremities normal to inspection Skin: no rashes, warm and dry Results & Data Results & Data ([facility]) Vital Signs (Past 12 Hours) Vital Signs Temp Pulse Pulse Pulse Resp BP Pulse Ox 03/03/21 15:09 36.6 C 03/03/21 15:00 127 H 27 H 123/89 90 03/03/21 14:00 135 H 32 H 128/87 90 03/03/21 13:00 131 H 34 H 123/91 91 03/03/21 12:00 127 H 43 H 147/78 H 89 L 03/03/21 11:00 38.2 C H 110 H 34 H 89 L 03/03/21 10:55 114 H 26 H 89 L 03/03/21 10:00 38.2 C H 119 H 24 136/82 88 L 03/03/21 09:51 122 H 25 H 90 03/03/21 09:00 38.3 C H 109 H 27 H 104/68 90 03/03/21 08:30 38.4 C H 107 H 30 H 102/65 81 L 03/03/21 08:15 103 H 22 91 03/03/21 08:10 105 H 33 H 90 03/03/21 08:00 38.5 C H 101 H 28 H 100/65 90 03/03/21 07:30 38.5 C H 101 H 26 H 110/66 90 03/03/21 07:00 38.4 C H 101 H 30 H 108/72 91 03/03/21 06:00 38.4 C H 101 H 26 H 91 03/03/21 05:30 38.3 C H 102 H 34 H 105/76 90 03/03/21 05:00 38.3 C H 101 H 27 H 101/74 89 L 03/03/21 04:30 38.4 C H 102 H 30 H 108/68 90 03/03/21 04:11 100 H 32 H 93 03/03/21 04:00 38.4 C H 99 H 31 H 103/70 94 03/03/21 03:30 38.3 C H 100 H 29 H 112/75 93 Critical Care Results & Data Vital Signs (Past 12 Hours) Vital Signs Temp Pulse Pulse Pulse Resp BP Pulse Ox 03/03/21 15:09 36.6 C 03/03/21 15:00 127 H 27 H 123/89 90 03/03/21 14:00 135 H 32 H 128/87 90 03/03/21 13:00 131 H 34 H 123/91 91 03/03/21 12:00 127 H 43 H 147/78 H 89 L 03/03/21 11:00 38.2 C H 110 H 34 H 89 L 03/03/21 10:55 114 H 26 H 89 L 03/03/21 10:00 38.2 C H 119 H 24 136/82 88 L 03/03/21 09:51 122 H 25 H 90 03/03/21 09:00 38.3 C H 109 H 27 H 104/68 90 03/03/21 08:30 38.4 C H 107 H 30 H 102/65 81 L 03/03/21 08:15 103 H 22 91 03/03/21 08:10 105 H 33 H 90 03/03/21 08:00 38.5 C H 101 H 28 H 100/65 90 03/03/21 07:30 38.5 C H 101 H 26 H 110/66 90 03/03/21 07:00 38.4 C H 101 H 30 H 108/72 91 03/03/21 06:00 38.4 C H 101 H 26 H 91 03/03/21 05:30 38.3 C H 102 H 34 H 105/76 90 03/03/21 05:00 38.3 C H 101 H 27 H 101/74 89 L 03/03/21 04:30 38.4 C H 102 H 30 H 108/68 90 03/03/21 04:11 100 H 32 H 93 03/03/21 04:00 38.4 C H 99 H 31 H 103/70 94 03/03/21 03:30 38.3 C H 100 H 29 H 112/75 93 Lab & Micro Results (Past 24 Hours) No Data to Display Na 135 mmol/L (136-145) L 03/03/21 K 4.3 mmol/L (3.5-5.1) 03/03/21 Cl 97 mmol/L (98-107) L 03/03/21 CO2 31 mmol/L (21-32) 03/03/21 Anion Gap 7 (3-11) 03/03/21 BUN 39 mg/dl (6-23) H 03/03/21 Creatinine 0.91 mg/dl (0.6-1.4) 03/03/21 Estimated GFR ( Amer) 108.8 ml/min 03/03/21 Estimated GFR (Non-Af Amer) 93.9 ml/min 03/03/21 BUN/Creatinine Ratio 42.9 (10-20) H 03/03/21 Glu 143 mg/dl (70-99) H 03/03/21 Ca 8.9 mg/dl (8.5-10.1) 03/03/21 Phosphorus Level 3.5 mg/dl (2.5-4.9) 03/03/21 Mg 2.4 mg/dl (1.7-2.4) 03/03/21 06:22 03/03/21 Calcium Level 8.9 mg/dl (8.5-10.1) 03/03/21 06:22 03/03/21 Brodie Test NA 03/03/21 04:11 03/03/21 Microbiology 02/28/21 14:22 Aerobic Blood Culture - Preliminary Blood No growth in Aerobic bottle after 48 hours. Anaerobic Blood Culture - Preliminary No growth in Anaerobic bottle after 48 hours. 02/28/21 14:27 Aerobic Blood Culture - Preliminary Blood No growth in Aerobic bottle after 48 hours. Anaerobic Blood Culture - Preliminary No growth in Anaerobic bottle after 48 hours. Diagnostic Findings (Past 24 Hours) Chest X-Ray 03/03/21 07:00 XR chest 1V portable CLINICAL HISTORY: f/u COMPARISON STUDY: Chest radiograph March 02, 2021. FINDINGS: Tip of endotracheal tube is 4.8 cm above the donal. Right internal jugular central line remains in place. Tip of nasogastric tube is below the lower aspect of this image but at least within the body of the stomach. Cardiomediastinal fluid is stable. There is no pneumothorax or pleural effusion. Interstitial thickening and bilateral opacities are again noted. Right lung opac ity has slightly improved. IMPRESSION: 1. Satisfactory positioning of endotracheal and nasogastric tubes. 2. Slight improvement in bilateral airspace opacities and interstitial thickening. ACT 112: Negative or not required by law. Electronically signed by: Zack Sharp M.D. 03/03/2021 8:39 AM I & O Totals 24 Hours 03/02/21 03/03/21 03/04/21 06:59 06:59 06:59 Intake Total 1688.603 / 1653.446 9093.298 / 1733.298 553.000 / 553.000 Output Total 1650 / 1650 1760 / 1760 600 / 600 Balance 38.603 / 38.603 -26.702 / -26.702 -47.000 / -47.000 Cumulative 02/18/21 17:19 thru 03/03/21 13:16 Intake Total 28819.395 Output Total 19683 Balance -14983.605 RT Ventilator Mngmt (Last Documented) Ventilator Ordered Settings Ventilator Support Mode CPAP 03/03/21 08:15 Respiratory Rate 27 03/03/21 15:00 Ventilator Tidal Volume 385 03/03/21 08:10 Setting Minute Ventilation 13.6 03/03/21 08:15 Ventilator Positive Pressure 12 03/03/21 08:15 Support Setting Positive End Expiratory 8 03/03/21 08:15 Pressure Fraction of Inspired Oxygen 90 03/03/21 13:00 Machine Comment Patient extubated to CPAP 10 70% 03/03/21 09:01 Ventilator - PT Measurements Respiratory Rate 27 Exhaled Tidal Volume 517 Minute Ventilation 13.6 Peak Inspiratory Airway 22 Pressure Plateau Pressure 28 Respiratory Cycle Inspiratory: 1:1.5 Expiratory Ratio Inspiratory Phase Time 0.58 End-Tidal CO2 36 Static Lung Compliance 18.80 Dynamic Lung Compliance 36.93 Normal Static Lung Compliance 48.00 Coding Level of Care Code 90240 Subseq Hosp Care Lvl 3 Diagnoses Acute respiratory distress syndrome (ARDS) due to COVID-19 virus U07.1; J80 Morbid obesity with BMI of 40.0-44.9, adult E66.01; Z68.41 Leukocytosis D72.829 Respiratory acidosis E87.2 Hyponatremia E87.1 Hyperglycemia R73.9
--- NOTE | 2021-03-03 18:31 | Hospitalist Progress Note ---
Date of Service March 03, 2021 Assessment & Plan (1) Acute respiratory failure with hypoxia: Plan: successfully extubated from the vent today. had been intubated since 02/27/21. tried on BIPAP post-extubation - could not tolerate; now on high settings of high-flow NC. will remain on ICU status overnight. appreciate shooter's helper support & assistance. remains off of steroids, abx, and baricitinib. remains on lasix 20mg IV BID. readmitted to the hospital on 02/18/21 after he had a prolonged hospital stay in January for severe COVID-19 pneumonia. since 02/18 had been requiring HFNC with CPAP at night. prior attending suspected late-stage ARDS. he has been on steroids since his readmission on 02/18 with no improvement in his status. baricitinib was started 02/21 due to high CRP and worsening status. despite the above he continued with worsening respiratory status. pulmonary formally consulted AM of 02/27/21. 02/27/21 early afternoon patient decompensated further necessitating transfer to [facility] COVID unit for intubation. baricitinib stopped at that time. extubated 03/03/21. (2) Pneumonia due to 2019 novel coronavirus: Plan: COVID 19 originally diagnosed 31 January 2021 He was hospitalized until 02/15/21 Initially treated with dexamethasone + Remdesivir during that admission Readmitted 02/18/21; had been on HFNC since, with CPAP at night. Intubated/ventilated 02/27/21. Extubated today, 03/03/21. CRP this admission 11.4 - baricitinib started on 02/21/21 and received 8 doses then stopped following his intubation. Completed 10 days of dexamethasone 6mg IV daily - steroids stopped. Treated for bacterial pneumonia/superinfection with 7 day course of IV zosyn; completed on 02/26/21. Remains on IV lasix to keep I/O balance negative. Continue supportive care. Continue HFNC. There is high concern he has already developed fibrotic changes of the lungs. (3) Acute respiratory distress syndrome (ARDS) due to COVID-19 virus: Plan: Late-stage ARDS in setting of severe COVID-19 pneumonia in 01/2021. Treated with copious IV dexamethasone since mid-January. CTA chest this admission with findings worrisome for fibrotic changes. [facility] for refractory respiratory failure. Extubated today to HFNC. See above. (4) Bacterial pneumonia: Plan: Treated for such with 7-day course of IV zosyn; completion date 02/26/21. Legionella Ag urine not detected. aspergillus negative. fungitell and fungal cultures negative. 02/27/21 procal 0, as have been prior procal levels. (5) Hypertension: Plan: cont to hold metoprolol (6) Dyslipidemia: Plan: AST/ALT had been elevated for several weeks statin on hold repeat LFTs in am (7) Left knee pain: Plan: earlier this admission ? gouty arthritis improved with Colchine 0.6mg PO BID no issues at this time (8) Transaminitis: Plan: 2nd to COVID-19 +/- baseline fatty liver? LFTs in am (9) Hyperglycemia: Plan: HbA1C 6.7% c/w T2DM ICU glycemic protocol controlled (10) DVT prophylaxis: Plan: xarelto 10mg daily (11) Type 2 diabetes mellitus: Plan: new diagnosis a1c 6.7% see above (12) Hyponatremia: Plan: resolved Plan: appreciate pulmonary/shooter's helper assistance I updated Delmar's father 03/01/21 and again today Delmar's mother and his daughter were on the line during today's call they are aware of extubation plan of care discussed Admission and Anticipated Discharge Date Admission Date: February 18, 2021 Subjective patient successfully extubated today after doing well with a PSV trial when I saw patient in the afternoon he was resting comfortably in bed - was on high-flow; did endorse shortness of breath but able to talk in complete sentences denied chest pain, abd pain he reports passing "a lot of gas" he mentioned he texted his parents, telling them he was off the vent trying to cough, but not bringing anything up by report he did not tolerate BIPAP when he was extubated; thus, placed on HFNC Review of Systems Review of Systems: gen - weak, fatigued CV - no orthopnea pulm - dyspnea, coughing, no sputum GI - no N/V/abd pain Physical Exam Physical Exam: gen - awake, alert, hoarse voice when talking; mild distress (tachypnea, retractions) neck - no JVD mouth - MM dry heart - tachy, s1 s2, no murmur lungs - fine rales bases only, airation fair; tachypnea (30s RR) abd - soft, NT, ND, BS+ ext - warm, pulses 2+ b/l, no edema psych - a/o to person, place; no confusion Results & Data Results & Data ([facility]) Vital Signs (Past 12 Hours) Vital Signs Temp Pulse Pulse Pulse Resp BP Pulse Ox 03/03/21 18:00 122 H 33 H 116/76 92 03/03/21 17:00 131 H 37 H 130/88 89 L 03/03/21 16:00 132 H 35 H 116/82 93 03/03/21 15:25 130 H 24 93 03/03/21 15:09 36.6 C 03/03/21 15:00 127 H 27 H 123/89 90 03/03/21 14:00 135 H 32 H 128/87 90 03/03/21 13:00 131 H 34 H 123/91 91 03/03/21 12:00 127 H 43 H 147/78 H 89 L 03/03/21 11:00 38.2 C H 110 H 34 H 89 L 03/03/21 10:55 114 H 26 H 89 L 03/03/21 10:00 38.2 C H 119 H 24 136/82 88 L 03/03/21 09:51 122 H 25 H 90 03/03/21 09:00 38.3 C H 109 H 27 H 104/68 90 03/03/21 08:30 38.4 C H 107 H 30 H 102/65 81 L 03/03/21 08:15 103 H 22 91 03/03/21 08:10 105 H 33 H 90 03/03/21 08:00 38.5 C H 101 H 28 H 100/65 90 03/03/21 07:30 38.5 C H 101 H 26 H 110/66 90 03/03/21 07:00 38.4 C H 101 H 30 H 108/72 91 Laboratory Results Laboratory Results - last 24 hr 03/03/21 03/03/21 03/03/21 02:06 04:11 06:22 Sample Site Art Line POC pH 7.37 POC pCO2 57 H POC pO2 97 H POC HCO3 32 H POC Total CO2 34 H POC Base Excess 7.0 H POC ABG O2 Sat 97.0 H Brodie Test NA O2 Delivery Device Ventilator POC O2 Rate 30 POC FiO2 50 Tidal Volume 385 PEEP 8 Sodium 135 L Potassium 4.3 Chloride 97 L Carbon Dioxide 31 Anion Gap 7 BUN 39 H Creatinine 0.91 Est Cr Clr Drug Dosing 118.3 Est GFR ( Amer) 108.8 Est GFR (Non-Af Amer) 93.9 BUN/Creatinine Ratio 42.9 H Glucose 143 H POC Glucose 140 H Calcium 8.9 Phosphorus 3.5 Magnesium 2.4 03/03/21 11:53 Sample Site POC pH POC pCO2 POC pO2 POC HCO3 POC Total CO2 POC Base Excess POC ABG O2 Sat Brodie Test O2 Delivery Device POC O2 Rate POC FiO2 Tidal Volume PEEP Sodium Potassium Chloride Carbon Dioxide Anion Gap BUN Creatinine Est Cr Clr Drug Dosing Est GFR ( Amer) Est GFR (Non-Af Amer) BUN/Creatinine Ratio Glucose POC Glucose 166 H Calcium Phosphorus Magnesium PG Care Time/CCT Total # of Minutes Spent Total Time Spent with Patient: Total time spent is greater than 50% in coordination of care (as documented) at patient's floor/unit and/or counseling patient: Coding Level of Care Code 85316 Subseq Hosp Care Lvl 2 Diagnoses Acute respiratory failure with hypoxia J96.01 Pneumonia due to 2019 novel coronavirus U07.1; J12.82 Acute respiratory distress syndrome (ARDS) due to COVID-19 virus U07.1; J80 Bacterial pneumonia J15.9 Hypertension I10 Dyslipidemia E78.5 Left knee pain M25.562 Transaminitis R74.01 Hyperglycemia R73.9 DVT prophylaxis Z29.9 Type 2 diabetes mellitus E11.9 Hyponatremia E87.1
[2021-03-04] MEDS ORDERED: LORazepam 1 MG/2 ML VIAL IV STA (02:46)
[2021-03-04] MEDS ORDERED: LORazepam 2 MG/4 ML VIAL ONE (02:47)
[2021-03-04] MEDS ORDERED: RAPID SEQUENCE INDUCTION BAG ONE (03:22)
[2021-03-04] MEDS ORDERED: STAT IV Infusion **Titration per Protocol STA ×2 (03:29→04:35)
[2021-03-04] MEDS: propofoL 1,000 MG/100 ML VIAL IV SCH ×9 (04:10→20:34)
[2021-03-04] MEDS: fentaNYL citrate 2,500 MCG/250 ML BAG IV SCH ×2 (04:12→15:56)
[2021-03-04] MEDS: PROPOFOL BOLUS FROM BAG IV PRN (04:36)
--- NOTE | 2021-03-04 04:55 | Procedure Note ---
Procedure Note Date of Service March 04, 2021 Note INTERNAL JUGULAR CENTRAL LINE PROCEDURE NOTE: Procedure: Internal Jugular Central Line Placement Attending: Dr. Ravin Mathew Provider: DAVONTE Philippe Indication: Central Drug Administration, Poor Venous Access, Multiple Lab Draws Necessary, etc. Anesthesia: Lidocaine 1% Line placed emergently following rapid intubation for severe ARDS secondary to COVID-19 pneumonia. Patient to undergo proning. A time-out was completed verifying correct patient, procedure, site, positioning, and implants(s) or special equipment if applicable. Patients left neck was cleansed and draped in the typical sterile fashion using Chloraprep. The Internal Jugular Vein and Carotid Artery were identified using ultrasound. The superficial tissue was anesthetized using 3 mL of 1% lidocaine without epinephrine under direct visualization with the ultrasound. After adequate anesthetization was achieved, the Internal Jugular vein was cannulated under direct ultrasound guidance using an introducer needle on a syringe. Good venous blood return was maintained prior to removal of syringe from introducer needle. Using Seldinger Technique, a guide wire was advanced through the introducer needle without resistance. The introducer needle was removed and ultrasound images were obtained of the guide wire within the Internal Jugular Vein. A small incision was made in penetrating fashion at the guide wire insertion site utilizing an 11 blade scalpel. The dilator was advanced to the vessel without resistance. The dilator was exchanged for the triple lumen catheter which was advanced into the vessel without resistance. The guide wire was removed intact from the catheter without issue. Claves were placed on each catheter tip with confirmation of good blood flow from each lumen. Each port was easily flushed with sterile saline. The catheter was placed at 20 cm and sutured in place. BioPatch was applied to the catheter and a sterile Tegaderm dressing was applied over the catheter with careful attention to sterility. Patient tolerated procedure well. No immediate complications were met. Post procedure x-ray was completed, placement was appropriate and no pneumothorax was noted. Images obtained are saved for permanent record Procedural Ultrasound Guidance: Procedure Date: 03/04/2021 Indication: Central venous catheter insertion Attending: Dr. Ravin Mathew Provider: DAVONTE Philippe Artery AND Vein visualized: Yes Compressible Vein: Yes Guidewire or Short Catheter seen in vein prior to dilation: Yes Line confirmed in Vein with ultrasound: Yes Coding CPT Codes Tubes, Drains, and Vasc Access - Tubes, Drains, and Vasc Access: [id number] Place catheter in vein superior or inferior vena cava ([id number]) Tubes, Drains, and Vasc Access - Tubes, Drains, and Vasc Access: [id number] Ultrasound Guidance For Vascular ([id number]) [facility] Procedure Codes (Charges) Tubes, Drains, and Vasc Access Procedure 1: Tubes, Drains, and Vasc Access: [id number] Place catheter in vein superior or inferior vena cava Procedure 2: Tubes, Drains, and Vasc Access: [id number] Ultrasound Guidance For Vascular
--- NOTE | 2021-03-04 04:55 | Procedure Note ---
Procedure Note Date of Service March 04, 2021 Note ARTERIAL LINE PROCEDURE NOTE: Procedure: Arterial Line Placement Attending: Dr. Ravin Mathew Provider: DAVONTE Philippe Indication: Continuous hemodynamic monitoring, frequent ABGs Anesthesia: Lidocaine 1% Line placed emergently following emergent intubation for severe ARDS secondary to COVID-19 pneumonia. Patient will require proning. A time-out was completed verifying correct patient, procedure, site, positioning, and implant(s) or special equipment if applicable. Allens test was performed to ensure adequate perfusion. Patients left wrist was prepped and draped in the usual sterile fashion. Ultrasound guidance was used to aid needle placement. A 20g Arrow arterial line was introduced into the left radial artery. Catheter was threaded, and the needle was removed with appropriate blood return. Good waveform was observed. The patient tolerated the procedure well. Confirmation of placement with ultrasound. Blood Loss: Minimal Complications: None Procedural Ultrasound Guidance: Procedure Date: 03/04/2021 Indication: Arterial line insertion Attending: Dr. Ravin Mathew Provider: DAVONTE Philippe Artery Identified: YES Line confirmed in Artery with ultrasound: Yes Complications: NONE Patient tolerated procedure: WELL Coding CPT Codes Tubes, Drains, and Vasc Access - Tubes, Drains, and Vasc Access: [id number] Place Catheter In Artery ([id number]) Tubes, Drains, and Vasc Access - Tubes, Drains, and Vasc Access: [id number] Ultrasound Guidance For Vascular ([id number]) [facility] Procedure Codes (Charges) Tubes, Drains, and Vasc Access Procedure 2: Tubes, Drains, and Vasc Access: [id number] Place Catheter In Artery Procedure 1: Tubes, Drains, and Vasc Access: [id number] Ultrasound Guidance For Vascular
[2021-03-04] MEDS ORDERED: VECURONIUM BROMIDE 10 MG VIAL IV STA (04:59)
[2021-03-04] MEDS ORDERED: VECURONIUM BROMIDE 10 MG VIAL IV ONE (05:00)
[2021-03-04] MEDS: CISATRACURIUM BESYLATE 40 MG in 0.9 % SODIUM CHLORIDE 80 ML IV SCH ×3 (05:15→12:56)
[2021-03-04] MEDS ORDERED: FUROSEMIDE 40 MG/4 ML VIAL IV ONE (05:16)
[2021-03-04] MEDS: ACETAMINOPHEN SUSP 325 MG/10.15 ML UDC NG PRN ×4 (05:19→21:25)
--- NOTE | 2021-03-04 05:21 | XRay Report ---
SINGLE VIEW CHEST CLINICAL HISTORY: Central venous catheter placement. Respiratory failure. FINDINGS: 3 AP, portable, supine chest radiographs are compared to study dated 03/03/2021 and correlat ed with chest CT dated 02/18/2021. The examination is degraded by portable technique and patient rota tion. An endotracheal tube and an enteric tube are unchanged in position. A right internal jugular ce ntral venous catheter has been removed. A left internal jugular central venous catheter has been plac ed. The tip projects over the confluence of the innominate veins. The cardiomediastinal silhouette is unremarkable. There is chronic elevation of the right hemidiaphragm. Extensive/multifocal airspace c onsolidation is again seen throughout both lungs. This is similar to yesterday. No large pleural effu rosendo or pneumothorax is seen. The bony thorax is grossly intact. IMPRESSION: 1. Lines and tubes as above. 2. No pneumothorax is identified post procedure. 3. Extensive/diffuse multifocal airspace consolidation has not appreciably changed from yesterday. ACT 112: Negative or not required by law. Electronically signed by: Matthew Carmona M.D. 03/04/2021 5:19 AM
[2021-03-04] MEDS: ARTIFICIAL TEARS OP OINT 3.5 GM TUBE OP SCH ×5 (06:02→20:34)
[2021-03-04 06:04] LABS: iSTAT Art Bld Gas pCO2 Correct 58 mmHg (35-46); iSTAT Art Bld Gas pH Corrected 7.399 (7.35-7.45); iSTAT Arterial Blood Gas HCO3 36 meg/L (19-24); iSTAT Arterial Blood Gas pCO2 59 mmHg (35-46); iSTAT Arterial Blood Gas pH 7.39 (7.35-7.45); iSTAT Arterial Blood Gas pO2 78 mmHg (80-95); iSTAT Arterial Blood Gas pO2 C 76; iSTAT Carbon Dioxide 37 mmol/L (24-31); iSTAT Hematocrit 44 % (42-52); iSTAT Potassium 3.9 mmol/L (3.3-5.0); iSTAT Site Art Line; iSTAT Sodium 141 mmol/L (135-144)
[2021-03-04 06:41] LABS: Basophils # (auto) 0.04 K/uL (0-0.2); Basophils % (auto) 0.2 %; Eosinophils # (auto) 0.14 K/uL (0-0.5); Eosinophils % (auto) 0.6 %; Hematocrit (blood only) 47.2 % (42-52); Hemoglobin 15.2 g/dL (14.0-18.0); Immature Granulocytes # (auto) 0.33 K/uL (0.00-0.02); Immature Granulocytes % (auto) 1.4 %; Lymphocytes # (auto) 1.75 K/uL (1.2-3.4); Lymphocytes % (auto) 7.2 %; Mean Corpuscular Hemoglobin 27.4 pg (25-34); Mean Corpuscular Hgb Conc 32.2 g/dL (32-36); Mean Corpuscular Volume 85.2 fL (80-100); Monocytes # (auto) 2.75 K/uL (0.11-0.59); Monocytes % (auto) 11.3 %; Neutrophils % (auto) 79.3 %; Platelet Count 291 K/uL (130-400); RDW Coefficient of Variation 16.4 % (11.5-14.5); RDW Standard Deviation 51.1 fL (36.4-46.3); Red Blood Count 5.54 M/uL (4.7-6.1); White Blood Count 24.41 K/uL (4.8-10.8)
--- NOTE | 2021-03-04 06:52 | Communication Note ---
Date of Service: March 04, 2021 Was notified earlier this morning that the patient had become increasingly tachypneic and hypoxic. Patient was initially on HF NC 60 L 100% with oxygen saturations in the mid 80s, and respiratory rate in the 40s. He was placed on CPAP PEEP 14 and 100% FiO2, but did not show improvement in oxygen saturations and was severely tachypneic with labored breathing. I spoke with the patient regarding his current respiratory status and he agreed to intubation and was also agreeable to tracheostomy if needed. He stated that he had had tracheostomy and PEG tube in the past when he had had a stroke. ED physician presented to the bedside and intubated Mr. Hernández on first attempt without complication. He was intubated with 7.5 ET tube 24 cm at the lip. Left IJ central line was inserted and left radial A-line. Chest x-ray confirmed line and ET tube placement and showed what appears to be worsening diffuse consolidations more so in the right lung field. Patient remained significantly hypoxic requiring 100% FiO2 PEEP 14. Peak and plateau pressures acceptable. Decision was made to proceed with proning and he underwent proning without issue at 0600 this morning for which I was present on the unit. I did speak with the patient's father and updated him on his condition. Currently his prognosis is severely guarded and the patient's father was unable to address CODE STATUS at this time. CRITICAL CARE TIME - I have personally spent 85 minutes of critical care time in the direct management of this patient. This is a life/limb threatening event. This includes time spent evaluating patient, direct bedside care, chart review, placing orders, interpretation of diagnostic studies, discussion with consultants, patient, and family members, as well as other required patient management activities. This time is exclusive of all separately billable procedures, and teaching time and separate from and in addition to any other critical care service time. Coding Level of Care Code Critical Care radha [email or web address] 30 min
--- NOTE | 2021-03-04 07:47 | Emergency Department Note ---
ED Visit Note Endotracheal Intubation Indication: Respiratory failure. I was requested to come to the patient's room by the ICU staff. The patient was on high flow oxygen by high flow nasal cannula prior to the procedure. Suction, airway equipment, RSI drugs, respiratory equipment, and appropriate personnel were prepared prior to the initiation of the procedure. A time out was taken. Induction was performed with 30 mg of IV etomidate and 160 mg of IV succinylcholine. After observing the clinical benefit of the medications, the airway was easily visualized utilizing a glide scope. A 7.5 size ETT tube was placed atraumatically to 24 cm using standard technique. The cuff inflated without signs of malfunction. There were bilateral breath sounds, positive colormetric change, no gastric sounds, a good capnography waveform, and post procedure pulse oximetry was 94%. . There were no complications. .
[2021-03-04] MEDS: FUROSEMIDE INJ 20 MG/2 ML VIAL IV SCH ×2 (08:39→20:34)
[2021-03-04] MEDS: SENNOSIDES 8.8 MG/5 ML UDC PO SCH (08:39)
[2021-03-04] MEDS: LACTULOSE SYRUP 20 GM/30 ML UDC PO SCH (08:39)
[2021-03-04] MEDS: CITALOPRAM 20 MG TAB PO SCH (08:39)
[2021-03-04 10:21] LABS: Albumin Level 3.5 gm/dl (3.4-5.0); BUN Creatinine Ratio 40.3 (10-20); Bilirubin Direct 0.6 mg/dl (0-0.2); Bilirubin,Total 1.4 mg/dl (0.2-1.0); Calcium 8.8 mg/dl (8.5-10.1); Creatinine Clr Calc Pharmacy 160.7 ml/min; Est GFR (African American) 124.5 ml/min; Est GFR (Non-African American) 107.4 ml/min; Magnesium 2.3 mg/dl (1.7-2.4); Phosphorus 2.9 mg/dl (2.5-4.9); Potassium 3.8 mmol/L (3.5-5.1); Total Protein 6.8 gm/dl (6.0-8.3)
[2021-03-04] MEDS: ICU ELECTROLYTE REPLACEMENT PROTOCOL SCH ×2 (10:34→12:56)
[2021-03-04] MEDS: RIVAROXABAN 10 MG TABLET PO SCH (10:35)
[2021-03-04] MEDS: POTASSIUM CHLORIDE 20 MEQ/15 ML UDC NG SCH (12:55)
[2021-03-04] MEDS: PANTOprazole 40 MG in SYRINGE 0 ML IV SCH (12:55)
[2021-03-04] MEDS ORDERED: CISATRACURIUM BESYLATE 40 MG in DEXTROSE 5% 80 ML IV SCH (14:45)
--- NOTE | 2021-03-04 14:50 | Critical Care Progress Note ---
Date of Service March 04, 2021 Assessment & Plan (1) Acute respiratory distress syndrome (ARDS) due to COVID-19 virus: (2) Morbid obesity with BMI of 40.0-44.9, adult: (3) Leukocytosis: (4) Respiratory acidosis: (5) Hyponatremia: (6) Hyperglycemia: Plan: 1. Neurologic: Sedated for mechanical ventilation, chronic back pain, - Continue with propfol, fentanyl, NMB discontinued - Continue baclofen, Celexa - CAM ICU unable to assess - Continue sedation for mechanical ventilation JOSE goal -2 following removal of NMB 2. Cardiovascular: Tachycardia- sinus - tachycardic for past 48 hours- in line with his elevated temperature as well- empirically treat at this time- duplex of lower legs if positive then presume as well PE - Continue to search for source - Continue to diurese to assist with oxygenation - Negative fluid volume status overnight - Although he has remained on prophy with negative CTA on arrival to the hospital will get venous ultrasound of bilateral legs today 3. Pulmonary: COVID 19, ARDS, Fibrosis - Severe ARDS following COVID 19 PNA now with re-intubation in less than 24 hours following extubation - Patient likely will require tracheostomy to assist with ventilator weaning and maintaining oxygenation and ventilation - CXR worsening opacities following extubation - could be atelectasis from loss of PEEP- however did not respond to prone therapy- supinated at 1530- CXR pending - Will start empirically on Meropenem- Gram positive bacilli in sputum with sensitivity pending - AC/CMV Pplt 28, PF ratio 780- severe ARDS- continue lung protective ventilation with ARDSnet protocol - again another course of steroids I do not believe would be of benefit- He is well outside ECMO therapy and is not a candidate secondary to body habitus. 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 4. GI: TF on hold while prone- reinitiate as he remains off pressors 5. ID: Patient does demonstrate leukocytosis which has been persistent dating back to last month and appears stable He is now febrile. His PCT is 0.13 this morning. As above previously completed 7 day course of Zosyn, 2 days of Levaquin, and 1 day Vancomycin. Legionella, aspergillus and fungal cultures all negative. - will send urine for culture for completeness - blood culture with NGTD from 03/03/21 - Sputum from 03/03/21- Gram positive bacilli with sensitivities pending 6. Renal: Judicious diuresis. Continue ICU electrolyte replacement protocol. 7. Heme-onc: Prior history of DVT. On Eliquis.- continue - Venous Doppler today 8. Endocrine: Glycemic control per ICU protocol. Patient remains with high mortality- he has now required re-intubation in less than 24 hours with no improvement in his imaging. He remains on high PEEP and high FIo2. Did attempt to call family to discuss likely need of tracheostomy with PEG placement. There was no answer, so will attempt later. As his levels on his ventilator are still high at this time would not be able to proceed until improved. Previously discussions held after talking with hospitalist is they continue to want us to try everything to support him. He could technically come out of COVKS isolation when able to support in general ICU. Admission and Anticipated Discharge Date Admission Date: February 18, 2021 Supervising Physician Co-Signing Physician Notes Patient seen and examined. EMR reviewed. Discussed on multidisciplinary rounds and with critical care nurse at bedside. Discussed with critical care RASHAWN overnight. The patient unfortunately failed a trial of extubation. He has been reintubated. He was proned due to progressive hypoxemia but this does not appear to be effective in improving the patient's overall oxygenation indices. We will continue attempts at diuresis. Given his failed extubation attempt, will likely proceed with tracheostomy at some point. Restart tube feeding once the patient is back supine. Patient's overall prognosis is guarded Subjective Patient was rounded on with the multidisciplinary team and at the bedside on the [facility] unit. The patient was extubated yesterday and was placed to [facility] he remaind tachycardic and dyspneic afterwards, requiring re-intubation early this morning. He had a CVL and arterial line placed following intubation. He required PEEP 14 and FIO2 of 100% following extubation and pronation therapy was initiated, he remains prone this morning with no increase in his SPO2 and given the late stage of his pulmonary disease likely not going to respond to this therapy. He is currently sedated with NMB. He continues to remain tachycardic and has continued to receive his Xarelto 20mg PO BID since his admission. Will obtain venous Doppler of his lower extremities to evaluate for DVT. Patient with increase in his WBC overnight with elevation of NLR, his PCT is 0.13. Febrile over last 24 hours. His lines were removed yesterday, however acute worsening overnight requiring intubation, they were replaced with CVL and [place]. Earlier in the admission he completed a 7 day course of Zosyn that was de- escalated with Vancomycin and Azithromycin. He continues to have coarse breath sounds and with poor compliance with inability to wean his settings overnight. Will supinate the patient now. He has had cultures performed yesterday as well as sputum culture with are with NGTD. Will add UA on to be complete. His liver enzymes are trending down with no specific pattern to these. Will start on Meropenem for empiric pulmonary coverage. Will obtain CXR post supination. As he has failed extubation and remains with post COVID fibrotic changes with severe ARDS, will start discussion with the family today for tracheostomy placement. Review of Systems Review of Systems: Unable to perform secondary to sedation and mechanical ventilation Physical Exam Physical Exam: PHYSICAL EXAM: General: Sedated and intubated Head: Normocephalic, atraumatic ENT: PEERLA, mild sinus sharma sinus drainage Neuro: sedated and intubated- NMB turned off following supination Chest: equal rise and fall of the chest, coarse breath sounds throughout Cardiac: Regular rate and rhythm, tachycardic, no ectopy, skin warm and dry GI: NABS x 4 quadrants, soft, ecchymosis from previous VTE injections : Ruiz to gravity Extremities: padded bony prominence Skin:ecchymosis as above Results & Data Results & Data ([facility]) Vital Signs (Past 12 Hours) Vital Signs Temp Pulse Resp BP Pulse Ox 03/04/21 13:00 38.4 C H 116 H 30 H 93 03/04/21 12:00 38.3 C H 120 H 30 H 121/84 94 03/04/21 11:12 122 H 31 H 94 03/04/21 11:00 38.3 C H 122 H 30 H 116/82 94 03/04/21 10:00 38.3 C H 121 H 30 H 115/80 93 03/04/21 09:00 38.2 C H 117 H 23 111/80 93 03/04/21 08:40 124 H 30 H 93 03/04/21 08:00 38.5 C H 125 H 30 H 141/79 H 92 03/04/21 07:00 38.6 C H 127 H 30 H 136/81 92 03/04/21 06:20 38.7 C H 128 H 30 H 138/79 92 03/04/21 06:17 38.7 C H 127 H 30 H 129/81 92 03/04/21 06:15 38.7 C H 128 H 30 H 129/80 92 03/04/21 06:12 38.7 C H 128 H 30 H 132/89 92 03/04/21 06:10 38.7 C H 127 H 30 H 138/85 92 03/04/21 06:07 38.7 C H 127 H 30 H 125/84 92 03/04/21 06:05 38.7 C H 128 H 30 H 127/83 92 03/04/21 06:02 38.7 C H 128 H 30 H 148/87 H 92 03/04/21 06:00 38.7 C H 128 H 21 148/100 H 92 03/04/21 05:42 0 L 133/83 91 03/04/21 05:40 38.7 C H 117 H 10 L 126/79 92 03/04/21 05:37 38.7 C H 119 H 20 128/73 93 03/04/21 05:35 38.7 C H 30 H 113/67 92 03/04/21 05:32 38.7 C H 119 H 30 H 116/70 92 03/04/21 05:30 38.8 C H 119 H 24 110/69 92 03/04/21 05:27 38.8 C H 119 H 30 H 113/69 92 03/04/21 05:25 38.8 C H 119 H 26 H 105/68 93 03/04/21 05:22 38.8 C H 119 H 30 H 105/69 93 03/04/21 05:20 38.7 C H 119 H 21 112/69 93 03/04/21 05:17 38.7 C H 119 H 2 L 116/72 92 03/04/21 05:15 38.7 C H 118 H 0 L 110/71 92 03/04/21 05:12 38.7 C H 119 H 0 L 108/69 93 03/04/21 05:10 38.8 C H 118 H 1 L 110/72 92 03/04/21 05:07 38.8 C H 119 H 0 L 111/69 91 03/04/21 05:05 38.8 C H 119 H 33 H 113/66 91 03/04/21 05:03 38.8 C H 122 H 24 105/73 88 L 03/04/21 05:00 117 H 29 H 123/70 88 L 03/04/21 04:57 119 H 32 H 95/68 L 91 03/04/21 04:55 119 H 32 H 99/69 L 91 03/04/21 04:52 121 H 32 H 95/66 L 91 03/04/21 04:50 120 H 34 H 95/65 L 91 03/04/21 04:47 120 H 31 H 99/70 L 91 03/04/21 04:45 120 H 31 H 102/67 87 L 03/04/21 04:42 121 H 31 H 96/77 L 88 L 03/04/21 04:40 122 H 32 H 94/67 L 89 L 03/04/21 04:38 122 H 30 H 93/58 L 88 L 03/04/21 04:35 126 H 28 H 122/89 89 L 03/04/21 04:32 126 H 31 H 118/74 89 L 03/04/21 04:30 125 H 31 H 115/77 90 03/04/21 04:27 127 H 22 121/78 90 03/04/21 04:25 125 H 27 H 123/85 90 03/04/21 04:22 123 H 10 L 109/67 90 03/04/21 04:20 127 H 30 H 130/86 91 03/04/21 04:10 125 H 0 L 125/78 90 03/04/21 04:07 123 H 5 L 121/87 90 03/04/21 04:05 122 H 4 L 146/100 H 86 L 03/04/21 04:02 120 H 29 H 135/105 H 91 03/04/21 04:00 110 H 0 L 110/75 94 03/04/21 03:58 110 H 7 L 151/89 H 93 03/04/21 03:55 109 H 30 H 167/92 H 88 L 03/04/21 03:53 123 H 7 L 228/115 H 67 L 03/04/21 03:50 120 H 34 H 129/79 85 L 03/04/21 03:49 120 H 31 H 120/87 87 L 03/04/21 03:00 124 H 49 H 118/81 92 Laboratory Results Abnormal lab results 03/04/21 03/04/21 03/04/21 Range/Units 04:56 06:06 06:06 WBC 24.41 H (4.8-10.8) K/uL RDW Std Deviation 51.1 H (36.4-46.3) fL RDW Coeff of Eleazar 16.4 H (11.5-14.5) % Neut # (Auto) 19.40 H (1.4-6.5) K/uL [place] # (Auto) 2.75 H (0.11-0.59) K/uL Immature Gran # (Auto) 0.33 H (0.00-0.02) K/uL POC pCO2 59 H (35-46) mmHg POC pO2 78 L (80-95) mmHg POC HCO3 36 H (19-24) arlene/L POC Total CO2 37 H (24-31) mmol/L POC Base Excess 11.0 H (-9-1.8) arlene/L ABG pCO2 (Temp Corrct 58 H (35-46) mmHg Carbon Dioxide 33 H (21-32) mmol/L BUN 27 H (6-23) mg/dl BUN/Creatinine Ratio 40.3 H (10-20) Glucose 147 H (70-99) mg/dl POC Glucose (70-99) mg/dl Total Bilirubin 1.4 H (0.2-1.0) mg/dl Direct Bilirubin 0.6 H (0-0.2) mg/dl AST 84 H (13-39) U/L ALT 193 H (7-52) U/L 03/04/21 Range/Units 11:55 WBC (4.8-10.8) K/uL RDW Std Deviation (36.4-46.3) fL RDW Coeff of Eleazar (11.5-14.5) % Neut # (Auto) (1.4-6.5) K/uL [place] # (Auto) (0.11-0.59) K/uL Immature Gran # (Auto) (0.00-0.02) K/uL POC pCO2 (35-46) mmHg POC pO2 (80-95) mmHg POC HCO3 (19-24) arlene/L POC Total CO2 (24-31) mmol/L POC Base Excess (-9-1.8) arlene/L ABG pCO2 (Temp Corrct (35-46) mmHg Carbon Dioxide (21-32) mmol/L BUN (6-23) mg/dl BUN/Creatinine Ratio (10-20) Glucose (70-99) mg/dl POC Glucose 135 H (70-99) mg/dl Total Bilirubin (0.2-1.0) mg/dl Direct Bilirubin (0-0.2) mg/dl AST (13-39) U/L ALT (7-52) U/L Diagnostic Findings Chest X-Ray 03/04/21 07:00 SINGLE VIEW CHEST CLINICAL HISTORY: Central venous catheter placement. Respiratory failure. FINDINGS: 3 AP, portable, supine chest radiographs are compared to study dated 03/03/2021 and correlated with chest CT dated 02/18/2021. The examination is degraded by portable technique and patient rotation. An endotracheal tube and an enteric tube are unchanged in position. A right internal jugular central venous catheter has been removed. A left internal jugular central venous catheter has been placed. The tip projects over the confluence of the innominate veins. The cardiomediastinal silhouette is unremarkable. There is chronic elevation of the right hemidiaphragm. Extensive/multifocal airspace consolidation is again seen throughout both lungs. This is similar to yesterday. No large pleural effusion or pneumothorax is seen. The bony thorax is grossly intact. IMPRESSION: 1. Lines and tubes as above. 2. No pneumothorax is identified post procedure. 3. Extensive/diffuse multifocal airspace consolidation has not appreciably changed from yesterday. ACT 112: Negative or not required by law. Electronically signed by: Matthew Carmona M.D. 03/04/2021 5:19 AM Coding Level of Care Code Critical Care 1st 30-74 mins Diagnoses Acute respiratory distress syndrome (ARDS) due to COVID-19 virus U07.1; J80 Morbid obesity with BMI of 40.0-44.9, adult E66.01; Z68.41 Leukocytosis D72.829 Respiratory acidosis E87.2 Hyponatremia E87.1 Hyperglycemia R73.9
[2021-03-04] MEDS ORDERED: MEROPENEM CONSULT ACTIVE PRN (15:21)
[2021-03-04] MEDS: MEROPENEM 500 MG in SYRINGE 0 ML IV SCH ×2 (17:11→20:34)
[2021-03-04 17:38] LABS: Appearance Urine Clear (Clear); Bacteria Urine Automated Negative (Negative); Blood Urine Negative (Negative); Color Urine Dark Yellow; Glucose Urine UA Negative (Negative); Ketones Urine Negative (Negative); Leukocyte Esterase Urine Negative (Negative); Nitrite Urine Positive (Negative); Protein Urine 1+ (Negative); Specific Gravity Urine 1.035 (1.000-1.030); Urobilinogen Urine Negative (Negative)
[2021-03-04 17:39] LABS: Bilirubin Urine 1+ (Negative)
--- NOTE | 2021-03-04 17:40 | Ultrasound Report ---
US venous doppler LE BI CLINICAL HISTORY: Bilateral lower extremity swelling. COMPARISON: None available at the time of this dictation. TECHNIQUE: Bilateral lower extremity real-time compression venous ultrasound with Color Doppler imagi ng. Utilizing real-time ultrasonic imaging multiple real time high-resolution ultrasonic images with comp ression and noncompression maneuvers of the deep venous system in addition to color doppler imaging w ere performed from the common femoral vein through the proximal calf veins. FINDINGS: Currently there is normal compressibility of the deep venous system from the common femoral vein thro ugh the proximal calf veins. No current evidence of acute thrombosis is identified. Impression: No evidence of deep venous thrombus. ACT 112: Negative or not required by law. Electronically signed by: Eugene Rome M.D. 03/04/2021 5:39 PM
--- NOTE | 2021-03-04 17:45 | XRay Report ---
XR chest 1V portable at 4:55 PM CLINICAL HISTORY: eval tubes and lines. Follow-up airspace opacity COMPARISON STUDY: 03/04/2021 at 3:40 AM TECHNIQUE: 1 view of the chest FINDINGS: Single frontal view of the chest demonstrates the heart size to again be enlarged. Compared to earlie r examination, there is again no change in the patient's tubes and catheters. There has been placemen t of an enteric tube. However, its tip cannot be visualized on this study. There is increased expansion of lungs on the current study with interval decrease in interstitial an d alveolar opacities. There is no evidence for pleural effusion. There is no evidence for vascular co ngestion. There is no acute osseous pathology. IMPRESSION: 1. Interval placement of an enteric tube. However, its tip cannot be visualized by this study. 2. Remaining tubes and catheters are unchanged. 3. Increased expansion of the lungs with decrease in interstitial and alveolar opacities bilaterally. ACT 112: Negative or not required by law. Electronically signed by: Eugene Rome M.D. 03/04/2021 5:43 PM
[2021-03-04] MEDS ORDERED: MIDAZOLAM HCL 5 MG/ML VIAL IV ONE (18:35)
[2021-03-04] MEDS ORDERED: SUCCINYLCHOLINE CHLORIDE 20 MG/ML 10 ML VIAL IV ONE (18:35)
[2021-03-04] MEDS ORDERED: ETOMIDATE 2 MG/ML 20 ML VIAL IV ONE (18:35)
[2021-03-04] MEDS ORDERED: ROCURONIUM BROMIDE 10 MG/ML 5 ML VIAL IV ONE (18:35)
--- NOTE | 2021-03-04 19:13 | Hospitalist Progress Note ---
Date of Service March 04, 2021 Assessment & Plan (1) Acute respiratory failure with hypoxia: Plan: Had been intubated 02/27/21 due to progressive respiratory failure despite max HFNC and CPAP. Extubated 03/03/20 to HFNC. Unfortunately the patient developed recurrent respiratory failure/distress in the setting of max HFNC settings. Patient re-intubated early this AM. Since then has been tachycardic, febrile. Had been off of steroids, abx, and baricitinib. Remains on lasix 20mg IV BID. Principal Systems Architect team today obtained repeat blood/sputum cultures and started meropenem empirically in the event of bacterial pneumonia, sepsis, etc. VTE w/u in progress (venous dopplers, etc). Prognosis very, very poor. Family aware of re-intubation. Appreciate wood carving machine operator support and assistance. readmitted to the hospital on 02/18/21 after he had a prolonged hospital stay in January for severe COVID-19 pneumonia. since 02/18 had been requiring HFNC with CPAP at night. prior attending suspected late-stage ARDS. he has been on steroids since his readmission on 02/18 with no improvement in his status. baricitinib was started 02/21 due to high CRP and worsening status. despite the above he continued with worsening respiratory status. pulmonary formally consulted AM of 02/27/21. 02/27/21 early afternoon patient decompensated further necessitating transfer to [facility] COVID unit for intubation. baricitinib stopped at that time. extubated 03/03/21. then reintubated AM of 03/04/21 after failing max settings of HFNC. (2) Pneumonia due to 2019 novel coronavirus: Plan: COVID 19 originally diagnosed 01/31/21. He was hospitalized from 01/31/2021 until 02/15/21. Initially treated with dexamethasone + Remdesivir during that admission. Readmitted 02/18/21; had been on HFNC since, with CPAP at night. Intubated/ventilated 02/27/21. Extubated 03/03/21. Reintubated AM of 03/04/21. CRP this admission 11.4 - baricitinib started on 02/21/21 and received 8 doses then stopped following his intubation. Completed 10 days of dexamethasone 6mg IV daily - steroids remain off. Treated for bacterial pneumonia/superinfection with 7 day course of IV zosyn; completed on 02/26/21. Remains on IV lasix to keep I/O balance negative. Repeat antibiotics with meropenem started today by the wood carving machine operator team. See above. There is high concern he has already developed fibrotic changes of the lungs. (3) Acute respiratory distress syndrome (ARDS) due to COVID-19 virus: Plan: Late-stage ARDS in setting of severe COVID-19 pneumonia in 01/2021. Treated with copious IV dexamethasone since mid-January. CTA chest this admission with findings worrisome for fibrotic changes. s/p intubation and mech ventilation 02/27/21 for refractory respiratory failure. Extubated 03/03, then reintubated early this am. See above. (4) Bacterial pneumonia: Plan: Treated for such with 7-day course of IV zosyn; completion date 02/26/21. Legionella Ag urine not detected. aspergillus negative. procals have been negative the entire admission. (5) Hypertension: Plan: cont to hold metoprolol (6) Dyslipidemia: Plan: AST/ALT had been elevated for several weeks statin on hold repeat LFTs today still elevated 2nd to ongoing COVID-19? other? (7) Left knee pain: Plan: earlier this admission ? gouty arthritis improved with Colchine 0.6mg PO BID no issues at this time (8) Transaminitis: Plan: 2nd to COVID-19 +/- baseline fatty liver (9) DVT prophylaxis: Plan: xarelto 10mg daily (10) Type 2 diabetes mellitus: Plan: new diagnosis a1c 6.7% ICU glycemic protocol (11) Hyponatremia: Plan: resolved Plan: appreciate pulmonary/wood carving machine operator assistance I updated Delmar's father again this evening He understands what has happened in the last 24 hours He is hopeful that his son will get through this He has been counseled that his son will likely need tracheostomy soon support given will cont to follow Admission and Anticipated Discharge Date Admission Date: February 18, 2021 Subjective events of overnight reviewed unfortunately the patient decompensated as the night went on HFNC ultimately was maxed out - resp distress continued transitioned to CPAP without improvement decision made to intubate following intubation patient was proned during my bedside visit patient was still proned Physical Exam Physical Exam: gen - intubated, proned, sedated lungs - course BS b/l, rales bases b/l ext - no edema, pulses 1-2+ b/l Results & Data Results & Data ([facility]) Vital Signs (Past 12 Hours) Vital Signs Temp Pulse Resp BP Pulse Ox 03/04/21 19:00 38.8 C H 111 H 29 H 100/75 97 03/04/21 18:00 38.7 C H 109 H 26 H 103/70 97 03/04/21 17:00 38.7 C H 109 H 25 H 92/70 L 96 03/04/21 16:00 38.7 C H 113 H 30 H 106/69 97 03/04/21 15:00 38.6 C H 124 H 30 H 121/86 93 03/04/21 14:00 38.4 C H 122 H 30 H 125/85 93 03/04/21 13:00 38.4 C H 116 H 30 H 93 03/04/21 12:00 38.3 C H 120 H 30 H 121/84 94 03/04/21 11:12 122 H 31 H 94 03/04/21 11:00 38.3 C H 122 H 30 H 116/82 94 03/04/21 10:00 38.3 C H 121 H 30 H 115/80 93 03/04/21 09:00 38.2 C H 117 H 23 111/80 93 03/04/21 08:40 124 H 30 H 93 03/04/21 08:00 38.5 C H 125 H 30 H 141/79 H 92 Laboratory Results Laboratory Results - last 24 hr 03/04/21 03/04/21 03/04/21 04:56 06:06 06:06 WBC 24.41 H RBC 5.54 Hgb 15.2 POC Hgb 15.0 Hct 47.2 POC Hct 44 MCV 85.2 MCH 27.4 MCHC 32.2 RDW Std Deviation 51.1 H RDW Coeff of Eleazar 16.4 H Plt Count 291 MPV 10.0 Immature Gran % (Auto) 1.4 Neut % (Auto) 79.3 Lymph % (Auto) 7.2 [place] % (Auto) 11.3 Eos % (Auto) 0.6 Baso % (Auto) 0.2 Neut # (Auto) 19.40 H Lymph # (Auto) 1.75 [place] # (Auto) 2.75 H Eos # (Auto) 0.14 Baso # (Auto) 0.04 Immature Gran # (Auto) 0.33 H Sample Site Art Line POC pH 7.39 POC pCO2 59 H POC pO2 78 L POC HCO3 36 H POC Total CO2 37 H POC Base Excess 11.0 H ABG pH (Temp Correct) 7.399 ABG pCO2 (Temp Corrct 58 H POC ABG pO2 at Pt Temp 76 POC ABG O2 Sat 95.0 Brodie Test NA POC Sodium 141 Sodium 144 D POC Potassium 3.9 Potassium 3.8 Chloride 100 Carbon Dioxide 33 H Anion Gap 11 BUN 27 H Creatinine 0.67 Est Cr Clr Drug Dosing 160.7 Est GFR ( Amer) 124.5 Est GFR (Non-Af Amer) 107.4 BUN/Creatinine Ratio 40.3 H Glucose 147 H POC Glucose Calcium 8.8 Phosphorus 2.9 Magnesium 2.3 Total Bilirubin 1.4 H Direct Bilirubin 0.6 H AST 84 H ALT 193 H Alkaline Phosphatase 40 Total Protein 6.8 Albumin 3.5 Procalcitonin Urine Color Urine Appearance Urine pH Ur Specific [place] Urine Protein Urine Glucose (UA) Urine Ketones Urine Blood Urine Nitrite Urine Bilirubin Urine Urobilinogen Ur Leukocyte Esterase Urine WBC (Auto) Urine RBC (Auto) U Hyaline Cast (Auto) U Epithel Cells (Auto) Urine Bacteria (Auto) Nasal Screen MRSA (PCR) 03/04/21 03/04/21 03/04/21 06:06 11:55 17:25 WBC RBC Hgb POC Hgb Hct POC Hct MCV MCH MCHC RDW Std Deviation RDW Coeff of Eleazar Plt Count MPV Immature Gran % (Auto) Neut % (Auto) Lymph % (Auto) [place] % (Auto) Eos % (Auto) Baso % (Auto) Neut # (Auto) Lymph # (Auto) [place] # (Auto) Eos # (Auto) Baso # (Auto) Immature Gran # (Auto) Sample Site POC pH POC pCO2 POC pO2 POC HCO3 POC Total CO2 POC Base Excess ABG pH (Temp Correct) ABG pCO2 (Temp Corrct POC ABG pO2 at Pt Temp POC ABG O2 Sat Brodie Test POC Sodium Sodium POC Potassium Potassium Chloride Carbon Dioxide Anion Gap BUN Creatinine Est Cr Clr Drug Dosing Est GFR ( Amer) Est GFR (Non-Af Amer) BUN/Creatinine Ratio Glucose POC Glucose 135 H Calcium Phosphorus Magnesium Total Bilirubin Direct Bilirubin AST ALT Alkaline Phosphatase Total Protein Albumin Procalcitonin 0.13 Urine Color Dark Yellow Urine Appearance Clear Urine pH 5.0 Ur Specific [place] 1.035 H Urine Protein 1+ H Urine Glucose (UA) Negative Urine Ketones Negative Urine Blood Negative Urine Nitrite Positive A Urine Bilirubin 1+ H Urine Urobilinogen Negative Ur Leukocyte Esterase Negative Urine WBC (Auto) 1-5 Urine RBC (Auto) 5-10 H U Hyaline Cast (Auto) 5-10 H U Epithel Cells (Auto) 10-20 H Urine Bacteria (Auto) Negative Nasal Screen MRSA (PCR) 03/04/21 17:25 WBC RBC Hgb POC Hgb Hct POC Hct MCV MCH MCHC RDW Std Deviation RDW Coeff of Eleazar Plt Count MPV Immature Gran % (Auto) Neut % (Auto) Lymph % (Auto) [place] % (Auto) Eos % (Auto) Baso % (Auto) Neut # (Auto) Lymph # (Auto) [place] # (Auto) Eos # (Auto) Baso # (Auto) Immature Gran # (Auto) Sample Site POC pH POC pCO2 POC pO2 POC HCO3 POC Total CO2 POC Base Excess ABG pH (Temp Correct) ABG pCO2 (Temp Corrct POC ABG pO2 at Pt Temp POC ABG O2 Sat Brodie Test POC Sodium Sodium POC Potassium Potassium Chloride Carbon Dioxide Anion Gap BUN Creatinine Est Cr Clr Drug Dosing Est GFR ( Amer) Est GFR (Non-Af Amer) BUN/Creatinine Ratio Glucose POC Glucose Calcium Phosphorus Magnesium Total Bilirubin Direct Bilirubin AST ALT Alkaline Phosphatase Total Protein Albumin Procalcitonin Urine Color Urine Appearance Urine pH Ur Specific [place] Urine Protein Urine Glucose (UA) Urine Ketones Urine Blood Urine Nitrite Urine Bilirubin Urine Urobilinogen Ur Leukocyte Esterase Urine WBC (Auto) Urine RBC (Auto) U Hyaline Cast (Auto) U Epithel Cells (Auto) Urine Bacteria (Auto) Nasal Screen MRSA (PCR) Negative PG Care Time/CCT Total # of Minutes Spent Total Time Spent with Patient: Total time spent is greater than 50% in coordination of care (as documented) at patient's floor/unit and/or counseling patient: Coding Level of Care Code 14241 Subseq Hosp Care Lvl 1 Diagnoses Acute respiratory failure with hypoxia J96.01 Pneumonia due to 2019 novel coronavirus U07.1; J12.82 Acute respiratory distress syndrome (ARDS) due to COVID-19 virus U07.1; J80 Bacterial pneumonia J15.9 Hypertension I10 Dyslipidemia E78.5 Left knee pain M25.562 Transaminitis R74.01 DVT prophylaxis Z29.9 Type 2 diabetes mellitus E11.9 Hyponatremia E87.1
[2021-03-04] MEDS ORDERED: Heparin IV Adult Wt-Based Standard *NO* Bolus Protocol IV SCH (19:18)
[2021-03-04 20:09] LABS: Hematocrit (blood only) 44.9 % (42-52); Hemoglobin 14.1 g/dL (14.0-18.0); Mean Corpuscular Hemoglobin 27.3 pg (25-34); Mean Platelet Volume 9.7 fL (7.4-10.4); Platelet Count 241 K/uL (130-400); RDW Coefficient of Variation 16.6 % (11.5-14.5); Red Blood Count 5.16 M/uL (4.7-6.1); White Blood Count 21.35 K/uL (4.8-10.8)
[2021-03-04 20:15] LABS: Mean Corpuscular Hgb Conc 31.4 g/dL (32-36)
[2021-03-04 20:20] LABS: INR 1.1 (0.9-1.1); Partial Thromboplastin Time 25.1 Seconds (21.0-31.0); Prothrombin Time 11.4 Seconds (9.0-12.0)
[2021-03-04 20:28] LABS: Basophils # (auto) 0.01 K/uL (0-0.2); Eosinophils # (auto) 0.33 K/uL (0-0.5); Eosinophils % (auto) 1.5 %; Immature Granulocytes # (auto) 0.16 K/uL (0.00-0.02); Immature Granulocytes % (auto) 0.7 %; Lymphocytes # (auto) 2.93 K/uL (1.2-3.4); Lymphocytes % (auto) 13.7 %; Monocytes # (auto) 0.83 K/uL (0.11-0.59); Monocytes % (auto) 3.9 %; Neutrophils # (auto) 17.09 K/uL (1.4-6.5); Neutrophils % (auto) 80.2 %
[2021-03-04] MEDS: HEPARIN SODIUM/DEXTROSE 25,000 UNITS/500 ML BAG IV SCH (20:34)
[2021-03-05] MEDS: propofoL 1,000 MG/100 ML VIAL IV SCH ×8 (00:11→21:34)
[2021-03-05] MEDS: ARTIFICIAL TEARS OP OINT 3.5 GM TUBE OP SCH ×6 (02:22→22:24)
[2021-03-05 02:39] LABS: Basophils # (auto) 0.02 K/uL (0-0.2); Basophils % (auto) 0.1 %; Eosinophils # (auto) 0.34 K/uL (0-0.5); Eosinophils % (auto) 1.8 %; Hematocrit (blood only) 44.9 % (42-52); Immature Granulocytes # (auto) 0.16 K/uL (0.00-0.02); Immature Granulocytes % (auto) 0.8 %; Lymphocytes # (auto) 1.69 K/uL (1.2-3.4); Lymphocytes % (auto) 8.8 %; Mean Corpuscular Hemoglobin 27.1 pg (25-34); Mean Corpuscular Hgb Conc 31.2 g/dL (32-36); Mean Corpuscular Volume 86.8 fL (80-100); Mean Platelet Volume 9.6 fL (7.4-10.4); Neutrophils # (auto) 14.67 K/uL (1.4-6.5); Neutrophils % (auto) 76.5 %; Platelet Count 220 K/uL (130-400); RDW Coefficient of Variation 16.4 % (11.5-14.5); RDW Standard Deviation 52.4 fL (36.4-46.3); Red Blood Count 5.17 M/uL (4.7-6.1); White Blood Count 19.18 K/uL (4.8-10.8)
[2021-03-05 02:48] LABS: Partial Thromboplastin Ratio 1.5; Partial Thromboplastin Time 39.7 Seconds (21.0-31.0)
[2021-03-05 02:58] LABS: BUN Creatinine Ratio 42.6 (10-20); Calcium 8.8 mg/dl (8.5-10.1); Creatinine Clr Calc Pharmacy 176.5 ml/min; Est GFR (African American) 129.4 ml/min; Est GFR (Non-African American) 111.6 ml/min; Magnesium 2.3 mg/dl (1.7-2.4); Phosphorus 2.1 mg/dl (2.5-4.9); Potassium 4.3 mmol/L (3.5-5.1)
[2021-03-05] MEDS: fentaNYL citrate 2,500 MCG/250 ML BAG IV SCH ×5 (03:04→19:49)
[2021-03-05] MEDS: ACETAMINOPHEN SUSP 325 MG/10.15 ML UDC NG PRN (03:07)
[2021-03-05] MEDS: MEROPENEM 500 MG in SYRINGE 0 ML IV SCH ×4 (03:15→22:24)
[2021-03-05 04:21] LABS: iSTAT Arterial Blood Gas HCO3 42 meg/L (19-24); iSTAT Arterial Blood Gas pCO2 68 mmHg (35-46); iSTAT Arterial Blood Gas pH 7.39 (7.35-7.45); iSTAT Arterial Blood Gas pO2 95 mmHg (80-95); iSTAT Carbon Dioxide > 40 mmol/L (24-31); iSTAT FiO2 70 %; iSTAT Site Art Line
[2021-03-05] MEDS ORDERED: SODIUM PHOSPHATE 3 MMOL/1 ML INFUSION IV STA (04:26)
[2021-03-05] MEDS ORDERED: SODIUM PHOSPHATE 15 MMOL in DEXTROSE 5% 250 ML IV ONE (05:00)
[2021-03-05] MEDS: ICU ELECTROLYTE REPLACEMENT PROTOCOL SCH ×2 (05:34→14:19)
[2021-03-05] MEDS: PROPOFOL BOLUS FROM BAG IV PRN ×3 (05:36→20:25)
--- NOTE | 2021-03-05 07:46 | XRay Report ---
XR chest 1V portable CLINICAL HISTORY: Respiratory failure. COMPARISON STUDY: Chest radiograph March 04, 2021 at 4:55 AM. FINDINGS: Tip of endotracheal tube is 5.1 cm above the donal. Tip of nasogastric tube is difficult t o visualize but at least within the gastric antrum. Tip of left internal jugular central line project s over the proximal SVC. There is been interval development of suspected soft tissue gas within the r ight neck. Bilateral airspace opacities, greater within the right lung, persist. IMPRESSION: 1. No significant change in bilateral airspace opacities, greater within the right lung. 2. Tip of endotracheal tube 5.1 cm above the donal. 3. Interval development of suspected soft tissue gas within the right neck. No pneumothorax. ACT 112: Negative or not required by law. Electronically signed by: Zack Sharp M.D. 03/05/2021 7:45 AM
[2021-03-05] MEDS: LACTULOSE SYRUP 20 GM/30 ML UDC PO SCH (08:31)
[2021-03-05] MEDS: SENNOSIDES 8.8 MG/5 ML UDC PO SCH (08:31)
[2021-03-05] MEDS: CITALOPRAM 20 MG TAB PO SCH (08:31)
[2021-03-05] MEDS: FUROSEMIDE INJ 20 MG/2 ML VIAL IV SCH ×2 (08:31→19:49)
--- NOTE | 2021-03-05 08:59 | Critical Care Progress Note ---
Date of Service March 05, 2021 Assessment & Plan (1) Acute respiratory distress syndrome (ARDS) due to COVID-19 virus: (2) Morbid obesity with BMI of 40.0-44.9, adult: (3) Leukocytosis: (4) Respiratory acidosis: (5) Hyponatremia: (6) Hyperglycemia: Plan: 1. Neurologic: Sedated for mechanical ventilation, chronic back pain, - Continue with propfol, fentanyl, NMB discontinued 03/04/21- plan to decrease sedation following tracheostomy as appropriate - Continue baclofen, Celexa - CAM ICU unable to assess - Continue sedation for mechanical ventilation JOSE goal -2 2. Cardiovascular: Tachycardia- sinus - tachycardic improved- likely related to bacterial infection continue meropenem - Continue to diurese to assist with oxygenation - Negative fluid volume status overnight - Although he has remained on prophy with negative CTA on arrival to the hospital will get venous ultrasound of bilateral legs today - No further evidence of organ dysfunction 3. Pulmonary: COVID 19, ARDS, Fibrosis - Severe ARDS following COVID 19 PNA now with re-intubation in less than 24 hours following extubation- likely need equipment operator intermodal yard support- Tracheostomy planned for today - Continue empirically on Meropenem- Gram positive bacilli in sputum with sensitivity pending - AC/CMV Pplt 28, PF ratio 190- improved - again another course of steroids I do not believe would be of benefit- He is well outside ECMO therapy and is not a candidate secondary to body habitus. 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 4. GI: TF on hold for evaluation of perc trach today - Following will place small bore tube - Plan for GI consult for PEG placement likely early next week 5. ID: Patient does demonstrate leukocytosis which has been persistent dating back to last month and appears stable He is now febrile. His PCT is 0.13 this morning. As above previously completed 7 day course of Zosyn, 2 days of Levaquin, and 1 day Vancomycin. Legionella, aspergillus and fungal cultures all negative. - will send urine for culture for completeness- NGTD - blood culture with NGTD from 03/03/21 - Sputum from 03/03/21- Gram positive bacilli with sensitivities pending 6. Renal: Judicious diuresis. Continue ICU electrolyte replacement protocol. 7. Heme-onc: Prior history of DVT. On Eliquis.- continue - Venous Doppler negative - Heparin drip on hold- can resume following Perc Trach and likely remain on until PEG completed 8. Endocrine: Glycemic control per ICU protocol. Patient remains with high mortality- he has now required re-intubation in less than 24 hours with no improvement in his imaging. He remains on high PEEP and high FIo2. Did discuss case with family today and Hosptialist. Plan updated consent obtained. Risks, benefits including were discussed. He could technically come out of COVID isolation when able to support in general ICU. Admission and Anticipated Discharge Date Admission Date: February 18, 2021 Supervising Physician Co-Signing Physician Notes Seen and examined. EMR reviewed. Agree with assessment plan as noted by critical care RASHAWN. Continue support. Heparins been held. Patient underwent percutaneous bedside dilatation of tracheostomy today. Will restart heparin this evening without bolus and can likely transition back to Eliquis within the next 24 to 48 hours. Will need to consult from GI next week for PEG tube p lacement. Continue antibiotics and search for secondary infection. Should be able to wean sedation now that tracheostomy is in place. Family updated by critical care RASHAWN Subjective Patient was rounded on with the multidisciplinary team and at the bedside on the COVID unit. The patient required re-intubation early 04Mar2021 for respiratory failure following extubation. He had a CVL and arterial line placed following intubation. He required PEEP 14 and FIO2 of 100% following extubation and pronation therapy was initiated, he was supinated yesterday ~1530 for failure to respond. His Spo2 increased and his ventilator settings have been weaned down this this morning and is currently PEEP 10 and FIO2 0.50. Venous Doppler of his lower extremities to evaluate for DVT was negative yesterday. He was transitioned to heparin drip last night to replace his Eliquis in preparation for Tracheostomy placement as his setting yesterday were still high. As these have decreased to reasonable levels, will hold his Heparin drip now for 3-4 hours and plan on percutaneous tracheostomy today. Tube feeds remain on hold. Patient fever curve and WBC have decreased since initialing Meropenem therapy. Continue to wait for culture speciation. Consent for Bronchoscopy guided percutaneous tracheostomy placement was obtained via phone consent with father Delmar Hernández . Placed on chart Review of Systems Review of Systems: Unable to perform secondary to intubation and sedation Physical Exam Physical Exam: PHYSICAL EXAM: General: Sedated and intubated Head: Normocephalic, atraumatic ENT: PEERLA, mild sinus sharma sinus drainage Neuro: sedated and intubated Chest: equal rise and fall of the chest, coarse breath sounds throughout Cardiac: Regular rate and rhythm, NSR, no ectopy, skin warm and dry GI: NABS x 4 quadrants, soft, ecchymosis from previous VTE injections : Ruiz to gravity Extremities: padded bony prominence Skin:ecchymosis as above Results & Data Results & Data ([facility]) Vital Signs (Past 12 Hours) Vital Signs Temp Pulse Resp BP Pulse Ox 03/05/21 08:20 99 H 30 H 95 03/05/21 08:00 102 H 109/56 L 03/05/21 05:00 39.2 C H 104 H 30 H 98/64 L 97 03/05/21 04:00 39.2 C H 106 H 27 H 102/65 97 03/05/21 03:35 106 H 33 H 97 03/05/21 03:00 39.2 C H 106 H 28 H 97/68 L 97 03/05/21 02:00 39.3 C H 106 H 32 H 99/69 L 97 03/05/21 01:00 39.3 C H 108 H 28 H 100/68 97 03/05/21 00:00 39.4 C H 114 H 28 H 93/66 L 97 03/04/21 23:00 39.3 C H 112 H 30 H 95/69 L 97 03/04/21 22:53 112 H 31 H 97 03/04/21 22:00 39.3 C H 113 H 28 H 100/67 96 03/04/21 21:00 39.1 C H 110 H 30 H 107/70 96 Laboratory Results Abnormal lab results 03/04/21 03/04/21 03/04/21 Range/Units 11:55 17:25 19:53 WBC 21.35 H (4.8-10.8) K/uL MCHC 31.4 L (32-36) g/dL RDW Std Deviation 53.0 H (36.4-46.3) fL RDW Coeff of Eleazar 16.6 H (11.5-14.5) % Neut # (Auto) 17.09 H (1.4-6.5) K/uL [place] # (Auto) 0.83 H (0.11-0.59) K/uL Immature Gran # (Auto) 0.16 H (0.00-0.02) K/uL APTT (21.0-31.0) Seconds POC pCO2 (35-46) mmHg POC HCO3 (19-24) arlene/L POC Total CO2 (24-31) mmol/L POC Base Excess (-9-1.8) arlene/L POC ABG O2 Sat (90-95) % Carbon Dioxide (21-32) mmol/L BUN (6-23) mg/dl BUN/Creatinine Ratio (10-20) Glucose (70-99) mg/dl POC Glucose 135 H (70-99) mg/dl Phosphorus (2.5-4.9) mg/dl Ur Specific [place] 1.035 H (1.000-1.030) Urine Protein 1+ H (Negative) Urine Nitrite Positive A (Negative) Urine Bilirubin 1+ H (Negative) Urine RBC (Auto) 5-10 H (0-4) /hpf U Hyaline Cast (Auto) 5-10 H (0-5) /lpf U Epithel Cells (Auto) 10-20 H (0-5) /lpf 03/05/21 03/05/21 03/05/21 Range/Units 02:26 02:26 02:26 WBC 19.18 H (4.8-10.8) K/uL MCHC 31.2 L (32-36) g/dL RDW Std Deviation 52.4 H (36.4-46.3) fL RDW Coeff of Eleazar 16.4 H (11.5-14.5) % Neut # (Auto) 14.67 H (1.4-6.5) K/uL [place] # (Auto) 2.30 H (0.11-0.59) K/uL Immature Gran # (Auto) 0.16 H (0.00-0.02) K/uL APTT 39.7 H (21.0-31.0) Seconds POC pCO2 (35-46) mmHg POC HCO3 (19-24) arlene/L POC Total CO2 (24-31) mmol/L POC Base Excess (-9-1.8) arlene/L POC ABG O2 Sat (90-95) % Carbon Dioxide 37 H (21-32) mmol/L BUN 26 H (6-23) mg/dl BUN/Creatinine Ratio 42.6 H (10-20) Glucose 151 H (70-99) mg/dl POC Glucose (70-99) mg/dl Phosphorus 2.1 L (2.5-4.9) mg/dl Ur Specific [place] (1.000-1.030) Urine Protein (Negative) Urine Nitrite (Negative) Urine Bilirubin (Negative) Urine RBC (Auto) (0-4) /hpf U Hyaline Cast (Auto) (0-5) /lpf U Epithel Cells (Auto) (0-5) /lpf 03/05/21 03/05/21 Range/Units 03:48 08:18 WBC (4.8-10.8) K/uL MCHC (32-36) g/dL RDW Std Deviation (36.4-46.3) fL RDW Coeff of Eleazar (11.5-14.5) % Neut # (Auto) (1.4-6.5) K/uL [place] # (Auto) (0.11-0.59) K/uL Immature Gran # (Auto) (0.00-0.02) K/uL APTT 46.0 H* (21.0-31.0) Seconds POC pCO2 68 H (35-46) mmHg POC HCO3 42 H (19-24) arlene/L POC Total CO2 > 40 H* (24-31) mmol/L POC Base Excess 17.0 H (-9-1.8) arlene/L POC ABG O2 Sat 97.0 H (90-95) % Carbon Dioxide (21-32) mmol/L BUN (6-23) mg/dl BUN/Creatinine Ratio (10-20) Glucose (70-99) mg/dl POC Glucose (70-99) mg/dl Phosphorus (2.5-4.9) mg/dl Ur Specific [place] (1.000-1.030) Urine Protein (Negative) Urine Nitrite (Negative) Urine Bilirubin (Negative) Urine RBC (Auto) (0-4) /hpf U Hyaline Cast (Auto) (0-5) /lpf U Epithel Cells (Auto) (0-5) /lpf Diagnostic Findings Venous Doppler Study 03/04/21 14:38 US venous doppler LE BI CLINICAL HISTORY: Bilateral lower extremity swelling. COMPARISON: None available at the time of this dictation. TECHNIQUE: Bilateral lower extremity real-time compression venous ultrasound with Color Doppler imaging. Utilizing real-time ultrasonic imaging multiple real time high-resolution ultrasonic images with compression and noncompression maneuvers of the deep venous system in addition to color doppler imaging were performed from the common femoral vein through the proximal calf veins. FINDINGS: Currently there is normal compressibility of the deep venous system from the common femoral vein through the proximal calf veins. No current evidence of acute thrombosis is identified. Impression: No evidence of deep venous thrombus. ACT 112: Negative or not required by law. Electronically signed by: Eugene Rome M.D. 03/04/2021 5:39 PM Chest X-Ray 03/04/21 15:32 XR chest 1V portable at 4:55 PM CLINICAL HISTORY: eval tubes and lines. Follow-up airspace opacity COMPARISON STUDY: 03/04/2021 at 3:40 AM TECHNIQUE: 1 view of the chest FINDINGS: Single frontal view of the chest demonstrates the heart size to again be enlarged. Compared to earlier examination, there is again no change in the patient's tubes and catheters. There has been placement of an enteric tube. However, its tip cannot be visualized on this study. There is increased expansion of lungs on the current study with interval decrease in interstitial and alveolar opacities. There is no evidence for pleural effusion. There is no evidence for vascular congestion. There is no acute osseous pathology. IMPRESSION: 1. Interval placement of an enteric tube. However, its tip cannot be visualized by this study. 2. Remaining tubes and catheters are unchanged. 3. Increased expansion of the lungs with decrease in interstitial and alveolar opacities bilaterally. ACT 112: Negative or not required by law. Electronically signed by: Eugene Rome M.D. 03/04/2021 5:43 PM Chest X-Ray 03/05/21 07:00 XR chest 1V portable CLINICAL HISTORY: Respiratory failure. COMPARISON STUDY: Chest radiograph March 04, 2021 at 4:55 AM. FINDINGS: Tip of endotracheal tube is 5.1 cm above the donal. Tip of nasogastric tube is difficult to visualize but at least within the gastric antru m. Tip of left internal jugular central line projects over the proximal SVC. There is been interval development of suspected soft tissue gas within the right neck. Bilateral airspace opacities, greater within the right lung, persist. IMPRESSION: 1. No significant change in bilateral airspace opacities, greater within the right lung. 2. Tip of endotracheal tube 5.1 cm above the donal. 3. Interval development of suspected soft tissue gas within the right neck. No pneumothorax. ACT 112: Negative or not required by law. Electronically signed by: Zack Sharp M.D. 03/05/2021 7:45 AM Coding Level of Care Code Critical Care 1st 30-74 mins Diagnoses Acute respiratory distress syndrome (ARDS) due to COVID-19 virus U07.1; J80 Morbid obesity with BMI of 40.0-44.9, adult E66.01; Z68.41 Leukocytosis D72.829 Respiratory acidosis E87.2 Hyponatremia E87.1 Hyperglycemia R73.9
[2021-03-05 09:03] LABS: Partial Thromboplastin Ratio 1.7
[2021-03-05] MEDS: HEPARIN SODIUM/DEXTROSE 25,000 UNITS/500 ML BAG IV SCH ×2 (09:12→20:28)
[2021-03-05] MEDS: PANTOprazole 40 MG in SYRINGE 0 ML IV SCH (10:52)
[2021-03-05] MEDS ORDERED: LIDOCAINE 1% LOCAL 20 ML VIAL ONE (13:56)
--- NOTE | 2021-03-05 14:46 | Procedure Note ---
Procedure Note Date of Service March 05, 2021 Note Procedure: 1. Percutaneous dilatation of 8.o Shiley tracheostomy Indication respiratory failure Business Mgr Dr. Danny Mathew Anesthesia: Patient was maintained on a propofol infusion. 10 mL bolus was administered as well as infusion at continuous rate. Continuous fentanyl infusion with 100 mcg bolus. 10 mg vecuronium. Consent: Risks and benefits were discussed with the patient's . Consent was verified and timeout was performed prior to starting the procedure. Manager Of Application Development: MINERVA Sales Estimated blood loss: Less than 10 mL Procedure: The patient is in the ICU intubated and on the ventilator. He is placed on 100 percent FiO2. A timeout was performed. Consent was verified. Patient was paralyzed and sedation maintained. Once anesthesia was appropriate, neck roll was placed under the shoulders to allow for extension of the neck. Landmarks were easily palpable. The patient did undergone a previous tracheostomy and he had a lower tracheal midline incision noted. The area around the previous incision/scar tissue was cleaned and draped using chlorhexidine. A sterile field was established. Using an 11 blade scalpel, a 1.5 cm longitudinal incision excising this area of scar tissue was performed Blunt dissection with my index finger and the curved hemostats was conducted down until I could palpate tracheal rings with my index finger. At that point in time, MINERVA Sales advanced the bronchoscope through the existing endotracheal tube. The bronchoscope was left at the tip of the ET tube. The cuff was deflated and the bronchoscope and endotracheal tube were withdrawn to a level just below the glottis. I was able to observe external ballottement using a curved forceps. Using an 18-gauge over the needle Angiocath, the trachea was entered between the second and third cartilaginous ring. A wire was passed through the catheter into the distal airway and visualized bronchoscopically to be distending into the lower airways. Catheter was removed leaving the wire in place. Stiff dilator was used to dilate the tract and then the Rhino dilator and guiding catheter were advanced over the wire into the airway. The Rhino dilator was removed leaving the wire and guiding catheter in place. A p reviously tested 8.0 Shiley cuffed tracheostomy had been lubricated and loading on a 26 Palau[place] delivery catheter. This was advanced over the wire and guiding catheter into the airway. There were significant surgical adhesions and scar tissue which had to be manually lysed, eventually resulting in placement of the trach tube in the airway. Once the trach tube was in place, the loading catheter, guiding catheter, and wire were removed. The bronchoscope was then removed from the endotracheal tube and advanced through the newly placed tracheostomy tube and verified to be within the airway. The balloon was inflated. The inner cannula was replaced and the patient was attached to the ventilator. Good return tidal volumes were obtained. 3 Vicryl stay sutures were placed in the newly placed tracheostomy at 12 and 6 o'clock position. A drain sponge was placed and trach ties were attached. The roll under the shoulder blades was removed. Patient tolerated the procedure well. Coding CPT Codes ENT - ENT: 19029 Incision of windpipe ([id number]) [facility] [place] Procedure Codes (Charges) ENT ENT: 31011 Incision of windpipe
--- NOTE | 2021-03-05 14:58 | XRay Report ---
XR chest 1V portable CLINICAL HISTORY: New tracheostomy, New NG tube COMPARISON STUDY: Chest radiograph March 05, 2021 at 7:30 AM. FINDINGS: Interval tracheostomy is noted. Tip of feeding tube projects over the distal body of the st omach. Small amount of gas within the right neck is again noted. There is no pneumothorax or pleural effusion. Elevation the right hemidiaphragm is unchanged. Bilateral airspace opacities, greater withi n the right lung, persist. IMPRESSION: 1. Interval placement of a tracheostomy. 2. Tip of feeding tube projects over the distal body of the stomach. 3. No significant change in bilateral airspace opacities, greater within the right lung. ACT 112: Negative or not required by law. Electronically signed by: Zack Sharp M.D. 03/05/2021 2:56 PM
--- NOTE | 2021-03-05 15:02 | Procedure Note ---
Procedure Note Date of Service March 05, 2021 Note BRONCHOSCOPY guided percutaneous tracheostomy placement Procedure: Flexible Bronchoscopy Attending: Dr. Bowen Proceduralist for bronch: Karthikeyan ARAUZ ([facility]) Sole Rounder for percutaneous tracheostomy: Dr. Bowen Anesthetic/Sedation: Fentanyl infusion, propofol infusion, NMB Indication: Percutaneous tracheostomy placement [X} Consent was signed and placed on the chart prior to procedure A time-out was completed verifying correct patient, procedure, site, positioning, and implant(s) or special equipment if applicable. Procedure: Bronchoscope was advanced down ETT, donal visualized. The bronchoscope was then withdrawn with the ETT to the level where transillumination was noted by Dr. Bowen. Seeker needle was then placed through anterior neck by Dr. bowen and guide wire was passed after ensuring no penetration into the posterior wall of the trachea. Guidewire was visualized to go down the airway. The site was then dilated and placement of tracheostomy tube was done and cuff was inflated on the tracheostomy. The bronchoscope was then withdrawn and placed down the newly placed tracheostomy canula and verified to be in good position by visualizing the donal. No blood and scant sputum was noted. The scope and ETT was removed. Specimens:NONE Complications: NONE Coding CPT Codes Pulmonary/Thoracic - Pulmonary and Thoracic: 16691 Dx bronchoscopy/BAL ([id number]) [facility] [place] (Charges) Pulmonary/Thoracic Procedure 1: Pulmonary and Thoracic: 47756 Dx bronchoscopy/BAL
--- NOTE | 2021-03-05 16:07 | Hospitalist Progress Note ---
Date of Service March 05, 2021 Assessment & Plan (1) Acute respiratory distress syndrome (ARDS) due to COVID-19 virus: Plan: respiratory failure with hypoxia Had been intubated 02/27/21 due to progressive respiratory failure despite max HFNC and CPAP. Extubated 03/03/20 to HFNC. Unfortunately the patient developed recurrent respiratory failure/distress in the setting of max HFNC settings. Patient re-intubated early in morning on 03/04/21 tracheostomy performed 03/05/21 by ICU remains tachycardic, febrile. started on Meropenem empirically, gram negative bacilli from sputum readmitted to the hospital on 02/18/21 after he had a prolonged hospital stay in January for severe COVID-19 pneumonia. since 02/18 had been requiring HFNC with CPAP at night. prior attending suspected late-stage ARDS. he has been on steroids since his readmission on 02/18 with no improvement in his status. baricitinib was started 02/21 due to high CRP and worsening status. despite the above he continued with worsening respiratory status. pulmonary formally consulted AM of 02/27/21. 02/27/21 early afternoon patient decompensated further necessitating transfer to [facility] COVID unit for intubation. baricitinib stopped at that time. extubated 03/03/21. then reintubated AM of 03/04/21 after failing max settings of HFNC. (2) Pneumonia due to 2019 novel coronavirus: Plan: COVID 19 originally diagnosed 01/31/21. He was hospitalized from 01/31/2021 until 02/15/21. Initially treated with dexamethasone + Remdesivir during that admission. Readmitted 02/18/21; had been on HFNC since, with CPAP at night. Intubated/ventilated 02/27/21. Extubated 03/03/21. Reintubated AM of 03/04/21 tracheostomy performed 03/05/21 CRP this admission 11.4 - baricitinib started on 02/21/21 and received 8 doses then stopped following his intubation. Completed 10 days of dexamethasone 6mg IV daily - steroids remain off. likely has fibrotic changes of lungs that will not improve now on Meropenem empirically, awaiting final sputum culture (3) Morbid obesity with BMI of 40.0-44.9, adult: (4) Leukocytosis: (5) Respiratory acidosis: (6) Hyponatremia: Plan: resolved (7) Hyperglycemia: Plan: controlled with insulin (8) DVT prophylaxis: Plan: heparin drip (9) Type 2 diabetes mellitus: Admission and Anticipated Discharge Date Admission Date: February 18, 2021 Subjective patient underwent tracheostomy today he failed extubation within one day, will need rat exterminator ventilatory support discussed with ICU, appreciate their care Review of Systems Review of Systems: Unobtainable due to endotracheal tube Physical Exam Physical Exam: General: well developed, obese, mechanically ventilated Neck: supple, trachea midline, normal thyroid Lungs: clear to auscultation bilaterally, symmetric chest movement on ventilatory Heart: tachycardic S1 and S2, no murmur, peripheral pulses normal, capillary refill normal, no edema Abdomen: soft, NT, ND, + BS, no hepatomegaly, normal to percussion Extremities: normal in appearance, no cyanosis, no petechiae Neuro: sedated, no focal motor deficits, CN II-XII intact, sensation in extremities intact, normal speech Skin: warm, dry, no rash, normal turgor Psych: sedated Results & Data Results & Data ([facility]) Vital Signs (Past 12 Hours) Vital Signs Temp Pulse Resp BP Pulse Ox 03/05/21 15:14 80 31 H 93 03/05/21 14:22 36.8 C 82 24 100 03/05/21 14:20 84 28 H 95 03/05/21 14:18 83 29 H 96 03/05/21 14:16 86 14 99 03/05/21 14:14 86 20 100 03/05/21 14:12 86 27 H 100 03/05/21 14:10 81 28 H 100 03/05/21 14:08 36.8 C 81 30 H 100 03/05/21 14:06 80 30 H 100 03/05/21 14:04 80 24 100 03/05/21 14:02 80 30 H 99 03/05/21 14:00 36.8 C 82 30 H 89/60 L 99 03/05/21 13:00 86 30 H 87/61 L 95 03/05/21 12:00 93 H 30 H 88/57 L 94 03/05/21 11:15 99 H 30 H 94 03/05/21 11:00 95 H 29 H 90/64 L 92 03/05/21 10:00 37.2 C 93 H 30 H 91/62 L 93 03/05/21 09:00 37.5 C 90 30 H 95/68 L 94 03/05/21 08:20 99 H 30 H 95 03/05/21 08:00 37.7 C H 95 H 30 H 96/62 L 94 03/05/21 07:00 100 H 30 H 97/61 L 95 03/05/21 05:00 39.2 C H 104 H 30 H 98/64 L 97 Laboratory Results Laboratory Results - last 24 hr 03/04/21 03/04/21 03/04/21 17:25 17:25 19:53 WBC 21.35 H RBC 5.16 Hgb 14.1 Hct 44.9 MCV 87.0 MCH 27.3 MCHC 31.4 L RDW Std Deviation 53.0 H RDW Coeff of Eleazar 16.6 H Plt Count 241 MPV 9.7 Immature Gran % (Auto) 0.7 Neut % (Auto) 80.2 Lymph % (Auto) 13.7 [place] % (Auto) 3.9 Eos % (Auto) 1.5 Baso % (Auto) 0.0 Neut # (Auto) 17.09 H Lymph # (Auto) 2.93 [place] # (Auto) 0.83 H Eos # (Auto) 0.33 Baso # (Auto) 0.01 Immature Gran # (Auto) 0.16 H PT INR APTT PTT Ratio Sample Site POC pH POC pCO2 POC pO2 POC HCO3 POC Total CO2 POC Base Excess POC ABG O2 Sat Brodie Test O2 Delivery Device POC O2 Rate Minute Ventilation POC FiO2 Tidal Volume PEEP Sodium Potassium Chloride Carbon Dioxide Anion Gap BUN Creatinine Est Cr Clr Drug Dosing Est GFR ( Amer) Est GFR (Non-Af Amer) BUN/Creatinine Ratio Glucose Calcium Phosphorus Magnesium Urine Color Dark Yellow Urine Appearance Clear Urine pH 5.0 Ur Specific [place] 1.035 H Urine Protein 1+ H Urine Glucose (UA) Negative Urine Ketones Negative Urine Blood Negative Urine Nitrite Positive A Urine Bilirubin 1+ H Urine Urobilinogen Negative Ur Leukocyte Esterase Negative Urine WBC (Auto) 1-5 Urine RBC (Auto) 5-10 H U Hyaline Cast (Auto) 5-10 H U Epithel Cells (Auto) 10-20 H Urine Bacteria (Auto) Negative Nasal Screen MRSA (PCR) Negative 03/04/21 03/05/21 03/05/21 19:58 02:26 02:26 WBC RBC Hgb Hct MCV MCH MCHC RDW Std Deviation RDW Coeff of Eleazar Plt Count MPV Immature Gran % (Auto) Neut % (Auto) Lymph % (Auto) [place] % (Auto) Eos % (Auto) Baso % (Auto) Neut # (Auto) Lymph # (Auto) [place] # (Auto) Eos # (Auto) Baso # (Auto) Immature Gran # (Auto) PT 11.4 INR 1.1 APTT 25.1 39.7 H PTT Ratio 1.0 1.5 Sample Site POC pH POC pCO2 POC pO2 POC HCO3 POC Total CO2 POC Base Excess POC ABG O2 Sat Brodie Test O2 Delivery Device POC O2 Rate Minute Ventilation POC FiO2 Tidal Volume PEEP Sodium 141 Potassium 4.3 Chloride 100 Carbon Dioxide 37 H Anion Gap 4 BUN 26 H Creatinine 0.61 Est Cr Clr Drug Dosing 176.5 Est GFR ( Amer) 129.4 Est GFR (Non-Af Amer) 111.6 BUN/Creatinine Ratio 42.6 H Glucose 151 H Calcium 8.8 Phosphorus 2.1 L Magnesium 2.3 Urine Color Urine Appearance Urine pH Ur Specific [place] Urine Protein Urine Glucose (UA) Urine Ketones Urine Blood Urine Nitrite Urine Bilirubin Urine Urobilinogen Ur Leukocyte Esterase Urine WBC (Auto) Urine RBC (Auto) U Hyaline Cast (Auto) U Epithel Cells (Auto) Urine Bacteria (Auto) Nasal Screen MRSA (PCR) 03/05/21 03/05/21 03/05/21 02:26 03:48 08:18 WBC 19.18 H RBC 5.17 Hgb 14.0 Hct 44.9 MCV 86.8 MCH 27.1 MCHC 31.2 L RDW Std Deviation 52.4 H RDW Coeff of Eleazar 16.4 H Plt Count 220 MPV 9.6 Immature Gran % (Auto) 0.8 Neut % (Auto) 76.5 Lymph % (Auto) 8.8 [place] % (Auto) 12.0 Eos % (Auto) 1.8 Baso % (Auto) 0.1 Neut # (Auto) 14.67 H Lymph # (Auto) 1.69 [place] # (Auto) 2.30 H Eos # (Auto) 0.34 Baso # (Auto) 0.02 Immature Gran # (Auto) 0.16 H PT INR APTT 46.0 H* PTT Ratio 1.7 Sample Site Art Line POC pH 7.39 POC pCO2 68 H POC pO2 95 POC HCO3 42 H POC Total CO2 > 40 H* POC Base Excess 17.0 H POC ABG O2 Sat 97.0 H Brodie Test NA O2 Delivery Device Ventilator POC O2 Rate 30 Minute Ventilation 11.6 POC FiO2 70 Tidal Volume 385 PEEP 12 Sodium Potassium Chloride Carbon Dioxide Anion Gap BUN Creatinine Est Cr Clr Drug Dosing Est GFR ( Amer) Est GFR (Non-Af Amer) BUN/Creatinine Ratio Glucose Calcium Phosphorus Magnesium Urine Color Urine Appearance Urine pH Ur Specific [place] Urine Protein Urine Glucose (UA) Urine Ketones Urine Blood Urine Nitrite Urine Bilirubin Urine Urobilinogen Ur Leukocyte Esterase Urine WBC (Auto) Urine RBC (Auto) U Hyaline Cast (Auto) U Epithel Cells (Auto) Urine Bacteria (Auto) Nasal Screen MRSA (PCR) Medications Administered Current Inpatient Medications Acetaminophen (Acetaminophen Susp 325 Mg/10.15 Ml Udc) 650 mg NG Q4H PRN PRN Reason: Pain or Fever Stop: 04/02/21 04:41 Last Admin: 03/05/21 03:07 Dose: 650 mg Documented by: Albuterol (Albuterol Hfa 8 Gm Inhaler) 2 puffs INH Q6R PRN PRN Reason: Shortness Of Breath Or Wheezing Stop: 03/21/21 00:59 Baclofen (Baclofen 10 Mg Tab) 10 mg PO DAILY PRN PRN Reason: Muscle Spasm Stop: 03/21/21 00:49 Last Admin: 02/27/21 08:23 Dose: 10 mg Documented by: Citalopram Hydrobromide (Citalopram 20 Mg Tab) 20 mg PO DAILY [facility] Stop: 03/21/21 08:59 Last Admin: 03/05/21 08:31 Dose: 20 mg Documented by: Fentanyl Citrate (Fentanyl Bolus From Bag) 50 mcg IV Q60M PRN PRN Reason: Pain or Agitation Stop: 03/18/21 03:28 Last Admin: 03/05/21 14:20 Dose: 50 mcg Documented by: Furosemide (Furosemide Inj 20 Mg/2 Ml Vial) 20 mg IV BID [facility] Stop: 03/30/21 20:59 Last Admin: 03/05/21 08:31 Dose: 20 mg Documented by: Pantoprazole Sodium 40 mg/ (Syringe) 10 mls @ 5 mls/min IV DAILY@1100 CANDICE Stop: 03/30/21 10:59 Last Admin: 03/05/21 10:52 Dose: 5 mls/min Documented by: Propofol (Diprivan) 1,000 mg in 100 mls @ 17.655 mls/hr IV .Q5H40M [facility]; Protocol Stop: 03/07/21 03:29 Last Admin: 03/05/21 15:39 Dose: Not Given Documented by: Fentanyl Citrate (Fentanyl Citrate) 2,500 mcg in 250 mls @ 30 mls/hr IV .Q8H20M [facility]; Protocol Stop: 03/18/21 03:29 Last Admin: 03/05/21 15:40 Dose: Not Given Documented by: Meropenem 500 mg/ Syringe 10 mls @ 2 mls/min IV Q6H [facility]; Protocol Stop: 03/11/21 15:59 Last Admin: 03/05/21 09:38 Dose: 2 mls/min Documented by: Heparin Sodium/Dextrose (Heparin Sodium/Dextrose) 25,000 units in 500 mls @ 0 mls/hr IV .Q0M [facility]; Protocol Stop: 04/03/21 19:44 Last Titration: 03/05/21 10:51 Dose: 0 units/hr, 0 mls/hr Documented by: Lactulose (Lactulose Syrup 20 Gm/30 Ml Udc) 20 gm PO QAM [facility] Stop: 04/01/21 10:59 Last Admin: 03/05/21 08:31 Dose: 20 gm Documented by: Miscellaneous (Icu Electrolyte Replacement Protocol) 1 ea N/A BID@06,18 [facility]; Protocol Stop: 03/07/21 17:59 Last Admin: 03/05/21 14:19 Dose: Not Given Documented by: Miscellaneous Information (Meropenem Consult Active) 1 ea N/A UD PRN PRN Reason: Consult Stop: 04/03/21 15:20 Multi-Ingredient Cream (Artificial Tears Op Oint 3.5 Gm Tube) 1 appln OP Q4H [facility] Stop: 04/03/21 05:59 Last Admin: 01/15/22 13:18 Dose: 1 appln Documented by: Propofol (Propofol Bolus From Bag) 20 mg IV Q5M PRN PRN Reason: Sedation Stop: 03/07/21 03:28 Last Admin: 03/05/21 05:36 Dose: 20 mg Documented by: Sennosides (Sennosides 8.8 Mg/5 Ml Udc) 8.8 mg PO QAM [facility] Stop: 04/01/21 10:59 Last Admin: 03/05/21 08:31 Dose: 8.8 mg Documented by: Vecuronium [place] (Vecuronium [place] 10 Mg Vial) 10 mg IV Q3H PRN PRN Reason: ventilator dysnchrony Stop: 04/03/21 20:14 PG Care Time/CCT Total # of Minutes Spent Total Time Spent with Patient: Total time spent is greater than 50% in coordination of care (as documented) at patient's floor/unit and/or counseling patient: Coding Level of Care Code 78255 Subseq Hosp Care Lvl 2 Diagnoses Acute respiratory distress syndrome (ARDS) due to COVID-19 virus U07.1; J80 Morbid obesity with BMI of 40.0-44.9, adult E66.01; Z68.41 Leukocytosis D72.829 Respiratory acidosis E87.2 Hyponatremia E87.1 Hyperglycemia R73.9 DVT prophylaxis Z29.9 Type 2 diabetes mellitus E11.9 Pneumonia due to 2019 novel coronavirus U07.1; J12.82
[2021-03-05] MEDS: VECURONIUM BROMIDE 10 MG VIAL IV PRN (19:47)
[2021-03-05] MEDS: PEPTAMEN INTENSE VHP 1.0 CAL 1,000 ML BAG GT PRN (19:50)
[2021-03-05] MEDS ORDERED: VECURONIUM BROMIDE 10 MG VIAL IV STA (20:04)
[2021-03-05] MEDS ORDERED: STAT IV Infusion **Titration per Protocol STA (21:15)
[2021-03-05] MEDS: MIDAZOLAM HCL 1 MG/ML 2ML VIAL IV PRN (21:30)
[2021-03-05] MEDS: NOREPINEPHRINE/D5W 8 MG/508 ML BAG IV SCH (21:30)
[2021-03-06] MEDS: propofoL 1,000 MG/100 ML VIAL IV SCH ×10 (00:05→22:34)
[2021-03-06] MEDS: ARTIFICIAL TEARS OP OINT 3.5 GM TUBE OP SCH ×6 (01:26→23:50)
[2021-03-06] MEDS: PROPOFOL BOLUS FROM BAG IV PRN (03:07)
[2021-03-06] MEDS: MEROPENEM 500 MG in SYRINGE 0 ML IV SCH ×4 (03:53→21:10)
[2021-03-06] MEDS: fentaNYL citrate 2,500 MCG/250 ML BAG IV SCH ×3 (03:53→21:10)
[2021-03-06 04:55] LABS: iSTAT Arterial Blood Gas HCO3 42 meg/L (19-24); iSTAT Arterial Blood Gas pCO2 62 mmHg (35-46); iSTAT Arterial Blood Gas pH 7.45 (7.35-7.45); iSTAT Arterial Blood Gas pO2 95 mmHg (80-95); iSTAT Carbon Dioxide > 40 mmol/L (24-31); iSTAT FiO2 50 %; iSTAT Site Art Line
[2021-03-06 07:00] LABS: Basophils # (auto) 0.02 K/uL (0-0.2); Basophils % (auto) 0.1 %; Eosinophils # (auto) 0.55 K/uL (0-0.5); Eosinophils % (auto) 2.9 %; Hematocrit (blood only) 41.2 % (42-52); Hemoglobin 12.8 g/dL (14.0-18.0); Immature Granulocytes # (auto) 0.22 K/uL (0.00-0.02); Immature Granulocytes % (auto) 1.2 %; Lymphocytes # (auto) 2.24 K/uL (1.2-3.4); Lymphocytes % (auto) 11.9 %; Mean Corpuscular Hemoglobin 26.9 pg (25-34); Mean Corpuscular Hgb Conc 31.1 g/dL (32-36); Mean Corpuscular Volume 86.7 fL (80-100); Mean Platelet Volume 10.1 fL (7.4-10.4); Monocytes # (auto) 1.88 K/uL (0.11-0.59); Neutrophils # (auto) 13.86 K/uL (1.4-6.5); Neutrophils % (auto) 73.9 %; Platelet Count 211 K/uL (130-400); RDW Coefficient of Variation 16.5 % (11.5-14.5); RDW Standard Deviation 52.6 fL (36.4-46.3); Red Blood Count 4.75 M/uL (4.7-6.1); White Blood Count 18.77 K/uL (4.8-10.8)
[2021-03-06 07:10] LABS: Partial Thromboplastin Ratio 0.9; Partial Thromboplastin Time 23.6 Seconds (21.0-31.0)
[2021-03-06 07:26] LABS: Calcium 8.9 mg/dl (8.5-10.1); Creatinine Clr Calc Pharmacy 218.6 ml/min; Est GFR (African American) 140.4 ml/min; Est GFR (Non-African American) 121.1 ml/min; Magnesium 2.1 mg/dl (1.7-2.4); Phosphorus 2.4 mg/dl (2.5-4.9); Potassium 3.9 mmol/L (3.5-5.1)
[2021-03-06] MEDS: MIDAZOLAM HCL 1 MG/ML 2ML VIAL IV PRN ×2 (07:56→12:14)
[2021-03-06] MEDS: ICU ELECTROLYTE REPLACEMENT PROTOCOL SCH ×2 (08:03→18:47)
[2021-03-06] MEDS ORDERED: SODIUM PHOSPHATE 3 MMOL/1 ML INFUSION IV STA (08:04)
[2021-03-06] MEDS: VECURONIUM BROMIDE 10 MG VIAL IV PRN ×2 (08:39→12:14)
[2021-03-06] MEDS ORDERED: SODIUM PHOSPHATE 15 MMOL in DEXTROSE 5% 250 ML IV ONE (08:45)
[2021-03-06] MEDS: POTASSIUM CHLORIDE 20 MEQ/15 ML UDC NG SCH ×2 (08:48→12:31)
[2021-03-06] MEDS: FUROSEMIDE INJ 20 MG/2 ML VIAL IV SCH (08:48)
[2021-03-06] MEDS: CITALOPRAM 20 MG TAB PO SCH (08:49)
[2021-03-06] MEDS: SENNOSIDES 8.8 MG/5 ML UDC PO SCH (08:49)
[2021-03-06] MEDS: RIVAROXABAN 10 MG TABLET PO SCH (08:50)
[2021-03-06] MEDS: LACTULOSE SYRUP 20 GM/30 ML UDC PO SCH (08:50)
--- NOTE | 2021-03-06 09:21 | XRay Report ---
XR chest 1V portable CLINICAL HISTORY: Resp failure. Follow-up airspace opacities COMPARISON STUDY: 03/05/2021 TECHNIQUE: 1 view of the chest FINDINGS: Single frontal view of the chest demonstrates the cardiomediastinal silhouette to be within normal li mits. Tubes and catheters are unchanged. Compared to previous examination, there is decreased expansi on of the lungs with evidence for worsening of interstitial and alveolar opacities bilaterally. There is also blunting of the costophrenic angles now seen characteristic of small bilateral pleural effus ions. There is no evidence for vascular congestion. There is no acute osseous pathology. IMPRESSION: Decreased expansion of lungs with worsening of interstitial and alveolar opacities. There is also evidence for small bilateral pleural effusions. ACT 112: Negative or not required by law. Electronically signed by: Eugene Rome M.D. 03/06/2021 9:20 AM
--- NOTE | 2021-03-06 10:26 | Procedure Note ---
Procedure Note Date of Service March 06, 2021 Note ARTERIAL LINE PROCEDURE NOTE: Procedure: Arterial Line Placement Provider: Danny Mathew MD Indication: Monitoring on Pressors, current A-line dysfunctional Anesthesia: None Procedure was emergent. Patient is intubated sedated. Unable to provide consent. No family immediately available A time-out was completed verifying correct patient, procedure, site, positioning, and implant(s) or special equipment if applicable. Allens test was performed to ensure adequate perfusion. Patients rightwrist was prepped and draped in the usual sterile fashion. A 20g Arrow arterial line was introduced into the right radialartery. Catheter was threaded, and the needle was removed with appropriate blood return. Good waveform was observed. The patient tolerated the procedure well. Blood Loss: Minimal Complications: None Coding CPT Codes Tubes, Drains, and Vasc Access - Tubes, Drains, and Vasc Access: [id number] Insertion Catheter, Artery ([id number]) MNP Procedure Codes (Charges) Tubes, Drains, and Vasc Access Procedure 1: Tubes, Drains, and Vasc Access: [id number] Insertion Catheter, Artery
[2021-03-06] MEDS ORDERED: STAT IV Infusion **Titration per Protocol STA ×3 (10:28→14:40)
[2021-03-06] MEDS: PANTOprazole 40 MG in SYRINGE 0 ML IV SCH (10:30)
--- NOTE | 2021-03-06 10:43 | Critical Care Progress Note ---
Date of Service March 06, 2021 Assessment & Plan (1) Acute respiratory distress syndrome (ARDS) due to COVID-19 virus: (2) Elevated troponin I level: (3) Bacterial pneumonia: (4) Hypertension: (5) Morbid obesity with BMI of 40.0-44.9, adult: Plan: Impression: 55-year-old unvaccinated male initially diagnosed 01/31/2021 and spent almost 2 weeks in the hospital on high flow oxygen. He received remdesivir and Decadron at that point time. He was dismissed from the hospital 02/15 but returned 02/18 with progressive hypoxemic respiratory failure. He was treated with high-dose dexamethasone as well as Levaquin and Zosyn. He failed noninvasive positive pressure ventilation and was intubated 02/27/2021. Trach 03/05/20 24-hour events: Patient underwent bedside percutaneous dilatation of tracheostomy yesterday with placement of an 8.0 cuffed nonfenestrated Shiley tube. Has been working on weaning sedation but he intermittently has persistent episodes of desaturation requiring escalation of his FiO2. Arterial line is no longer functional. Remains on a stable dose of norepinephrine Recommendations: 1. Neurologic: Currently sedated with fentanyl and Versed. We will add Pr ecedex and start oral clonazepam and oxycodone. May also need to start antipsychotics depending on clinical response. Continue home dose of Celexa. Holding baclofen for now. 2. Cardiovascular: Continue norepinephrine with efforts to wean as tolerated. Still not net negative. Will increase Lasix to 40 mg twice a day. We will replace arterial line today 3. Pulmonary: Severe ARDS with multifocal infiltrates consistent with viral pneumonia/late-phase ARDS. Patient has completed antibiotics, remdesivir, and several courses of steroids. His CRP is low. I do not think additional steroids at this point time are going to offer him a clinical benefit unless his CRP should increase. He has remained supine. He was extubated 03/03 but required reintubation and underwent tracheostomy placement 03/05/2021. Continue to wean vent as tolerated. Progress to pressure support/trach collar as possible. 4. GI: Continue tube feeding. Depending on clinical response may need GI consultation for PEG tube placement next week. 5. ID: Day #3 meropenem. Fever still present but fever curve improved. White blood cell count decreasing. Would likely complete 5 days of antimicrobial therapy. Blood and respiratory cultures are showing no growth to date. Will check urine culture for completeness sake. Lines were all changed out 03/04. Okay to discontinue isolation as the patient is more than 21 days out from his initial illness. 6. Renal: Judicious diuresis. Continue ICU electrolyte replacement protocol. 7. Heme-onc: Prior history of DVT. Restarted Eliquis. Questionable gout, will follow for now, do not see gouty inflammation to account for the patient's fever and leukocytosis however will need to follow. 8. Endocrine: Glycemic control per ICU protocol. Patient care discussed with bedside critical care nurse as well as respiratory therapy. A total of 42 minutes critical care time was spent in evaluation management and coordination of care of this patient with life-threatening illness. Patient will likely require long-term acute care placement. Case management working on disposition Admission and Anticipated Discharge Date Admission Date: February 18, 2021 Subjective intubated and sedated Review of Systems Review of Systems: Unobtainable due to endotracheal tube Physical Exam Constitutional: Patient is intubated and sedated. He is tachypneic tachycardic and hypertensive Neck: Trach site clean dry and intact Respiratory: Breath sounds are diminished bilaterally. No wheezing or rhonchi Cardiovascular: RRR, no murmur, no edema Gastrointestinal (Abdomen): normal bowel sounds, soft, nontender, no hepatosplenomegaly Musculoskeletal: Extremities: extremities normal to inspection Skin: no rashes, warm and dry Results & Data Results & Data ([facility]) Vital Signs (Past 12 Hours) Vital Signs Temp Pulse Resp BP Pulse Ox 03/06/21 05:00 83 31 H 95/62 L 92 03/06/21 04:00 82 26 H 99/65 L 95 03/06/21 03:52 37.6 C H 03/06/21 03:39 82 31 H 95 03/06/21 03:00 89 30 H 96/59 L 95 03/06/21 02:00 89 30 H 86/59 L 95 03/06/21 01:00 87 25 H 98/63 L 95 03/06/21 00:00 38.1 C H 86 27 H 106/66 94 03/05/21 23:00 38.0 C H 86 27 H 96/64 L 93 03/05/21 22:55 89 31 H 94 Critical Care Results & Data Vital Signs (Past 12 Hours) Vital Signs Temp Pulse Resp BP Pulse Ox 03/06/21 05:00 83 31 H 95/62 L 92 03/06/21 04:00 82 26 H 99/65 L 95 03/06/21 03:52 37.6 C H 03/06/21 03:39 82 31 H 95 03/06/21 03:00 89 30 H 96/59 L 95 03/06/21 02:00 89 30 H 86/59 L 95 03/06/21 01:00 87 25 H 98/63 L 95 03/06/21 00:00 38.1 C H 86 27 H 106/66 94 03/05/21 23:00 38.0 C H 86 27 H 96/64 L 93 03/05/21 22:55 89 31 H 94 Lab & Micro Results (Past 24 Hours) RBC 4.75 M/uL (4.7-6.1) 03/06/21 WBC 18.77 K/uL (4.8-10.8) H 03/06/21 Hgb 12.8 g/dL (14.0-18.0) L 03/06/21 Hct 41.2 % (42-52) L 03/06/21 MCV 86.7 fL (80-100) 03/06/21 MCH 26.9 pg (25-34) 03/06/21 MCHC 31.1 g/dL (32-36) L 03/06/21 RDW Standard Deviation 52.6 fL (36.4-46.3) H 03/06/21 RDW Coefficient of Variation 16.5 % (11.5-14.5) H 03/06/21 Plt Count 211 K/uL (130-400) 03/06/21 MPV 10.1 fL (7.4-10.4) 03/06/21 Neutrophils (%) (Auto) 73.9 % 03/06/21 Lymphocytes (%) (Auto) 11.9 % 03/06/21 Monocytes # (Auto) 1.88 K/uL (0.11-0.59) H 03/06/21 Eosinophils # (Auto) 0.55 K/uL (0-0.5) H 03/06/21 Immature Granulocyte % (Auto) 1.2 % 03/06/21 Neutrophils # (Auto) 13.86 K/uL (1.4-6.5) H 03/06/21 Lymphocytes # (Auto) 2.24 K/uL (1.2-3.4) 03/06/21 Monocytes # (Auto) 1.88 K/uL (0.11-0.59) H 03/06/21 Eosinophils # (Auto) 0.55 K/uL (0-0.5) H 03/06/21 Basophils # (Auto) 0.02 K/uL (0-0.2) 03/06/21 Immature Granulocyte # (Auto) 0.22 K/uL (0.00-0.02) H 03/06/21 Na 142 mmol/L (136-145) 03/06/21 K 3.9 mmol/L (3.5-5.1) 03/06/21 Cl 98 mmol/L (98-107) 03/06/21 CO2 39 mmol/L (21-32) H 03/06/21 Anion Gap 5 (3-11) 03/06/21 BUN 27 mg/dl (6-23) H 03/06/21 Creatinine 0.50 mg/dl (0.6-1.4) L 03/06/21 Estimated GFR ( Amer) 140.4 ml/min 03/06/21 Estimated GFR (Non-Af Amer) 121.1 ml/min 03/06/21 BUN/Creatinine Ratio 54.0 (10-20) H 03/06/21 Glu 135 mg/dl (70-99) H 03/06/21 Ca 8.9 mg/dl (8.5-10.1) 03/06/21 Phosphorus Level 2.4 mg/dl (2.5-4.9) L 03/06/21 Mg 2.1 mg/dl (1.7-2.4) 03/06/21 06:21 03/06/21 Calcium Level 8.9 mg/dl (8.5-10.1) 03/06/21 06:21 03/06/21 Bordie Test NA 03/06/21 04:21 03/06/21 Microbiology 02/18/21 21:07 Fungal Smear - Final Blood Fungal Culture - Preliminary No yeast or fungus isolated - Report 3, Additional report to follow. 03/04/21 Unknown Gram Stain - Final Sputum,Trach Sputum Culture - Final Light normal radha. 02/28/21 14:22 Aerobic Blood Culture - Final Blood No growth in Aerobic bottle after 5 days. Anaerobic Blood Culture - Final No growth in Anaerobic bottle after 5 days. 02/28/21 14:27 Aerobic Blood Culture - Final Blood No growth in Aerobic bottle after 5 days. Anaerobic Blood Culture - Final No growth in Anaerobic bottle after 5 days. 03/03/21 10:42 Aerobic Blood Culture - Preliminary Blood No growth in Aerobic bottle after 48 hours. Anaerobic Blood Culture - Preliminary No growth in Anaerobic bottle after 48 hours. 03/03/21 10:46 Aerobic Blood Culture - Preliminary Blood No growth in Aerobic bottle after 48 hours. Anaerobic Blood Culture - Preliminary No growth in Anaerobic bottle after 48 hours. Diagnostic Findings (Past 24 Hours) Chest X-Ray 03/05/21 14:31 XR chest 1V portable CLINICAL HISTORY: New tracheostomy, New NG tube COMPARISON STUDY: Chest radiograph March 05, 2021 at 7:30 AM. FINDINGS: Interval tracheostomy is noted. Tip of feeding tube projects over the distal body of the stomach. Small amount of gas within the right neck is again noted. There is no pneumothorax or pleural effusion. Elevation the right hemidiaphragm is unchanged. Bilateral airspace opacities, greater within the right lung, persist. IMPRESSION: 1. Interval placement of a tracheostomy. 2. Tip of feeding tube projects over the distal body of the stomach. 3. No significant change in bilateral airspace opacities, greater within the right lung. ACT 112: Negative or not required by law. Electronically signed by: Zack Sharp M.D. 03/05/2021 2:56 PM Chest X-Ray 03/06/21 07:00 XR chest 1V portable CLINICAL HISTORY: Resp failure. Follow-up airspace opacities COMPARISON STUDY: 03/05/2021 TECHNIQUE: 1 view of the chest FINDINGS: Single frontal view of the chest demonstrates the cardiomediastinal silhouette to be within normal limits. Tubes and catheters are unchanged. Compared to previous examination, there is decreased expansion of the lungs with evidence for worsening of interstitial and alveolar opacities bilaterally. There is also blunting of the costophrenic angles now seen characteristic of small bilateral pleural effusions. There is no evidence for vascular congestion. There is no acute osseous pathology. IMPRESSION: Decreased expansion of lungs with worsening of interstitial and alveolar opacities. There is also evidence for small bilateral pleural effusions. ACT 112: Negative or not required by law. Electronically signed by: Eugene Rome M.D. 03/06/2021 9:20 AM I & O Totals 24 Hours 03/05/21 03/06/21 03/07/21 06:59 06:59 06:59 Intake Total 1979.685 / 0069.222 2407.632 / 2345.632 267.943 / 267.943 Output Total 1999 1675 / 1675 Balance -20.315 / -20.315 670.632 / 670.632 267.943 / 267.943 Cumulative 02/18/21 17:19 thru 03/06/21 10:30 Intake Total 19508.889 Output Total 18115 Balance -33390.111 RT Ventilator Mngmt (Last Documented) Ventilator Ordered Settings Ventilator Support Mode Assist Control 03/06/21 03:39 Respiratory Rate 31 03/06/21 05:00 Ventilator Tidal Volume 385 03/06/21 03:51 Setting Minute Ventilation 11.1 03/06/21 03:39 Ventilator Positive Pressure 12 03/03/21 08:15 Support Setting Positive End Expiratory 8 03/06/21 03:51 Pressure Fraction of Inspired Oxygen 40 03/06/21 04:22 Machine Comment FiO2 decreased post ABG 03/06/21 04:22 Ventilator - PT Measurements Respiratory Rate 31 Exhaled Tidal Volume 387 Minute Ventilation 11.1 Peak Inspiratory Airway 21 Pressure Plateau Pressure 21.9 Respiratory Cycle Inspiratory: 1:1.5 Expiratory Ratio Inspiratory Phase Time 0.80 End-Tidal CO2 41 Static Lung Compliance 27.84 Dynamic Lung Compliance 29.77 Normal Static Lung Compliance 47.00 Coding Level of Care Code Critical Care 1st 30-74 mins Diagnoses Acute respiratory distress syndrome (ARDS) due to COVID-19 virus U07.1; J80 Elevated troponin I level R77.8 Bacterial pneumonia J15.9 Hypertension I10 Morbid obesity with BMI of 40.0-44.9, adult E66.01; Z68.41 Time Spent (min) 42
[2021-03-06] MEDS: DEXMEDETOMIDINE HCL 200 MCG in SODIUM CHLORIDE 0.9% 48 ML IV SCH ×3 (11:08→17:27)
[2021-03-06] MEDS: oxyCODONE HCL SOLN 5 MG/5 ML UDC PO SCH ×3 (11:08→23:54)
[2021-03-06] MEDS: clonazePAM 1 MG TAB PO SCH ×2 (11:08→20:09)
[2021-03-06] MEDS ORDERED: CISATRACURIUM BESYLATE IV SOLN 2 MG/ML 10 ML VIAL IV STA (14:09)
[2021-03-06] MEDS: MIDAZOLAM HCL 125 MG/250 ML BAG IV SCH (15:07)
[2021-03-06] MEDS: CISATRACURIUM BESYLATE 40 MG in DEXTROSE 5% 80 ML IV SCH ×3 (15:15→22:30)
--- NOTE | 2021-03-06 15:55 | Hospitalist Progress Note ---
Date of Service March 06, 2021 Assessment & Plan (1) Acute respiratory distress syndrome (ARDS) due to COVID-19 virus: Plan: respiratory failure with hypoxia Had been intubated 02/27/21 due to progressive respiratory failure despite max HFNC and CPAP. Extubated 03/03/20 to HFNC. Unfortunately the patient developed recurrent respiratory failure/distress in the setting of max HFNC settings. Patient re-intubated early in morning on 03/04/21 tracheostomy performed 03/05/21 by ICU remains tachycardic, febrile (but improving) started on Meropenem empirically, gram negative bacilli from sputum adding Precedex and Klonopin for sedation he tends to desaturate with any lapse in sedation requiring higher FiO2 readmitted to the hospital on 02/18/21 after he had a prolonged hospital stay in January for severe COVID-19 pneumonia. since 02/18 had been requiring HFNC with CPAP at night. prior attending suspected late-stage ARDS. he has been on steroids since his readmission on 02/18 with no improvement in his status. baricitinib was started 02/21 due to high CRP and worsening status. despite the above he continued with worsening respiratory status. pulmonary formally consulted AM of 02/27/21. 02/27/21 early afternoon patient decompensated further necessitating transfer to [facility] COVID unit for intubation. baricitinib stopped at that time. extubated 03/03/21. then reintubated AM of 03/04/21 after failing max settings of HFNC. (2) Pneumonia due to 2019 novel coronavirus: Plan: COVID 19 originally diagnosed 01/31/21. He was hospitalized from 01/31/2021 until 02/15/21. Initially treated with dexamethasone + Remdesivir during that admission. Readmitted 02/18/21; had been on HFNC since, with CPAP at night. Intubated/ventilated 02/27/21. Extubated 03/03/21. Reintubated AM of 03/04/21 tracheostomy performed 03/05/21 CRP this admission 11.4 - baricitinib started on 02/21/21 and received 8 doses then stopped following his intubation. Completed 10 days of dexamethasone 6mg IV daily - steroids remain off. likely has fibrotic changes of lungs that will not improve now on Meropenem empirically, awaiting final sputum culture (3) Hypotension: Plan: on Levophed likely from sedation arterial line replaced on 03/06/21 (4) Fever: Plan: improved fever curve with Meropenem follow up sputum culture (5) Respiratory acidosis: Plan: resolved (6) Hyponatremia: Plan: resolved (7) Hyperglycemia: Plan: insulin protocol (8) Morbid obesity with BMI of 40.0-44.9, adult: (9) DVT prophylaxis: Plan: resume Eliquis (10) Type 2 diabetes mellitus: Admission and Anticipated Discharge Date Admission Date: February 18, 2021 Subjective fever curve improved with Meropenem adding Precedex and Klonopin today will need PEG in near future ICU managing Review of Systems Review of Systems: Unobtainable due to cognitive status and Unobtainable due to endotracheal tube Physical Exam Physical Exam: General: well developed, obese, mechanically ventilated via trach Neck: tracheostomy present Lungs: clear to auscultation bilaterally, symmetric chest movement on ventilatory Heart: tachycardic S1 and S2, no murmur, peripheral pulses normal, capillary refill normal, no edema Abdomen: soft, NT, ND, + BS, no hepatomegaly, normal to percussion Extremities: normal in appearance, no cyanosis, no petechiae Neuro: sedated, no focal motor deficits, CN II-XII intact, sensation in extremities intact, normal speech Skin: warm, dry, no rash, normal turgor Psych: sedated Results & Data Results & Data ([facility]) Vital Signs (Past 12 Hours) Vital Signs Pulse Resp BP Pulse Ox 03/06/21 14:00 84 33 H 104/66 86 L 03/06/21 13:00 92 H 30 H 102/60 98 03/06/21 12:14 96 H 30 H 105/67 91 03/06/21 12:07 90 35 H 73/48 L 85 L 03/06/21 12:00 90 35 H 85 L 03/06/21 11:00 107 H 27 H 91/56 L 93 03/06/21 10:25 117 H 36 H 122/84 91 03/06/21 10:00 104 H 24 105/54 L 92 03/06/21 09:00 114 H 30 H 123/77 93 03/06/21 08:37 123 H 29 H 148/75 H 81 L 03/06/21 08:00 97 H 35 H 136/76 86 L 03/06/21 07:00 87 30 H 96/64 L 93 03/06/21 05:00 83 31 H 95/62 L 92 03/06/21 04:00 82 26 H 99/65 L 95 Laboratory Results Laboratory Results - last 24 hr 03/06/21 03/06/21 03/06/21 04:21 06:21 06:21 WBC 18.77 H RBC 4.75 Hgb 12.8 L Hct 41.2 L MCV 86.7 MCH 26.9 MCHC 31.1 L RDW Std Deviation 52.6 H RDW Coeff of Eleazar 16.5 H Plt Count 211 MPV 10.1 Immature Gran % (Auto) 1.2 Neut % (Auto) 73.9 Lymph % (Auto) 11.9 Burnett % (Auto) 10.0 Eos % (Auto) 2.9 Baso % (Auto) 0.1 Neut # (Auto) 13.86 H Lymph # (Auto) 2.24 Burnett # (Auto) 1.88 H Eos # (Auto) 0.55 H Baso # (Auto) 0.02 Immature Gran # (Auto) 0.22 H APTT PTT Ratio Sample Site Art Line POC pH 7.45 POC pCO2 62 H POC pO2 95 POC HCO3 42 H POC Total CO2 > 40 H* POC Base Excess 18.0 H POC ABG O2 Sat 97.0 H Brodie Test NA O2 Delivery Device Ventilator POC O2 Rate 30 POC FiO2 50 Tidal Volume 385 PEEP 8 Sodium 142 Potassium 3.9 Chloride 98 Carbon Dioxide 39 H Anion Gap 5 BUN 27 H Creatinine 0.50 L Est Cr Clr Drug Dosing 218.6 Est GFR ( Amer) 140.4 Est GFR (Non-Af Amer) 121.1 BUN/Creatinine Ratio 54.0 H Glucose 135 H Calcium 8.9 Phosphorus 2.4 L Magnesium 2.1 03/06/21 06:21 WBC RBC Hgb Hct MCV MCH MCHC RDW Std Deviation RDW Coeff of Eleazar Plt Count MPV Immature Gran % (Auto) Neut % (Auto) Lymph % (Auto) Burnett % (Auto) Eos % (Auto) Baso % (Auto) Neut # (Auto) Lymph # (Auto) Burnett # (Auto) Eos # (Auto) Baso # (Auto) Immature Gran # (Auto) APTT 23.6 PTT Ratio 0.9 Sample Site POC pH POC pCO2 POC pO2 POC HCO3 POC Total CO2 POC Base Excess POC ABG O2 Sat Brodie Test O2 Delivery Device POC O2 Rate POC FiO2 Tidal Volume PEEP Sodium Potassium Chloride Carbon Dioxide Anion Gap BUN Creatinine Est Cr Clr Drug Dosing Est GFR ( Amer) Est GFR (Non-Af Amer) BUN/Creatinine Ratio Glucose Calcium Phosphorus Magnesium Medications Administered Current Inpatient Medications Acetaminophen (Acetaminophen Susp 325 Mg/10.15 Ml Udc) 650 mg NG Q4H PRN PRN Reason: Pain or Fever Stop: 04/02/21 04:41 Last Admin: 03/05/21 03:07 Dose: 650 mg Documented by: Citalopram Hydrobromide (Citalopram 20 Mg Tab) 20 mg PO DAILY [facility] Stop: 03/21/21 08:59 Last Admin: 03/06/21 08:49 Dose: 20 mg Documented by: Clonazepam (Clonazepam 1 Mg Tab) 1 mg PO BID [facility] Stop: 04/05/21 10:29 Last Admin: 03/06/21 11:08 Dose: 1 mg Documented by: Fentanyl Citrate (Fentanyl Bolus From Bag) 50 mcg IV Q60M PRN PRN Reason: Pain or Agitation Stop: 03/18/21 03:28 Last Admin: 03/06/21 05:57 Dose: 50 mcg Documented by: Furosemide (Furosemide 40 Mg/4 Ml Vial) 40 mg IV BID [facility] Stop: 04/05/21 20:59 Pantoprazole Sodium 40 mg/ (Syringe) 10 mls @ 5 mls/min IV DAILY@1100 [facility] Stop: 03/30/21 10:59 Last Admin: 03/06/21 10:30 Dose: 5 mls/min Documented by: Propofol (Diprivan) 1,000 mg in 100 mls @ 35.31 mls/hr IV .Q2H50M [facility]; Protocol Stop: 03/07/21 03:29 Last Admin: 03/06/21 13:33 Dose: 50 mcg/kg/min, 35.3 mls/hr Documented by: Fentanyl Citrate (Fentanyl Citrate) 2,500 mcg in 250 mls @ 30 mls/hr IV .Q8H20M [facility]; Protocol Stop: 03/18/21 03:29 Last Admin: 03/06/21 12:31 Dose: 300 mcg/hr, 30 mls/hr Documented by: Meropenem 500 mg/ Syringe 10 mls @ 2 mls/min IV Q6H [facility]; Protocol Stop: 03/11/21 15:59 Last Admin: 03/06/21 08:49 Dose: 2 mls/min Documented by: Norepinephrine Bitartrate (Levophed/D5w) 8 mg in 508 mls @ 23.108 mls/hr IV .Q22H [facility]; Protocol Stop: 04/04/21 21:14 Last Titration: 03/06/21 12:13 Dose: 0.05 mcg/kg/min, 23.1 mls/hr Documented by: Dexmedetomidine HCl 200 mcg/ (Sodium Chloride) 50 mls @ 24.26 mls/hr IV .Q2H4M [facility]; Protocol Stop: 03/10/21 10:29 Last Titration: 03/06/21 14:35 Dose: 0.8 mcg/kg/hr, 24.3 mls/hr Documented by: Midazolam HCl (Versed) 125 mg in 250 mls @ 2 mls/hr IV .Q96H [facility]; Protocol Stop: 04/05/21 14:14 Last Admin: 03/06/21 15:07 Dose: 1 mg/hr, 2 mls/hr Documented by: Cisatracurium Besylate 40 mg/ (Dextrose) 100 mls @ 18.195 mls/hr IV .Q5H30M [facility]; Protocol Stop: 04/05/21 14:44 Lactulose (Lactulose Syrup 20 Gm/30 Ml Udc) 20 gm PO QAM [facility] Stop: 04/01/21 10:59 Last Admin: 03/06/21 08:50 Dose: 20 gm Documented by: Midazolam HCl (Midazolam Hcl 1 Mg/Ml 2ml Vial) 2 mg IV Q2H PRN PRN Reason: Agitation Stop: 04/04/21 21:12 Last Admin: 03/06/21 12:14 Dose: 2 mg Documented by: Midazolam HCl (Midazolam Bolus From Bag) 2 mg IV Q60M PRN PRN Reason: Sedation Stop: 04/05/21 14:08 Miscellaneous (Icu Electrolyte Replacement Protocol) 1 ea N/A BID@06,18 [facility]; Protocol Stop: 03/07/21 17:59 Last Admin: 03/06/21 08:03 Dose: 1 ea Documented by: Miscellaneous Information (Meropenem Consult Active) 1 ea N/A UD PRN PRN Reason: Consult Stop: 04/03/21 15:20 Multi-Ingredient Cream (Artificial Tears Op Oint 3.5 Gm Tube) 1 appln OP Q4H [facility] Stop: 04/05/21 14:44 Last Admin: 03/06/21 15:45 Dose: 1 appln Documented by: Nutritional Formula (Peptamen Intense Vhp 1.0 Casey 1,000 Ml Bag) 1,000 ml GT CONT PRN; Protocol PRN Reason: Tube Feeding Stop: 04/04/21 17:59 Last Admin: 03/05/21 19:50 Dose: 1,000 ml Documented by: Oxycodone HCl (Oxycodone Hcl Soln 5 Mg/5 Ml Udc) 5 mg PO Q6 [facility] Stop: 03/20/21 11:59 Last Admin: 03/06/21 11:08 Dose: 5 mg Documented by: Propofol (Propofol Bolus From Bag) 20 mg IV Q5M PRN PRN Reason: Sedation Stop: 03/07/21 03:28 Last Admin: 03/06/21 03:07 Dose: 20 mg Documented by: Rivaroxaban (Rivaroxaban 10 Mg Tablet) 10 mg PO DAILY [facility] Stop: 04/05/21 08:59 Last Admin: 03/06/21 08:50 Dose: 10 mg Documented by: Sennosides (Sennosides 8.8 Mg/5 Ml Udc) 8.8 mg PO QAM [facility] Stop: 04/01/21 10:59 Last Admin: 03/06/21 08:49 Dose: 8.8 mg Documented by: Vecuronium [place] (Vecuronium [place] 10 Mg Vial) 10 mg IV Q3H PRN PRN Reason: ventilator dysnchrony Stop: 04/03/21 20:14 Last Admin: 03/06/21 12:14 Dose: 10 mg Documented by: PG Care Time/CCT Total # of Minutes Spent Total Time Spent with Patient: Total time spent is greater than 50% in coordination of care (as documented) at patient's floor/unit and/or counseling patient: Coding Level of Care Code 87096 Subseq Hosp Care Lvl 2 Diagnoses Acute respiratory distress syndrome (ARDS) due to COVID-19 virus U07.1; J80 Morbid obesity with BMI of 40.0-44.9, adult E66.01; Z68.41 Respiratory acidosis E87.2 Hyponatremia E87.1 Hyperglycemia R73.9 Pneumonia due to 2019 novel coronavirus U07.1; J12.82 DVT prophylaxis Z29.9 Type 2 diabetes mellitus E11.9 Hypotension I95.9 Fever R50.9
[2021-03-06] MEDS: DEXMEDETOMIDINE HCL 400 MCG in 0.9 % SODIUM CHLORIDE 96 ML IV SCH ×3 (16:57→23:50)
[2021-03-06] MEDS: FUROSEMIDE 40 MG/4 ML VIAL IV SCH (20:09)
[2021-03-07] MEDS: CISATRACURIUM BESYLATE 40 MG in DEXTROSE 5% 80 ML IV SCH ×8 (01:30→21:31)
[2021-03-07] MEDS: ARTIFICIAL TEARS OP OINT 3.5 GM TUBE OP SCH ×6 (02:43→21:31)
[2021-03-07] MEDS: propofoL 1,000 MG/100 ML VIAL IV SCH ×7 (02:43→23:31)
[2021-03-07] MEDS: MEROPENEM 500 MG in SYRINGE 0 ML IV SCH ×4 (03:34→20:46)
[2021-03-07] MEDS: DEXMEDETOMIDINE HCL 400 MCG in 0.9 % SODIUM CHLORIDE 96 ML IV SCH ×5 (03:35→20:45)
[2021-03-07] MEDS: NOREPINEPHRINE/D5W 8 MG/508 ML BAG IV SCH (03:40)
[2021-03-07 04:41] LABS: iSTAT Art Bld Gas pCO2 Correct 71 mmHg (35-46); iSTAT Art Bld Gas pH Corrected 7.374 (7.35-7.45); iSTAT Arterial Blood Gas HCO3 41 meg/L (19-24); iSTAT Arterial Blood Gas pCO2 71 mmHg (35-46); iSTAT Arterial Blood Gas pH 7.38 (7.35-7.45); iSTAT Arterial Blood Gas pO2 56 mmHg (80-95); iSTAT Arterial Blood Gas pO2 C 56; iSTAT Carbon Dioxide > 40 mmol/L (24-31); iSTAT FiO2 50 %; iSTAT Hematocrit 37 % (42-52); iSTAT Hemoglobin 12.6 g/dl (14.0-18.0); iSTAT Potassium 3.7 mmol/L (3.3-5.0); iSTAT Site Art Line; iSTAT Sodium 138 mmol/L (135-144)
[2021-03-07] MEDS ORDERED: STAT IV Infusion **Titration per Protocol STA (05:51)
[2021-03-07] MEDS ORDERED: PROPOFOL BOLUS FROM BAG IV PRN (05:51)
[2021-03-07] MEDS: fentaNYL citrate 2,500 MCG/250 ML BAG IV SCH ×5 (05:54→22:22)
[2021-03-07 06:09] LABS: Anion Gap 3 (3-11); Blood Urea Nitrogen 18 mg/dl (6-23); Calcium 8.2 mg/dl (8.5-10.1); Carbon Dioxide 39 mmol/L (21-32); Chloride 96 mmol/L (98-107); Creatinine Clr Calc Pharmacy 273.3 ml/min; Est GFR (African American) > 150.0 ml/min; Est GFR (Non-African American) 132.8 ml/min; Glucose 135 mg/dl (70-99(Fasting)); Magnesium 1.8 mg/dl (1.7-2.4); Phosphorus 2.8 mg/dl (2.5-4.9); Potassium 3.7 mmol/L (3.5-5.1); Sodium 138 mmol/L (136-145)
[2021-03-07] MEDS: oxyCODONE HCL SOLN 5 MG/5 ML UDC PO SCH (06:25)
[2021-03-07 07:25] LABS: Basophils # (auto) 0.03 K/uL (0-0.2); Basophils % (auto) 0.2 %; Eosinophils # (auto) 0.45 K/uL (0-0.5); Eosinophils % (auto) 2.9 %; Hemoglobin 11.9 g/dL (14.0-18.0); Immature Granulocytes # (auto) 0.19 K/uL (0.00-0.02); Immature Granulocytes % (auto) 1.2 %; Lymphocytes # (auto) 2.21 K/uL (1.2-3.4); Lymphocytes % (auto) 14.4 %; Mean Corpuscular Hemoglobin 26.7 pg (25-34); Mean Corpuscular Hgb Conc 30.5 g/dL (32-36); Mean Corpuscular Volume 87.6 fL (80-100); Mean Platelet Volume 10.3 fL (7.4-10.4); Monocytes # (auto) 1.41 K/uL (0.11-0.59); Monocytes % (auto) 9.2 %; Neutrophils # (auto) 11.08 K/uL (1.4-6.5); Neutrophils % (auto) 72.1 %; Platelet Count 172 K/uL (130-400); RDW Coefficient of Variation 16.4 % (11.5-14.5); RDW Standard Deviation 52.6 fL (36.4-46.3); Red Blood Count 4.45 M/uL (4.7-6.1); White Blood Count 15.37 K/uL (4.8-10.8)
[2021-03-07] MEDS: ICU ELECTROLYTE REPLACEMENT PROTOCOL SCH (07:26)
[2021-03-07] MEDS: SENNOSIDES 8.8 MG/5 ML UDC PO SCH (08:06)
[2021-03-07] MEDS: RIVAROXABAN 10 MG TABLET PO SCH (08:06)
[2021-03-07] MEDS: POTASSIUM CHLORIDE 20 MEQ/15 ML UDC NG SCH ×2 (08:06→11:07)
[2021-03-07] MEDS: CITALOPRAM 20 MG TAB PO SCH (08:07)
[2021-03-07] MEDS: FUROSEMIDE 40 MG/4 ML VIAL IV SCH ×2 (08:07→20:46)
[2021-03-07] MEDS: MAGNESIUM OXIDE 400 MG TAB NG SCH ×2 (08:08→11:07)
[2021-03-07] MEDS: LACTULOSE SYRUP 20 GM/30 ML UDC PO SCH (08:08)
[2021-03-07] MEDS: clonazePAM 1 MG TAB PO SCH (08:10)
--- NOTE | 2021-03-07 10:01 | Critical Care Progress Note ---
Date of Service March 07, 2021 Assessment & Plan (1) Acute respiratory distress syndrome (ARDS) due to COVID-19 virus: (2) Elevated troponin I level: (3) Bacterial pneumonia: (4) Hypertension: (5) Morbid obesity with BMI of 40.0-44.9, adult: Plan: Impression: 55-year-old unvaccinated male initially diagnosed 01/31/2021 and spent almost 2 weeks in the hospital on high flow oxygen. He received remdesivir and Decadron at that point time. He was dismissed from the hospital 02/15 but returned 02/18 with progressive hypoxemic respiratory failure. He was treated with high-dose dexamethasone as well as Levaquin and Zosyn. He failed noninvasive positive pressure ventilation and was intubated 02/27/2021. Trach 03/05/20 Recommendations: 1. Neurologic: Currently sedated with fentanyl and Versed and propofol, discontinue oral clonazepam and oxycodone. May also need to start antipsychotics depending on clinical response. Continue home dose of Celexa. Holding baclofen for now. Continue Nimbex as patient continues to fight ventilator 2. Cardiovascular: Continue norepinephrine with efforts to wean as tolerated. Still not net negative. ContinueLasix to 40 mg twice a day. 3. Pulmonary: Severe ARDS with multifocal infiltrates consistent with viral pneumonia/late-phase ARDS. Patient has completed antibiotics, remdesivir, and several courses of steroids. His CRP is low. I do not think additional steroids at this point time are going to offer him a clinical benefit unless his CRP should increase. He has remained supine. He was extubated 03/03 but required reintubation and underwent tracheostomy placement 03/05/2021. . 4. GI: tube feeding at trickle while under neuromuscular blockade Depending on clinical response may need GI consultation for PEG tube placement next week. 5. ID: Day #4 meropenem. Fever still present but fever curve improved. White blood cell count decreasing. Would likely complete 5 days of antimicrobial therapy. Blood and respiratory cultures are showing no growth to date. Will check urine culture for completeness sake. Lines were all changed out 03/04. Okay to discontinue isolation as the patient is more than 21 days out from his initial illness. 6. Renal: Judicious diuresis. Continue ICU electrolyte replacement protocol. 7. Heme-onc: Prior history of DVT. Restarted Xarelto. Questionable gout, will follow for now, do not see gouty inflammation to account for the patient's fever and leukocytosis however will need to follow. 8. Endocrine: Glycemic control per ICU protocol. Patient was discussed on multidisciplinary rounds I have personally spent 50 minutes of critical care time in the direct management of this patient. This is a life/limb threatening event. This includes time spent evaluating patient, direct bedside care, chart review, placing orders, interpretation of diagnostic studies, discussion with consultants, patient, and/or family members regarding treatment decisions, as well as other required patient management activities. This time is exclusive of all separately billable procedures, and teaching time and separate from and in addition to any other critical care service time. Admission and Anticipated Discharge Date Admission Date: February 18, 2021 Subjective intubated and sedated Review of Systems Review of Systems: Unable to perform secondary to intubation and sedation Physical Exam Physical Exam: General: Sedated. GCS 3 TP. Skin: Warm, dry, Head: Atraumatic Ears, nose, mouth and throat: airway patent, tracheostomy tube in place Cardiovascular: Normal peripheral perfusion Respiratory: Ventilator settings reviewed Gastrointestinal: Non distended Musculoskeletal: No deformity Results & Data Results & Data ([facility]) Vital Signs (Past 12 Hours) Vital Signs Pulse Resp BP Pulse Ox 03/07/21 08:00 76 29 H 91/59 L 91 03/07/21 07:31 72 30 H 92 03/07/21 07:00 73 18 97/63 L 92 03/07/21 04:00 117/52 L 03/07/21 03:39 72 30 H 93 03/07/21 00:00 73 03/06/21 23:24 73 30 H 93 03/06/21 23:00 74 30 H 91/57 L 93 03/06/21 22:00 75 30 H 92/58 L 92 Laboratory Results 03/07/21 03/07/21 03/07/21 Range/Units 06:25 05:26 04:07 WBC 15.37 H (4.8-10.8) K/uL RBC 4.45 L (4.7-6.1) M/uL Hgb 11.9 L (14.0-18.0) g/dL POC Hgb 12.6 L (14.0-18.0) g/dl Hct 39.0 L (42-52) % POC Hct 37 L (42-52) % MCV 87.6 (80-100) fL MCH 26.7 (25-34) pg MCHC 30.5 L (32-36) g/dL RDW Std Deviation 52.6 H (36.4-46.3) fL RDW Coeff of Eleazar 16.4 H (11.5-14.5) % Plt Count 172 (130-400) K/uL MPV 10.3 (7.4-10.4) fL Immature Gran % (Auto) 1.2 % Neut % (Auto) 72.1 % Lymph % (Auto) 14.4 % [place] % (Auto) 9.2 % Eos % (Auto) 2.9 % Baso % (Auto) 0.2 % Neut # (Auto) 11.08 H (1.4-6.5) K/uL Lymph # (Auto) 2.21 (1.2-3.4) K/uL [place] # (Auto) 1.41 H (0.11-0.59) K/uL Eos # (Auto) 0.45 (0-0.5) K/uL Baso # (Auto) 0.03 (0-0.2) K/uL Immature Gran # (Auto) 0.19 H (0.00-0.02) K/uL Sample Site Art Line POC pH 7.38 (7.35-7.45) POC pCO2 71 H (35-46) mmHg POC pO2 56 L (80-95) mmHg POC HCO3 41 H (19-24) arlene/L POC Total CO2 > 40 H* (24-31) mmol/L POC Base Excess 16.0 H (-9-1.8) arlene/L ABG pH (Temp Correct) 7.374 (7.35-7.45) ABG pCO2 (Temp Corrct 71 H (35-46) mmHg POC ABG pO2 at Pt Temp 56 POC ABG O2 Sat 86.0 L (90-95) % Brodie Test NA O2 Delivery Device Ventilator POC O2 Rate 30 POC FiO2 50 % Tidal Volume 385 PEEP 10 POC Sodium 138 (135-144) mmol/L Sodium 138 (136-145) mmol/L POC Potassium 3.7 (3.3-5.0) mmol/L Potassium 3.7 (3.5-5.1) mmol/L Chloride 96 L (98-107) mmol/L Carbon Dioxide 39 H (21-32) mmol/L Anion Gap 3 (3-11) BUN 18 (6-23) mg/dl Creatinine 0.40 L (0.6-1.4) mg/dl Est Cr Clr Drug Dosing 273.3 ml/min Est GFR ( Amer) > 150.0 ml/min Est GFR (Non-Af Amer) 132.8 ml/min BUN/Creatinine Ratio 45.0 H (10-20) Glucose 135 H (70-99(Fasting)) mg/dl POC Glucose (70-99) mg/dl Calcium 8.2 L (8.5-10.1) mg/dl Phosphorus 2.8 (2.5-4.9) mg/dl Magnesium 1.8 (1.7-2.4) mg/dl 03/06/21 Range/Units 23:54 WBC (4.8-10.8) K/uL RBC (4.7-6.1) M/uL Hgb (14.0-18.0) g/dL POC Hgb (14.0-18.0) g/dl Hct (42-52) % POC Hct (42-52) % MCV (80-100) fL MCH (25-34) pg MCHC (32-36) g/dL RDW Std Deviation (36.4-46.3) fL RDW Coeff of Eleazar (11.5-14.5) % Plt Count (130-400) K/uL MPV (7.4-10.4) fL Immature Gran % (Auto) % Neut % (Auto) % Lymph % (Auto) % [place] % (Auto) % Eos % (Auto) % Baso % (Auto) % Neut # (Auto) (1.4-6.5) K/uL Lymph # (Auto) (1.2-3.4) K/uL [place] # (Auto) (0.11-0.59) K/uL Eos # (Auto) (0-0.5) K/uL Baso # (Auto) (0-0.2) K/uL Immature Gran # (Auto) (0.00-0.02) K/uL Sample Site POC pH (7.35-7.45) POC pCO2 (35-46) mmHg POC pO2 (80-95) mmHg POC HCO3 (19-24) arlene/L POC Total CO2 (24-31) mmol/L POC Base Excess (-9-1.8) arlene/L ABG pH (Temp Correct) (7.35-7.45) ABG pCO2 (Temp Corrct (35-46) mmHg POC ABG pO2 at Pt Temp POC ABG O2 Sat (90-95) % Brodie Test O2 Delivery Device POC O2 Rate POC FiO2 % Tidal Volume PEEP POC Sodium (135-144) mmol/L Sodium (136-145) mmol/L POC Potassium (3.3-5.0) mmol/L Potassium (3.5-5.1) mmol/L Chloride (98-107) mmol/L Carbon Dioxide (21-32) mmol/L Anion Gap (3-11) BUN (6-23) mg/dl Creatinine (0.6-1.4) mg/dl Est Cr Clr Drug Dosing ml/min Est GFR ( Amer) ml/min Est GFR (Non-Af Amer) ml/min BUN/Creatinine Ratio (10-20) Glucose (70-99(Fasting)) mg/dl POC Glucose 122 H (70-99) mg/dl Calcium (8.5-10.1) mg/dl Phosphorus (2.5-4.9) mg/dl Magnesium (1.7-2.4) mg/dl Coding Level of Care Code Critical Care 1st 30-74 mins Diagnoses Acute respiratory distress syndrome (ARDS) due to COVID-19 virus U07.1; J80 Elevated troponin I level R77.8 Bacterial pneumonia J15.9 Hypertension I10 Morbid obesity with BMI of 40.0-44.9, adult E66.01; Z68.41
--- NOTE | 2021-03-07 13:22 | Hospitalist Progress Note ---
Date of Service March 07, 2021 Assessment & Plan (1) Acute respiratory distress syndrome (ARDS) due to COVID-19 virus: Plan: respiratory failure with hypoxia Had been intubated 02/27/21 due to progressive respiratory failure despite max HFNC and CPAP. Extubated 03/03/20 to HFNC. Unfortunately the patient developed recurrent respiratory failure/distress in the setting of max HFNC settings. Patient re-intubated early in morning on 03/04/21 tracheostomy performed 03/05/21 by ICU remains tachycardic, febrile (but improving) started on Meropenem empirically, no growth on blood or sputum cultures Lasix 40mg IV BID to try for negative fluid balance tolerating but feeds, will eventually need a PEG he tends to desaturate with any lapse in sedation requiring higher FiO2 readmitted to the hospital on 02/18/21 after he had a prolonged hospital stay in January for severe COVID-19 pneumonia. since 02/18 had been requiring HFNC with CPAP at night. prior attending suspected late-stage ARDS. he has been on steroids since his readmission on 02/18 with no improvement in his status. baricitinib was started 02/21 due to high CRP and worsening status. despite the above he continued with worsening respiratory status. pulmonary formally consulted AM of 02/27/21. 02/27/21 early afternoon patient decompensated further necessitating transfer to [facility] for intubation. baricitinib stopped at that time. extubated 03/03/21. then reintubated AM of 03/04/21 after failing max settings of HFNC. (2) Pneumonia due to 2019 novel coronavirus: Plan: COVID 19 originally diagnosed 01/31/21. He was hospitalized from 01/31/2021 until 02/15/21. Initially treated with dexamethasone + Remdesivir during that admission. Readmitted 02/18/21; had been on HFNC since, with CPAP at night. Intubated/ventilated 02/27/21. Extubated 03/03/21. Reintubated AM of 03/04/21 tracheostomy performed 03/05/21 CRP this admission 11.4 - baricitinib started on 02/21/21 and received 8 doses then stopped following his intubation. Completed 10 days of dexamethasone 6mg IV daily - steroids remain off. likely has fibrotic changes of lungs that will not improve now on Meropenem empirically, fever better but no growth on cultures Lasix 40mg IV BID (3) Hypotension: Plan: on Levophed likely from sedation arterial line replaced on 03/06/21 (4) Fever: Plan: improved fever curve with Meropenem follow up sputum culture - no growth no growth on blood or urine cultures either (5) Respiratory acidosis: Plan: resolved (6) Hyponatremia: Plan: resolved (7) Hyperglycemia: Plan: insulin protocol (8) Morbid obesity with BMI of 40.0-44.9, adult: (9) DVT prophylaxis: Plan: resume Xarelto (10) Type 2 diabetes mellitus: Admission and Anticipated Discharge Date Admission Date: February 18, 2021 Subjective ICU managing reviewed labs and most recent microbiology reports - no growth on urine, sputum, blood cultures Review of Systems Review of Systems: Unobtainable due to cognitive status and Unobtainable due to endotracheal tube Physical Exam Physical Exam: General: well developed, obese, mechanically ventilated via trach Neck: tracheostomy present Lungs: clear to auscultation bilaterally, symmetric chest movement on ventilatory Heart: tachycardic S1 and S2, no murmur, peripheral pulses normal, capillary refill normal, no edema Abdomen: soft, NT, ND, + BS, no hepatomegaly, normal to percussion Extremities: normal in appearance, no cyanosis, no petechiae Neuro: sedated, no focal motor deficits, CN II-XII intact, sensation in extremities intact, normal speech Skin: warm, dry, no rash, normal turgor Psych: sedated Results & Data Results & Data ([facility]) Vital Signs (Past 12 Hours) Vital Signs Pulse Resp BP Pulse Ox 03/07/21 10:21 84 30 H 93 03/07/21 08:00 76 29 H 91/59 L 91 03/07/21 07:31 72 30 H 92 03/07/21 07:00 73 18 97/63 L 92 03/07/21 04:00 117/52 L 03/07/21 03:39 72 30 H 93 Laboratory Results Laboratory Results - last 24 hr 03/06/21 03/07/21 03/07/21 23:54 04:07 05:26 WBC RBC Hgb POC Hgb 12.6 L Hct POC Hct 37 L MCV MCH MCHC RDW Std Deviation RDW Coeff of Eleazar Plt Count MPV Immature Gran % (Auto) Neut % (Auto) Lymph % (Auto) [place] % (Auto) Eos % (Auto) Baso % (Auto) Neut # (Auto) Lymph # (Auto) [place] # (Auto) Eos # (Auto) Baso # (Auto) Immature Gran # (Auto) Sample Site Art Line POC pH 7.38 POC pCO2 71 H POC pO2 56 L POC HCO3 41 H POC Total CO2 > 40 H* POC Base Excess 16.0 H ABG pH (Temp Correct) 7.374 ABG pCO2 (Temp Corrct 71 H POC ABG pO2 at Pt Temp 56 POC ABG O2 Sat 86.0 L Brodie Test NA O2 Delivery Device Ventilator POC O2 Rate 30 POC FiO2 50 Tidal Volume 385 PEEP 10 POC Sodium 138 Sodium 138 POC Potassium 3.7 Potassium 3.7 Chloride 96 L Carbon Dioxide 39 H Anion Gap 3 BUN 18 Creatinine 0.40 L Est Cr Clr Drug Dosing 273.3 Est GFR ( Amer) > 150.0 Est GFR (Non-Af Amer) 132.8 BUN/Creatinine Ratio 45.0 H Glucose 135 H POC Glucose 122 H Calcium 8.2 L Phosphorus 2.8 Magnesium 1.8 03/07/21 06:25 WBC 15.37 H RBC 4.45 L Hgb 11.9 L POC Hgb Hct 39.0 L POC Hct MCV 87.6 MCH 26.7 MCHC 30.5 L RDW Std Deviation 52.6 H RDW Coeff of Eleazar 16.4 H Plt Count 172 MPV 10.3 Immature Gran % (Auto) 1.2 Neut % (Auto) 72.1 Lymph % (Auto) 14.4 [place] % (Auto) 9.2 Eos % (Auto) 2.9 Baso % (Auto) 0.2 Neut # (Auto) 11.08 H Lymph # (Auto) 2.21 [place] # (Auto) 1.41 H Eos # (Auto) 0.45 Baso # (Auto) 0.03 Immature Gran # (Auto) 0.19 H Sample Site POC pH POC pCO2 POC pO2 POC HCO3 POC Total CO2 POC Base Excess ABG pH (Temp Correct) ABG pCO2 (Temp Corrct POC ABG pO2 at Pt Temp POC ABG O2 Sat Brodie Test O2 Delivery Device POC O2 Rate POC FiO2 Tidal Volume PEEP POC Sodium Sodium POC Potassium Potassium Chloride Carbon Dioxide Anion Gap BUN Creatinine Est Cr Clr Drug Dosing Est GFR ( Amer) Est GFR (Non-Af Amer) BUN/Creatinine Ratio Glucose POC Glucose Calcium Phosphorus Magnesium Medications Administered Current Inpatient Medications Acetaminophen (Acetaminophen Susp 325 Mg/10.15 Ml Udc) 650 mg NG Q4H PRN PRN Reason: Pain or Fever Stop: 04/02/21 04:41 Last Admin: 03/05/21 03:07 Dose: 650 mg Documented by: Citalopram Hydrobromide (Citalopram 20 Mg Tab) 20 mg PO DAILY [facility] Stop: 03/21/21 08:59 Last Admin: 03/07/21 08:07 Dose: 20 mg Documented by: Fentanyl Citrate (Fentanyl Bolus From Bag) 50 mcg IV Q60M PRN PRN Reason: Pain or Agitation Stop: 03/18/21 03:28 Last Admin: 03/06/21 05:57 Dose: 50 mcg Documented by: Furosemide (Furosemide 40 Mg/4 Ml Vial) 40 mg IV BID [facility] Stop: 04/05/21 20:59 Last Admin: 03/07/21 08:07 Dose: 40 mg Documented by: Pantoprazole Sodium 40 mg/ (Syringe) 10 mls @ 5 mls/min IV DAILY@1100 CANDICE Stop: 03/30/21 10:59 Last Admin: 03/06/21 10:30 Dose: 5 mls/min Documented by: Fentanyl Citrate (Fentanyl Citrate) 2,500 mcg in 250 mls @ 20 mls/hr IV .[id number] [facility]; Protocol Stop: 03/18/21 03:29 Last Admin: 03/07/21 09:07 Dose: 200 mcg/hr, 20 mls/hr Documented by: Meropenem 500 mg/ Syringe 10 mls @ 2 mls/min IV Q6H [facility]; Protocol Stop: 03/11/21 15:59 Last Admin: 03/07/21 11:07 Dose: 2 mls/min Documented by: Norepinephrine Bitartrate (Levophed/D5w) 8 mg in 508 mls @ 23.108 mls/hr IV .Q22H [facility]; Protocol Stop: 04/04/21 21:14 Last Admin: 03/07/21 03:40 Dose: 0.05 mcg/kg/min, 23.1 mls/hr Documented by: Midazolam HCl (Versed) 125 mg in 250 mls @ 6 mls/hr IV .[id number] [facility]; Protocol Stop: 04/05/21 14:14 Last Titration: 03/06/21 19:14 Dose: 3 mg/hr, 6 mls/hr Documented by: Cisatracurium Besylate 40 mg/ (Dextrose) 100 mls @ 33.885 mls/hr IV .Q2H58M S ; Protocol Stop: 04/05/21 14:44 Last Admin: 03/07/21 11:07 Dose: 3 mcg/kg/min, 33.9 mls/hr Documented by: Dexmedetomidine HCl 400 mcg/ (Sodium Chloride) 100 mls @ 24.26 mls/hr IV .Q4H8M [facility]; Protocol Stop: 03/10/21 16:14 Last Admin: 03/07/21 11:07 Dose: 0.9 mcg/kg/hr, 27.3 mls/hr Documented by: Propofol (Diprivan) 1,000 mg in 100 mls @ 14.556 mls/hr IV .Q6H53M [facility]; Protocol Stop: 03/10/21 05:59 Last Admin: 03/07/21 13:18 Dose: 40 mcg/kg/min, 29.1 mls/hr Documented by: Lactulose (Lactulose Syrup 20 Gm/30 Ml Udc) 20 gm PO QAM [facility] Stop: 04/01/21 10:59 Last Admin: 03/07/21 08:08 Dose: 20 gm Documented by: Midazolam HCl (Midazolam Hcl 1 Mg/Ml 2ml Vial) 2 mg IV Q2H PRN PRN Reason: Agitation Stop: 04/04/21 21:12 Last Admin: 03/06/21 12:14 Dose: 2 mg Documented by: Midazolam HCl (Midazolam Bolus From Bag) 2 mg IV Q60M PRN PRN Reason: Sedation Stop: 04/05/21 14:08 Miscellaneous (Icu Electrolyte Replacement Protocol) 1 ea N/A BID@ [facility]; Protocol Stop: 03/07/21 17:59 Last Admin: 03/07/21 07:26 Dose: 1 ea Documented by: Miscellaneous Information (Meropenem Consult Active) 1 ea N/A UD PRN PRN Reason: Consult Stop: 04/03/21 15:20 Multi-Ingredient Cream (Artificial Tears Op Oint 3.5 Gm Tube) 1 appln OP Q4H [facility] Stop: 04/05/21 14:44 Last Admin: 03/07/21 11:15 Dose: 1 appln Documented by: Nutritional Formula (Peptamen Intense Vhp 1.0 Casey 1,000 Ml Bag) 1,000 ml GT CONT PRN; Protocol PRN Reason: Tube Feeding Stop: 04/04/21 17:59 Last Admin: 03/05/21 19:50 Dose: 1,000 ml Documented by: Propofol (Propofol Bolus From Bag) 20 mg IV Q5M PRN PRN Reason: Sedation Stop: 03/10/21 05:50 Rivaroxaban (Rivaroxaban 10 Mg Tablet) 10 mg PO DAILY [facility] Stop: 04/05/21 08:59 Last Admin: 03/07/21 08:06 Dose: 10 mg Documented by: Sennosides (Sennosides 8.8 Mg/5 Ml Udc) 8.8 mg PO QAM [facility] Stop: 04/01/21 10:59 Last Admin: 03/07/21 08:06 Dose: 8.8 mg Documented by: Vecuronium [place] (Vecuronium [place] 10 Mg Vial) 10 mg IV Q3H PRN PRN Reason: ventilator dysnchrony Stop: 04/03/21 20:14 Last Admin: 03/06/21 12:14 Dose: 10 mg Documented by: PG Care Time/CCT Total # of Minutes Spent Total Time Spent with Patient: Total time spent is greater than 50% in coordination of care (as documented) at patient's floor/unit and/or counseling patient: Coding Level of Care Code 00260 Subseq Hosp Care Lvl 2 Diagnoses Acute respiratory distress syndrome (ARDS) due to COVID-19 virus U07.1; J80 Pneumonia due to 2019 novel coronavirus U07.1; J12.82 Hypotension I95.9 Fever R50.9 Respiratory acidosis E87.2 Hyponatremia E87.1 Hyperglycemia R73.9 Morbid obesity with BMI of 40.0-44.9, adult E66.01; Z68.41 DVT prophylaxis Z29.9 Type 2 diabetes mellitus E11.9
[2021-03-07] MEDS: PANTOprazole 40 MG in SYRINGE 0 ML IV SCH (13:27)
[2021-03-07] MEDS: PEPTAMEN INTENSE VHP 1.0 CAL 1,000 ML BAG GT PRN (14:14)
[2021-03-07] MEDS: VECURONIUM BROMIDE 10 MG VIAL IV PRN (18:27)
[2021-03-07] MEDS: ACETAMINOPHEN SUSP 325 MG/10.15 ML UDC NG PRN (19:41)
[2021-03-07] MEDS: MIDAZOLAM HCL 125 MG/250 ML BAG IV SCH (23:31)
[2021-03-08] MEDS: DEXMEDETOMIDINE HCL 400 MCG in 0.9 % SODIUM CHLORIDE 96 ML IV SCH ×2 (00:30→04:55)
[2021-03-08] MEDS: CISATRACURIUM BESYLATE 40 MG in DEXTROSE 5% 80 ML IV SCH ×3 (00:30→06:32)
[2021-03-08] MEDS: ARTIFICIAL TEARS OP OINT 3.5 GM TUBE OP SCH ×6 (03:18→22:10)
[2021-03-08] MEDS: NOREPINEPHRINE/D5W 8 MG/508 ML BAG IV SCH ×6 (03:18→22:10)
[2021-03-08] MEDS: MEROPENEM 500 MG in SYRINGE 0 ML IV SCH ×4 (03:19→22:10)
[2021-03-08] MEDS: ACETAMINOPHEN SUSP 325 MG/10.15 ML UDC NG PRN (03:21)
[2021-03-08] MEDS: propofoL 1,000 MG/100 ML VIAL IV SCH ×7 (03:24→22:52)
[2021-03-08 04:04] LABS: iSTAT Art Bld Gas pCO2 Correct 82 mmHg (35-46); iSTAT Art Bld Gas pH Corrected 7.276 (7.35-7.45); iSTAT Arterial Blood Gas HCO3 37 meg/L (19-24); iSTAT Arterial Blood Gas pCO2 77 mmHg (35-46); iSTAT Arterial Blood Gas pO2 68 mmHg (80-95); iSTAT Arterial Blood Gas pO2 C 75; iSTAT Carbon Dioxide > 40 mmol/L (24-31); iSTAT FiO2 50 %; iSTAT Hematocrit 39 % (42-52); iSTAT Hemoglobin 13.3 g/dl (14.0-18.0); iSTAT Potassium 4.7 mmol/L (3.3-5.0); iSTAT Site Art Line; iSTAT Sodium 133 mmol/L (135-144)
[2021-03-08 06:50] LABS: Basophils # (auto) 0.06 K/uL (0-0.2); Basophils % (auto) 0.3 %; Eosinophils # (auto) 0.29 K/uL (0-0.5); Eosinophils % (auto) 1.4 %; Hematocrit (blood only) 40.5 % (42-52); Hemoglobin 12.6 g/dL (14.0-18.0); Immature Granulocytes # (auto) 0.51 K/uL (0.00-0.02); Immature Granulocytes % (auto) 2.5 %; Lymphocytes % (auto) 15.4 %; Mean Corpuscular Hemoglobin 26.9 pg (25-34); Mean Corpuscular Hgb Conc 31.1 g/dL (32-36); Mean Corpuscular Volume 86.5 fL (80-100); Mean Platelet Volume 10.4 fL (7.4-10.4); Monocytes # (auto) 1.76 K/uL (0.11-0.59); Monocytes % (auto) 8.5 %; Neutrophils # (auto) 14.94 K/uL (1.4-6.5); Neutrophils % (auto) 71.9 %; Platelet Count 192 K/uL (130-400); RDW Standard Deviation 50.5 fL (36.4-46.3); Red Blood Count 4.68 M/uL (4.7-6.1); White Blood Count 20.76 K/uL (4.8-10.8)
[2021-03-08 07:21] LABS: BUN Creatinine Ratio 32.9 (10-20); Calcium 8.4 mg/dl (8.5-10.1); Creatinine Clr Calc Pharmacy 156.2 ml/min; Est GFR (African American) 122.3 ml/min; Est GFR (Non-African American) 105.5 ml/min; Phosphorus 3.1 mg/dl (2.5-4.9); Potassium 4.4 mmol/L (3.5-5.1)
[2021-03-08] MEDS: LACTULOSE SYRUP 20 GM/30 ML UDC PO SCH (08:08)
[2021-03-08] MEDS: CITALOPRAM 20 MG TAB PO SCH (08:08)
[2021-03-08] MEDS: RIVAROXABAN 10 MG TABLET PO SCH (08:08)
[2021-03-08] MEDS: SENNOSIDES 8.8 MG/5 ML UDC PO SCH (08:08)
[2021-03-08] MEDS: FUROSEMIDE 40 MG/4 ML VIAL IV SCH (08:08)
--- NOTE | 2021-03-08 08:15 | XRay Report ---
XR chest 1V portable CLINICAL HISTORY: Resp failure. Follow-up airspace opacities COMPARISON STUDY: 03/06/2021 TECHNIQUE: 1 view of the chest FINDINGS: Single frontal view of the chest demonstrates the cardiomediastinal silhouette to be within normal li mits. Tubes and catheters are again unchanged. Compared to previous examination, there has been worse omid of interstitial and alveolar opacities bilaterally. There is also haziness at both lung bases ch aracteristic of bilateral pleural effusions. There is no evidence for vascular congestion. There is n o acute osseous pathology. IMPRESSION: Interval worsening of interstitial and alveolar opacities bilaterally and evidence for bi lateral pleural effusions. ACT 112: Negative or not required by law. Electronically signed by: Eugene Rome M.D. 03/08/2021 8:13 AM
--- NOTE | 2021-03-08 09:26 | Critical Care Progress Note ---
Date of Service March 08, 2021 Assessment & Plan (1) Acute respiratory distress syndrome (ARDS) due to COVID-19 virus: (2) Elevated troponin I level: (3) Bacterial pneumonia: (4) Hypertension: (5) Morbid obesity with BMI of 40.0-44.9, adult: Plan: Impression: 55-year-old unvaccinated male initially diagnosed 01/31/2021 and spent almost 2 weeks in the hospital on high flow oxygen. He received remdesivir and Decadron at that point time. He was dismissed from the hospital 02/15 but returned 02/18 with progressive hypoxemic respiratory failure. He was treated with high-dose dexamethasone as well as Levaquin and Zosyn. He failed noninvasive positive pressure ventilation and was intubated 02/27/2021. Trach 03/05/20 Recommendations: 1. Neurologic: Currently sedated with fentanyl and Versed and propofol, discontinue oral clonazepam and oxycodone. May also need to start antipsychotics depending on clinical response. Continue home dose of Celexa. Holding baclofen for now. Discontinue Nimbex today 2. Cardiovascular: Continue norepinephrine with efforts to wean as tolerated. Still not net negative. Decrease Lasix to 40 mg a day. 3. Pulmonary: Severe ARDS with multifocal infiltrates consistent with viral pneumonia/late-phase ARDS. Patient has completed antibiotics, remdesivir, and several courses of steroids. His CRP is low. I do not think additional steroids at this point time are going to offer him a clinical benefit unless his CRP should increase. He has remained supine. He was extubated 03/03 but required reintubation and underwent tracheostomy placement 03/05/2021. . 4. GI: Increase tube feeding. I would consider PEG tube placement this week as patient has decompensated and definitive enteral access would be appropriate -Constipation 30 mL mineral oil today x1 5. ID: Day #5 meropenem. Fever still present but fever curve improved. Would likely complete 5 days of antimicrobial therapy. Blood and respiratory cultures are showing no growth to date. Will check urine culture for completeness sake. Lines were all changed out 03/04. Okay to discontinue isolation as the patient is more than 21 days out from his initial illness. -Repeat check of LFTs and lipase, Venous duplex negative on 03/04 has remained on anticoagulation 6. Renal: Judicious diuresis. Continue ICU electrolyte replacement protocol. 7. Heme-onc: Prior history of DVT. Restarted Xarelto. Questionable gout, will follow for now, do not see gouty inflammation to account for the patient's fever and leukocytosis however will need to follow. 8. Endocrine: Glycemic control per ICU protocol. Patient was discussed on multidisciplinary rounds I have personally spent 45 minutes of critical care time in the direct management of this patient. This is a life/limb threatening event. This includes time spent evaluating patient, direct bedside care, chart review, placing orders, interpretation of diagnostic studies, discussion with consultants, patient, and/or family members regarding treatment decisions, as well as other required patient management activities. This time is exclusive of all separately billable procedures, and teaching time and separate from and in addition to any other critical care service time. Admission and Anticipated Discharge Date Admission Date: February 18, 2021 Subjective No overnight events Review of Systems Review of Systems: Unable to perform secondary to tracheostomy and sedation Physical Exam Physical Exam: General: Sedated. GCS 3 TP. Skin: Warm, dry, Head: Atraumatic Ears, nose, mouth and throat: airway patent, tracheostomy tube in place Cardiovascular: Normal peripheral perfusion Respiratory: Ventilator settings reviewed Gastrointestinal: Non distended Musculoskeletal: No deformity Results & Data Results & Data ([facility]) Vital Signs (Past 12 Hours) Vital Signs Temp Pulse Resp BP Pulse Ox 03/08/21 09:00 100 H 30 H 99/71 L 92 03/08/21 08:30 100 H 35 H 92 03/08/21 08:00 98 H 34 H 108/76 90 03/08/21 07:49 101 H 32 H 92 03/08/21 07:30 102 H 23 90 03/08/21 07:00 103 H 9 L 101/73 91 03/08/21 06:00 38 C H 104 H 32 H 105/71 91 03/08/21 05:00 105 H 32 H 101/69 91 03/08/21 04:00 107 H 32 H 103/74 90 03/08/21 03:41 95 H 30 H 91 03/08/21 03:00 38.5 C H 76 30 H 96 03/08/21 02:00 107 H 30 H 90/64 L 93 03/08/21 01:00 38.6 C H 109 H 30 H 90/67 L 92 03/08/21 00:00 39 C H 111 H 0 L 95/64 L 92 03/07/21 23:31 112 H 30 H 90 03/07/21 23:00 109 H 15 91 03/07/21 22:30 39 C H 111 H 32 H 83/60 L 90 03/07/21 22:00 39 C H 112 H 30 H 88/59 L 89 L Laboratory Results 03/08/21 03/08/21 03/08/21 Range/Units 08:31 06:02 06:02 WBC 20.76 H (4.8-10.8) K/uL RBC 4.68 L (4.7-6.1) M/uL Hgb 12.6 L (14.0-18.0) g/dL POC Hgb (14.0-18.0) g/dl Hct 40.5 L (42-52) % POC Hct (42-52) % MCV 86.5 (80-100) fL MCH 26.9 (25-34) pg MCHC 31.1 L (32-36) g/dL RDW Std Deviation 50.5 H (36.4-46.3) fL RDW Coeff of Eleazar 16.0 H (11.5-14.5) % Plt Count 192 (130-400) K/uL MPV 10.4 (7.4-10.4) fL Immature Gran % (Auto) 2.5 % Neut % (Auto) 71.9 % Lymph % (Auto) 15.4 % [place] % (Auto) 8.5 % Eos % (Auto) 1.4 % Baso % (Auto) 0.3 % Neut # (Auto) 14.94 H (1.4-6.5) K/uL Lymph # (Auto) 3.20 (1.2-3.4) K/uL [place] # (Auto) 1.76 H (0.11-0.59) K/uL Eos # (Auto) 0.29 (0-0.5) K/uL Baso # (Auto) 0.06 (0-0.2) K/uL Immature Gran # (Auto) 0.51 H (0.00-0.02) K/uL Sample Site POC pH (7.35-7.45) POC pCO2 (35-46) mmHg POC pO2 (80-95) mmHg POC HCO3 (19-24) arlene/L POC Total CO2 (24-31) mmol/L POC Base Excess (-9-1.8) arlene/L ABG pH (Temp Correct) (7.35-7.45) ABG pCO2 (Temp Corrct (35-46) mmHg POC ABG pO2 at Pt Temp POC ABG O2 Sat (90-95) % Bordie Test O2 Delivery Device POC O2 Rate POC FiO2 % Tidal Volume PEEP POC Sodium (135-144) mmol/L Sodium 133 L (136-145) mmol/L POC Potassium (3.3-5.0) mmol/L Potassium 4.4 (3.5-5.1) mmol/L Chloride 94 L (98-107) mmol/L Carbon Dioxide 35 H (21-32) mmol/L Anion Gap 4 (3-11) BUN 23 (6-23) mg/dl Creatinine 0.70 D (0.6-1.4) mg/dl Est Cr Clr Drug Dosing 156.2 ml/min Est GFR ( Amer) 122.3 ml/min Est GFR (Non-Af Amer) 105.5 ml/min BUN/Creatinine Ratio 32.9 H (10-20) Glucose 162 H (70-99(Fasting)) mg/dl POC Glucose 165 H (70-99) mg/dl Calcium 8.4 L (8.5-10.1) mg/dl Phosphorus 3.1 (2.5-4.9) mg/dl Magnesium 2.0 (1.7-2.4) mg/dl 03/08/21 Range/Units 03:43 WBC (4.8-10.8) K/uL RBC (4.7-6.1) M/uL Hgb (14.0-18.0) g/dL POC Hgb 13.3 L (14.0-18.0) g/dl Hct (42-52) % POC Hct 39 L (42-52) % MCV (80-100) fL MCH (25-34) pg MCHC (32-36) g/dL RDW Std Deviation (36.4-46.3) fL RDW Coeff of Eleazar (11.5-14.5) % Plt Count (130-400) K/uL MPV (7.4-10.4) fL Immature Gran % (Auto) % Neut % (Auto) % Lymph % (Auto) % [place] % (Auto) % Eos % (Auto) % Baso % (Auto) % Neut # (Auto) (1.4-6.5) K/uL Lymph # (Auto) (1.2-3.4) K/uL [place] # (Auto) (0.11-0.59) K/uL Eos # (Auto) (0-0.5) K/uL Baso # (Auto) (0-0.2) K/uL Immature Gran # (Auto) (0.00-0.02) K/uL Sample Site Art Line POC pH 7.30 L (7.35-7.45) POC pCO2 77 H (35-46) mmHg POC pO2 68 L (80-95) mmHg POC HCO3 37 H (19-24) arlene/L POC Total CO2 > 40 H* (24-31) mmol/L POC Base Excess 11.0 H (-9-1.8) arlene/L ABG pH (Temp Correct) 7.276 L (7.35-7.45) ABG pCO2 (Temp Corrct 82 H (35-46) mmHg POC ABG pO2 at Pt Temp 75 POC ABG O2 Sat 90.0 (90-95) % Brodie Test NA O2 Delivery Device Ventilator POC O2 Rate 30 POC FiO2 50 % Tidal Volume 385 PEEP 8 POC Sodium 133 L (135-144) mmol/L Sodium (136-145) mmol/L POC Potassium 4.7 (3.3-5.0) mmol/L Potassium (3.5-5.1) mmol/L Chloride (98-107) mmol/L Carbon Dioxide (21-32) mmol/L Anion Gap (3-11) BUN (6-23) mg/dl Creatinine (0.6-1.4) mg/dl Est Cr Clr Drug Dosing ml/min Est GFR ( Amer) ml/min Est GFR (Non-Af Amer) ml/min BUN/Creatinine Ratio (10-20) Glucose (70-99(Fasting)) mg/dl POC Glucose (70-99) mg/dl Calcium (8.5-10.1) mg/dl Phosphorus (2.5-4.9) mg/dl Magnesium (1.7-2.4) mg/dl Critical Care Results & Data Vital Signs (Past 12 Hours) Vital Signs Temp Pulse Resp BP Pulse Ox 03/08/21 09:00 100 H 30 H 99/71 L 92 03/08/21 08:30 100 H 35 H 92 03/08/21 08:00 98 H 34 H 108/76 90 03/08/21 07:49 101 H 32 H 92 03/08/21 07:30 102 H 23 90 03/08/21 07:00 103 H 9 L 101/73 91 03/08/21 06:00 38 C H 104 H 32 H 105/71 91 03/08/21 05:00 105 H 32 H 101/69 91 03/08/21 04:00 107 H 32 H 103/74 90 03/08/21 03:41 95 H 30 H 91 03/08/21 03:00 38.5 C H 76 30 H 96 03/08/21 02:00 107 H 30 H 90/64 L 93 03/08/21 01:00 38.6 C H 109 H 30 H 90/67 L 92 03/08/21 00:00 39 C H 111 H 0 L 95/64 L 92 03/07/21 23:31 112 H 30 H 90 03/07/21 23:00 109 H 15 91 03/07/21 22:30 39 C H 111 H 32 H 83/60 L 90 03/07/21 22:00 39 C H 112 H 30 H 88/59 L 89 L Lab & Micro Results (Past 24 Hours) RBC 4.52 M/uL (4.7-6.1) L 03/09/21 WBC 21.84 K/uL (4.8-10.8) H 03/09/21 Hgb 12.2 g/dL (14.0-18.0) L 03/09/21 Hct 39.4 % (42-52) L 03/09/21 MCV 87.2 fL (80-100) 03/09/21 MCH 27.0 pg (25-34) 03/09/21 MCHC 31.0 g/dL (32-36) L 03/09/21 RDW Standard Deviation 52.3 fL (36.4-46.3) H 03/09/21 RDW Coefficient of Variation 16.4 % (11.5-14.5) H 03/09/21 Plt Count 154 K/uL (130-400) 03/09/21 MPV 10.0 fL (7.4-10.4) 03/09/21 Neutrophils (%) (Auto) 80.1 % 03/09/21 Lymphocytes (%) (Auto) 11.7 % 03/09/21 Monocytes # (Auto) 1.31 K/uL (0.11-0.59) H 03/09/21 Eosinophils # (Auto) 0.32 K/uL (0-0.5) 03/09/21 Immature Granulocyte % (Auto) 0.6 % 03/09/21 Neutrophils # (Auto) 17.50 K/uL (1.4-6.5) H 03/09/21 Lymphocytes # (Auto) 2.55 K/uL (1.2-3.4) 03/09/21 Monocytes # (Auto) 1.31 K/uL (0.11-0.59) H 03/09/21 Eosinophils # (Auto) 0.32 K/uL (0-0.5) 03/09/21 Basophils # (Auto) 0.03 K/uL (0-0.2) 03/09/21 Immature Granulocyte # (Auto) 0.13 K/uL (0.00-0.02) H 03/09/21 Na 132 mmol/L (136-145) L 03/09/21 K 4.4 mmol/L (3.5-5.1) 03/09/21 Cl 91 mmol/L (98-107) L 03/09/21 CO2 39 mmol/L (21-32) H 03/09/21 Anion Gap 2 (3-11) L 03/09/21 BUN 14 mg/dl (6-23) 03/09/21 Creatinine 0.44 mg/dl (0.6-1.4) L 03/09/21 Estimated GFR ( Amer) 148.0 ml/min 03/09/21 Estimated GFR (Non-Af Amer) 127.7 ml/min 03/09/21 BUN/Creatinine Ratio 31.8 (10-20) H 03/09/21 Glu 154 mg/dl (70-99(Fasting)) H 03/09/21 Ca 8.5 mg/dl (8.5-10.1) 03/09/21 Phosphorus Level 2.6 mg/dl (2.5-4.9) 03/09/21 Mg 2.0 mg/dl (1.7-2.4) 03/09/21 06:18 03/09/21 Calcium Level 8.5 mg/dl (8.5-10.1) 03/09/21 06:18 03/09/21 Brodie Test NA 03/09/21 04:22 03/09/21 Microbiology 03/06/21 17:40 Urine Culture - Final Urine,Indwelling Cath No growth - less than 1,000 colonies/mL. Diagnostic Findings (Past 24 Hours) Chest X-Ray 03/08/21 07:00 XR chest 1V portable CLINICAL HISTORY: Resp failure. Follow-up airspace opacities COMPARISON STUDY: 03/06/2021 TECHNIQUE: 1 view of the chest FINDINGS: Single frontal view of the chest demonstrates the cardiomediastinal silhouette to be within normal limits. Tubes and catheters are again unchanged. Compared to previous examination, there has been worsening of interstitial and alveolar opacities bilaterally. There is also haziness at both lung bases characteristic of bilateral pleural effusions. There is no evidence for vascular congestion. There is no acute osseous pathology. IMPRESSION: Interval worsening of interstitial and alveolar opacities bilaterally and evidence for bilateral pleural effusions. ACT 112: Negative or not required by law. Electronically signed by: Eugene Rome M.D. 03/08/2021 8:13 AM I & O Totals 24 Hours 03/07/21 03/08/21 03/09/21 06:59 06:59 06:59 Intake Total 3286.628 / 3376.628 3730.278 / 3730.278 104.665 / 104.665 Output Total 2460 / 2460 2125 / 2125 0 / 0 Balance 826.628 / 896.223 5581.278 / 1605.278 104.665 / 104.665 Cumulative 02/18/21 17:19 thru 03/08/21 08:00 Intake Total 97637.517 Output Total 71282 Balance -8493.483 RT Ventilator Mngmt (Last Documented) Ventilator Ordered Settings Ventilator Support Mode Assist Control 03/08/21 08:00 Respiratory Rate 30 03/08/21 09:00 Ventilator Tidal Volume 400 03/08/21 08:00 Setting Minute Ventilation 12.8 03/08/21 07:49 Ventilator Positive Pressure 12 03/03/21 08:15 Support Setting Positive End Expiratory 6 03/08/21 08:00 Pressure Fraction of Inspired Oxygen 45 03/08/21 08:00 Machine Comment FiO2 to 50% 03/06/21 20:11 Ventilator - PT Measurements Respiratory Rate 30 Exhaled Tidal Volume 400 Minute Ventilation 12.8 Peak Inspiratory Airway 31 Pressure Plateau Pressure 28 Respiratory Cycle Inspiratory: 1:1.9 Expiratory Ratio Inspiratory Phase Time 0.65 End-Tidal CO2 32 Static Lung Compliance 18.18 Dynamic Lung Compliance 16.00 Normal Static Lung Compliance 44.00 Patient Measurements Comment peak pressure was elevated to mid 30's for a little while. called. PIP back to low 20's now. Coding Level of Care Code Critical Care 1st 30-74 mins Diagnoses Acute respiratory distress syndrome (ARDS) due to COVID-19 virus U07.1; J80 Elevated troponin I level R77.8 Bacterial pneumonia J15.9 Hypertension I10 Morbid obesity with BMI of 40.0-44.9, adult E66.01; Z68.41
[2021-03-08 10:07] LABS: Albumin Level 2.9 gm/dl (3.4-5.0); Bilirubin Direct 1.4 mg/dl (0-0.2); Bilirubin,Total 2.1 mg/dl (0.2-1.0); Total Protein 5.8 gm/dl (6.0-8.3)
[2021-03-08] MEDS ORDERED: MINERAL OIL 30 ML UDC PO ONE (10:15)
[2021-03-08] MEDS ORDERED: CONSULT PHARMACY STA (10:59)
[2021-03-08] MEDS: PANTOprazole 40 MG in SYRINGE 0 ML IV SCH (11:14)
[2021-03-08] MEDS: fentaNYL citrate 2,500 MCG/250 ML BAG IV SCH ×3 (11:29→22:51)
--- NOTE | 2021-03-08 15:30 | Hospitalist Progress Note ---
Date of Service March 08, 2021 Assessment & Plan (1) Acute respiratory distress syndrome (ARDS) due to COVID-19 virus: Plan: respiratory failure with hypoxia Had been intubated 02/27/21 due to progressive respiratory failure despite max HFNC and CPAP. Extubated 03/03/20 to HFNC. Unfortunately the patient developed recurrent respiratory failure/distress in the setting of max HFNC settings. Patient re-intubated early in morning on 03/04/21 tracheostomy performed 03/05/21 by ICU remains tachycardic, febrile (but improving) started on Meropenem empirically, no growth on blood or sputum cultures finish 5 days of antibiotics Lasix 40mg IV BID to try for negative fluid balance tolerating but feeds, will eventually need a PEG, consult GI he tends to desaturate with any lapse in sedation requiring higher FiO2 readmitted to the hospital on 02/18/21 after he had a prolonged hospital stay in January for severe COVID-19 pneumonia. since 02/18 had been requiring HFNC with CPAP at night. prior attending suspected late-stage ARDS. he has been on steroids since his readmission on 02/18 with no improvement in his status. baricitinib was started 02/21 due to high CRP and worsening status. despite the above he continued with worsening respiratory status. pulmonary formally consulted AM of 02/27/21. 02/27/21 early afternoon patient decompensated further necessitating transfer to [facility] COVID unit for intubation. baricitinib stopped at that time. extubated 03/03/21. then reintubated AM of 03/04/21 after failing max settings of HFNC. (2) Pneumonia due to 2019 novel coronavirus: Plan: COVID 19 originally diagnosed 01/31/21. He was hospitalized from 01/31/2021 until 02/15/21. Initially treated with dexamethasone + Remdesivir during that admission. Readmitted 02/18/21; had been on HFNC since, with CPAP at night. Intubated/ventilated 02/27/21. Extubated 03/03/21. Reintubated AM of 03/04/21 tracheostomy performed 03/05/21 CRP this admission 11.4 - baricitinib started on 02/21/21 and received 8 doses then stopped following his intubation. Completed 10 days of dexamethasone 6mg IV daily - steroids remain off. likely has fibrotic changes of lungs that will not improve now on Meropenem empirically, fever better but no growth on cultures, finish 5 days Lasix 40mg IV daily (3) Hypotension: Plan: on Levophed likely from sedation arterial line replaced on 03/06/21 (4) Fever: Plan: improved fever curve with Meropenem follow up sputum culture - no growth no growth on blood or urine cultures either (5) Respiratory acidosis: Plan: resolved (6) Hyponatremia: Plan: resolved (7) Hyperglycemia: Plan: insulin protocol (8) Morbid obesity with BMI of 40.0-44.9, adult: (9) DVT prophylaxis: Plan: resume Xarelto (10) Type 2 diabetes mellitus: Admission and Anticipated Discharge Date Admission Date: February 18, 2021 Subjective patient sedated labs reviewed appreciate Dr. Butt managing Review of Systems Review of Systems: Unobtainable due to cognitive status Physical Exam Physical Exam: General: well developed, obese, mechanically ventilated via trach Neck: tracheostomy present Lungs: clear to auscultation bilaterally, symmetric chest movement on ventilatory Heart: tachycardic S1 and S2, no murmur, peripheral pulses normal, capillary refill normal, no edema Abdomen: soft, NT, ND, + BS, no hepatomegaly, normal to percussion Extremities: normal in appearance, no cyanosis, no petechiae Neuro: sedated, no focal motor deficits, CN II-XII intact, sensation in extremities intact, normal speech Skin: warm, dry, no rash, normal turgor Psych: sedated Results & Data Results & Data ([facility]) Vital Signs (Past 12 Hours) Vital Signs Temp Pulse Resp BP Pulse Ox 03/08/21 14:49 103 H 40 H 91 03/08/21 11:30 101 H 41 H 91 03/08/21 11:00 100 H 43 H 117/76 87 L 03/08/21 10:57 100 H 43 H 91 03/08/21 10:30 101 H 41 H 91 03/08/21 10:00 102 H 47 H 102/72 90 03/08/21 09:30 100 H 27 H 87 L 03/08/21 09:00 100 H 30 H 99/71 L 92 03/08/21 08:30 100 H 35 H 92 03/08/21 08:00 98 H 34 H 108/76 90 03/08/21 07:49 101 H 32 H 92 03/08/21 07:30 102 H 23 90 03/08/21 07:00 103 H 9 L 101/73 91 03/08/21 06:00 38 C H 104 H 32 H 105/71 91 03/08/21 05:00 105 H 32 H 101/69 91 03/08/21 04:00 107 H 32 H 103/74 90 03/08/21 03:41 95 H 30 H 91 PG Care Time/CCT Total # of Minutes Spent Total Time Spent with Patient: Total time spent is greater than 50% in coordination of care (as documented) at patient's floor/unit and/or counseling patient: Coding Level of Care Code 91418 Subseq Hosp Care Lvl 2 Diagnoses Acute respiratory distress syndrome (ARDS) due to COVID-19 virus U07.1; J80 Pneumonia due to 2019 novel coronavirus U07.1; J12.82 Hypotension I95.9 Fever R50.9 Respiratory acidosis E87.2 Hyponatremia E87.1 Hyperglycemia R73.9 Morbid obesity with BMI of 40.0-44.9, adult E66.01; Z68.41 DVT prophylaxis Z29.9 Type 2 diabetes mellitus E11.9
[2021-03-08] MEDS: MIDAZOLAM BOLUS FROM BAG IV PRN (19:08)
[2021-03-08] MEDS: MIDAZOLAM HCL 125 MG/250 ML BAG IV SCH (20:23)
[2021-03-09] MEDS: propofoL 1,000 MG/100 ML VIAL IV SCH ×7 (01:57→21:19)
[2021-03-09] MEDS: ARTIFICIAL TEARS OP OINT 3.5 GM TUBE OP SCH ×3 (03:59→10:01)
[2021-03-09] MEDS: MEROPENEM 500 MG in SYRINGE 0 ML IV SCH ×4 (03:59→21:19)
[2021-03-09 04:36] LABS: iSTAT Arterial Blood Gas HCO3 44 meg/L (19-24); iSTAT Arterial Blood Gas pCO2 80 mmHg (35-46); iSTAT Arterial Blood Gas pH 7.34 (7.35-7.45); iSTAT Arterial Blood Gas pO2 66 mmHg (80-95); iSTAT Carbon Dioxide > 40 mmol/L (24-31); iSTAT Site Art Line
[2021-03-09 06:50] LABS: Basophils # (auto) 0.03 K/uL (0-0.2); Basophils % (auto) 0.1 %; Eosinophils # (auto) 0.32 K/uL (0-0.5); Eosinophils % (auto) 1.5 %; Hematocrit (blood only) 39.4 % (42-52); Hemoglobin 12.2 g/dL (14.0-18.0); Immature Granulocytes # (auto) 0.13 K/uL (0.00-0.02); Immature Granulocytes % (auto) 0.6 %; Lymphocytes # (auto) 2.55 K/uL (1.2-3.4); Lymphocytes % (auto) 11.7 %; Mean Corpuscular Volume 87.2 fL (80-100); Monocytes # (auto) 1.31 K/uL (0.11-0.59); Neutrophils % (auto) 80.1 %; Platelet Count 154 K/uL (130-400); RDW Coefficient of Variation 16.4 % (11.5-14.5); RDW Standard Deviation 52.3 fL (36.4-46.3); Red Blood Count 4.52 M/uL (4.7-6.1); White Blood Count 21.84 K/uL (4.8-10.8)
[2021-03-09 07:22] LABS: BUN Creatinine Ratio 31.8 (10-20); Calcium 8.5 mg/dl (8.5-10.1); Creatinine Clr Calc Pharmacy 250.8 ml/min; Est GFR (Non-African American) 127.7 ml/min; Phosphorus 2.6 mg/dl (2.5-4.9); Potassium 4.4 mmol/L (3.5-5.1)
[2021-03-09] MEDS: MIDAZOLAM HCL 125 MG/250 ML BAG IV SCH (07:58)
[2021-03-09] MEDS: CITALOPRAM 20 MG TAB PO SCH (08:36)
[2021-03-09] MEDS: LACTULOSE SYRUP 20 GM/30 ML UDC PO SCH (08:37)
[2021-03-09] MEDS: SENNOSIDES 8.8 MG/5 ML UDC PO SCH (08:37)
[2021-03-09] MEDS ORDERED: OXANDROLONE 10 MG TABLET PO SCH (09:00)
[2021-03-09] MEDS ORDERED: FUROSEMIDE 40 MG/4 ML VIAL IV SCH (09:00)
--- NOTE | 2021-03-09 09:26 | XRay Report ---
SINGLE VIEW CHEST CLINICAL HISTORY: Respiratory failure. FINDINGS: 2 AP, portable, supine chest radiographs are compared to study dated 03/08/2021 and correlat ed with chest CT dated 02/18/2021. The examination is degraded by portable technique and patient rota tion. A tracheostomy, a left internal jugular central venous catheter, and an enteric tube are unchan ged in position. The cardiomediastinal silhouette is unremarkable. There is chronic elevation of the right hemidiaphragm. Extensive/multifocal airspace consolidation is again seen throughout both lungs. This is similar to yesterday. No large pleural effusion or pneumothorax is seen. The bony thorax is grossly intact. IMPRESSION: 1. Stable lines and tubes. 2. Extensive/diffuse multifocal airspace consolidation has not appreciably changed from yesterday. ACT 112: Negative or not required by law. ; Electronically signed by: Matthew Carmona M.D. 03/09/2021 9:24 AM
--- NOTE | 2021-03-09 09:29 | Communication Note ---
Date of Service: March 09, 2021 GI consulted for PEG tube placement. He has been receiving NG tube feedings. Patient remains febrile and is still on Xarelto, therefore unable to place PEG today. A/P: Patient is a 55 y.o. male with COVID-19 pneumonia and associated respiratory failure with feeding difficulty requiring PEG for nutrition/medication administration. * Will need to hold Xarelto for 3 days prior to PEG placement, so please hold starting Sunday03/11/21. * EGD with PEG placement with Dr. Lisa tentatively on Sunday03/14/21 if patient afebrile for 24 hours. * Continue tube feeds for now. Hold post midnight on 03/13/21. * 2G Ancef aerodynamic consultant to procedure. Thank you for allowing us to participating in the care of this patient. If you have any questions or concerns, please do not hesitate to contact us.
[2021-03-09] MEDS: RIVAROXABAN 10 MG TABLET PO SCH (10:01)
[2021-03-09] MEDS: fentaNYL citrate 2,500 MCG/250 ML BAG IV SCH ×2 (10:10→22:30)
[2021-03-09] MEDS: NOREPINEPHRINE/D5W 8 MG/508 ML BAG IV SCH ×2 (10:10→21:20)
--- NOTE | 2021-03-09 10:25 | Critical Care Progress Note ---
Date of Service March 09, 2021 Assessment & Plan (1) Acute respiratory distress syndrome (ARDS) due to COVID-19 virus: (2) Elevated troponin I level: (3) Bacterial pneumonia: (4) Hypertension: (5) Morbid obesity with BMI of 40.0-44.9, adult: Plan: Impression: 55-year-old unvaccinated male initially diagnosed 01/31/2021 and spent almost 2 weeks in the hospital on high flow oxygen. He received remdesivir and Decadron at that point time. He was dismissed from the hospital 02/15 but returned 02/18 with progressive hypoxemic respiratory failure. He was treated with high-dose dexamethasone as well as Levaquin and Zosyn. He failed noninvasive positive pressure ventilation and was intubated 02/27/2021. Trach 03/05/20 Recommendations: 1. Neurologic: Currently sedated with fentanyl and Versed and propofol, discontinue oral clonazepam and oxycodone. May also need to start antipsychotics depending on clinical response. Continue home dose of Celexa. Holding baclofen for now. 2. Cardiovascular: Continue norepinephrine with efforts to wean as tolerated. Still not net negative. Decrease Lasix to 40 mg a day. 3. Pulmonary: Severe ARDS with multifocal infiltrates consistent with viral pneumonia/late-phase ARDS. Patient has completed antibiotics, remdesivir, and several courses of steroids. His CRP is low. I do not think additional steroids at this point time are going to offer him a clinical benefit unless his CRP should increase. He has remained supine. He was extubated 03/03 but required reintubation and underwent tracheostomy placement 03/05/2021. . 4. GI: Increase tube feeding. I would consider PEG tube placement this week as patient has decompensated and definitive enteral access would be appropriate -Possible PEG tube placement on Sunday reviewed with GI 5. ID: Day #6 meropenem. Fever still present but fever curve improved. Continue meropenem for total of 10 days, elevated LFTs we will obtain CT scan of head chest abdomen pelvis blood and respiratory cultures are showing no growth to date. Will check urine culture for completeness sake. Lines were all changed out 03/04. Okay to discontinue isolation as the patient is more than 21 days out from his initial illness. 6. Renal: Judicious diuresis. Continue ICU electrolyte replacement protocol. 7. Heme-onc: Prior history of DVT. Restarted Xarelto. Questionable gout, will follow for now, do not see gouty inflammation to account for the patient's fever and leukocytosis however will need to follow. 8. Endocrine: Glycemic control per ICU protocol. Patient was discussed on multidisciplinary rounds I have personally spent 55 minutes of critical care time in the direct management of this patient. This is a life/limb threatening event. This includes time spent evaluating patient, direct bedside care, chart review, placing orders, interpretation of diagnostic studies, discussion with consultants, patient, and/or family members regarding treatment decisions, as well as other required patient management activities. This time is exclusive of all separately billable procedures, and teaching time and separate from and in addition to any other critical care service time. Admission and Anticipated Discharge Date Admission Date: February 18, 2021 Subjective No overnight events Review of Systems Review of Systems: Unable to perform secondary to tracheostomy and sedation Physical Exam Physical Exam: General: Sedated. GCS 3T Skin: Warm, dry, Head: Atraumatic Ears, nose, mouth and throat: airway patent, tracheostomy tube in place Cardiovascular: Normal peripheral perfusion Respiratory: Ventilator settings reviewed Gastrointestinal: Non distended Musculoskeletal: No deformity Results & Data Results & Data ([facility]) Vital Signs (Past 12 Hours) Vital Signs Temp Pulse Resp BP Pulse Ox 03/09/21 09:00 109 H 32 H 107/81 91 03/09/21 08:01 108 H 32 H 93 03/09/21 08:00 37.9 C H 108 H 32 H 108/68 92 03/09/21 07:00 37.9 C H 112 H 32 H 101/75 90 03/09/21 04:00 37.1 C 111 H 32 H 107/73 90 03/09/21 03:45 111 H 31 H 90 03/09/21 03:00 110 H 32 H 110/79 90 03/09/21 02:00 109 H 32 H 109/74 89 L 03/09/21 01:00 37.2 C 109 H 32 H 105/73 90 03/09/21 00:00 37.1 C 110 H 33 H 107/67 90 03/08/21 23:00 109 H 32 H 101/70 89 L Critical Care Results & Data Vital Signs (Past 12 Hours) Vital Signs Temp Pulse Resp BP Pulse Ox 03/09/21 09:00 109 H 32 H 107/81 91 03/09/21 08:01 108 H 32 H 93 03/09/21 08:00 37.9 C H 108 H 32 H 108/68 92 03/09/21 07:00 37.9 C H 112 H 32 H 101/75 90 03/09/21 04:00 37.1 C 111 H 32 H 107/73 90 03/09/21 03:45 111 H 31 H 90 03/09/21 03:00 110 H 32 H 110/79 90 03/09/21 02:00 109 H 32 H 109/74 89 L 03/09/21 01:00 37.2 C 109 H 32 H 105/73 90 03/09/21 00:00 37.1 C 110 H 33 H 107/67 90 03/08/21 23:00 109 H 32 H 101/70 89 L Lab & Micro Results (Past 24 Hours) RBC 4.52 M/uL (4.7-6.1) L 03/09/21 WBC 21.84 K/uL (4.8-10.8) H 03/09/21 Hgb 12.2 g/dL (14.0-18.0) L 03/09/21 Hct 39.4 % (42-52) L 03/09/21 MCV 87.2 fL (80-100) 03/09/21 MCH 27.0 pg (25-34) 03/09/21 MCHC 31.0 g/dL (32-36) L 03/09/21 RDW Standard Deviation 52.3 fL (36.4-46.3) H 03/09/21 RDW Coefficient of Variation 16.4 % (11.5-14.5) H 03/09/21 Plt Count 154 K/uL (130-400) 03/09/21 MPV 10.0 fL (7.4-10.4) 03/09/21 Neutrophils (%) (Auto) 80.1 % 03/09/21 Lymphocytes (%) (Auto) 11.7 % 03/09/21 Monocytes # (Auto) 1.31 K/uL (0.11-0.59) H 03/09/21 Eosinophils # (Auto) 0.32 K/uL (0-0.5) 03/09/21 Immature Granulocyte % (Auto) 0.6 % 03/09/21 Neutrophils # (Auto) 17.50 K/uL (1.4-6.5) H 03/09/21 Lymphocytes # (Auto) 2.55 K/uL (1.2-3.4) 03/09/21 Monocytes # (Auto) 1.31 K/uL (0.11-0.59) H 03/09/21 Eosinophils # (Auto) 0.32 K/uL (0-0.5) 03/09/21 Basophils # (Auto) 0.03 K/uL (0-0.2) 03/09/21 Immature Granulocyte # (Auto) 0.13 K/uL (0.00-0.02) H 03/09/21 Na 132 mmol/L (136-145) L 03/09/21 K 4.4 mmol/L (3.5-5.1) 03/09/21 Cl 91 mmol/L (98-107) L 03/09/21 CO2 39 mmol/L (21-32) H 03/09/21 Anion Gap 2 (3-11) L 03/09/21 BUN 14 mg/dl (6-23) 03/09/21 Creatinine 0.44 mg/dl (0.6-1.4) L 03/09/21 Estimated GFR ( Amer) 148.0 ml/min 03/09/21 Estimated GFR (Non-Af Amer) 127.7 ml/min 03/09/21 BUN/Creatinine Ratio 31.8 (10-20) H 03/09/21 Glu 154 mg/dl (70-99(Fasting)) H 03/09/21 Ca 8.5 mg/dl (8.5-10.1) 03/09/21 Phosphorus Level 2.6 mg/dl (2.5-4.9) 03/09/21 Mg 2.0 mg/dl (1.7-2.4) 03/09/21 06:18 03/09/21 Calcium Level 8.5 mg/dl (8.5-10.1) 03/09/21 06:18 03/09/21 Brodie Test NA 03/09/21 04:22 03/09/21 Microbiology 03/07/21 19:50 Aerobic Blood Culture - Preliminary Blood No growth in Aerobic bottle after 24 hours. Anaerobic Blood Culture - Preliminary No growth in Anaerobic bottle after 24 hours. 03/07/21 20:05 Aerobic Blood Culture - Preliminary Blood No growth in Aerobic bottle after 24 hours. Anaerobic Blood Culture - Preliminary No growth in Anaerobic bottle after 24 hours. 03/03/21 10:46 Aerobic Blood Culture - Final Blood No growth in Aerobic bottle after 5 days. Anaerobic Blood Culture - Final No growth in Anaerobic bottle after 5 days. 03/03/21 10:42 Aerobic Blood Culture - Final Blood No growth in Aerobic bottle after 5 days. Anaerobic Blood Culture - Final No growth in Anaerobic bottle after 5 days. 03/06/21 17:40 Urine Culture - Final Urine,Indwelling Cath No growth - less than 1,000 colonies/mL. Diagnostic Findings (Past 24 Hours) Chest X-Ray 03/09/21 07:00 SINGLE VIEW CHEST CLINICAL HISTORY: Respiratory failure. FINDINGS: 2 AP, portable, supine chest radiographs are compared to study dated 03/08/2021 and correlated with chest CT dated 02/18/2021. The examination is degraded by portable technique and patient rotation. A tracheostomy, a left internal jugular central venous catheter, and an enteric tube are unchanged in position. The cardiomediastinal silhouette is unremarkable. There is chronic elevation of the right hemidiaphragm. Extensive/multifocal airspace consolidation is again seen throughout both lungs. This is similar to yesterday. No large pleural effusion or pneumothorax is seen. The bony thorax is grossly intact. IMPRESSION: 1. Stable lines and tubes. 2. Extensive/diffuse multifocal airspace consolidation has not appreciably changed from yesterday. ACT 112: Negative or not required by law. ; Electronically signed by: Matthew Carmona M.D. 03/09/2021 9:24 AM I & O Totals 24 Hours 03/08/21 03/09/21 03/10/21 06:59 06:59 06:59 Intake Total 3730.278 / 3730.278 2336.698 / 2336.698 1053.160 / 1053.160 Output Total 2125 / 2125 2651 / 2651 201 / 201 Balance 1605.278 / 1605.278 -314.302 / -314.302 852.160 / 852.160 Cumulative 02/18/21 17:19 thru 03/09/21 10:11 Intake Total 32299.710 Output Total 04007 Balance -8060.290 RT Ventilator Mngmt (Last Documented) Ventilator Ordered Settings Ventilator Support Mode Assist Control 03/09/21 08:01 Respiratory Rate 32 03/09/21 09:00 Ventilator Tidal Volume 400 03/09/21 08:01 Setting Minute Ventilation 12.7 03/09/21 08:01 Ventilator Positive Pressure 12 03/03/21 08:15 Support Setting Positive End Expiratory 6 03/09/21 08:01 Pressure Fraction of Inspired Oxygen 55 03/09/21 08:01 Machine Comment FiO2 to 50% 03/06/21 20:11 Ventilator - PT Measurements Respiratory Rate 32 Exhaled Tidal Volume 402 Minute Ventilation 12.7 Peak Inspiratory Airway 30 Pressure Plateau Pressure 27.4 Respiratory Cycle Inspiratory: 1:1.9 Expiratory Ratio Inspiratory Phase Time 0.65 End-Tidal CO2 47 Static Lung Compliance 18.79 Dynamic Lung Compliance 16.75 Normal Static Lung Compliance 45.00 Patient Measurements Comment peak pressure was elevated to mid 30's for a little while. called. PIP back to low 20's now. Coding Level of Care Code Critical Care 1st 30-74 mins Diagnoses Acute respiratory distress syndrome (ARDS) due to COVID-19 virus U07.1; J80 Elevated troponin I level R77.8 Bacterial pneumonia J15.9 Hypertension I10 Morbid obesity with BMI of 40.0-44.9, adult E66.01; Z68.41
[2021-03-09] MEDS: PANTOprazole 40 MG in SYRINGE 0 ML IV SCH (10:44)
[2021-03-09] MEDS: OXANDROLONE 10 MG TABLET PO SCH (12:28)
[2021-03-09] MEDS: WHISKEY 1 DOSE PO SCH (12:28)
[2021-03-09] MEDS ORDERED: OPTIRAY 320 100ml IV ONE (16:34)
--- NOTE | 2021-03-09 16:53 | CT Scan Report ---
CT head/brain wo con CLINICAL HISTORY: Patient on ventilator. Covid positive. COMPARISON STUDY: No previous studies for comparison. CT DOSE: TECHNIQUE: Standard CT of the Brain was performed without IV contrast. A dose lowering technique was utilized adhering to the principles of ALARA. FINDINGS: Extraaxial space: There is no evidence for subdural hematoma. There are no extra-axial fluid collecti ons. Ventricles and cisterns: The ventricles are normal in size and configuration. There is no evidence f or midline shift or mass effect. Parenchyma: There is no subarachnoid or intraparenchymal hemorrhage. There is no evidence for an acu te infarct or cerebral edema. There is sharply defined encephalomalacia identified within the right f rontal lobe characteristic of an old infarct in the distribution of the right MCA. There is homogeneo us attenuation of the brain parenchyma. There are no gross mass lesions. Osseous structures: There is no evidence for an acute fracture. The visualized paranasal sinuses are clear. The mastoid air cells are clear bilaterally. Soft tissues: There is no evidence for focal soft tissue swelling. IMPRESSION: No acute intracerebral pathology. Old right MCA infarct. ACT 112: Negative or not required by law. Electronically signed by: Eugene Rome M.D. 03/09/2021 4:51 PM
--- NOTE | 2021-03-09 16:58 | CT Scan Report ---
CHEST CT WITH CONTRAST CT DOSE: HISTORY: COVID19, hypoxia TECHNIQUE: Multiaxial CT images of the chest were performed following the intravenous administration of contrast. A dose lowering technique was utilized adhering to the principles of ALARA. COMPARISON: Chest CTA 02/18/2021. FINDINGS: The tracheostomy tube is in good position. The feeding tube terminates in the fundus of the stomach. Left jugular central venous catheter terminates at the proximal SVC. Please refer to same d ay abdomen and pelvis CT for further evaluation of the abdominal structures. Multiple small gallstone s are identified. There are low lung volumes. No pleural effusions. The thyroid gland enhances normal ly. Normal caliber esophagus. The heart is borderline enlarged. This remains unchanged. No pericardia l effusion. Scattered subcentimeter mediastinal lymph nodes do not meet CT criteria for pathologic in volvement. There are borderline enlarged bilateral hilar lymph nodes. These may be reactive. Normal c aliber thoracic aorta with no evidence for dissection. The main pulmonary arteries are patent. The di stal pulmonary arteries are not well evaluated due to the motion artifact. No pneumothorax. Trace muc oid material within the bilateral mainstem bronchi. Near diffuse groundglass airspace opacities with interlobular septal thickening. This consistent with the patient's known history of a viral pneumonia . Patchy airspace consolidation within the lower lobes are also noted. This has progressed compared t o the prior chest CT. IMPRESSION: 1. Near diffuse bilateral airspace opacities which have progressed in the interval. This likely repre sents the patient's known bilateral pneumonia. 2. Satisfactory support line placement. 3. Please refer to the same day abdomen and pelvis CT for further evaluation of the abdominal structu res. ACT 112: Negative or not required by law. Electronically signed by: Derrick Dias M.D. 03/09/2021 4:57 PM
--- NOTE | 2021-03-09 17:00 | CT Scan Report ---
CT facial bones w con CLINICAL HISTORY: dental caries ? source of infection COMPARISON STUDY: No previous studies for comparison. CT DOSE: TECHNIQUE: Standard CT of the Facial Bones and Orbits was performed with 94 mL of Optiray 320 IV con trast. A dose lowering technique was utilized adhering to the principles of ALARA. FINDINGS: Bones: There are no displaced fractures identified. The orbital rims are intact bilaterally. The zygo matic arches are intact bilaterally. Nasal bones are intact. The nasal septum is in the midline. The mandible and maxilla are intact. The patient is partially dentulous. Imaging artifact is present from dental fillings. No definite dental abscess is identified. Paranasal sinuses: The adjacent paranasal sinuses are clear. Mastoid air cells: There is mucosal thickening of the mastoid air cells bilaterally, right greater th an left characteristic of chronic mastoiditis. No definite fluid levels are seen. Soft tissues: There is no focal soft tissue swelling. IMPRESSION: 1. No definite evidence for dental abscess with imaging artifact present. 2. Bilateral chronic mastoiditis on the right greater than left. ACT 112: Negative or not required by law. Electronically signed by: Eugene Rome M.D. 03/09/2021 4:59 PM
--- NOTE | 2021-03-09 17:05 | CT Scan Report ---
CT abd pelvis IV con only CLINICAL HISTORY: Possible abd inf . Patient on ventilator. Covid positive COMPARISON STUDY: No previous studies for comparison. CT DOSE: 4037.11 mGy.cm TECHNIQUE: Standard CT of the Abdomen and Pelvis was performed with IV contrast. A dose lowering genoveva hnique was utilized adhering to the principles of ALARA. Contrast Volume: Optiray 320, 94 ml. The patient did not receive oral contrast. FINDINGS: Lung base: Extensive groundglass opacities are present at the lung bases characteristic of a type pne umonitis and Covid pneumonia. Abdominal cavity: There is no evidence for abdominal mass, adenopathy or ascites. Liver: There is homogeneous attenuation of the liver parenchyma. There is no evidence for enhancing m ass lesion. Spleen: There is homogeneous attenuation of the splenic parenchyma. There is no enhancing mass lesion . Pancreas: There is homogeneous attenuation of the pancreatic parenchyma. There is no evidence for mas s lesion or peripancreatic fluid collection. Gall Bladder: The gallbladder is grossly distended with cholelithiasis. However, there is no CT evide nce for acute cholecystitis. Adrenal glands: The adrenal glands are normal in size and attenuation. There is no evidence for enhan cing mass lesion. Kidneys: There is homogeneous attenuation of the renal parenchyma bilaterally. There is no evidence f or renal calculus or hydronephrosis. There is no evidence for enhancing mass. Bowel: Enteric tube is present within the stomach. The bowel loops are normally placed within the abd omen and pelvis without evidence for dilatation or obstruction. There is sigmoid diverticulosis witho ut evidence for diverticulitis. There are no inflammatory changes present. There is no evidence for f ree air. The appendix is not visualized. Bladder: Ruiz catheter is present within the bladder. : There is no evidence for pelvic mass or adenopathy. There is no evidence for pelvic ascites. Vasculature: There is no evidence for aneurysmal dilatation of the abdominal aorta. Osseous structures: There is no acute osseous pathology. Degenerative changes are seen within the spi ne and SI joints. IMPRESSION: 1. Patchy groundglass opacities of both lung bases characteristic of Covid pneumonia. 2. Gross distention of the gallbladder with cholelithiasis. No CT evidence for acute cholecystitis. 3. Sigmoid diverticulosis without evidence for diverticulitis. 4. No acute intra-abdominal or pelvic abnormality. 5. Additional nonacute findings are delineated above. ACT 112: Negative or not required by law. Electronically signed by: Eugene Rome M.D. 03/09/2021 5:04 PM
--- NOTE | 2021-03-09 21:46 | Ultrasound Report ---
US liver LIMITED ABDOMEN CLINICAL HISTORY: fever transaminitis. COMPARISON: None. TECHNIQUE: Multiple grayscale and color images of the right upper quadrant of the abdomen. FINDINGS: This is a limited examination due to overlying bowel gas. Pancreas: The pancreas cannot be visualized. They're welcome Liver: There is hepatomegaly with diffuse increased echogenicity present characteristic of fatty infi ltration. The liver measures 21 cm in the axillary margin. There is no evidence for a focal mass. The re is no intrahepatic biliary duct dilatation. Gallbladder: The gallbladder is well distended with multiple intraluminal calculi present. Posterior acoustic shadowing is seen. There is no evidence for wall thickening or pericholecystic edema. There was reportedly a negative sonographic Middleton sign. Common Bile Duct: (CBD): It is normal in size measuring 4 mm. Inferior Vena Cava (IVC): The imaged IVC is patent. Right kidney: There is no evidence for hydronephrosis, calculus or gross renal mass. The kidney is n ormal in size. IMPRESSION: 1. Hepatomegaly with diffuse fatty infiltration of the liver. 2. Cholelithiasis with no ultrasound evidence for acute cholecystitis. 3. Nonvisualization of the pancreas. ACT 112: Negative or not required by law. Electronically signed by: Eugene Rome M.D. 03/09/2021 9:45 PM
--- NOTE | 2021-03-09 22:10 | Hospitalist Progress Note ---
Date of Service March 09, 2021 Assessment & Plan (1) Acute respiratory distress syndrome (ARDS) due to COVID-19 virus: Plan: respiratory failure with hypoxia Had been intubated 02/27/21 due to progressive respiratory failure despite max HFNC and CPAP. Extubated 03/03/20 to HFNC. Unfortunately the patient developed recurrent respiratory failure/distress in the setting of max HFNC settings. Patient re-intubated early in morning on 03/04/21 tracheostomy performed 03/05/21 by ICU remains tachycardic, febrile (but improving) started on Meropenem empirically, no growth on blood or sputum cultures finish 10 days of Meropenem all lines changed Lasix 40mg IV BID to try for negative fluid balance tolerating but feeds, will eventually need a PEG, consult GI he tends to desaturate with any lapse in sedation requiring higher FiO2 readmitted to the hospital on 02/18/21 after he had a prolonged hospital stay in January for severe COVID-19 pneumonia. since 02/18 had been requiring HFNC with CPAP at night. prior attending suspected late-stage ARDS. he has been on steroids since his readmission on 02/18 with no improvement in his status. baricitinib was started 02/21 due to high CRP and worsening status. despite the above he continued with worsening respiratory status. pulmonary formally consulted AM of 02/27/21. 02/27/21 early afternoon patient decompensated further necessitating transfer to [facility] COVID unit for intubation. baricitinib stopped at that time. extubated 03/03/21. then reintubated AM of 03/04/21 after failing max settings of HFNC. (2) Pneumonia due to 2019 novel coronavirus: Plan: COVID 19 originally diagnosed 01/31/21. He was hospitalized from 01/31/2021 until 02/15/21. Initially treated with dexamethasone + Remdesivir during that admission. Readmitted 02/18/21; had been on HFNC since, with CPAP at night. Intubated/ventilated 02/27/21. Extubated 03/03/21. Reintubated AM of 03/04/21 tracheostomy performed 03/05/21 CRP this admission 11.4 - baricitinib started on 02/21/21 and received 8 doses then stopped following his intubation. Completed 10 days of dexamethasone 6mg IV daily - steroids remain off. likely has fibrotic changes of lungs that will not improve now on Meropenem empirically, fever better but no growth on cultures, finish 10 days Lasix 40mg IV daily (3) Hypotension: Plan: on Levophed likely from sedation arterial line replaced on 03/06/21 (4) Fever: Plan: improved fever curve with Meropenem follow up sputum culture - no growth no growth on blood or urine cultures either (5) Respiratory acidosis: Plan: resolved (6) Hyponatremia: Plan: resolved (7) Hyperglycemia: Plan: insulin protocol (8) Morbid obesity with BMI of 40.0-44.9, adult: (9) DVT prophylaxis: Plan: resume Xarelto hold it prior to PEG on 03/14 (10) Type 2 diabetes mellitus: Admission and Anticipated Discharge Date Admission Date: February 18, 2021 Subjective still with fever still sedated, unable to titrate back on sedation GI consulted for PEG, plan for 03/14 Review of Systems Review of Systems: Unobtainable due to cognitive status Physical Exam Physical Exam: General: well developed, obese, mechanically ventilated via trach Neck: tracheostomy present Lungs: clear to auscultation bilaterally, symmetric chest movement on ventilatory Heart: tachycardic S1 and S2, no murmur, peripheral pulses normal, capillary refill normal, no edema Abdomen: soft, NT, ND, + BS, no hepatomegaly, normal to percussion Extremities: normal in appearance, no cyanosis, no petechiae Neuro: sedated, no focal motor deficits, CN II-XII intact, sensation in extremities intact, normal speech Skin: warm, dry, no rash, normal turgor Psych: sedated Results & Data Results & Data ([facility]) Vital Signs (Past 12 Hours) Vital Signs Temp Pulse Resp BP Pulse Ox 03/09/21 20:00 126/54 L 03/09/21 19:55 111 H 34 H 92 03/09/21 16:00 108 H 36 H 91 03/09/21 13:00 112 H 36 H 111/74 92 03/09/21 12:27 116 H 34 H 112/76 90 03/09/21 12:00 37.6 C H 116 H 34 H 93 03/09/21 11:45 118 H 35 H 92 03/09/21 11:00 106 H 32 H 104/68 Laboratory Results Laboratory Results - last 24 hr 03/09/21 03/09/21 03/09/21 04:22 06:18 06:18 WBC 21.84 H RBC 4.52 L Hgb 12.2 L Hct 39.4 L MCV 87.2 MCH 27.0 MCHC 31.0 L RDW Std Deviation 52.3 H RDW Coeff of Eleazar 16.4 H Plt Count 154 MPV 10.0 Immature Gran % (Auto) 0.6 Neut % (Auto) 80.1 Lymph % (Auto) 11.7 [place] % (Auto) 6.0 Eos % (Auto) 1.5 Baso % (Auto) 0.1 Neut # (Auto) 17.50 H Lymph # (Auto) 2.55 [place] # (Auto) 1.31 H Eos # (Auto) 0.32 Baso # (Auto) 0.03 Immature Gran # (Auto) 0.13 H Sample Site Art Line POC pH 7.34 L POC pCO2 80 H POC pO2 66 L POC HCO3 44 H POC Total CO2 > 40 H* POC Base Excess 18.0 H POC ABG O2 Sat 90.0 Brodie Test NA Sodium 132 L Potassium 4.4 Chloride 91 L Carbon Dioxide 39 H Anion Gap 2 L BUN 14 Creatinine 0.44 L Est Cr Clr Drug Dosing 250.8 Est GFR ( Amer) 148.0 Est GFR (Non-Af Amer) 127.7 BUN/Creatinine Ratio 31.8 H Glucose 154 H POC Glucose Calcium 8.5 Phosphorus 2.6 Magnesium 2.0 03/09/21 11:47 WBC RBC Hgb Hct MCV MCH MCHC RDW Std Deviation RDW Coeff of Eleazar Plt Count MPV Immature Gran % (Auto) Neut % (Auto) Lymph % (Auto) [place] % (Auto) Eos % (Auto) Baso % (Auto) Neut # (Auto) Lymph # (Auto) [place] # (Auto) Eos # (Auto) Baso # (Auto) Immature Gran # (Auto) Sample Site POC pH POC pCO2 POC pO2 POC HCO3 POC Total CO2 POC Base Excess POC ABG O2 Sat Brodie Test Sodium Potassium Chloride Carbon Dioxide Anion Gap BUN Creatinine Est Cr Clr Drug Dosing Est GFR ( Amer) Est GFR (Non-Af Amer) BUN/Creatinine Ratio Glucose POC Glucose 139 H Calcium Phosphorus Magnesium Medications Administered Current Inpatient Medications Acetaminophen (Acetaminophen Susp 325 Mg/10.15 Ml Udc) 650 mg NG Q4H PRN PRN Reason: Pain or Fever Stop: 04/02/21 04:41 Last Admin: 03/08/21 03:21 Dose: 650 mg Documented by: Citalopram Hydrobromide (Citalopram 20 Mg Tab) 20 mg PO DAILY [facility] Stop: 03/21/21 08:59 Last Admin: 03/09/21 08:36 Dose: 20 mg Documented by: Fentanyl Citrate (Fentanyl Bolus From Bag) 50 mcg IV Q60M PRN PRN Reason: Pain or Agitation Stop: 03/18/21 03:28 Last Admin: 03/08/21 19:09 Dose: 50 mcg Documented by: Furosemide (Furosemide 40 Mg/4 Ml Vial) 40 mg IV DAILY [facility] Stop: 04/08/21 08:59 Last Admin: 03/09/21 08:36 Dose: 40 mg Documented by: Pantoprazole Sodium 40 mg/ (Syringe) 10 mls @ 5 mls/min IV DAILY@1100 [facility] Stop: 03/30/21 10:59 Last Admin: 03/09/21 10:44 Dose: 5 mls/min Documented by: Fentanyl Citrate (Fentanyl Citrate) 2,500 mcg in 250 mls @ 20 mls/hr IV .[id number] [facility]; Protocol Stop: 03/18/21 03:29 Last Admin: 03/09/21 10:10 Dose: 200 mcg/hr, 20 mls/hr Documented by: Meropenem 500 mg/ Syringe 10 mls @ 2 mls/min IV Q6H [facility]; Protocol Stop: 03/12/21 15:59 Last Admin: 03/09/21 21:19 Dose: 2 mls/min Documented by: Norepinephrine Bitartrate (Levophed/D5w) 8 mg in 508 mls @ 53.812 mls/hr IV .Q9H27M [facility]; Protocol Stop: 04/04/21 21:14 Last Admin: 03/09/21 21:20 Dose: 0.12 mcg/kg/min, 53.8 mls/hr Documented by: Midazolam HCl (Versed) 125 mg in 250 mls @ 6 mls/hr IV .[id number] [facility]; Protocol Stop: 04/05/21 14:14 Last Titration: 03/09/21 13:45 Dose: 3 mg/hr, 6 mls/hr Documented by: Propofol (Diprivan) 1,000 mg in 100 mls @ 29.112 mls/hr IV .Q3H27M [facility]; Protocol Stop: 03/10/21 05:59 Last Admin: 03/09/21 21:19 Dose: 40 mcg/kg/min, 29.1 mls/hr Documented by: Lactulose (Lactulose Syrup 20 Gm/30 Ml Udc) [facility] Stop: 04/01/21 10:59 Last Admin: 03/09/21 08:37 Dose: 20 gm Documented by: Midazolam HCl (Midazolam Hcl 1 Mg/Ml 2ml Vial) 2 mg IV Q2H PRN PRN Reason: Agitation Stop: 04/04/21 21:12 Last Admin: 03/06/21 12:14 Dose: 2 mg Documented by: Midazolam HCl (Midazolam Bolus From Bag) 2 mg IV Q60M PRN PRN Reason: Sedation Stop: 04/05/21 14:08 Last Admin: 03/08/21 19:08 Dose: 2 mg Documented by: Miscellaneous Information (Meropenem Consult Active) 1 ea N/A UD PRN PRN Reason: Consult Stop: 04/03/21 15:20 Non-Formulary Medication (Whiskey 1 Dose) 1 dose PO [facility] Stop: 04/08/21 11:59 Last Admin: 03/09/21 12:28 Dose: 1 dose Documented by: Nutritional Formula (Peptamen Intense Vhp 1.0 Casey 1,000 Ml Bag) 1,000 ml GT CONT PRN; Protocol PRN Reason: Tube Feeding Stop: 04/04/21 17:59 Last Admin: 03/07/21 14:14 Dose: 1,000 ml Documented by: Oxandrolone (Oxandrolone 10 Mg Tablet) 10 mg PO DAILY [facility] Stop: 04/08/21 08:59 Last Admin: 03/09/21 12:28 Dose: 10 mg Documented by: Propofol (Propofol Bolus From Bag) 20 mg IV Q5M PRN PRN Reason: Sedation Stop: 03/10/21 05:50 Last Admin: 03/08/21 19:09 Dose: 20 mg Documented by: Rivaroxaban (Rivaroxaban 10 Mg Tablet) 10 mg PO DAILY [facility] Stop: 04/05/21 08:59 Last Admin: 03/09/21 10:01 Dose: 10 mg Documented by: Sennosides (Sennosides 8.8 Mg/5 Ml Udc) 8.8 mg PO QAM [facility] Stop: 04/01/21 10:59 Last Admin: 03/09/21 08:37 Dose: 8.8 mg Documented by: PG Care Time/CCT Total # of Minutes Spent Total Time Spent with Patient: Total time spent is greater than 50% in coordination of care (as documented) at patient's floor/unit and/or counseling patient: Coding Level of Care Code 06855 Subseq Hosp Care Lvl 2 Diagnoses Acute respiratory distress syndrome (ARDS) due to COVID-19 virus U07.1; J80 Pneumonia due to 2019 novel coronavirus U07.1; J12.82 Hypotension I95.9 Fever R50.9 Respiratory acidosis E87.2 Hyponatremia E87.1 Hyperglycemia R73.9 Morbid obesity with BMI of 40.0-44.9, adult E66.01; Z68.41 DVT prophylaxis Z29.9 Type 2 diabetes mellitus E11.9
[2021-03-10] MEDS: propofoL 1,000 MG/100 ML VIAL IV SCH ×7 (00:15→19:40)
[2021-03-10 04:03] LABS: iSTAT Allen Test Pass; iSTAT Arterial Blood Gas HCO3 45 meg/L (19-24); iSTAT Arterial Blood Gas pCO2 80 mmHg (35-46); iSTAT Arterial Blood Gas pH 7.36 (7.35-7.45); iSTAT Arterial Blood Gas pO2 60 mmHg (80-95); iSTAT Carbon Dioxide > 40 mmol/L (24-31); iSTAT FiO2 65 %; iSTAT Site L Radial
[2021-03-10] MEDS: MEROPENEM 500 MG in SYRINGE 0 ML IV SCH ×4 (05:11→21:59)
[2021-03-10] MEDS ORDERED: STAT IV Infusion **Titration per Protocol STA (06:20)
[2021-03-10] MEDS ORDERED: PROPOFOL BOLUS FROM BAG IV PRN (06:20)
[2021-03-10] MEDS: NOREPINEPHRINE/D5W 8 MG/508 ML BAG IV SCH ×3 (06:30→23:41)
--- NOTE | 2021-03-10 07:52 | Critical Care Progress Note ---
Date of Service March 10, 2021 Assessment & Plan (1) Acute respiratory distress syndrome (ARDS) due to COVID-19 virus: (2) Elevated troponin I level: (3) Bacterial pneumonia: (4) Hypertension: (5) Morbid obesity with BMI of 40.0-44.9, adult: Plan: Impression: 55-year-old unvaccinated male initially diagnosed 01/31/2021 and spent almost 2 weeks in the hospital on high flow oxygen. He received remdesivir and Decadron at that point time. He was dismissed from the hospital 02/15 but returned 02/18 with progressive hypoxemic respiratory failure. He was treated with high-dose dexamethasone as well as Levaquin and Zosyn. He failed noninvasive positive pressure ventilation and was intubated 02/27/2021. Trach 03/05/20 Recommendations: 1. Neurologic: Currently sedated with fentanyl and Versed and propofol,: Decrease maximum doses of IV infusion -Check triglycerides tomorrow morning -Wean propofol to off attempt to wean sedation adding back enteral oxycodone at 10 mg every 6 hours 03/10 clonazepam 1 mg twice daily 03/10, -Would consider adjunctive Depakote 125 every 6 hours p.o. however it interacts with meropenem and will hold at this time - Continue home dose of Celexa. Holding baclofen for now. 2. Cardiovascular: Continue norepinephrine with efforts to wean as tolerated. -Check EKG for QTC evaluation today -Would consider beta-pavel for ICU cachexia if able to wean off vasopressors which I think are secondary to sedatives 3. Pulmonary: Severe ARDS with multifocal infiltrates consistent with viral pneumonia/late-phase ARDS. Patient has completed antibiotics, remdesivir, and several courses of steroids. His CRP is low. I do not think additional steroids at this point time are going to offer him a clinical benefit unless his CRP should increase. He has remained supine. He was extubated 03/03 but required reintubation and underwent tracheostomy placement 03/05/2021. -Family concern for a extremely poor prognosis from a pulmonary/pulmonary reserve standpoint 4. GI: Increase tube feeding. PEG tube placement recommended: definitive enteral access would be appropriate -Possible PEG tube placement on Sunday reviewed with GI -Bowel movement 03/10 -Discussed with nutrition possibility of decreasing free water flushes patient remains hyponatremic 5. ID: Day #7 meropenem. Fever still presen. Continue meropenem for total of 10 days -Elevated LFTs repeat pending -Lipase pending -CT scans reviewed: Mastoiditis, Gross distention of the gallbladder with cholelithiasis. No CT evidence for acute cholecystitis. -Liver ultrasound:1. Hepatomegaly with diffuse fatty infi ltration of the liver. 2. Cholelithiasis with no ultrasound evidence for acute cholecystitis. -Urine sputum and blood cultures remain no growth to date -Lines were all changed out 03/04. -Okay to discontinue isolation as the patient is more than 21 days out from his initial illness. 6. Renal: Lasix 40 mg twice daily. Continue ICU electrolyte replacement protocol. 7. Heme-onc: Prior history of DVT. Restarted Xarelto. Questionable gout, will follow for now. -Surveillance venous duplex no evidence DVT 03/04 -Oxandrolone 10 mg daily for ICU cachexia -Add subcu Lovenox for DVT prophylaxis while off rivaroxaban on Sunday and Sunday no DVT prophylaxis for Sunday prior to proposed PEG tube placement. 8. Endocrine: Glycemic control per ICU protocol. Patient was discussed on multidisciplinary rounds I have personally spent 65 minutes of critical care time in the direct management of this patient. This is a life/limb threatening event. This includes time spent evaluating patient, direct bedside care, chart review, placing orders, interpretation of diagnostic studies, discussion with consultants, patient, and/or family members regarding treatment decisions, as well as other required patient management activities. This time is exclusive of all separately billable procedures, and teaching time and separate from and in addition to any other critical care service time. Admission and Anticipated Discharge Date Admission Date: February 18, 2021 Subjective No overnight events Review of Systems Review of Systems: Unable to perform secondary to tracheostomy and sedation Physical Exam Physical Exam: General: Sedated. GCS 3, RASS -4 Skin: Warm, dry, Head: Atraumatic Ears, nose, mouth and throat: airway patent, tracheostomy tube in place Cardiovascular: Normal peripheral perfusion Respiratory: Ventilator settings reviewed Gastrointestinal: Non distended Musculoskeletal: No deformity Results & Data Results & Data ([facility]) Vital Signs (Past 12 Hours) Vital Signs Temp Pulse Resp BP Pulse Ox 03/10/21 06:00 122 H 34 H 120/64 88 L 03/10/21 05:00 111 H 32 H 110/73 88 L 03/10/21 04:00 109 H 33 H 112/74 88 L 03/10/21 03:24 117 H 33 H 89 L 03/10/21 03:00 117 H 33 H 117/76 88 L 03/10/21 02:00 117 H 33 H 112/75 88 L 03/10/21 01:00 118 H 33 H 111/76 91 03/10/21 00:00 37.8 C H 121 H 36 H 123/73 87 L 03/09/21 23:33 111 H 34 H 88 L 03/09/21 23:00 121 H 34 H 114/69 86 L 03/09/21 22:00 121 H 34 H 106/76 87 L 03/09/21 21:00 120 H 34 H 109/73 89 L 03/09/21 20:00 38 C H 116 H 33 H 118/78 93 03/09/21 19:55 111 H 34 H 92 Coding Level of Care Code Critical Care 1st 30-74 mins Diagnoses Acute respiratory distress syndrome (ARDS) due to COVID-19 virus U07.1; J80 Elevated troponin I level R77.8 Bacterial pneumonia J15.9 Hypertension I10 Morbid obesity with BMI of 40.0-44.9, adult E66.01; Z68.41
--- NOTE | 2021-03-10 08:34 | XRay Report ---
XR chest 1V portable CLINICAL HISTORY: Respiratory failure. COMPARISON STUDY: Chest radiograph and chest CT March 09, 2021. FINDINGS: Tracheostomy tube is in place. Position of the left internal jugular central line is unchan ged. Tip of feeding tube projects over the gastric fundus. Cardiomediastinal silhouette is stable. Th ere is no pneumothorax or pleural effusion. Extensive bilateral airspace opacities are similar to gregory or exam. IMPRESSION: 1. No significant change in extensive bilateral airspace opacities. 2. No pneumothorax. ACT 112: Negative or not required by law. Electronically signed by: Zack Sharp M.D. 03/10/2021 8:32 AM
[2021-03-10] MEDS: CITALOPRAM 20 MG TAB PO SCH (08:51)
[2021-03-10] MEDS: oxyCODONE HCL IR 5 MG TAB (IMMEDIATE RELEASE) PO SCH ×3 (08:51→19:58)
[2021-03-10] MEDS: LACTULOSE SYRUP 20 GM/30 ML UDC PO SCH (08:52)
[2021-03-10] MEDS: OXANDROLONE 10 MG TABLET PO SCH (08:52)
[2021-03-10] MEDS: FUROSEMIDE 40 MG/4 ML VIAL IV SCH ×2 (08:52→19:58)
[2021-03-10] MEDS: clonazePAM 1 MG TAB PO SCH ×2 (08:52→19:58)
[2021-03-10] MEDS: RIVAROXABAN 10 MG TABLET PO SCH (08:52)
[2021-03-10] MEDS: WHISKEY 1 DOSE PO SCH (08:52)
[2021-03-10] MEDS: SENNOSIDES 8.8 MG/5 ML UDC PO SCH (08:52)
[2021-03-10 09:54] LABS: Basophils # (auto) 0.05 K/uL (0-0.2); Basophils % (auto) 0.3 %; Eosinophils # (auto) 0.33 K/uL (0-0.5); Eosinophils % (auto) 1.7 %; Hematocrit (blood only) 39.1 % (42-52); Immature Granulocytes # (auto) 0.39 K/uL (0.00-0.02); Lymphocytes # (auto) 2.07 K/uL (1.2-3.4); Lymphocytes % (auto) 10.8 %; Mean Corpuscular Hemoglobin 27.2 pg (25-34); Mean Corpuscular Hgb Conc 30.7 g/dL (32-36); Mean Corpuscular Volume 88.7 fL (80-100); Mean Platelet Volume 10.6 fL (7.4-10.4); Monocytes # (auto) 1.23 K/uL (0.11-0.59); Monocytes % (auto) 6.4 %; Neutrophils # (auto) 15.02 K/uL (1.4-6.5); Neutrophils % (auto) 78.8 %; Platelet Count 170 K/uL (130-400); RDW Coefficient of Variation 16.7 % (11.5-14.5); RDW Standard Deviation 53.9 fL (36.4-46.3); Red Blood Count 4.41 M/uL (4.7-6.1); White Blood Count 19.09 K/uL (4.8-10.8)
[2021-03-10 10:37] LABS: Alanine Aminotransferase 304 U/L (7-52); Albumin Level 2.6 gm/dl (3.4-5.0); Alkaline Phosphatase 46 U/L (34-104); Anion Gap 4 (3-11); Aspartate Aminotransferase 79 U/L (13-39); Bilirubin Direct 0.8 mg/dl (0-0.2); Bilirubin,Total 1.3 mg/dl (0.2-1.0); Blood Urea Nitrogen 9 mg/dl (6-23); Calcium 8.2 mg/dl (8.5-10.1); Carbon Dioxide 43 mmol/L (21-32); Chloride 89 mmol/L (98-107); Creatinine Clr Calc Pharmacy 306.5 ml/min; Est GFR (African American) > 150.0 ml/min; Est GFR (Non-African American) 138.7 ml/min; Glucose 152 mg/dl (70-99(Fasting)); Lipase 44 U/L (11-82); Potassium 4.2 mmol/L (3.5-5.1); Sodium 136 mmol/L (136-145); Total Protein 5.8 gm/dl (6.0-8.3)
[2021-03-10] MEDS: PANTOprazole 40 MG in SYRINGE 0 ML IV SCH (10:59)
[2021-03-10] MEDS: ACETAMINOPHEN SUSP 325 MG/10.15 ML UDC NG PRN (17:06)
[2021-03-10] MEDS: fentaNYL citrate 2,500 MCG/250 ML BAG IV SCH ×2 (19:39→23:40)
[2021-03-10] MEDS: MIDAZOLAM HCL 125 MG/250 ML BAG IV SCH (19:41)
--- NOTE | 2021-03-10 22:47 | Hospitalist Progress Note ---
Date of Service March 10, 2021 Assessment & Plan (1) Acute respiratory distress syndrome (ARDS) due to COVID-19 virus: Plan: respiratory failure with hypoxia Had been intubated 02/27/21 due to progressive respiratory failure despite max HFNC and CPAP. Extubated 03/03/20 to HFNC. Unfortunately the patient developed recurrent respiratory failure/distress in the setting of max HFNC settings. Patient re-intubated early in morning on 03/04/21 tracheostomy performed 03/05/21 by ICU remains tachycardic, febrile (but improving) started on Meropenem empirically, no growth on blood or sputum cultures finish 10 days of Meropenem, day 7 today all lines changed Lasix 40mg IV daily to try for negative fluid balance tolerating but feeds, will eventually need a PEG, consult GI, plan for 03/14 he tends to desaturate with any lapse in sedation requiring higher FiO2 very poor prognosis at this time readmitted to the hospital on 02/18/21 after he had a prolonged hospital stay in January for severe COVID-19 pneumonia. since 02/18 had been requiring HFNC with CPAP at night. prior attending suspected late-stage ARDS. he has been on steroids since his readmission on 02/18 with no improvement in hi s status. baricitinib was started 02/21 due to high CRP and worsening status. despite the above he continued with worsening respiratory status. pulmonary formally consulted AM of 02/27/21. 02/27/21 early afternoon patient decompensated further necessitating transfer to [facility] COVID unit for intubation. baricitinib stopped at that time. extubated 03/03/21. then reintubated AM of 03/04/21 after failing max settings of HFNC. (2) Pneumonia due to 2019 novel coronavirus: Plan: COVID 19 originally diagnosed 01/31/21. He was hospitalized from 01/31/2021 until 02/15/21. Initially treated with dexamethasone + Remdesivir during that admission. Readmitted 02/18/21; had been on HFNC since, with CPAP at night. Intubated/ventilated 02/27/21. Extubated 03/03/21. Reintubated AM of 03/04/21 tracheostomy performed 03/05/21 CRP this admission 11.4 - baricitinib started on 02/21/21 and received 8 doses then stopped following his intubation. Completed 10 days of dexamethasone 6mg IV daily - steroids remain off. likely has fibrotic changes of lungs that will not improve now on Meropenem empirically, fever better but no growth on cultures, finish 10 days Lasix 40mg IV daily (3) Hypotension: Plan: on Levophed likely from sedation arterial line replaced on 03/06/21 (4) Fever: Plan: improved fever curve with Meropenem follow up sputum culture - no growth no growth on blood or urine cultures either all lines changed out no obvious infection on imaging (5) Respiratory acidosis: Plan: resolved (6) Hyponatremia: Plan: resolved (7) Hyperglycemia: Plan: insulin protocol (8) Morbid obesity with BMI of 40.0-44.9, adult: (9) DVT prophylaxis: Plan: resume Xarelto hold it prior to PEG on 03/14 (10) Type 2 diabetes mellitus: Admission and Anticipated Discharge Date Admission Date: February 18, 2021 Subjective no improvement in patient at this time Review of Systems Review of Systems: Unobtainable due to cognitive status Physical Exam Physical Exam: General: well developed, obese, mechanically ventilated via trach Neck: tracheostomy present Lungs: clear to auscultation bilaterally, symmetric chest movement on ventilatory Heart: tachycardic S1 and S2, no murmur, peripheral pulses normal, capillary refill normal, no edema Abdomen: soft, NT, ND, + BS, no hepatomegaly, normal to percussion Extremities: normal in appearance, no cyanosis, no petechiae Neuro: sedated, no focal motor deficits, CN II-XII intact, sensation in extremities intact, normal speech Skin: warm, dry, no rash, normal turgor Psych: sedated Results & Data Results & Data ([facility]) Vital Signs (Past 12 Hours) Vital Signs Temp Pulse Resp BP Pulse Ox 03/10/21 20:10 116 H 33 H 95 03/10/21 19:36 38 C H 03/10/21 19:00 125 H 32 H 122/73 95 03/10/21 18:00 132 H 33 H 117/80 93 03/10/21 17:00 131 H 34 H 128/79 85 L 03/10/21 16:00 131 H 34 H 132/84 88 L 03/10/21 15:19 125 H 37 H 92 03/10/21 15:00 130 H 34 H 127/81 88 L 03/10/21 14:00 127 H 35 H 114/80 91 03/10/21 13:00 37.9 C H 117 H 40 H 136/88 93 03/10/21 12:03 119 H 35 H 99 03/10/21 12:00 38 C H 118 H 32 H 105/74 100 03/10/21 11:00 38.1 C H 128 H 36 H 112/76 90 Laboratory Results Laboratory Results - last 24 hr 03/10/21 03/10/21 03/10/21 03:50 09:17 09:17 WBC RBC Hgb Hct MCV MCH MCHC RDW Std Deviation RDW Coeff of Eleazar Plt Count MPV Immature Gran % (Auto) Neut % (Auto) Lymph % (Auto) [place] % (Auto) Eos % (Auto) Baso % (Auto) Neut # (Auto) Lymph # (Auto) [place] # (Auto) Eos # (Auto) Baso # (Auto) Immature Gran # (Auto) Sample Site L Radial POC pH 7.36 POC pCO2 80 H POC pO2 60 L POC HCO3 45 H POC Total CO2 > 40 H* POC Base Excess 20.0 H POC ABG O2 Sat 88.0 L Brodie Test Pass O2 Delivery Device Ventilator POC O2 Rate 32 POC FiO2 65 Tidal Volume 400 PEEP 6 Sodium Cancelled 136 Potassium Cancelled 4.2 Chloride Cancelled 89 L Carbon Dioxide Cancelled 43 H* Anion Gap Cancelled 4 BUN Cancelled 9 Creatinine Cancelled 0.36 L Est Cr Clr Drug Dosing Cancelled 306.5 Est GFR ( Amer) Cancelled > 150.0 Est GFR (Non-Af Amer) Cancelled 138.7 BUN/Creatinine Ratio Cancelled 25.0 H Glucose Cancelled 152 H Calcium Cancelled 8.2 L Phosphorus Cancelled Magnesium Cancelled 2.0 Total Bilirubin Cancelled 1.3 H Direct Bilirubin Cancelled 0.8 H AST Cancelled 79 H ALT Cancelled 304 H Alkaline Phosphatase Cancelled 46 Total Protein Cancelled 5.8 L Albumin Cancelled 2.6 L Lipase 44 Procalcitonin 03/10/21 03/10/21 09:17 09:17 WBC 19.09 H RBC 4.41 L Hgb 12.0 L Hct 39.1 L MCV 88.7 MCH 27.2 MCHC 30.7 L RDW Std Deviation 53.9 H RDW Coeff of Eleazar 16.7 H Plt Count 170 MPV 10.6 H Immature Gran % (Auto) 2.0 Neut % (Auto) 78.8 Lymph % (Auto) 10.8 [place] % (Auto) 6.4 Eos % (Auto) 1.7 Baso % (Auto) 0.3 Neut # (Auto) 15.02 H Lymph # (Auto) 2.07 [place] # (Auto) 1.23 H Eos # (Auto) 0.33 Baso # (Auto) 0.05 Immature Gran # (Auto) 0.39 H Sample Site POC pH POC pCO2 POC pO2 POC HCO3 POC Total CO2 POC Base Excess POC ABG O2 Sat Brodie Test O2 Delivery Device POC O2 Rate POC FiO2 Tidal Volume PEEP Sodium Potassium Chloride Carbon Dioxide Anion Gap BUN Creatinine Est Cr Clr Drug Dosing Est GFR ( Amer) Est GFR (Non-Af Amer) BUN/Creatinine Ratio Glucose Calcium Phosphorus Magnesium Total Bilirubin Direct Bilirubin AST ALT Alkaline Phosphatase Total Protein Albumin Lipase Procalcitonin 0.32 Medications Administered Current Inpatient Medications Acetaminophen (Acetaminophen Susp 325 Mg/10.15 Ml Udc) 650 mg NG Q4H PRN PRN Reason: Pain or Fever Stop: 04/02/21 04:41 Last Admin: 03/10/21 17:06 Dose: 650 mg Documented by: Citalopram Hydrobromide (Citalopram 20 Mg Tab) 20 mg PO DAILY [facility] Stop: 03/21/21 08:59 Last Admin: 03/10/21 08:51 Dose: 20 mg Documented by: Clonazepam (Clonazepam 1 Mg Tab) 1 mg PO BID [facility] Stop: 04/09/21 08:59 Last Admin: 03/10/21 19:58 Dose: 1 mg Documented by: Enoxaparin Sodium (Enoxaparin Inj 40 Mg/0.4 Ml Syr) 40 mg SQ QAM [facility] Stop: 03/13/21 09:01 Fentanyl Citrate (Fentanyl Bolus From Bag) 50 mcg IV Q60M PRN PRN Reason: Pain or Agitation Stop: 03/18/21 03:28 Last Admin: 03/08/21 19:09 Dose: 50 mcg Documented by: Furosemide (Furosemide 40 Mg/4 Ml Vial) 40 mg IV BID [facility] Stop: 04/09/21 08:59 Last Admin: 03/10/21 19:58 Dose: 40 mg Documented by: Pantoprazole Sodium 40 mg/ (Syringe) 10 mls @ 5 mls/min IV DAILY@1100 [facility] Stop: 03/30/21 10:59 Last Admin: 03/10/21 10:59 Dose: 5 mls/min Documented by: Fentanyl Citrate (Fentanyl Citrate) 2,500 mcg in 250 mls @ 20 mls/hr IV .[id number] [facility]; Protocol Stop: 03/18/21 03:29 Last Admin: 03/10/21 19:39 Dose: Not Given Documented by: Meropenem 500 mg/ Syringe 10 mls @ 2 mls/min IV Q6H [facility]; Protocol Stop: 03/14/21 15:59 Last Admin: 03/10/21 21:59 Dose: 2 mls/min Documented by: Norepinephrine Bitartrate (Levophed/D5w) 8 mg in 508 mls @ 44.844 mls/hr IV .[id number] [facility]; Protocol Stop: 04/04/21 21:14 Last Titration: 03/10/21 19:40 Dose: 0.1 mcg/kg/min, 44.8 mls/hr Documented by: Midazolam HCl (Versed) 125 mg in 250 mls @ 6 mls/hr IV .[id number] [facility]; Protocol Stop: 04/05/21 14:14 Last Admin: 03/10/21 19:41 Dose: 3 mg/hr, 6 mls/hr Documented by: Propofol (Diprivan) 1,000 mg in 100 mls @ 0 mls/hr IV .Q0M [facility]; Protocol Stop: 03/13/21 06:29 Last Titration: 03/10/21 19:45 Dose: Infused Documented by: Lactulose (Lactulose Syrup 20 Gm/30 Ml Udc) 20 gm PO QAM [facility] Stop: 04/01/21 10:59 Last Admin: 03/10/21 08:52 Dose: 20 gm Documented by: Midazolam HCl (Midazolam Bolus From Bag) 2 mg IV Q60M PRN PRN Reason: Sedation Stop: 04/05/21 14:08 Last Admin: 03/08/21 19:08 Dose: 2 mg Documented by: Miscellaneous Information (Meropenem Consult Active) 1 ea N/A UD PRN PRN Reason: Consult Stop: 04/03/21 15:20 Non-Formulary Medication (Whiskey 1 Dose) 1 dose PO QAM [facility] Stop: 04/08/21 11:59 Last Admin: 03/10/21 08:52 Dose: 1 dose Documented by: Nutritional Formula (Peptamen Intense Vhp 1.0 Casey 1,000 Ml Bag) 1,000 ml GT CONT PRN; Protocol PRN Reason: Tube Feeding Stop: 04/04/21 17:59 Last Admin: 03/07/21 14:14 Dose: 1,000 ml Documented by: Oxandrolone (Oxandrolone 10 Mg Tablet) 10 mg PO DAILY [facility] Stop: 04/08/21 08:59 Last Admin: 03/10/21 08:52 Dose: 10 mg Documented by: Oxycodone HCl (Oxycodone Hcl Ir 5 Mg Tab (Immediate Release)) 10 mg PO Q6H [facility] Stop: 03/24/21 07:59 Last Admin: 03/10/21 19:58 Dose: 10 mg Documented by: Propofol (Propofol Bolus From Bag) 20 mg IV Q5M PRN PRN Reason: Sedation Stop: 03/13/21 06:19 Rivaroxaban (Rivaroxaban 10 Mg Tablet) 10 mg PO DAILY [facility] Stop: 04/05/21 08:59 Last Admin: 03/10/21 08:52 Dose: 10 mg Documented by: Sennosides (Sennosides 8.8 Mg/5 Ml Udc) 8.8 mg PO QAM [facility] Stop: 04/01/21 10:59 Last Admin: 03/10/21 08:52 Dose: 8.8 mg Documented by: PG Care Time/CCT Total # of Minutes Spent Total Time Spent with Patient: Total time spent is greater than 50% in coordination of care (as documented) at patient's floor/unit and/or counseling patient: Coding Level of Care Code 63201 Subseq Hosp Care Lvl 2 Diagnoses Acute respiratory distress syndrome (ARDS) due to COVID-19 virus U07.1; J80 Pneumonia due to 2019 novel coronavirus U07.1; J12.82 Hypotension I95.9 Fever R50.9 Respiratory acidosis E87.2 Hyponatremia E87.1 Hyperglycemia R73.9 Morbid obesity with BMI of 40.0-44.9, adult E66.01; Z68.41 DVT prophylaxis Z29.9 Type 2 diabetes mellitus E11.9
[2021-03-11] MEDS: oxyCODONE HCL IR 5 MG TAB (IMMEDIATE RELEASE) PO SCH ×4 (02:09→20:01)
[2021-03-11 03:57] LABS: iSTAT Art Bld Gas pCO2 Correct 80 mmHg (35-46); iSTAT Art Bld Gas pH Corrected 7.428 (7.35-7.45); iSTAT Arterial Blood Gas HCO3 53 meg/L (19-24); iSTAT Arterial Blood Gas pCO2 79 mmHg (35-46); iSTAT Arterial Blood Gas pH 7.43 (7.35-7.45); iSTAT Arterial Blood Gas pO2 113 mmHg (80-95); iSTAT Arterial Blood Gas pO2 C 115; iSTAT Carbon Dioxide > 50 mmol/L (24-31); iSTAT FiO2 90 %; iSTAT Hematocrit 31 % (42-52); iSTAT Hemoglobin 10.5 g/dl (14.0-18.0); iSTAT Potassium 4.1 mmol/L (3.3-5.0); iSTAT Site Art Line; iSTAT Sodium 133 mmol/L (135-144)
[2021-03-11] MEDS: MEROPENEM 500 MG in SYRINGE 0 ML IV SCH ×4 (04:05→21:38)
[2021-03-11] MEDS: MIDAZOLAM BOLUS FROM BAG IV PRN ×2 (05:12→06:29)
--- NOTE | 2021-03-11 06:34 | Procedure Note ---
Procedure Note Date of Service March 11, 2021 Note Procedure: Arterial Line Placement Attending: Dr. Butt APC: Zach Rivera PA-C Indication: Hemodynamic monitoring Anesthesia: None Emergent Consent implied in the setting of clinical deterioration and need for close hemodynamic monitoring, ABG monitoring, frequent lab draws, etc. A time-out was completed verifying correct patient, procedure, site, positioning, and implant(s) or special equipment if applicable. Allens test was performed to ensure adequate perfusion. Patients LEFT wrist was prepped and draped in the usual sterile fashion. Ultrasound guidance was used to aid needle placement. A 20g Arrow arterial line was introduced into the LEFT Radial artery. Catheter was threaded, and the needle was removed with appropriate blood return. Good waveform was observed. The patient tolerated the procedure well. Confirmati on of placement with ultrasound. Blood Loss: Minimal Complications: None Procedural Ultrasound Guidance: Procedure Date: 03/11/2021 Indication: Hemodynamic Monitoring, Frequent ABGs/Lab draws. Attending: Dr. Butt APC: Zach Rivera PA-C Artery Identified: YES Line confirmed in Artery with ultrasound: YES Complications: NONE Patient tolerated procedure: WELL Coding CPT Codes Tubes, Drains, and Vasc Access - Tubes, Drains, and Vasc Access: [id number] Place Catheter In Ar[place] ([id number]) [facility] [place] Codes (Charges) Tubes, Drains, and Vasc Access Procedure 3: Tubes, Drains, and Vasc Access: [id number] Place Catheter In Artery
[2021-03-11 06:36] LABS: Basophils # (auto) 0.07 K/uL (0-0.2); Basophils % (auto) 0.4 %; Eosinophils # (auto) 0.27 K/uL (0-0.5); Eosinophils % (auto) 1.5 %; Hematocrit (blood only) 34.2 % (42-52); Hemoglobin 10.3 g/dL (14.0-18.0); Immature Granulocytes # (auto) 0.37 K/uL (0.00-0.02); Immature Granulocytes % (auto) 2.1 %; Lymphocytes # (auto) 2.96 K/uL (1.2-3.4); Lymphocytes % (auto) 16.5 %; Mean Corpuscular Hemoglobin 26.9 pg (25-34); Mean Corpuscular Hgb Conc 30.1 g/dL (32-36); Mean Corpuscular Volume 89.3 fL (80-100); Mean Platelet Volume 10.8 fL (7.4-10.4); Monocytes # (auto) 1.22 K/uL (0.11-0.59); Monocytes % (auto) 6.8 %; Neutrophils # (auto) 13.02 K/uL (1.4-6.5); Neutrophils % (auto) 72.7 %; Platelet Count 169 K/uL (130-400); RDW Coefficient of Variation 16.8 % (11.5-14.5); RDW Standard Deviation 54.2 fL (36.4-46.3); Red Blood Count 3.83 M/uL (4.7-6.1); White Blood Count 17.91 K/uL (4.8-10.8)
[2021-03-11 07:08] LABS: INR 1.1 (0.9-1.1); Partial Thromboplastin Ratio 1.1; Prothrombin Time 11.3 Seconds (9.0-12.0)
[2021-03-11 07:09] LABS: Alanine Aminotransferase 178 U/L (7-52); Albumin Level 2.5 gm/dl (3.4-5.0); Alkaline Phosphatase 42 U/L (34-104); Aspartate Aminotransferase 37 U/L (13-39); BUN Creatinine Ratio 26.5 (10-20); Bilirubin Direct 0.5 mg/dl (0-0.2); Blood Urea Nitrogen 9 mg/dl (6-23); Calcium 8.4 mg/dl (8.5-10.1); Carbon Dioxide > 45 mmol/L (21-32); Chloride 87 mmol/L (98-107); Creatinine Clr Calc Pharmacy 324.5 ml/min; Est GFR (African American) > 150.0 ml/min; Glucose 128 mg/dl (70-99(Fasting)); Lipase 33 U/L (11-82); Magnesium 2.1 mg/dl (1.7-2.4); Phosphorus 2.2 mg/dl (2.5-4.9); Potassium 4.2 mmol/L (3.5-5.1); Sodium 138 mmol/L (136-145); Total Protein 5.4 gm/dl (6.0-8.3); Triglycerides 176 mg/dl (0-150)
--- NOTE | 2021-03-11 07:59 | XRay Report ---
XR chest 1V portable CLINICAL HISTORY: intubation. Follow-up bilateral alveolar opacities COMPARISON STUDY: 03/10/2021 TECHNIQUE: 1 view of the chest FINDINGS: Single frontal view of the chest demonstrates the cardiomediastinal silhouette to be within normal li mits. Tubes and catheters are unchanged. Diffuse interstitial and alveolar opacities are again seen b ilaterally and are also unchanged. There is haziness involving both lung bases characteristic of pleu ral fluid layering along the posterior gutters. There is no evidence for vascular congestion. There i s no acute osseous pathology. IMPRESSION: Compared to previous examination, there is no significant interval change in bilateral in terstitial and alveolar opacities. There is also suspicion of bilateral pleural effusions. ACT 112: Negative or not required by law. Electronically signed by: Eugene Rome M.D. 03/11/2021 7:58 AM
[2021-03-11] MEDS: clonazePAM 1 MG TAB PO SCH ×2 (08:02→20:01)
[2021-03-11] MEDS: OXANDROLONE 10 MG TABLET PO SCH (08:02)
[2021-03-11] MEDS: CITALOPRAM 20 MG TAB PO SCH (08:03)
[2021-03-11] MEDS: ENOXAPARIN INJ 40 MG/0.4 ML SYR SQ SCH (08:03)
[2021-03-11] MEDS: FUROSEMIDE 40 MG/4 ML VIAL IV SCH ×2 (08:04→20:00)
[2021-03-11] MEDS: WHISKEY 1 DOSE PO SCH (08:05)
[2021-03-11] MEDS: SENNOSIDES 8.8 MG/5 ML UDC PO SCH (08:05)
[2021-03-11] MEDS: LACTULOSE SYRUP 20 GM/30 ML UDC PO SCH (08:05)
[2021-03-11] MEDS ORDERED: CARBOHYDRATES FOR HYPOGLYCEMIA PO PRN (10:16)
[2021-03-11] MEDS ORDERED: DEXTROSE 50% 50 ML SYRINGE IV PRN (10:16)
[2021-03-11] MEDS ORDERED: GLUCOSE 40% GEL 15 GM TUBE PO PRN (10:16)
[2021-03-11] MEDS ORDERED: GLUCAGON FOR INJ 1 MG VIAL SQ PRN (10:16)
[2021-03-11] MEDS ORDERED: GLUCOSE 10 TABS/TUBE PO PRN (10:16)
--- NOTE | 2021-03-11 10:16 | Critical Care Progress Note ---
Date of Service March 11, 2021 Assessment & Plan (1) Acute respiratory distress syndrome (ARDS) due to COVID-19 virus: (2) Elevated troponin I level: (3) Bacterial pneumonia: (4) Hypertension: (5) Morbid obesity with BMI of 40.0-44.9, adult: Plan: Impression: 55-year-old unvaccinated male initially diagnosed 01/31/2021 and spent almost 2 weeks in the hospital on high flow oxygen. He received remdesivir and Decadron at that point time. He was dismissed from the hospital 02/15 but returned 02/18 with progressive hypoxemic respiratory failure. He was treated with high-dose dexamethasone as well as Levaquin and Zosyn. He failed noninvasive positive pressure ventilation and was intubated 02/27/2021. Trach 03/05/20 Recommendations: 1. Neurologic: Currently sedated with fentanyl and Versed,: Decrease maximum doses of IV infusion: Fentanyl 100 mcg/h discontinue Versed attempt to wean sedation adding back enteral oxycodone at 10 mg every 6 hours 03/10 clonazepam 1 mg twice daily 03/10, -Would consider adjunctive Depakote 125 every 6 hours p.o. however it interacts with meropenem and will hold at this time - Continue home dose of Celexa. Holding baclofen for now. 2. Cardiovascular: Continue norepinephrine with efforts to wean as tolerated. -QTC adequate 03/10 -Would consider beta-pavel for ICU cachexia if able to wean off vasopressors which I think are secondary to sedatives 3. Pulmonary: Severe ARDS with multifocal infiltrates consistent with viral pneumonia/late-phase ARDS. Patient has completed antibiotics, remdesivir, and several courses of steroids. His CRP is low. I do not think additional steroids at this point time are going to offer him a clinical benefit unless his CRP should increase. He has remained supine. He was extubated 03/03 but required reintubation and underwent tracheostomy placement 03/05/2021. -I am concerned for a extremely poor prognosis from a pulmonary/pulmonary reserve standpoint 4. GI: Increase tube feeding. PEG tube placement recommended: definitive enteral access would be appropriate -Possible PEG tube placement on Sunday reviewed with GI -Bowel movement 03/10 5. ID: Day #8 meropenem. Continue meropenem for total of 10 days -Elevated LFTs improving -Lipase within normal limits -CT scans reviewed: Mastoiditis, Gross distention of the gallbladder with cholelithiasis. No CT evidence for acute cholecystitis. -Liver ultrasound:1. Hepatomegaly with diffuse fatty infiltration of the liver. 2. Cholelithiasis with no ultrasound evidence for acute cholecystitis. -Urine sputum and blood cultures remain no growth to date -Lines were all changed out 03/04. -Moved out of COVID isolation today. 6. Renal: Lasix 40 mg twice daily. Continue ICU electrolyte replacement protocol. 7. Heme-onc: Prior history of DVT. Restarted Xarelto. Questionable gout, will follow for now. -Surveillance venous duplex no evidence DVT 03/04 -Oxandrolone 10 mg daily for ICU cachexia -Add subcu Lovenox for DVT prophylaxis while off rivaroxaban on Sunday and Sunday no DVT prophylaxis for Sunday prior to proposed PEG tube placement. 8. Endocrine: Glycemic control per ICU protocol. Updated family today regarding prognosis and long-term wishes. The patient has never had significant discussions regarding end-of-life care with family. Patient was discussed on multidisciplinary rounds I have personally spent 50 minutes of critical care time in the direct management of this patient. This is a life/limb threatening event. This includes time spent evaluating patient, direct bedside care, chart review, placing orders, interpretation of diagnostic studies, discussion with consultants, patient, and/or family members regarding treatment decisions, as well as other required patient management activities. This time is exclusive of all separately billable procedures, and teaching time and separate from and in addition to any other critical care service time. Admission and Anticipated Discharge Date Admission Date: February 18, 2021 Subjective No overnight events Review of Systems Review of Systems: Unobtainable due to reduced consciousness Physical Exam Physical Exam: General: Sedated. GCS 3, RASS -4 Skin: Warm, dry, Head: Atraumatic Ears, nose, mouth and throat: airway patent, tracheostomy tube in place Cardiovascular: Normal peripheral perfusion Respiratory: Ventilator settings reviewed Gastrointestinal: Non distended Musculoskeletal: No deformity Results & Data Results & Data ([facility]) Vital Signs (Past 12 Hours) Vital Signs Temp Pulse Resp BP Pulse Ox 03/11/21 07:36 106 H 33 H 97 03/11/21 07:00 37.3 C 108 H 32 H 93 03/11/21 06:09 37.1 C 03/11/21 05:00 105 H 32 H 91 03/11/21 04:00 101 H 32 H 88 L 03/11/21 03:33 99 H 32 H 97 03/11/21 03:00 98 H 32 H 97 03/11/21 02:00 94 H 32 H 97 03/11/21 01:00 103 H 32 H 97 03/11/21 00:00 97 H 32 H 96 03/10/21 23:00 106 H 32 H 97/66 L 97 Critical Care Results & Data Vital Signs (Past 12 Hours) Vital Signs Temp Pulse Resp BP Pulse Ox 03/11/21 15:00 113 H 32 H 104/69 94 03/11/21 14:00 111 H 32 H 116/70 94 03/11/21 13:00 110 H 32 H 106/68 95 03/11/21 12:00 110 H 32 H 94 03/11/21 11:00 106 H 32 H 91 03/11/21 10:46 101 H 33 H 88 L 03/11/21 10:15 112 H 32 H 103/73 96 03/11/21 10:00 112 H 29 H 96 03/11/21 09:00 110 H 35 H 106/73 95 03/11/21 08:00 102 H 03/11/21 07:36 106 H 33 H 97 03/11/21 07:00 37.3 C 108 H 32 H 93 03/11/21 06:09 37.1 C 03/11/21 05:00 105 H 32 H 91 Lab & Micro Results (Past 24 Hours) RBC 3.83 M/uL (4.7-6.1) L 03/11/21 WBC 17.91 K/uL (4.8-10.8) H 03/11/21 Hgb 10.3 g/dL (14.0-18.0) L 03/11/21 Hct 34.2 % (42-52) L 03/11/21 MCV 89.3 fL (80-100) 03/11/21 MCH 26.9 pg (25-34) 03/11/21 MCHC 30.1 g/dL (32-36) L 03/11/21 RDW Standard Deviation 54.2 fL (36.4-46.3) H 03/11/21 RDW Coefficient of Variation 16.8 % (11.5-14.5) H 03/11/21 Plt Count 169 K/uL (130-400) 03/11/21 MPV 10.8 fL (7.4-10.4) H 03/11/21 Neutrophils (%) (Auto) 72.7 % 03/11/21 Lymphocytes (%) (Auto) 16.5 % 03/11/21 Monocytes # (Auto) 1.22 K/uL (0.11-0.59) H 03/11/21 Eosinophils # (Auto) 0.27 K/uL (0-0.5) 03/11/21 Immature Granulocyte % (Auto) 2.1 % 03/11/21 Neutrophils # (Auto) 13.02 K/uL (1.4-6.5) H 03/11/21 Lymphocytes # (Auto) 2.96 K/uL (1.2-3.4) 03/11/21 Monocytes # (Auto) 1.22 K/uL (0.11-0.59) H 03/11/21 Eosinophils # (Auto) 0.27 K/uL (0-0.5) 03/11/21 Basophils # (Auto) 0.07 K/uL (0-0.2) 03/11/21 Immature Granulocyte # (Auto) 0.37 K/uL (0.00-0.02) H 03/11/21 Na 138 mmol/L (136-145) 03/11/21 K 4.2 mmol/L (3.5-5.1) 03/11/21 Cl 87 mmol/L (98-107) L 03/11/21 CO2 > 45 mmol/L (21-32) H* 03/11/21 Anion Gap TNP 03/11/21 BUN 9 mg/dl (6-23) 03/11/21 Creatinine 0.34 mg/dl (0.6-1.4) L 03/11/21 Estimated GFR ( Amer) > 150.0 ml/min 03/11/21 Estimated GFR (Non-Af Amer) 142.0 ml/min 03/11/21 BUN/Creatinine Ratio 26.5 (10-20) H 03/11/21 Glu 128 mg/dl (70-99(Fasting)) H 03/11/21 Ca 8.4 mg/dl (8.5-10.1) L 03/11/21 Phosphorus Level 2.2 mg/dl (2.5-4.9) L 03/11/21 Total Bilirubin 1.0 mg/dl (0.2-1.0) 03/11/21 Direct Bilirubin 0.5 mg/dl (0-0.2) H 03/11/21 AST 37 U/L (13-39) 03/11/21 ALT 178 U/L (7-52) H 03/11/21 Alkaline Phosphatase 42 U/L (34-104) 03/11/21 TP 5.4 gm/dl (6.0-8.3) L 03/11/21 Albumin 2.5 gm/dl (3.4-5.0) L 03/11/21 Mg 2.1 mg/dl (1.7-2.4) 03/11/21 06:23 03/11/21 Calcium Level 8.4 mg/dl (8.5-10.1) L 03/11/21 06:23 03/11/21 Prothromb Time International Ratio 1.1 (0.9-1.1) 03/11/21 06:23 03/11/21 Brodie Test NA 03/11/21 03:44 03/11/21 Microbiology 03/10/21 09:17 Aerobic Blood Culture - Preliminary Blood No growth in Aerobic bottle after 24 hours. Anaerobic Blood Culture - Preliminary No growth in Anaerobic bottle after 24 hours. 03/10/21 09:17 Aerobic Blood Culture - Preliminary Blood No growth in Aerobic bottle after 24 hours. 03/10/21 09:17 Fungal Smear - Final Blood Diagnostic Findings (Past 24 Hours) Chest X-Ray 03/11/21 06:00 XR chest 1V portable CLINICAL HISTORY: intubation. Follow-up bilateral alveolar opacities COMPARISON STUDY: 03/10/2021 TECHNIQUE: 1 view of the chest FINDINGS: Single frontal view of the chest demonstrates the cardiomediastinal silhouette to be within normal limits. Tubes and catheters are unchanged. Diffuse interstitial and alveolar opacities are again seen bilaterally and are also unchanged. There is haziness involving both lung bases characteristic of pleural fluid layering along the posterior gutters. There is no evidence for vascular congestion. There is no acute osseous pathology. IMPRESSION: Compared to previous examination, there is no significant interval change in bilateral interstitial and alveolar opacities. There is also suspicion of bilateral pleural effusions. ACT 112: Negative or not required by law. Electronically signed by: Eugene Rome M.D. 03/11/2021 7:58 AM I & O Totals 24 Hours 03/10/21 03/11/21 03/12/21 06:59 06:59 06:59 Intake Total 2938.738 / 2938.738 2728.607 / 2728.607 410.537 / 410.537 Output Total 4017 / 4017 2750 / 2750 800 / 800 Balance -1078.262 / -1078.262 -21.393 / -21.393 -389.463 / -389.463 Cumulative 02/18/21 17:19 thru 03/11/21 14:30 Intake Total 50189.432 Output Total 10586 Balance -06886.568 RT Ventilator Mngmt (Last Documented) Ventilator Ordered Settings Ventilator Support Mode Assist Control 03/11/21 12:00 Respiratory Rate 32 03/11/21 15:00 Ventilator Tidal Volume 400 03/11/21 12:00 Setting Minute Ventilation 13 03/11/21 10:46 Ventilator Positive Pressure 12 03/03/21 08:15 Support Setting Positive End Expiratory 6 03/11/21 12:00 Pressure Fraction of Inspired Oxygen 85 03/11/21 15:00 Machine Comment increased FiO2 at this time 03/10/21 17:50 Ventilator - PT Measurements Respiratory Rate 32 Exhaled Tidal Volume 415 Minute Ventilation 13 Peak Inspiratory Airway 34 Pressure Plateau Pressure 29 Respiratory Cycle Inspiratory: 1:1.6 Expiratory Ratio Inspiratory Phase Time 0.65 End-Tidal CO2 60 Static Lung Compliance 18.04 Dynamic Lung Compliance 14.82 Normal Static Lung Compliance 44.00 Patient Measurements Comment FiO2 decreased to 90% at this time. Coding Level of Care Code Critical Care 1st 30-74 mins Diagnoses Acute respiratory distress syndrome (ARDS) due to COVID-19 virus U07.1; J80 Elevated troponin I level R77.8 Bacterial pneumonia J15.9 Hypertension I10 Morbid obesity with BMI of 40.0-44.9, adult E66.01; Z68.41
[2021-03-11] MEDS ORDERED: PEPTAMEN INTENSE VHP 1.0 CAL 1,000 ML BAG PO SCH (10:30)
[2021-03-11] MEDS: NOREPINEPHRINE/D5W 8 MG/508 ML BAG IV SCH ×3 (11:00→18:29)
[2021-03-11] MEDS: PANTOprazole 40 MG in SYRINGE 0 ML IV SCH (11:01)
[2021-03-11] MEDS: PEPTAMEN INTENSE VHP 1.0 CAL 1,000 ML BAG GT SCH (11:11)
--- NOTE | 2021-03-11 12:12 | Procedure Note ---
Procedure Note Date of Service March 11, 2021 Note Procedure date: Noted above Procedure: fiberoptic bronchoscopy Pre-procedure indication: Cyclic fevers, acute on chronic hypoxic respiratory failure Post-procedure Diagnosis: same as above Prior to Procedure: Informed Consent: The risks, benefits, indications, potential complications, and alternatives were explained to the patient's father and informed consent obtained. Attending Staff: Vinny Butt DO Resident/APC: Not applicable Skin Prep: Not applicable Anesthesia: Continuous infusion The identity of the patient was confirmed and a bedside time out was performed. Description of Procedure: Fiberoptic bronchoscopy was performed via endotracheal tube. Bronchioalveolar lavage right middle lobe was performed. Findings included: Small amount of thin white mucoid secretions were suctioned, globally the lung tissue appeared mildly erythematous and irritated no significant purulence or mucoid impaction. Complications: None Specimens: Bronchial washings sent for culture and Gram stain, fungal elements, AFB stain and culture, cell count differential. Estimated blood loss: Zero Coding CPT Codes Pulmonary/Thoracic - Pulmonary and Thoracic: 89557 Dx bronchoscopy/BAL ([id number]) [facility] [place] Procedure Codes (Charges) Pulmonary/Thoracic Procedure 1: Pulmonary and Thoracic: 84129 Dx bronchoscopy/BAL
[2021-03-11] MEDS: fentaNYL citrate 2,500 MCG/250 ML BAG IV SCH ×4 (13:00→15:32)
[2021-03-11] MEDS: TUBE FEEDING WATER FLUSH GT SCH ×3 (13:01→18:04)
[2021-03-11] MEDS: INSULIN ASPART PER UNIT SC SCH ×2 (13:03→18:01)
[2021-03-11 13:10] LABS: Eosinophil Body Fluid Man 2 %; Fluid Mono/Macrophage 7 %; Lymphocyte Body Fluid Man 1 %; Neutrophil Body Fluid Man 90 %
[2021-03-11] MEDS: MIDAZOLAM HCL 125 MG/250 ML BAG IV SCH (15:50)
--- NOTE | 2021-03-11 18:52 | Electrocardiogram Report ---
Test Reason : Blood Pressure : / mmHG Vent. Rate : 119 BPM Atrial Rate : 119 BPM P-R Int : 158 ms QRS Dur : 096 ms QT Int : 312 ms P-R-T Axes : 017 005 093 degrees QTc Int : 438 ms Poor data quality, interpretation may be adversely affected Sinus tachycardia Cannot rule out Inferior infarct , age undetermined Nonspecific ST and T wave abnormality Abnormal ECG When compared with ECG of 19-FEB-2021 05:15, ST now depressed in Lateral leads Confirmed by Aron Underwood ([id number]) on 03/11/2021 6:52:29 PM Referred By: REFERRED SELF Confirmed By:Aron Underwood
--- NOTE | 2021-03-11 22:43 | Hospitalist Progress Note ---
Date of Service March 11, 2021 Assessment & Plan (1) Acute respiratory distress syndrome (ARDS) due to COVID-19 virus: Plan: respiratory failure with hypoxia Had been intubated 02/27/21 due to progressive respiratory failure despite max HFNC and CPAP. Extubated 03/03/20 to HFNC. Unfortunately the patient developed recurrent respiratory failure/distress in the setting of max HFNC settings. Patient re-intubated early in morning on 03/04/21 tracheostomy performed 03/05/21 by ICU remains tachycardic, febrile (but improving) started on Meropenem empirically, no growth on blood or sputum cultures finish 10 days of Meropenem, day 7 today all lines changed bronchoscopy on 03/11 due to fevers, lavage sent for cultures Lasix 40mg IV daily to try for negative fluid balance tolerating but feeds, will eventually need a PEG, consult GI, plan for 03/14 he tends to desaturate with any lapse in sedation requiring higher FiO2 very poor prognosis at this time readmitted to the hospital on 02/18/21 after he had a prolonged hospital stay in January for severe COVID-19 pneumonia. since 02/18 had been requiring HFNC with CPAP at night. prior attending suspected late-stage ARDS. he has been on steroids since his readmission on 02/18 with no improvement in his status. baricitinib was started 02/21 due to high CRP and worsening status. despite the above he continued with worsening respiratory status. pulmonary formally consulted AM of 02/27/21. 02/27/21 early afternoon patient decompensated further necessitating transfer to [facility] COVID unit for intubation. baricitinib stopped at that time. extubated 03/03/21. then reintubated AM of 03/04/21 after failing max settings of HFNC. (2) Pneumonia due to 2019 novel coronavirus: Plan: COVID 19 originally diagnosed 01/31/21. He was hospitalized from 01/31/2021 until 02/15/21. Initially treated with dexamethasone + Remdesivir during that admission. Readmitted 02/18/21; had been on HFNC since, with CPAP at night. Intubated/ventilated 02/27/21. Extubated 03/03/21. Reintubated AM of 03/04/21 tracheostomy performed 03/05/21 CRP this admission 11.4 - baricitinib started on 02/21/21 and received 8 doses then stopped following his intubation. Completed 10 days of dexamethasone 6mg IV daily - steroids remain off. likely has fibrotic changes of lungs that will not improve now on Meropenem empirically, fever better but no growth on cultures, finish 10 days Lasix 40mg IV daily (3) Hypotension: Plan: on Levophed likely from sedation arterial line replaced on 03/06/21 (4) Fever: Plan: improved fever curve with Meropenem follow up sputum culture - no growth no growth on blood or urine cultures either all lines changed out no obvious infection on imaging bronchoscopy on 03/11 with lavage and cultures follow up results (5) Respiratory acidosis: Plan: resolved (6) Hyponatremia: Plan: resolved (7) Hyperglycemia: Plan: insulin protocol (8) Morbid obesity with BMI of 40.0-44.9, adult: (9) DVT prophylaxis: Plan: resume Xarelto hold it prior to PEG on 03/14 (10) Type 2 diabetes mellitus: Admission and Anticipated Discharge Date Admission Date: February 18, 2021 Subjective had new arterial line placed this morning had bronchoscopy due to ongoing fever with no clear source, lavage done reviewed chart and labs Dr. Butt discussed poor prognosis with family, they said that the patient has never spoken about his [facility] wishes Review of Systems Review of Systems: Unobtainable due to cognitive status Physical Exam Physical Exam: General: well developed, obese, mechanically ventilated via trach Neck: tracheostomy present Lungs: clear to auscultation bilaterally, symmetric chest movement on ventilatory Heart: tachycardic S1 and S2, no murmur, peripheral pulses normal, capillary refill normal, no edema Abdomen: soft, NT, ND, + BS, no hepatomegaly, normal to percussion Extremities: normal in appearance, no cyanosis, no petechiae Neuro: sedated, no focal motor deficits, CN II-XII intact, sensation in extremities intact, normal speech Skin: warm, dry, no rash, normal turgor Psych: sedated Results & Data Results & Data ([facility]) Vital Signs (Past 12 Hours) Vital Signs Pulse Resp BP Pulse Ox 03/11/21 19:45 110 H 33 H 95 03/11/21 18:00 111 H 32 H 94 03/11/21 17:00 96 H 26 H 100/70 94 03/11/21 16:00 110 H 32 H 94 03/11/21 15:40 113 H 32 H 94 03/11/21 15:00 113 H 32 H 104/69 94 03/11/21 14:00 111 H 32 H 116/70 94 03/11/21 13:00 110 H 32 H 106/68 95 03/11/21 12:00 110 H 32 H 94 03/11/21 11:00 106 H 32 H 91 03/11/21 10:46 101 H 33 H 88 L Laboratory Results Laboratory Results - last 24 hr 03/11/21 03/11/21 03/11/21 03:44 06:23 06:23 WBC 17.91 H RBC 3.83 L Hgb 10.3 L POC Hgb 10.5 L Hct 34.2 L POC Hct 31 L MCV 89.3 MCH 26.9 MCHC 30.1 L RDW Std Deviation 54.2 H RDW Coeff of Eleazar 16.8 H Plt Count 169 MPV 10.8 H Immature Gran % (Auto) 2.1 Neut % (Auto) 72.7 Lymph % (Auto) 16.5 Oliver % (Auto) 6.8 Eos % (Auto) 1.5 Baso % (Auto) 0.4 Neut # (Auto) 13.02 H Lymph # (Auto) 2.96 Oliver # (Auto) 1.22 H Eos # (Auto) 0.27 Baso # (Auto) 0.07 Immature Gran # (Auto) 0.37 H PT INR APTT PTT Ratio Sample Site Art Line POC pH 7.43 POC pCO2 79 H POC pO2 113 H POC HCO3 53 H POC Total CO2 > 50 H* POC Base Excess 29.0 H ABG pH (Temp Correct) 7.428 ABG pCO2 (Temp Corrct 80 H POC ABG pO2 at Pt Temp 115 POC ABG O2 Sat 98.0 H Brodie Test NA O2 Delivery Device Ventilator POC O2 Rate 32 POC FiO2 90 Tidal Volume 400 PEEP 6 POC Sodium 133 L Sodium 138 POC Potassium 4.1 Potassium 4.2 Chloride 87 L Carbon Dioxide > 45 H* Anion Gap TNP BUN 9 Creatinine 0.34 L Est Cr Clr Drug Dosing 324.5 Est GFR ( Amer) > 150.0 Est GFR (Non-Af Amer) 142.0 BUN/Creatinine Ratio 26.5 H Glucose 128 H POC Glucose Calcium 8.4 L Phosphorus 2.2 L Magnesium 2.1 Total Bilirubin 1.0 Direct Bilirubin 0.5 H AST 37 ALT 178 H Alkaline Phosphatase 42 Total Protein 5.4 L Albumin 2.5 L Triglycerides 176 H Lipase 33 Fluid Neutrophils % Fluid Lymphocytes % Fluid Eosinophils % Fl Monocyt/Macrophag % Fluid Comment 03/11/21 03/11/21 03/11/21 06:23 12:09 13:00 WBC RBC Hgb POC Hgb Hct POC Hct MCV MCH MCHC RDW Std Deviation RDW Coeff of Eleazar Plt Count MPV Immature Gran % (Auto) Neut % (Auto) Lymph % (Auto) Oliver % (Auto) Eos % (Auto) Baso % (Auto) Neut # (Auto) Lymph # (Auto) Oliver # (Auto) Eos # (Auto) Baso # (Auto) Immature Gran # (Auto) PT 11.3 INR 1.1 APTT 28.0 PTT Ratio 1.1 Sample Site POC pH POC pCO2 POC pO2 POC HCO3 POC Total CO2 POC Base Excess ABG pH (Temp Correct) ABG pCO2 (Temp Corrct POC ABG pO2 at Pt Temp POC ABG O2 Sat Brodie Test O2 Delivery Device POC O2 Rate POC FiO2 Tidal Volume PEEP POC Sodium Sodium POC Potassium Potassium Chloride Carbon Dioxide Anion Gap BUN Creatinine Est Cr Clr Drug Dosing Est GFR ( Amer) Est GFR (Non-Af Amer) BUN/Creatinine Ratio Glucose POC Glucose 126 H Calcium Phosphorus Magnesium Total Bilirubin Direct Bilirubin AST ALT Alkaline Phosphatase Total Protein Albumin Triglycerides Lipase Fluid Neutrophils % 90 Fluid Lymphocytes % 1 Fluid Eosinophils % 2 Fl Monocyt/Macrophag % 7 Fluid Comment 03/11/21 18:00 WBC RBC Hgb POC Hgb Hct POC Hct MCV MCH MCHC RDW Std Deviation RDW Coeff of Eleazar Plt Count MPV Immature Gran % (Auto) Neut % (Auto) Lymph % (Auto) Oliver % (Auto) Eos % (Auto) Baso % (Auto) Neut # (Auto) Lymph # (Auto) Oliver # (Auto) Eos # (Auto) Baso # (Auto) Immature Gran # (Auto) PT INR APTT PTT Ratio Sample Site POC pH POC pCO2 POC pO2 POC HCO3 POC Total CO2 POC Base Excess ABG pH (Temp Correct) ABG pCO2 (Temp Corrct POC ABG pO2 at Pt Temp POC ABG O2 Sat Brodie Test O2 Delivery Device POC O2 Rate POC FiO2 Tidal Volume PEEP POC Sodium Sodium POC Potassium Potassium Chloride Carbon Dioxide Anion Gap BUN Creatinine Est Cr Clr Drug Dosing Est GFR ( Amer) Est GFR (Non-Af Amer) BUN/Creatinine Ratio Glucose POC Glucose 126 H Calcium Phosphorus Magnesium Total Bilirubin Direct Bilirubin AST ALT Alkaline Phosphatase Total Protein Albumin Triglycerides Lipase Fluid Neutrophils % Fluid Lymphocytes % Fluid Eosinophils % Fl Monocyt/Macrophag % Fluid Comment Medications Administered Current Inpatient Medications Acetaminophen (Acetaminophen Susp 325 Mg/10.15 Ml Udc) 650 mg NG Q4H PRN PRN Reason: Pain or Fever Stop: 04/02/21 04:41 Last Admin: 03/10/21 17:06 Dose: 650 mg Documented by: Citalopram Hydrobromide (Citalopram 20 Mg Tab) 20 mg PO DAILY [facility] Stop: 03/21/21 08:59 Last Admin: 03/11/21 08:03 Dose: 20 mg Documented by: Clonazepam (Clonazepam 1 Mg Tab) 1 mg PO BID CANDICE Stop: 04/09/21 08:59 Last Admin: 03/11/21 20:01 Dose: 1 mg Documented by: Dextrose (Dextrose 50% 50 Ml Syringe) 25 - 50 ml IV UD PRN; Protocol PRN Reason: Hypoglycemia Protocol Stop: 04/10/21 10:15 Enoxaparin Sodium (Enoxaparin Inj 40 Mg/0.4 Ml Syr) 40 mg SQ QAM [facility] Stop: 03/13/21 09:01 Last Admin: 03/11/21 08:03 Dose: 40 mg Documented by: Fentanyl Citrate (Fentanyl Bolus From Bag) 50 mcg IV Q60M PRN PRN Reason: Pain or Agitation Stop: 03/18/21 03:28 Last Admin: 03/11/21 20:11 Dose: 50 mcg Documented by: Furosemide (Furosemide 40 Mg/4 Ml Vial) 40 mg IV BID CANDICE Stop: 04/09/21 08:59 Last Admin: 03/11/21 20:00 Dose: 40 mg Documented by: Glucagon (Glucagon For Inj 1 Mg Vial) 1 mg SQ UD PRN; Protocol PRN Reason: Hypoglycemia Protocol Stop: 04/10/21 10:15 Glucose (Glucose 10 Tabs/Tube) 4 - 8 tabs PO UD PRN; Protocol PRN Reason: Hypoglycemia Protocol Stop: 04/10/21 10:15 Glucose (Glucose 40% Gel 15 Gm Tube) 15 - 30 gm PO UD PRN; Protocol PRN Reason: Hypoglycemia Protocol Stop: 04/10/21 10:15 Pantoprazole Sodium 40 mg/ (Syringe) 10 mls @ 5 mls/min IV DAILY@1100 [facility] Stop: 03/30/21 10:59 Last Admin: 03/11/21 11:01 Dose: 5 mls/min Documented by: Fentanyl Citrate (Fentanyl Citrate) 2,500 mcg in 250 mls @ 10 mls/hr IV .Q25H CANDICE; Protocol Stop: 03/18/21 03:29 Last Admin: 03/11/21 15:32 Dose: Not Given Documented by: Meropenem 500 mg/ Syringe 10 mls @ 2 mls/min IV Q6H [facility]; Protocol Stop: 03/14/21 15:59 Last Admin: 03/11/21 21:38 Dose: 2 mls/min Documented by: Norepinephrine Bitartrate (Levophed/D5w) 8 mg in 508 mls @ 13.453 mls/hr IV .Q24H C[facility]ICE; Protocol Stop: 04/04/21 21:14 Last Admin: 03/11/21 18:29 Dose: 0.03 mcg/kg/min, 13.5 mls/hr Documented by: Insulin Aspart (Insulin Aspart Per Unit) 0 units SC Q6 [facility] Stop: 04/10/21 11:59 Last Admin: 03/11/21 18:01 Dose: Not Given Documented by: Lactulose (Lactulose Syrup 20 Gm/30 Ml Udc) 20 gm PO QAM [facility] Stop: 04/01/21 10:59 Last Admin: 03/11/21 08:05 Dose: 20 gm Documented by: Miscellaneous (Carbohydrates For Hypoglycemia ) 15 - 30 gm PO UD PRN PRN Reason: Hypoglycemia Protocol Stop: 04/10/21 10:15 Miscellaneous Information (Meropenem Consult Active) 1 ea N/A UD PRN PRN Reason: Consult Stop: 04/03/21 15:20 Non-Formulary Medication (Whiskey 1 Dose) 1 dose PO QAM [facility] Stop: 04/08/21 11:59 Last Admin: 03/11/21 08:05 Dose: 1 dose Documented by: Nutritional Formula (Peptamen Intense Vhp 1.0 Casey 1,000 Ml Bag) 1,000 ml GT CONT PRN; Protocol PRN Reason: Tube Feeding Stop: 04/04/21 17:59 Last Admin: 03/07/21 14:14 Dose: 1,000 ml Documented by: Nutritional Formula (Peptamen Intense Vhp 1.0 Casey 1,000 Ml Bag) 1,000 ml GT CONT CANDICE; Protocol Stop: 04/10/21 10:42 Last Admin: 03/11/21 11:11 Dose: 1,000 ml Documented by: Oxandrolone (Oxandrolone 10 Mg Tablet) 10 mg PO DAILY [facility] Stop: 04/08/21 08:59 Last Admin: 03/11/21 08:02 Dose: 10 mg Documented by: Oxycodone HCl (Oxycodone Hcl Ir 5 Mg Tab (Immediate Release)) 10 mg PO Q6H [facility] Stop: 03/24/21 07:59 Last Admin: 03/11/21 20:01 Dose: 10 mg Documented by: Propofol (Propofol Bolus From Bag) 20 mg IV Q5M PRN PRN Reason: Sedation Stop: 03/13/21 06:19 Rivaroxaban (Rivaroxaban 10 Mg Tablet) 10 mg PO DAILY [facility] Stop: 04/05/21 08:59 Last Admin: 03/10/21 08:52 Dose: 10 mg Documented by: Sennosides (Sennosides 8.8 Mg/5 Ml Udc) 8.8 mg PO QAM [facility] Stop: 04/01/21 10:59 Last Admin: 03/11/21 08:05 Dose: 8.8 mg Documented by: Sterile Water (Tube Feeding Water Flush) 30 ml GT Q6H [facility] Stop: 04/10/21 16:44 Last Admin: 03/11/21 18:04 Dose: 30 ml Documented by: PG Care Time/CCT Total # of Minutes Spent Total Time Spent with Patient: Total time spent is greater than 50% in coordination of care (as documented) at patient's floor/unit and/or counseling patient: Coding Level of Care Code 78832 Subseq Hosp Care Lvl 2 Diagnoses Acute respiratory distress syndrome (ARDS) due to COVID-19 virus U07.1; J80 Pneumonia due to 2019 novel coronavirus U07.1; J12.82 Hypotension I95.9 Fever R50.9 Respiratory acidosis E87.2 Hyponatremia E87.1 Hyperglycemia R73.9 Morbid obesity with BMI of 40.0-44.9, adult E66.01; Z68.41 DVT prophylaxis Z29.9 Type 2 diabetes mellitus E11.9
[2021-03-12] MEDS: TUBE FEEDING WATER FLUSH GT SCH ×4 (00:04→18:59)
[2021-03-12] MEDS: INSULIN ASPART PER UNIT SC SCH ×4 (00:12→19:00)
[2021-03-12] MEDS: oxyCODONE HCL IR 5 MG TAB (IMMEDIATE RELEASE) PO SCH ×4 (02:26→20:00)
[2021-03-12] MEDS: MEROPENEM 500 MG in SYRINGE 0 ML IV SCH ×4 (03:25→21:23)
[2021-03-12] MEDS: fentaNYL citrate 2,500 MCG/250 ML BAG IV SCH (03:25)
[2021-03-12 06:35] LABS: Magnesium 2.1 mg/dl (1.7-2.4); Phosphorus 2.9 mg/dl (2.5-4.9)
--- NOTE | 2021-03-12 07:01 | Critical Care Progress Note ---
Date of Service March 12, 2021 Assessment & Plan (1) Acute respiratory distress syndrome (ARDS) due to COVID-19 virus: (2) Bacterial pneumonia: (3) Morbid obesity with BMI of 40.0-44.9, adult: (4) Hypotension: (5) Elevated troponin I level: Plan: Impression: 55-year-old unvaccinated male initially diagnosed 01/31/2021 and spent almost 2 weeks in the hospital on high flow oxygen. He received remdesivir and Decadron at that point time. He was dismissed from the hospital 02/15 but returned 02/18 with progressive hypoxemic respiratory failure. He was treated with high-dose dexamethasone as well as Levaquin and Zosyn. He failed noninvasive positive pressure ventilation and was intubated 02/27/2021. Trach 03/05/20 Recommendations: 1. Neurologic: Fentanyl 100mcg/h max dose DC to attempt weaning sedation, analgesia -Would consider adjunctive Depakote 125 every 6 hours p.o. however it interacts with meropenem and will hold at this time - Continue home dose of Celexa. Holding baclofen for now. 2. Cardiovascular: Continue norepinephrine with efforts to wean as tolerated. -QTC adequate 03/10 -Would consider beta-pavel for ICU cachexia if able to wean off vasopressors which are likely secondary to sedatives 3. Pulmonary: Severe ARDS with multifocal infiltrates consistent with viral pneumonia/late-phase ARDS. Patient has completed antibiotics, remdesivir, and several courses of steroids.CRP is low. Do not think additional steroids at this point time are going to offer him a clinical benefit unless his CRP should increase. He has remained supine. He was extubated 03/03 but required reintubation and underwent tracheostomy placement 03/05/2021. -Likely extremely poor prognosis from a pulmonary/pulmonary reserve standpoint --requiring 80% or greater FiO2. -Wean ventilator as tolerated 4. GI: Increase tube feeding. PEG tube placement recommended: definitive enteral access would be appropriate -Possible PEG tube placement on Sunday03/14/21 reviewed with GI -Bowel movement 03/10 5. ID: Day #9 meropenem. Continue meropenem for total of 10 days -Elevated LFTs improving -Lipase within normal limits -CT scans reviewed: Mastoiditis,Gross distention of the gallbladder with cholelithiasis. No CT evidence for acute cholecystitis. -Liver ultrasound:1. Hepatomegaly with diffuse fatty infiltration of the liver. 2. Cholelithiasis with no ultrasound evidence for acute cholecystitis. -Urine sputum and blood cultures remain no growth to date -Lines were all changed out 03/04. -Moved out of COVID isolation 03/11/21. 6. Renal: Lasix 40 mg twice daily. Continue ICU electrolyte replacement protocol. 7. Heme-onc: Prior history of DVT. Restarted Xarelto. Questionable gout, will follow for now. -Surveillance venous duplex no evidence DVT 03/04 -Oxandrolone 10 mg daily for ICU cachexia -Add subcu Lovenox for DVT prophylaxis while off rivaroxaban on Sunday and Sunday no DVT prophylaxis for Sunday prior to proposed PEG tube placement. 8. Endocrine: Glycemic control per ICU protocol. Dispo: ICU. Updated family regarding prognosis and long-term wishes. The patient has never had significant discussions regarding end-of-life care with family. Will discuss long-term wishes in light of poor prognosis. Admission and Anticipated Discharge Date Admission Date: February 18, 2021 Supervising Physician Co-Signing Physician Notes Dr. Sauceda was resident physician during care of patient. I separately evaluated patient for velez portions of the history and the exam. I was present during the critical portion of medical decision making, and I discussed the case with the resident. I generally agree with the findings and plan. Discontinue IV analgesia today, patient will be slowly weaned from enteral sedatives and analgesics. Continue to wean ventilator as tolerated. Patient requiring 80% or greater FiO2 I am extremely concerned about severe pulmonary disability and poor outcome. We will again discussed with family long-term wishes, I feel at this time the patient most likely would be bedridden and unable to participate in activities of daily living giving severe ventilatory requirements. If the patient's family feels that this would be incompatible with his long-term wishes I would be agreeable with transition to comfort care. Updated patient's contact, Father: Delmar, . Patient also has 3 adult children. Family: children and father and mother discussed events should the patient suffer a cardiac arrest, and all in agreement he would not want heroic efforts undertaken, so code status will be updated to DNR. Family would be interested in possible family meeting, at this point father would prefer to see the patient after PEG tube placement. Family hopeful patient would be able to be weaned from sedation, and arousable to the point he would be able to participate in medical decision making. Informed we are attempting to wean sedation albeit slowly as when the patient experiences agitation, without any pulmonary reserve he desaturates significantly. Family understands there may come a time which the decision to discontinue life-sustaining measures will necessitate being made. I have personally spent 85 minutes of critical care time in the direct management of this patient. This is a life/limb threatening event. This includes time spent evaluating patient, direct bedside care, chart review, placi ng orders, interpretation of diagnostic studies, discussion with consultants, patient, and/or family members regarding treatment decisions, as well as other required patient management activities. This time is exclusive of all separately billable procedures, and teaching time and separate from and in addition to any other critical care service time. Subjective No acute events overnight. Remains mechanically ventilated. Review of Systems Review of Systems: Unobtainable due to endotracheal tube Physical Exam Physical Exam: General:Mechanically ventilated via trach Neck: Tracheostomy in place Lungs: Clear to auscultation bilaterally, symmetric chest expansion Heart: Tachycardic, regular rhythm, no mgr Abdomen: Soft, ND, + BS Extremities: No swelling, no cyanosis Neuro: Sedated, difficult to assess Skin: warm, dry, no rash, normal turgor Results & Data Results & Data ([facility]) Vital Signs (Past 12 Hours) Vital Signs Temp Pulse Resp BP Pulse Ox 03/12/21 06:00 37.3 C 116 H 33 H 94 03/12/21 05:45 37.4 C 114 H 33 H 03/12/21 05:30 37.4 C 116 H 32 H 94 03/12/21 05:15 37.4 C 116 H 33 H 93 03/12/21 05:00 37.4 C 116 H 31 H 93 03/12/21 04:45 37.4 C 117 H 32 H 93 03/12/21 04:30 37.5 C 118 H 33 H 93 03/12/21 04:15 37.5 C 118 H 31 H 93 03/12/21 04:00 37.5 C 116 H 32 H 93 03/12/21 03:45 37.5 C 117 H 30 H 93 03/12/21 03:34 110 H 33 H 93 03/12/21 03:30 37.6 C H 117 H 32 H 93 03/12/21 03:15 37.6 C H 117 H 32 H 93 03/12/21 03:00 37.6 C H 115 H 34 H 92 03/12/21 02:45 37.7 C H 118 H 34 H 92 03/12/21 02:30 37.7 C H 113 H 32 H 92 03/12/21 02:15 37.7 C H 121 H 31 H 93 03/12/21 02:00 37.7 C H 117 H 31 H 92 03/12/21 01:45 37.7 C H 118 H 30 H 93 03/12/21 01:30 37.6 C H 117 H 34 H 93 03/12/21 01:15 37.6 C H 115 H 30 H 93 03/12/21 01:01 37.6 C H 116 H 30 H 119/60 94 03/12/21 01:00 37.6 C H 115 H 33 H 94 03/12/21 00:45 37.6 C H 116 H 33 H 94 03/12/21 00:30 37.5 C 114 H 34 H 94 03/12/21 00:15 37.5 C 115 H 32 H 94 03/12/21 00:00 37.5 C 117 H 32 H 109/71 94 03/11/21 23:45 37.5 C 113 H 32 H 94 03/11/21 23:34 115 H 33 H 94 03/11/21 23:30 37.5 C 107 H 32 H 94 03/11/21 23:15 37.5 C 109 H 33 H 94 03/11/21 23:06 116 H 03/11/21 23:00 37.5 C 113 H 32 H 94 03/11/21 22:45 37.5 C 112 H 32 H 94 03/11/21 22:30 37.6 C H 92 H 34 H 90 03/11/21 22:15 37.6 C H 114 H 32 H 92 03/11/21 22:00 37.6 C H 116 H 32 H 92 03/11/21 21:45 37.6 C H 110 H 33 H 90 03/11/21 21:30 37.6 C H 115 H 35 H 92 03/11/21 21:15 37.6 C H 116 H 32 H 93 03/11/21 21:00 37.6 C H 114 H 32 H 92 03/11/21 20:45 37.6 C H 113 H 32 H 93 03/11/21 20:30 37.6 C H 113 H 32 H 93 03/11/21 20:15 37.5 C 111 H 32 H 94 03/11/21 20:00 37.5 C 103 H 29 H 90 03/11/21 19:45 37.5 C 110 H 32 H 95 03/11/21 19:30 37.5 C 114 H 32 H 94 03/11/21 19:15 37.5 C 113 H 32 H 94 Critical Care Results & Data Vital Signs (Past 12 Hours) Vital Signs Temp Pulse Resp BP Pulse Ox 03/12/21 06:00 37.3 C 116 H 33 H 94 03/12/21 05:45 37.4 C 114 H 33 H 93 03/12/21 05:30 37.4 C 116 H 32 H 94 03/12/21 05:15 37.4 C 116 H 33 H 93 03/12/21 05:00 37.4 C 116 H 31 H 93 03/12/21 04:45 37.4 C 117 H 32 H 93 03/12/21 04:30 37.5 C 118 H 33 H 93 03/12/21 04:15 37.5 C 118 H 31 H 93 03/12/21 04:00 37.5 C 116 H 32 H 93 03/12/21 03:45 37.5 C 117 H 30 H 93 03/12/21 03:34 110 H 33 H 93 03/12/21 03:30 37.6 C H 117 H 32 H 93 03/12/21 03:15 37.6 C H 117 H 32 H 93 03/12/21 03:00 37.6 C H 115 H 34 H 92 03/12/21 02:45 37.7 C H 118 H 34 H 92 03/12/21 02:30 37.7 C H 113 H 32 H 92 03/12/21 02:15 37.7 C H 121 H 31 H 93 03/12/21 02:00 37.7 C H 117 H 31 H 92 03/12/21 01:45 37.7 C H 118 H 30 H 93 03/12/21 01:30 37.6 C H 117 H 34 H 93 03/12/21 01:15 37.6 C H 115 H 30 H 93 03/12/21 01:01 37.6 C H 116 H 30 H 119/60 94 03/12/21 01:00 37.6 C H 115 H 33 H 94 03/12/21 00:45 37.6 C H 116 H 33 H 94 03/12/21 00:30 37.5 C 114 H 34 H 94 03/12/21 00:15 37.5 C 115 H 32 H 94 03/12/21 00:00 37.5 C 117 H 32 H 109/71 94 03/11/21 23:45 37.5 C 113 H 32 H 94 03/11/21 23:34 115 H 33 H 94 03/11/21 23:30 37.5 C 107 H 32 H 94 03/11/21 23:15 37.5 C 109 H 33 H 94 03/11/21 23:06 116 H 03/11/21 23:00 37.5 C 113 H 32 H 94 03/11/21 22:45 37.5 C 112 H 32 H 94 03/11/21 22:30 37.6 C H 92 H 34 H 90 03/11/21 22:15 37.6 C H 114 H 32 H 92 03/11/21 22:00 37.6 C H 116 H 32 H 92 03/11/21 21:45 37.6 C H 110 H 33 H 90 03/11/21 21:30 37.6 C H 115 H 35 H 92 03/11/21 21:15 37.6 C H 116 H 32 H 93 03/11/21 21:00 37.6 C H 114 H 32 H 92 03/11/21 20:45 37.6 C H 113 H 32 H 93 03/11/21 20:30 37.6 C H 113 H 32 H 93 03/11/21 20:15 37.5 C 111 H 32 H 94 03/11/21 20:00 37.5 C 103 H 29 H 90 03/11/21 19:45 37.5 C 110 H 32 H 95 03/11/21 19:30 37.5 C 114 H 32 H 94 03/11/21 19:15 37.5 C 113 H 32 H 94 Lab & Micro Results (Past 24 Hours) No Data to Display Phosphorus Level 2.9 mg/dl (2.5-4.9) 03/12/21 Mg 2.1 mg/dl (1.7-2.4) 03/12/21 05:12 03/12/21 Microbiology 03/11/21 12:09 Fungal Smear - Final Bronch Wash,Right Middle Lobe 03/11/21 12:09 Gram Stain - Final Bronch Wash,Right Middle Lobe 03/10/21 09:17 Aerobic Blood Culture - Preliminary Blood No growth in Aerobic bottle after 24 hours. Anaerobic Blood Culture - Final 03/10/21 09:17 Aerobic Blood Culture - Preliminary Blood No growth in Aerobic bottle after 24 hours. Anaerobic Blood Culture - Preliminary No growth in Anaerobic bottle after 24 hours. Diagnostic Findings (Past 24 Hours) Chest X-Ray 03/11/21 06:00 XR chest 1V portable CLINICAL HISTORY: intubation. Follow-up bilateral alveolar opacities COMPARISON STUDY: 03/10/2021 TECHNIQUE: 1 view of the chest FINDINGS: Single frontal view of the chest demonstrates the cardiomediastinal silhouette to be within normal limits. Tubes and catheters are unchanged. Diffuse interstitial and alveolar opacities are again seen bilaterally and are also unchanged. There is haziness involving both lung bases characteristic of pleural fluid layering along the posterior gutters. There is no evidence for vascular congestion. There is no acute osseous pathology. IMPRESSION: Compared to previous examination, there is no significant interval change in bilateral interstitial and alveolar opacities. There is also suspicion of bilateral pleural effusions. ACT 112: Negative or not required by law. Electronically signed by: Eugene Rome M.D. 03/11/2021 7:58 AM I & O Totals 24 Hours 03/11/21 03/12/21 03/13/21 06:59 06:59 06:59 Intake Total 2728.607 / 2728.607 1598.235 / 1598.235 Output Total 2750 / 2750 5 / 5 Balance -21.393 / -21.393 -476.765 / -476.765 Cumulative 02/18/21 17:19 thru 03/12/21 06:57 Intake Total 51496.130 Output Total 62243 Balance -73037.870 RT Ventilator Mngmt (Last Documented) Ventilator Ordered Settings Ventilator Support Mode Assist Control 03/12/21 04:00 Respiratory Rate 33 03/12/21 06:00 Ventilator Tidal Volume 400 03/12/21 04:00 Setting Minute Ventilation 12.8 03/12/21 03:34 Ventilator Positive Pressure 12 03/03/21 08:15 Support Setting Positive End Expiratory 6 03/12/21 04:00 Pressure Fraction of Inspired Oxygen 85 03/12/21 04:00 Peak Inspiratory Flow 49 03/11/21 15:40 Machine Comment increased FiO2 at this time 03/10/21 17:50 Ventilator - PT Measurements Respiratory Rate 33 Exhaled Tidal Volume 400 Minute Ventilation 12.8 Peak Inspiratory Airway 32 Pressure Plateau Pressure 29 Respiratory Cycle Inspiratory: 1:2.2 Expiratory Ratio Inspiratory Phase Time 0.65 End-Tidal CO2 60 Static Lung Compliance 17.39 Dynamic Lung Compliance 15.38 Normal Static Lung Compliance 44.00 Patient Measurements Comment Etc02 in room not working Resident Activity Tracking Resident Involvement: Resident Care Provided Care Provided: Adult Hospital Medicine
--- NOTE | 2021-03-12 07:21 | XRay Report ---
SINGLE VIEW CHEST CLINICAL HISTORY: Respiratory failure. FINDINGS: An AP, portable, supine chest radiograph is compared to study dated 03/11/2021 and correlate d with chest CT dated 03/09/2021. The examination is degraded by portable technique and patient rotati on. A tracheostomy, a left internal jugular central venous catheter, and an enteric tube are unchange d in position. The cardiomediastinal silhouette is unremarkable. There is chronic elevation of the ri ght hemidiaphragm. Extensive/multifocal airspace consolidation is again seen throughout both lungs. T his is similar to yesterday. No large pleural effusion or pneumothorax is seen. The bony thorax is gr ossly intact. IMPRESSION: 1. Stable lines and tubes. 2. Extensive/diffuse multifocal airspace consolidation has not appreciably changed from yesterday. ACT 112: Negative or not required by law. Electronically signed by: Matthew Carmona M.D. 03/12/2021 7:20 AM
--- NOTE | 2021-03-12 08:04 | Hospitalist Progress Note ---
Date of Service March 12, 2021 Assessment & Plan (1) Acute respiratory distress syndrome (ARDS) due to COVID-19 virus: Plan: respiratory failure with hypoxia worsening not responsive to treatment Had been intubated 02/27/21 due to progressive respiratory failure despite max HFNC and CPAP. Extubated 03/03/20 to HFNC. Unfortunately the patient developed recurrent respiratory failure/distress in the setting of max HFNC settings. Patient re-intubated early in morning on 03/04/21 tracheostomy performed 03/05/21 by ICU remains tachycardic, febrile started on Meropenem empirically, no growth on blood or sputum cultures LD of Meropenem 03/14 bronchoscopy on 03/11 due to fevers, lavage sent for cultures Lasix 40mg IV bid to try for negative fluid balance tolerating but feeds, will eventually need a PEG, consult GI, plan for 03/14 he tends to desaturate with any lapse in sedation requiring higher FiO2 very poor prognosis at this time (2) Pneumonia due to 2019 novel coronavirus: Plan: COVID 19 originally diagnosed 01/31/21. He was hospitalized from 01/31/2021 until 02/15/21. Initially treated with dexamethasone + Remdesivir during that admission. Readmitted 02/18/21; had been on HFNC since, with CPAP at night. Intubated/ventilated 02/27/21. Extubated 03/03/21. Reintubated AM of 03/04/21 tracheostomy performed 03/05/21 CRP this admission 11.4 - baricitinib started on 02/21/21 and received 8 doses then stopped following his intubation. Completed 10 days of dexamethasone 6mg IV daily - steroids remain off. likely has fibrotic changes of lungs that will not improve now on Meropenem empirically, fever better but no growth on cultures, finish 10 days Lasix 40mg IV bid (3) Hypotension: Plan: on Levophed likely from sedation arterial line replaced on 03/06/21 (4) Fever: Plan: improved fever curve with Meropenem,still low grade follow up sputum culture - no growth no growth on blood or urine cultures either all lines changed out no obvious infection on imaging bronchoscopy on 03/11 with lavage and cultures including fungal follow up results (5) Respiratory acidosis: Plan: resolved (6) Hyponatremia: Plan: resolved (7) Hyperglycemia: Plan: insulin protocol (8) Morbid obesity with BMI of 40.0-44.9, adult: (9) DVT prophylaxis: Plan: Xarelto hold dose on 01/11 for two days skipped before procedure hold it prior to PEG on 03/14 (10) Type 2 diabetes mellitus: Plan: insulin therapy Admission and Anticipated Discharge Date Admission Date: February 18, 2021 Subjective Remains mechanically ventilated. Patient has abdominal thoracic asynchrony while being ventilated through his trachea Review of Systems Review of Systems: Unobtainable due to endotracheal tube Physical Exam Physical Exam: The patient appeared severe but supportive respiratory distress Vital signs as documented. Head exam is normocephalic atraumatic Neck is without JVD, tracheostomy in place Lungs are coarse bilaterally in all lung madrigal tachypnea Cardiac exam, Rhythm is regular.. No murmurs, rubs or gallops. Abdominal exam reveals normal bowel sounds, soft non tender, no masses Extremities are nonedematous and both pedal pulses are present Neurologic exam is sedated and ventilated Results & Data Results & Data ([facility]) Vital Signs (Past 12 Hours) Vital Signs Temp Pulse Resp BP Pulse Ox 03/12/21 06:00 99.1 F 116 H 33 H 94 03/12/21 05:45 99.3 F 114 H 33 H 93 03/12/21 05:30 99.3 F 116 H 32 H 94 03/12/21 05:15 99.3 F 116 H 33 H 93 03/12/21 05:00 99.3 F 116 H 31 H 93 03/12/21 04:45 99.3 F 117 H 32 H 93 03/12/21 04:30 99.5 F 118 H 33 H 93 03/12/21 04:15 99.5 F 118 H 31 H 93 03/12/21 04:00 99.5 F 116 H 32 H 93 03/12/21 03:45 99.5 F 117 H 30 H 93 03/12/21 03:34 110 H 33 H 93 03/12/21 03:30 99.7 F H 117 H 32 H 93 03/12/21 03:15 99.7 F H 117 H 32 H 93 03/12/21 03:00 99.7 F H 115 H 34 H 92 03/12/21 02:45 99.9 F H 118 H 34 H 92 03/12/21 02:30 99.9 F H 113 H 32 H 92 03/12/21 02:15 99.9 F H 121 H 31 H 93 03/12/21 02:00 99.9 F H 117 H 31 H 92 03/12/21 01:45 99.9 F H 118 H 30 H 93 03/12/21 01:30 99.7 F H 117 H 34 H 93 03/12/21 01:15 99.7 F H 115 H 30 H 93 03/12/21 01:01 99.7 F H 116 H 30 H 119/60 94 03/12/21 01:00 99.7 F H 115 H 33 H 94 03/12/21 00:45 99.7 F H 116 H 33 H 94 03/12/21 00:30 99.5 F 114 H 34 H 94 03/12/21 00:15 99.5 F 115 H 32 H 94 03/12/21 00:00 99.5 F 117 H 32 H 109/71 94 03/11/21 23:45 99.5 F 113 H 32 H 94 03/11/21 23:34 115 H 33 H 94 03/11/21 23:30 99.5 F 107 H 32 H 94 03/11/21 23:15 99.5 F 109 H 33 H 94 03/11/21 23:06 116 H 03/11/21 23:00 99.5 F 113 H 32 H 94 03/11/21 22:45 99.5 F 112 H 32 H 94 03/11/21 22:30 99.7 F H 92 H 34 H 90 03/11/21 22:15 99.7 F H 114 H 32 H 92 03/11/21 22:00 99.7 F H 116 H 32 H 92 03/11/21 21:45 99.7 F H 110 H 33 H 90 03/11/21 21:30 99.7 F H 115 H 35 H 92 03/11/21 21:15 99.7 F H 116 H 32 H 93 03/11/21 21:00 99.7 F H 114 H 32 H 92 03/11/21 20:45 99.7 F H 113 H 32 H 93 03/11/21 20:30 99.7 F H 113 H 32 H 93 03/11/21 20:15 99.5 F 111 H 32 H 94 03/11/21 20:00 99.5 F 103 H 29 H 90 PG Care Time/CCT Total # of Minutes Spent Total Time Spent with Patient: Total time spent is greater than 50% in coordination of care (as documented) at patient's floor/unit and/or counseling patient: Coding Level of Care Code 89487 Subseq Hosp Care Lvl 2 Diagnoses Acute respiratory distress syndrome (ARDS) due to COVID-19 virus U07.1; J80 Pneumonia due to 2019 novel coronavirus U07.1; J12.82 Hypotension I95.9 Fever R50.9 Respiratory acidosis E87.2 Hyponatremia E87.1 Hyperglycemia R73.9 Morbid obesity with BMI of 40.0-44.9, adult E66.01; Z68.41 DVT prophylaxis Z29.9 Type 2 diabetes mellitus E11.9
[2021-03-12] MEDS: clonazePAM 1 MG TAB PO SCH ×2 (08:16→20:01)
[2021-03-12] MEDS: OXANDROLONE 10 MG TABLET PO SCH (08:17)
[2021-03-12] MEDS: WHISKEY 1 DOSE PO SCH (08:17)
[2021-03-12] MEDS: ENOXAPARIN INJ 40 MG/0.4 ML SYR SQ SCH (08:18)
[2021-03-12] MEDS: LACTULOSE SYRUP 20 GM/30 ML UDC PO SCH (08:19)
[2021-03-12] MEDS: FUROSEMIDE 40 MG/4 ML VIAL IV SCH ×2 (08:21→20:17)
--- NOTE | 2021-03-12 08:22 | Billing Data ---
Date of Service March 12, 2021 Coding Level of Care Code Critical Care 1st - mins
[2021-03-12] MEDS: SENNOSIDES 8.8 MG/5 ML UDC PO SCH (09:32)
[2021-03-12] MEDS: CITALOPRAM 20 MG TAB PO SCH (09:32)
[2021-03-12] MEDS: PANTOprazole 40 MG in SYRINGE 0 ML IV SCH (10:16)
[2021-03-12] MEDS: PEPTAMEN INTENSE VHP 1.0 CAL 1,000 ML BAG GT SCH (10:16)
[2021-03-12] MEDS ORDERED: METOPROLOL TARTRATE 1 MG/ML VIAL IV STA (12:21)
[2021-03-12] MEDS: METOPROLOL TARTRATE 25 MG TAB PO SCH ×2 (12:57→20:01)
[2021-03-12] MEDS: ACETAMINOPHEN SUSP 325 MG/10.15 ML UDC NG PRN (15:19)
[2021-03-12] MEDS ORDERED: ACETAMINOPHEN 1,000 MG/100 ML VIAL IV STA (18:01)
[2021-03-12] MEDS ORDERED: PANTOPRAZOLE BOLUS/DRIP 1 EA IV STA (19:19)
[2021-03-12] MEDS ORDERED: fentaNYL citrate 100 MCG/2 ML VIAL IV ONE (19:23)
[2021-03-12] MEDS ORDERED: PANTOprazole 80 MG in DEXTROSE 5% 100 ML IV ONE (19:30)
[2021-03-12 19:49] LABS: iSTAT Art Bld Gas pCO2 Correct 106 mmHg (35-46); iSTAT Art Bld Gas pH Corrected 7.314 (7.35-7.45); iSTAT Arterial Blood Gas HCO3 55 meg/L (19-24); iSTAT Arterial Blood Gas pCO2 110 mmHg (35-46); iSTAT Arterial Blood Gas pO2 80 mmHg (80-95); iSTAT Arterial Blood Gas pO2 C 76; iSTAT Carbon Dioxide > 50 mmol/L (24-31); iSTAT FiO2 100 %; iSTAT Hematocrit 31 % (42-52); iSTAT Hemoglobin 10.5 g/dl (14.0-18.0); iSTAT Potassium 4.5 mmol/L (3.3-5.0); iSTAT Site Art Line; iSTAT Sodium 134 mmol/L (135-144)
[2021-03-12 19:54] LABS: Hematocrit (blood only) 33.5 % (42-52); Hemoglobin 9.9 g/dL (14.0-18.0)
[2021-03-12 20:03] LABS: INR 1.2 (0.9-1.1)
[2021-03-12] MEDS: PANTOprazole 40 MG in DEXTROSE 5% 100 ML IV SCH (20:11)
[2021-03-12 20:17] LABS: Alanine Aminotransferase 99 U/L (7-52); Albumin Level 2.8 gm/dl (3.4-5.0); Alkaline Phosphatase 36 U/L (34-104); Aspartate Aminotransferase 36 U/L (13-39); Bilirubin Direct 0.4 mg/dl (0-0.2); Bilirubin,Total 0.8 mg/dl (0.2-1.0); Blood Urea Nitrogen 30 mg/dl (6-23); Calcium 9.2 mg/dl (8.5-10.1); Carbon Dioxide > 45 mmol/L (21-32); Chloride 84 mmol/L (98-107); Creatinine Clr Calc Pharmacy 183.9 ml/min; Est GFR (African American) 130.3 ml/min; Est GFR (Non-African American) 112.4 ml/min; Glucose 177 mg/dl (70-99(Fasting)); Magnesium 2.4 mg/dl (1.7-2.4); Phosphorus 3.7 mg/dl (2.5-4.9); Potassium 4.5 mmol/L (3.5-5.1); Sodium 137 mmol/L (136-145); Total Protein 6.2 gm/dl (6.0-8.3)
[2021-03-13] MEDS: TUBE FEEDING WATER FLUSH GT SCH ×3 (00:15→12:14)
[2021-03-13] MEDS: INSULIN ASPART PER UNIT SC SCH ×3 (00:20→12:12)
[2021-03-13] MEDS: PEPTAMEN INTENSE VHP 1.0 CAL 1,000 ML BAG GT SCH (00:58)
[2021-03-13] MEDS: PANTOprazole 40 MG in DEXTROSE 5% 100 ML IV SCH ×4 (01:29→17:18)
[2021-03-13] MEDS: oxyCODONE HCL IR 5 MG TAB (IMMEDIATE RELEASE) PO SCH ×2 (02:19→09:31)
[2021-03-13] MEDS: ACETAMINOPHEN SUSP 325 MG/10.15 ML UDC NG PRN (02:20)
[2021-03-13] MEDS: MEROPENEM 500 MG in SYRINGE 0 ML IV SCH ×2 (04:22→09:32)
[2021-03-13 05:22] LABS: Base Excess ABG 22.9 mEq/L (-9-1.8); HCO3 ABG 52 mmol/L (19-24); Oxygen Saturation ABG 92.3 % (90-95); PCO2 ABG 93 mmHg (35-46); PO2 ABG 67 mmHg (80-95); pH ABG 7.37 (7.35-7.45)
[2021-03-13 05:32] LABS: Allen Test Pos (Pos)
[2021-03-13 06:15] LABS: BUN Creatinine Ratio 63.8 (10-20); Blood Urea Nitrogen 30 mg/dl (6-23); Calcium 8.8 mg/dl (8.5-10.1); Carbon Dioxide > 45 mmol/L (21-32); Chloride 84 mmol/L (98-107); Creatinine Clr Calc Pharmacy 231.3 ml/min; Est GFR (Non-African American) 124.3 ml/min; Glucose 175 mg/dl (70-99(Fasting)); Magnesium 2.4 mg/dl (1.7-2.4); Phosphorus 3.4 mg/dl (2.5-4.9); Potassium 4.3 mmol/L (3.5-5.1); Sodium 138 mmol/L (136-145)
[2021-03-13 07:26] LABS: Basophils # (auto) 0.02 K/uL (0-0.2); Basophils % (auto) 0.1 %; Eosinophils # (auto) 0.02 K/uL (0-0.5); Eosinophils % (auto) 0.1 %; Hematocrit (blood only) 31.8 % (42-52); Hemoglobin 9.3 g/dL (14.0-18.0); Immature Granulocytes # (auto) 0.25 K/uL (0.00-0.02); Immature Granulocytes % (auto) 1.8 %; Lymphocytes # (auto) 1.81 K/uL (1.2-3.4); Mean Corpuscular Hemoglobin 27.1 pg (25-34); Mean Corpuscular Hgb Conc 29.2 g/dL (32-36); Mean Corpuscular Volume 92.7 fL (80-100); Mean Platelet Volume 10.8 fL (7.4-10.4); Monocytes # (auto) 1.18 K/uL (0.11-0.59); Monocytes % (auto) 8.5 %; Neutrophils # (auto) 10.63 K/uL (1.4-6.5); Neutrophils % (auto) 76.5 %; Nucleated RBC % (auto) 0.7 %; Platelet Count 214 K/uL (130-400); RDW Standard Deviation 59.2 fL (36.4-46.3); Red Blood Count 3.43 M/uL (4.7-6.1); White Blood Count 13.91 K/uL (4.8-10.8)
[2021-03-13] MEDS: OXANDROLONE 10 MG TABLET PO SCH (09:26)
[2021-03-13] MEDS: FUROSEMIDE 40 MG/4 ML VIAL IV SCH (09:26)
[2021-03-13] MEDS: clonazePAM 1 MG TAB PO SCH (09:31)
[2021-03-13] MEDS: CITALOPRAM 20 MG TAB PO SCH (09:31)
[2021-03-13] MEDS: WHISKEY 1 DOSE PO SCH (09:32)
[2021-03-13] MEDS: LACTULOSE SYRUP 20 GM/30 ML UDC PO SCH (09:33)
[2021-03-13] MEDS: SENNOSIDES 8.8 MG/5 ML UDC PO SCH (09:33)
[2021-03-13] MEDS: METOPROLOL TARTRATE 25 MG TAB PO SCH (09:33)
--- NOTE | 2021-03-13 09:39 | XRay Report ---
XR chest 1V portable CLINICAL HISTORY: intubation TECHNIQUE: Single frontal radiograph of the chest was obtained. Comparison: Comparison is made to chest one view 03/12/2021 FINDINGS: Lines and tubes are stable. The cardiomediastinal silhouette is obscured. Lungs are again noted be un derinflated with multifocal airspace opacities. No evidence of pleural effusion or pneumothorax. IMPRESSION: Multifocal airspace opacities may represent atelectasis, pneumonia, and/or aspiration. This is essent ially unchanged from prior exam. ACT 112: Negative or not required by law. Electronically signed by: Carlos Lorenzo M.D. 03/13/2021 9:38 AM
[2021-03-13] MEDS ORDERED: PEPTAMEN INTENSE VHP 1.0 CAL 1,000 ML BAG GT SCH (10:30)
--- NOTE | 2021-03-13 10:57 | Critical Care Progress Note ---
Date of Service March 13, 2021 Assessment & Plan (1) Acute respiratory distress syndrome (ARDS) due to COVID-19 virus: (2) Bacterial pneumonia: (3) Morbid obesity with BMI of 40.0-44.9, adult: (4) Hypotension: (5) Elevated troponin I level: Plan: Impression: 55-year-old unvaccinated male initially diagnosed 01/31/2021 and spent almost 2 weeks in the hospital on high flow oxygen. He received remdesivir and Decadron at that point time. He was dismissed from the hospital 02/15 but returned 02/18 with progressive hypoxemic respiratory failure. He was treated with high-dose dexamethasone as well as Levaquin and Zosyn. He failed noninvasive positive pressure ventilation and was intubated 02/27/2021. Trach 03/05/20 Recommendations: 1. Neurologic: ICU encephalopathy Analgesia: Oxycodone 10 mg p.o. every 6 hours 03/10; every 8 hours 03/13 Sedation: Clonazepam 1 mg twice daily 03/10; 0.75 mg twice daily 03/13 -Would consider adjunctive Depakote 125 every 8 hours p.o. however it interacts with meropenem and will hold at this time - Continue home dose of Celexa. Holding baclofen for now. 2. Cardiovascular: Continue norepinephrine with efforts to wean as tolerated. -QTC adequate 03/10 Tachycardia -Metoprolol 25 mg twice daily 3. Pulmonary: Severe ARDS with multifocal infiltrates consistent with viral pneumonia/late-phase ARDS. Patient has completed antibiotics, remdesivir, and several courses of steroids.CRP is low. Do not think additional steroids at this point time are going to offer him a clinical benefit unless his CRP should increase. He was extubated 03/03 but required reintubation and underwent tracheostomy placement 03/05/2021. -Likely extremely poor prognosis from a pulmonary/pulmonary reserve standpoint --requiring 80% or greater FiO2. 4. GI: Tube feeding. PEG tube placement recommended: definitive enteral access would be appropriate -Possible PEG tube placement on Sunday03/14/21 reviewed with GI -Bowel movement 03/13 Bright red blood per rectum -H&H every 6 hours -On PPI 5. ID: Fever of unknown origin -Finished multiple courses of antibiotics, cultures remain negative White count continues to improve Day #10 meropenem. Continue meropenem for total of 10 days -Elevated LFTs improving -Lipase within normal limits -CT scans reviewed: Mastoiditis,Gross distention of the gallbladder with cholelithiasis. No CT evidence for acute cholecystitis. -Liver ultrasound:1. Hepatomegaly with diffuse fatty infiltration of the liver. 2. Cholelithiasis with no ultrasound evidence for acute cholecystitis. -Unable to obtain HIDA scan secondary to encephalopathy -Urine sputum and blood cultures remain no growth to date -Lines were all changed out 03/04. -Moved out of COVID isolation 03/11/21. Respiratory acidosis -Ventilator optimized unable to obtain much improvement in respiratory rate nor tidal volumes given plateaus and significantly compromised lungs 6. Renal: Lasix 40 mg twice daily. Continue ICU electrolyte replacement protocol. 7. Heme-onc: Prior history of DVT. Restarted Xarelto. Questionable gout, will follow for now. -Surveillance venous duplex no evidence DVT 03/04 -Oxandrolone 10 mg daily for ICU cachexia -Add subcu Lovenox for DVT prophylaxis while off rivaroxaban on Sunday and Sunday no DVT prophylaxis for Sunday prior to proposed PEG tube placement. 8. Endocrine: Glycemic control per ICU protocol. Dispo: ICU. Updated [place], . Will update family and attempt to have family come to see patient and discuss options. [phone] Admission and Anticipated Discharge Date Admission Date: February 18, 2021 Supervising Physician Co-Signing Physician Notes I have personally spent 55 minutes of critical care time in the direct management of this patient. This is a life/limb threatening event. This includes time spent evaluating patient, direct bedside care, chart review, placing orders, interpretation of diagnostic studies, discussion with consulta nts, patient, and/or family members regarding treatment decisions, as well as other required patient management activities. This time is exclusive of all separately billable procedures, and teaching time and separate from and in addition to any other critical care service time. Subjective Overnight patient had large bloody bowel movement and was started on PPI infusion Review of Systems Review of Systems: Unable to perform secondary to tracheostomy and sedation Physical Exam Physical Exam: General: Sedated. GCS 3, RASS -4 Skin: Warm, dry, Head: Atraumatic Ears, nose, mouth and throat: airway patent, tracheostomy tube in place Cardiovascular: Normal peripheral perfusion Respiratory: Ventilator settings reviewed, tachypnea Gastrointestinal: Non distended Musculoskeletal: No deformity Results & Data Results & Data ([facility]) Vital Signs (Past 12 Hours) Vital Signs Temp Pulse Resp BP Pulse Ox 03/13/21 08:00 114 H 03/13/21 07:36 110 H 35 H 95 03/13/21 05:00 38.0 C H 117 H 37 H 117/72 92 03/13/21 04:00 38.8 C H 124 H 36 H 120/73 95 03/13/21 03:00 126 H 37 H 114/71 92 03/13/21 02:16 129 H 38 H 92 03/13/21 02:00 127 H 37 H 106/67 91 03/13/21 01:00 39.8 C H 130 H 39 H 115/61 91 03/13/21 00:00 40 C H 130 H 37 H 108/64 91 03/12/21 23:00 129 H 35 H 101/69 91 03/12/21 22:54 37.2 C Critical Care Results & Data Vital Signs (Past 12 Hours) Vital Signs Temp Pulse Resp BP Pulse Ox 03/13/21 08:00 114 H 03/13/21 07:36 110 H 35 H 95 03/13/21 05:00 38.0 C H 117 H 37 H 117/72 92 03/13/21 04:00 38.8 C H 124 H 36 H 120/73 95 03/13/21 03:00 126 H 37 H 114/71 92 03/13/21 02:16 129 H 38 H 92 03/13/21 02:00 127 H 37 H 106/67 91 03/13/21 01:00 39.8 C H 130 H 39 H 115/61 91 03/13/21 00:00 40 C H 130 H 37 H 108/64 91 03/12/21 23:00 129 H 35 H 101/69 91 03/12/21 22:54 37.2 C Lab & Micro Results (Past 24 Hours) RBC 3.43 M/uL (4.7-6.1) L 03/13/21 WBC 13.91 K/uL (4.8-10.8) H 03/13/21 Hgb 9.3 g/dL (14.0-18.0) L 03/13/21 Hct 31.8 % (42-52) L 03/13/21 MCV 92.7 fL (80-100) 03/13/21 MCH 27.1 pg (25-34) 03/13/21 MCHC 29.2 g/dL (32-36) L 03/13/21 RDW Standard Deviation 59.2 fL (36.4-46.3) H 03/13/21 RDW Coefficient of Variation 18.0 % (11.5-14.5) H 03/13/21 Plt Count 214 K/uL (130-400) 03/13/21 MPV 10.8 fL (7.4-10.4) H 03/13/21 Nucleated Red Blood Cells % (auto) 0.7 % 03/13/21 Nucleated RBC Absolute Count (auto) 0.10 K/uL (0-0) H 03/13/21 Neutrophils (%) (Auto) 76.5 % 03/13/21 Lymphocytes (%) (Auto) 13.0 % 03/13/21 Monocytes # (Auto) 1.18 K/uL (0.11-0.59) H 03/13/21 Eosinophils # (Auto) 0.02 K/uL (0-0.5) 03/13/21 Immature Granulocyte % (Auto) 1.8 % 03/13/21 Neutrophils # (Auto) 10.63 K/uL (1.4-6.5) H 03/13/21 Lymphocytes # (Auto) 1.81 K/uL (1.2-3.4) 03/13/21 Monocytes # (Auto) 1.18 K/uL (0.11-0.59) H 03/13/21 Eosinophils # (Auto) 0.02 K/uL (0-0.5) 03/13/21 Basophils # (Auto) 0.02 K/uL (0-0.2) 03/13/21 Immature Granulocyte # (Auto) 0.25 K/uL (0.00-0.02) H 03/13/21 Na 138 mmol/L (136-145) 03/13/21 K 4.3 mmol/L (3.5-5.1) 03/13/21 Cl 84 mmol/L (98-107) L 03/13/21 CO2 > 45 mmol/L (21-32) H* 03/13/21 Anion Gap TNP 03/13/21 BUN 30 mg/dl (6-23) H 03/13/21 Creatinine 0.47 mg/dl (0.6-1.4) L 03/13/21 Estimated GFR ( Amer) 144.0 ml/min 03/13/21 Estimated GFR (Non-Af Amer) 124.3 ml/min 03/13/21 BUN/Creatinine Ratio 63.8 (10-20) H 03/13/21 Glu 175 mg/dl (70-99(Fasting)) H 03/13/21 Ca 8.8 mg/dl (8.5-10.1) 03/13/21 Phosphorus Level 3.4 mg/dl (2.5-4.9) 03/13/21 Total Bilirubin 0.8 mg/dl (0.2-1.0) 03/12/21 Direct Bilirubin 0.4 mg/dl (0-0.2) H 03/12/21 AST 36 U/L (13-39) 03/12/21 ALT 99 U/L (7-52) H 03/12/21 Alkaline Phosphatase 36 U/L (34-104) 03/12/21 TP 6.2 gm/dl (6.0-8.3) 03/12/21 Albumin 2.8 gm/dl (3.4-5.0) L 03/12/21 Mg 2.4 mg/dl (1.7-2.4) 03/13/21 05:04 03/13/21 Calcium Level 8.8 mg/dl (8.5-10.1) 03/13/21 05:04 03/13/21 Prothromb Time International Ratio 1.2 (0.9-1.1) H 03/12/21 19:40 03/12/21 Blood Gas Barometric Pressure 730.4 mm/Hg 03/13/21 05:09 03/13/21 Arterial Blood pH 7.37 (7.35-7.45) 03/13/21 05:09 03/13/21 Arterial Blood Partial Pressure CO2 93 mmHg (35-46) H 03/13/21 05:09 02/20 05/10 Arterial Blood Partial Pressure O2 67 mmHg (80-95) L 03/13/21 05:09 03/13/21 Arterial Blood HCO3 52 mmol/L (19-24) H 03/13/21 05:09 03/13/21 Arterial Blood Base Excess 22.9 mEq/L (-9-1.8) H 03/13/21 05:09 03/13/21 Arterial Blood Oxygen Saturation 92.3 % (90-95) 03/13/21 05:09 03/13/21 Blood Gas Oxygen Given 100 03/13/21 05:09 03/13/21 Brodie Test Pos (Pos) 03/13/21 05:09 03/13/21 Blood Gas Barometric Pressure 730.4 mm/Hg 03/13/21 05:09 03/13/21 Microbiology 03/11/21 12:09 Acid Fast Bacilli Smear - Final Bronch Wash,Right Middle Lobe 03/11/21 12:09 Gram Stain - Final Bronch Wash,Right Middle Lobe Bronchial Culture - Final Light normal radha. 03/07/21 19:50 Aerobic Blood Culture - Final Blood No growth in Aerobic bottle after 5 days. Anaerobic Blood Culture - Final No growth in Anaerobic bottle after 5 days. 03/07/21 20:05 Aerobic Blood Culture - Final Blood No growth in Aerobic bottle after 5 days. Anaerobic Blood Culture - Final No growth in Anaerobic bottle after 5 days. 03/10/21 09:17 Aerobic Blood Culture - Preliminary Blood No growth in Aerobic bottle after 48 hours. Anaerobic Blood Culture - Preliminary No growth in Anaerobic bottle after 48 hours. 03/10/21 09:17 Aerobic Blood Culture - Preliminary Blood No growth in Aerobic bottle after 48 hours. Anaerobic Blood Culture - Final Diagnostic Findings (Past 24 Hours) Chest X-Ray 03/13/21 06:00 XR chest 1V portable CLINICAL HISTORY: intubation TECHNIQUE: Single frontal radiograph of the chest was obtained. Comparison: Comparison is made to chest one view 03/12/2021 FINDINGS: Lines and tubes are stable. The cardiomediastinal silhouette is obscured. Lungs are again noted be underinflated with multifocal airspace opacities. No evidence of pleural effusion or pneumothorax. IMPRESSION: Multifocal airspace opacities may represent atelectasis, pneumonia, and/or aspiration. This is essentially unchanged from prior exam. ACT 112: Negative or not required by law. Electronically signed by: Carlos Lorenzo M.D. 03/13/2021 9:38 AM I & O Totals 24 Hours 01/22/22 01/23/22 01/24/22 06:59 06:59 06:59 Intake Total 1598.235 / 9825.612 8447 310 / 310 Output Total 2075 / 2075 2178 / 2178 425 / 425 Balance -476.765 / -476.765 -178.75 / -178.75 -115 / -115 Cumulative 02/18/21 17:19 thru 03/13/21 10:00 Intake Total 17126.380 Output Total 96700 Balance -84133.620 RT Ventilator Mngmt (Last Documented) Ventilator Ordered Settings Ventilator Support Mode Assist Control 03/13/21 08:00 Respiratory Rate 35 03/13/21 07:36 Ventilator Tidal Volume 400 03/13/21 08:00 Setting Minute Ventilation 14 03/13/21 07:36 Ventilator Positive Pressure 12 03/03/21 08:15 Support Setting Positive End Expiratory 6 03/13/21 08:00 Pressure Fraction of Inspired Oxygen 95 03/13/21 08:00 Peak Inspiratory Flow 38 03/13/21 07:36 Machine Comment RN increased fio2 post rolling. 03/13/21 02:16 Ventilator - PT Measurements Respiratory Rate 35 Exhaled Tidal Volume 400 Minute Ventilation 14 Peak Inspiratory Airway 36 Pressure Plateau Pressure 32.5 Respiratory Cycle Inspiratory: 1:1.2 Expiratory Ratio Inspiratory Phase Time 0.85 End-Tidal CO2 60 Static Lung Compliance 15.09 Dynamic Lung Compliance 13.33 Normal Static Lung Compliance 43.00 Patient Measurements Comment C02 not working on monitor Coding Level of Care Code Critical Care 1st 30-74 mins Diagnoses Acute respiratory distress syndrome (ARDS) due to COVID-19 virus U07.1; J80 Bacterial pneumonia J15.9 Morbid obesity with BMI of 40.0-44.9, adult E66.01; Z68.41 Hypotension I95.9 Elevated troponin I level R77.8
[2021-03-13] MEDS ORDERED: GADOBUTROL 65ML VIAL IV ONE (11:39)
[2021-03-13 11:52] LABS: Hematocrit (blood only) 31.9 % (42-52); Hemoglobin 9.3 g/dL (14.0-18.0)
--- NOTE | 2021-03-13 12:13 | Magnetic Resonance Report ---
MR brain wo/w con CLINICAL HISTORY: unresponsive, eval ??cva TECHNIQUE: Multiplanar and multisequence MR images of the brain were obtained prior to and following administration of gadolinium contrast. Comparison: None available at the time of this dictation. FINDINGS: No abnormal restricted diffusion is identified. Encephalomalacia is seen in the left frontal lobe. Th e ventricular system is normal in appearance. There is no evidence of acute intraparenchymal hemorrha ge. No extra axial fluid collections are seen. There are no masses, mass effect, or midline shift. No abnormal enhancement is seen. The corpus callosum, pituitary gland, and cerebellar tonsils appear g rossly unremarkable. Flow voids of the major intracranial arterial vessels are identified. The imaged portions of the para nasal sinuses, mastoid air cells, and orbits are unremarkable. IMPRESSION: No acute abnormalities and in particular no evidence of acute infarct. 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 ACT 112: Negative or not required by law. Electronically signed by: Carlos Lorenzo M.D. 03/13/2021 12:11 PM
[2021-03-13] MEDS ORDERED: GLYCOPYRROLATE 0.2 MG/ML VIAL IV PRN (15:55)
[2021-03-13] MEDS ORDERED: ONDANSETRON INJ 2 MG/ML 2 ML VIAL IV PRN (15:55)
[2021-03-13] MEDS ORDERED: STAT IV Infusion **Titration per Protocol STA (15:55)
[2021-03-13] MEDS ORDERED: LORazepam 0.5 MG/1 ML VIAL IV PRN (15:55)
[2021-03-13] MEDS ORDERED: ONDANSETRON 4 MG OD TAB SL PRN (15:55)
[2021-03-13] MEDS ORDERED: LORazepam 0.5 MG TAB PO PRN (15:55)
[2021-03-13] MEDS ORDERED: MoRPHine SULF/NSS 250 MG/250 ML BTL IV SCH (16:00)
[2021-03-13] MEDS ORDERED: oxyCODONE HCL IR 5 MG TAB (IMMEDIATE RELEASE) PO SCH (16:00)
--- NOTE | 2021-03-13 16:53 | Hospitalist Progress Note ---
Date of Service March 13, 2021 Assessment & Plan (1) Acute respiratory distress syndrome (ARDS) due to COVID-19 virus: Plan: respiratory failure with hypoxia worsening not able to wean Fio2 Had been intubated 02/27/21 due to progressive respiratory failure despite max HFNC and CPAP. Extubated 03/03/20 to HFNC. Unfortunately the patient developed recurrent respiratory failure/distress in the setting of max HFNC settings. Patient re-intubated early in morning on 03/04/21 tracheostomy performed 03/05/21 by ICU remains tachycardic, febrile bronchoscopy on 03/11 due to fevers, lavage sent for cultures started on Meropenem empirically, no growth on blood or sputum cultures Meropenen stopped due to decision to progress to comfort measures only Lasix 40mg IV bid to try for negative fluid balance tolerating but feeds, discussion of PEG, consult GI, plan was for 03/14, with Dr Butt transitioning to comfort measures will not pursue is expected but with pre morbid condition will believe may take a few days (2) Pneumonia due to 2019 novel coronavirus: Plan: COVID 19 originally diagnosed 01/31/21. He was hospitalized from 01/31/2021 until 02/15/21. Initially treated with dexamethasone + Remdesivir during that admission. Readmitted 02/18/21; had been on HFNC since, with CPAP at night. Intubated/ventilated 02/27/21. Extubated 03/03/21. Reintubated AM of 03/04/21 tracheostomy performed 03/05/21 CRP this admission 11.4 - baricitinib started on 02/21/21 and received 8 doses then stopped following his intubation. Completed 10 days of dexamethasone 6mg IV daily - steroids remain off. likely has fibrotic changes of lungs that will not improve (3) Fever: Plan: ,still low grade follow up sputum culture - no growth no growth on blood or urine cultures either all lines changed out no obvious infection on imaging bronchoscopy on 03/11 with lavage and cultures (4) Respiratory acidosis: Plan: resolved (5) Hyponatremia: Plan: resolved (6) Hyperglycemia: Plan: insulin protocol (7) Morbid obesity with BMI of 40.0-44.9, adult: (8) DVT prophylaxis: Plan: Xarelto hold dose on 01/11 for two days skipped before procedure continues to be on hold (9) Type 2 diabetes mellitus: Admission and Anticipated Discharge Date Admission Date: February 18, 2021 Subjective Patient is not becoming alert despite stopping the medications. MRI scan of the brain did not show any acute stroke or other intercranial issues except for previous encephalomalacia. Patient had a bloody bowel movement this morning and was started on a Protonix drip no significant decrement in hemoglobin level continues with low-grade fevers and poor prognosis given inability to wean high FiO2 Review of Systems Review of Systems: Unobtainable due to cognitive status Physical Exam Physical Exam: The patient appeared severe but supportive respiratory distress Vital signs as documented. Head exam is normocephalic atraumatic Neck is without JVD, tracheostomy in place Lungs are coarse bilaterally in all lung madrigal tachypnea Cardiac exam, Rhythm is regular.. No murmurs, rubs or gallops. Abdominal exam reveals normal bowel sounds, soft non tender, no masses Extremities are nonedematous and both pedal pulses are present Neurologic exam is sedated and ventilated Results & Data Results & Data ([facility]) Vital Signs (Past 12 Hours) Vital Signs Temp Pulse Resp BP Pulse Ox 03/13/21 12:00 99.9 F H 110 H 22 95 03/13/21 11:36 112 H 35 H 93 03/13/21 10:00 99.0 F 112 H 35 H 95 03/13/21 09:00 115 H 35 H 95 03/13/21 08:00 98.2 F 112 H 34 H 96 03/13/21 07:36 110 H 35 H 95 03/13/21 07:00 98.1 F 103 H 34 H 93 03/13/21 06:00 111 H 29 H 94 03/13/21 05:00 100.4 F H 117 H 37 H 117/72 92 PG Care Time/CCT Total # of Minutes Spent Total Time Spent with Patient: Total time spent is greater than 50% in coordination of care (as documented) at patient's floor/unit and/or counseling patient: Coding Level of Care Code 94871 Subseq Hosp Care Lvl 2 Diagnoses Acute respiratory distress syndrome (ARDS) due to COVID-19 virus U07.1; J80 Pneumonia due to 2019 novel coronavirus U07.1; J12.82 Fever R50.9 Respiratory acidosis E87.2 Hyponatremia E87.1 Hyperglycemia R73.9 Morbid obesity with BMI of 40.0-44.9, adult E66.01; Z68.41 DVT prophylaxis Z29.9 Type 2 diabetes mellitus E11.9
--- NOTE | 2021-03-13 17:03 | Death Pronouncement Note ---
Date of Service March 13, 2021 Pronouncement Note Admission Date Admission Date: February 18, 2021 Date and Time of Date of : 03/13/21 Time of : 16:58 PCOD Preliminary cause of : Respiratory failure with hypoxia Contributing Factors (1) Acute respiratory distress syndrome (ARDS) due to COVID-19 virus: (2) Pneumonia due to 2019 novel coronavirus: (3) Respiratory acidosis: (4) Morbid obesity with BMI of 40.0-44.9, adult: (5) Type 2 diabetes mellitus: Hospital Course Hospital Course: Patient was admitted on February 18, 2021 for increased work of breathing and hypoxia. He was diagnosed with COVID-19 pneumonia. He had worsening respiratory distress required noninvasive mechanical ventilation and was intubated on February 27, 2021. He was subsequently extubated on March 03, 2021 to high flow nasal cannula. Patient decompensated and suffered recurrent respiratory failure and was intubated on March 04, 2021. Tracheostomy was performed on March 05, 2021. During that time multiple attempts were undertaken to wean the patient of FiO2 and he is likely progressed into the fibrotic stage of acute respiratory distress syndrome not being able to wean below supplemental oxygen level of 80%. Patient progressed through multiple courses of antibiotics and remained febrile despite multiple negative cultures and evaluations. Discussions were held with family regarding prognosis and likelihood of severe pulmonary disability and the decision was made to transition to comfort measures and discontinue life-sustaining therapies. Patient peacefully with family present at the bedside. Additional Data Confirmation of : no pulse, no respirations, no heart sounds and pupils fixed and dilated Family: at bedside Attending/PCP notified?: Yes Attending physician: Jose Scruggs MD Coding Level of Care Code None Diagnoses Acute respiratory distress syndrome (ARDS) due to COVID-19 virus U07.1; J80 Pneumonia due to 2019 novel coronavirus U07.1; J12.82 Respiratory acidosis E87.2 Morbid obesity with BMI of 40.0-44.9, adult E66.01; Z68.41 Type 2 diabetes mellitus E11.9
--- NOTE | 2021-03-13 17:28 | Discharge Summary ---
Date of Service March 13, 2021 Admission HPI Per Admitting Provider 55 YOM with past medical history of: Morbid obesity, HTN, HLD, COVID 19, CVA with foot drop. Patient comes to the EMD today for increase in dyspnea, fevers, and needing to increase his home oxygen to 5L for SPO2 90. Patient was diagnosed and admitted for COVID 01/31, where he was treated with Remdisivir and Decadron 6mg IV- his CRP was never elevated so he did not qualify for other immune modulators at that time. His WBC remained elevated through the admission but with a PCT that was negative and antibiotic therapy was deferred. He had a CTA of the chest performed on 01/31 that was negative for pulmonary embolism. He was never intubated byt was on HFNC for 11 days and was able to wean down to 3-4 liters. He was on DVT prophy at that time and was discharged home on Xarelto for VTE prophy, which he feels he may have not taken. Today the patient states that he has been having an increase in fevers, although not measured at home, increase in dyspnea and having to hyperventilate to catch his breath, and cough. He has had no further hemoptysis at home, and occasional sputum which he does not know what color it was. He is also complaining of left knee pain that he describes as feeling like gout and he denies falls. He had CXR shows significant worsening with bilateral opacities more so on the right with air bronchograms. He had blood cultures performed and is unable to provide sputum culture. He will be started on broad spectrum antibiotics for possible HCAP, CTA of the chest to rule out PE as well as evaluate opacities, Trend Troponin I, ECHO, PF ratio on admission is 100. Patient will be admitted to PCU COVID. Principal Diagnosis acute hypoxic respiratory failure secondary to covid pneumonia Discharge Exam Patient was pronounced by Dr. Crane at 1658 hrs. on 03/13/2021 Discharge Data Allergies Allergy/AdvReac Type Severity Reaction Status Date / Time Penicillins Allergy Intermediate Hives Verified 02/18/21 17:53 Consultations 02/18/21 19:18 ED Decision to Admit Stat 02/27/21 12:01 Consult Pulmonology Routine 03/08/21 15:12 Consult Gastroenterology Routine Procedures Performed Operation Date: 03/14/21 16:00 <No data on this case meets the specified criteria> Ordered Studies 02/18/21 20:00 CT angio chest PE protocol Stat 02/27/21 17:18 US point of care ultrasound Urgent 03/04/21 14:38 US venous doppler LE BI Routine 03/09/21 10:21 CT abd pelvis IV con only Routine CT head/brain wo con Routine 03/09/21 10:45 CT chest diagnostic w con Routine 03/09/21 12:25 US liver Routine 03/09/21 15:06 CT facial bones w con Routine 03/13/21 09:10 MR brain wo/w con Urgent Hospital Course (1) : Patient quickly after progressing to comfort care measures in the presence of his family. He was pronounced at 1658 hrs. on 03/13/[address] Stuart Crane. Cause of is acute Evoxac respiratory failure secondary to COVID-pneumonia. There are lower documentation is record of events from his previous hospital stay (2) Acute respiratory distress syndrome (ARDS) due to COVID-19 virus: respiratory failure with hypoxia worsening not able to wean Fio2 Had been intubated 02/27/21 due to progressive respiratory failure despite max HFNC and CPAP. Extubated 03/03/20 to HFNC. Unfortunately the patient developed recurrent respiratory failure/distress in the setting of max HFNC settings. Patient re-intubated early in morning on 03/04/21 tracheostomy performed 03/05/21 by ICU remains tachycardic, febrile bronchoscopy on 03/11 due to fevers, lavage sent for cultures started on Meropenem empirically, no growth on blood or sputum cultures Meropenen stopped due to decision to progress to comfort measures only Lasix 40mg IV bid to try for negative fluid balance tolerating but feeds, discussion of PEG, consult GI, plan was for 03/14, with Dr Butt transitioning to comfort measures will not pursue is expected but with pre morbid condition will believe may take a few days (3) Pneumonia due to 2019 novel coronavirus: COVID 19 originally diagnosed 01/31/21. He was hospitalized from 01/31/2021 until 02/15/21. Initially treated with dexamethasone + Remdesivir during that admission. Readmitted 02/18/21; had been on HFNC since, with CPAP at night. Intubated/ventilated 02/27/21. Extubated 03/03/21. Reintubated AM of 03/04/21 tracheostomy performed 03/05/21 CRP this admission 11.4 - baricitinib started on 02/21/21 and received 8 doses then stopped following his intubation. Completed 10 days of dexamethasone 6mg IV daily - steroids remain off. likely has fibrotic changes of lungs that will not improve (4) Fever: ,still low grade follow up sputum culture - no growth no growth on blood or urine cultures either all lines changed out no obvious infection on imaging bronchoscopy on 03/11 with lavage and cultures (5) Respiratory acidosis: resolved (6) Hyponatremia: resolved (7) Hyperglycemia: insulin protocol (8) Morbid obesity with BMI of 40.0-44.9, adult: (9) DVT prophylaxis: Xarelto hold dose on 01/11 for two days skipped before procedure continues to be on hold (10) Type 2 diabetes mellitus: Total Time Total Time Spent Total Time Spent (In Minutes): It required greater than 30 minutes to prepare this patient for discharge Discharge Plan Discharge Items Patient Disposition: Discharge Diagnosis: acute hypoxic respiratory failure secondary to covid pneumonia Other Date/Time: 03/13/21 16:58 Coding Level of Care Code None Diagnoses Acute respiratory distress syndrome (ARDS) due to COVID-19 virus U07.1; J80 Pneumonia due to 2019 novel coronavirus U07.1; J12.82 Fever R50.9 Respiratory acidosis E87.2 Hyponatremia E87.1 Hyperglycemia R73.9 Morbid obesity with BMI of 40.0-44.9, adult E66.01; Z68.41 DVT prophylaxis Z29.9 Type 2 diabetes mellitus E11.9 R99
[2021-03-13] MEDS ORDERED: clonazePAM 0.25 MG TAB PO SCH (21:00)
== END 2021-03-13 18:36 | disposition expired | DRG 4 ==
LOC: ED 17:31 → EDINP 20:14 → SUATTDRO 20:14 → 2S 23:39 → 2E 02-27 17:35 → 1E 03-11 11:45